=== PATIENT | female | born 1955 | race Caucasian/White ===

== ENCOUNTER 2019-12-17 08:15 | Emergency (ER) | payer MEDICAID, SELFPAY ==
--- NOTE | 2019-12-17 | XR_ITS ---
EXAMINATION: XR SHOULDER, BILATERAL. XR HUMERUS, RIGHT. CLINICAL INFORMATION: Fall COMPARISON: 02/22/2019 chest radiograph TECHNIQUE: 2 views of each shoulder. AP and lateral views of the right humerus. FINDINGS: Right shoulder and humerus. Normal glenohumeral alignment. Moderate hypertrophic acromioclavicular osteoarthritis. Mild glenohumeral osteoarthritis with small osteophyte at the inferior glenoid. Subacromial spur. There is no acute fracture of the right shoulder or humerus. Left shoulder: No acute fracture or dislocation. Moderate hypertrophic acromioclavicular osteoarthritis and mild glenohumeral osteoarthritis. IMPRESSION: No acute fracture or dislocation of either shoulder or right humerus. Acromioclavicular and glenohumeral osteoarthritis as described.
--- NOTE | 2019-12-17 | CT_ITS ---
EXAMINATION: CT HEAD WITHOUT CONTRAST CLINICAL INFORMATION: Fall, trauma, pain COMPARISON: None TECHNIQUE: Contiguous axial imaging was performed from the skull base to vertex without intravenous administration of contrast. This CT examination was performed using dose optimization techniques as appropriate, variously including the following: *Automated exposure control *Adjustment of mA and/or kV according to patient size (this includes techniques or standardized protocols for targeted exams where dose is matched to indication/reason for exam; i.e. extremities or head) *Use of iterative reconstruction technique DLP: 559 mGy-cm FINDINGS: There is no intracranial hemorrhage, hematoma, or extra-axial fluid collection. The ventricles are normal in size. There is no hydrocephalus, edema, or mass effect. The [place]-white matter differentiation appears symmetric. There is no visible acute territorial infarct or mass lesion. The calvarium appears intact. There is no pneumocephalus or orbital emphysema. The visualized sinuses and middle ears and mastoid air cells show no significant mucosal thickening. There are no air-fluid levels. IMPRESSION: No acute intracranial abnormality.
[2019-12-17 08:28] VITALS: BP 148/93; PULSE 90; RESP 16; TEMP 36.5; O2SAT 99; BMI 28.9
--- NOTE | 2019-12-17 08:55 | ED.EXTPRO ---
HPI - Extremity Problem General Chief complaint: Extremity Injury, Upper Stated complaint: fall, shoulder pain Time Seen by Provider: 12/17/19 08:41 Source: patient Mode of arrival: ambulatory History of Present Illness HPI Narrative: 64-year-old female with a past medical history of anxiety, arthritis, depression, fibromyalgia complaining of bilateral shoulder pain greater on the right s/p mechanical fall yesterday. Patient reports was standing on a chair when lost balance and fell backwards + Head trauma, denies LOC. Reports assoc tingling down RUE and mild residual headache. Denies taking anticoagulation. Reports decreased range of motion to both arms. Denies neck/ back pain, visual changes, numbness MD Complaint: extremity pain Onset (ago): day(s) Pain Consistency: constant Location: left, right and upper extremity Quality: aching Relieving factors: nothing Exacerbating factors: range of motion Related Data Previous Rx's Medication Instructions Recorded cyclobenzaprine 5 mg PO Q8H PRN 5 Days #14 tab 12/17/19 lidocaine [Lidoderm] 1 patch TOPICAL DAILY PRN #30 ea 12/17/19 MDD remove after 12 hours naproxen 500 mg PO BID PRN 10 Days #20 tab 12/17/19 Allergies Allergy/AdvReac Type Severity Reaction Status Date / Time barium sulfate Allergy Intermediate HIVES Verified 12/17/19 08:18 [CONTRAST,ORAL] Iodinated Contrast Media Allergy Intermediate HIVES Verified 12/17/19 08:18 [IV CONTRAST] Contrast Allergy PreMed Pack Allergy Unknown Hives Uncoded 12/17/19 08:18 Contrast Dye Allergy Unknown Hives Uncoded 12/17/19 08:18 woke up from GET with Allergy Unknown Vomiting Uncoded 12/17/19 08:18 vomiting Review of Systems Review of Systems: Yes all other systems are reviewed and are negative Constitutional: Constitutional: Reports as per HPI, Reports no additional constitutional complaints, Denies chills, Denies fever(s) and Reports headache(s) Eyes: Eyes: Reports as per HPI, Reports no additional eye complaints and Denies change in vision ENT: Reports system reviewed and no additional complaints, except as documented, Reports as per HPI, Reports headache(s) and Denies neck pain Cardiovascular: Cardiovascular: Reports as per HPI, Reports no additional cardiovascular complaints and Denies chest pain Respiratory: Respiratory: Reports as per HPI and Reports no additional respiratory complaints Gastrointestinal: Gastrointestinal: Reports as per HPI, Denies nausea and Denies vomiting Musculoskeletal: Musculoskeletal: Reports as per HPI, Denies abnormal gait, Denies back pain, Reports arthralgias, Reports joint swelling, Reports limited range of motion, Denies neck pain, Denies numbness, Reports stiffness and Reports tingling Integumentary/Breasts: Skin/Breast: Denies rash Neurologic: Denies abnormal gait, Reports headache(s), Denies numbness, Denies Sensory deficit (Neuro) and Reports tingling Psychiatric: Psychiatric: Reports no additional psychiatric complaints [facility] Past Medical History Attestation statement: The following information was validated with the patient. Medical History Anxiety Arthritis Depression Fibromyalgia Surgical History History of carpal tunnel surgery History of carpal tunnel surgery of left wrist Previous section Social History Social History Alcohol intake: never Smoking Status: Never smoker Use of substances other than those prescribed or required for medical reasons: No Advance Directives: No (ISOLATION) Advance Directives Information Provided: No (ISOLATION) Physical Exam Vital Signs and I&O and Narrative: Vital Signs and I&O: Vital Signs Temp 97.7 F 12/17/19 08:28 Pulse 90 12/17/19 08:28 Resp 16 12/17/19 08:28 BP 148/93 H 12/17/19 08:28 Pulse Ox 99 12/17/19 08:28 Intake & Output 12/16/19 12/17/19 12/17/19 18:59 06:59 18:59 Weight 67.132 kg Body Mass Index 28.9 Const: General: cooperative and healthy appearing Orientation/consciousness: patient oriented x3 Limitations: no limitations HENMT: Head: Yes normal to inspection, Yes No palpable skull fracture present, Yes normocephalic and Yes atraumatic Ears: hearing grossly normal bilaterally General nose exam: Normal external nose present Face and sinus: Yes normal facial exam Mouth: Normal oral and palatal mucosa present Throat: Yes uvula midline Eyes: General: appearance normal, both eyes and all related structures Pupils: Equal, round and reactive pupils present EOM: EOMs intact bilaterally Direct Ophthalmoscopy: normal light reflex and no photophobia Neck: Other: no midline spinous tenderness Neck: Yes normal visual inspection, Yes full ROM, Yes no lymphadenopathy, Yes no meningeal signs and Yes trachea midline Resp: Effort & Inspection: normal respiratory effort and no stridor Cardio: Rate: regular rate Peripheral pulses: Peripheral pulses 2+ throughout GI: Inspection: Yes normal to inspection Back/Spine/Pelvis: Other: no midline spinous thoracic/lumbar tenderness Thoracic/Lumbar Spine: thoracic and lumbar spine normal to inspection Skin: Wounds: no wounds Neuro: General: patient oriented x3 and no meningeal signs Cranial nerves: Yes Equal, round and reactive pupils present Gait exam (Neuro): Normal gait present Sensory Exam: No Sensory deficit (Neuro) Extrem: Right upper extremity: shoulder/upper arm Details: tenderness, swelling and abnormal ROM; no crepitus Left upper extremity: shoulder/upper arm Details: inspection abnormal, tenderness and abnormal ROM; no swelling, no crepitus and no deformity Course Course Course Narrative: head CT unremarkable No acute fracture or dislocation of either shoulder or right humerus. Osteoarthritis noted imaging results discussed with patient including physical therapy and PCP follow-up MDM - Extremity (Nontraumatic) MDM Narrative Medical decision making narrative: 64-year-old female with a past medical history of anxiety, arthritis, depression, fibromyalgia complaining of bilateral shoulder pain greater on the right s/p mechanical fall yesterday. On exam VSS, NAD is well appearing. No midline spinous tenderness. Bilateral shoulders with tenderness and decreased range of motion greater on the right. Concern for MSK pain vs fracture vs ? dislocation. Rule out ICH. Low concern for skull fracture/ICH plan: Head CT, x-rays Discharge Plan Discharge Clinical Impression: Osteoarthritis, Arthralgia Patient Disposition: Home, Self-Care Instructions: Osteoarthritis (ED) Additional Instructions: your x-ray showed osteoarthritis Naproxen as an anti-inflammatory pain medication, take with food Flexeril as a muscle relaxer, take at night as it makes you drowsy, do not drive, drink alcohol, or operate machinery while taking In addition take Tylenol at home. Lidoderm patches or numbing patches Follow up with her doctor You likely need physical therapy Prescriptions: New naproxen 500 mg tablet 500 mg PO BID PRN (Reason: pain) 10 Days Qty: 20 RF: 0 lidocaine [Lidoderm] 5 % adhesive patch,medicated 1 patch topical DAILY MDD remove after 12 hours PRN (Reason: pain) Qty: 30 RF: 0 cyclobenzaprine 5 mg tablet 5 mg PO Q8H PRN (Reason: pain (scale score 7-10)) 5 Days Qty: 14 RF: 0 Referrals: Lynn Hsu MD [Primary Care Provider] - 2 days Print Language: Upper Sorbian
--- NOTE | 2019-12-17 09:12 | PC.NURSE ---
returned from radiology, ambulatory with steady gait, cold pack to rt shoulder, rue resting on pillow for comfort
== END 2019-12-17 10:00 | disposition home or self-care (01) ==
PROVIDERS: Emergency Provider Emergency Medicine; PCP Internal Medicine
DX: M19.011 Primary osteoarthritis, right shoulder (principal); M19.012 Primary osteoarthritis, left shoulder; M25.512 Pain in left shoulder; M25.511 Pain in right shoulder
CPT/HCPCS: 70450; 73030; 73060; 99284

== ENCOUNTER 2020-01-02 11:59 | Outpatient (REF) | payer MEDICAID, SELFPAY ==
[2020-01-02 14:03] LABS: C Reactive Protein 0.28 mg/dL (< or = 0.50); Cholesterol 251 mg/dL
[2020-01-02 14:25] LABS: Vitamin D 25-OH Total 22.7 ng/mL (>30)
[2020-01-02 14:33] LABS: Erythrocyte Sedimentation Rate 7 MM/HR (0-20)
== END 2020-01-02 12:00 | disposition home or self-care (01) ==
LOC: HO.10HDL 11:59
PROVIDERS: Visit Provider Internal Medicine
DX: M19.019 Primary osteoarthritis, unspecified shoulder (principal); K21.9 Gastro-esophageal reflux disease without esophagitis; E78.00 Pure hypercholesterolemia, unspecified
CPT/HCPCS: 36415; 82306; 82465; 85652; 86140

== ENCOUNTER → 2020-01-09 09:29 | Outpatient (BNVA) | payer MEDICAID, SELFPAY | PROVIDERS: PCP Internal Medicine; Referring Provider Internal Medicine; Visit Provider Orthopaedic Surgery | DX: M75.41 Impingement syndrome of right shoulder (principal) | CPT/HCPCS: 20610; 99202; J1040 ==

== ENCOUNTER 2020-06-21 14:00 | Outpatient (RCR) | payer MEDICAID, SELFPAY | END 2020-08-12 12:51 | disposition other institution (70) | LOC: HO.PT 14:00 | PROVIDERS: PCP Internal Medicine; Visit Provider Physician Assistant | DX: M75.101 Unspecified rotator cuff tear or rupture of right shoulder, not specified as traumatic (principal) | CPT/HCPCS: 97110; 97140; 97161 ==

== ENCOUNTER 2020-07-08 10:18 | Outpatient (REF) | payer MEDICAID, SELFPAY ==
--- NOTE | ~2020-07-08 | XR_ITS ---
EXAMINATION: XR SHOULDER, LEFT CLINICAL INFORMATION: Left shoulder pain. COMPARISON: None TECHNIQUE: Five views of the left shoulder. FINDINGS: Mild acromioclavicular arthritis. Small spurring in the inferior glenohumeral joint. No acute fracture or dislocation. No abnormal soft tissue calcification. Visualized left lung is clear. XR/XR shoulder LT min 2V IMPRESSION: Mild acromioclavicular arthritis. Mild glenohumeral joint spurring. No acute findings.
[2020-07-08 13:00] LABS: Alanine Aminotransferase 25 U/L (0-31); Albumin Level 4.2 g/dL (3.5-5.0); Alkaline Phosphatase 99 U/L (39-117); Anion Gap 14 (12-20); Aspartate Amino Transferase 19 U/L (5-31); Bilirubin Total 0.8 mg/dL (0.0-1.0); Blood Urea Nitrogen 14 mg/dL (9-16); Calcium 9.1 mg/dL (8.4-10.2); Carbon Dioxide 25 mmol/L (22-29); Chloride 104 mmol/L (96-108); Cholesterol 241 mg/dL; Estimated Glomerular Filt Rate > 60; Glucose Fasting 145 mg/dL (60-99); HDL Cholesterol 47 mg/dL; LDL Cholesterol Calculated 156 mg/dl; Potassium 4.3 mmol/L (3.3-5.1); Sodium 139 mmol/L (135-145); Total Protein 6.9 g/dL (6.5-8.0); Triglycerides 190 mg/dL
== END 2020-07-08 10:19 | disposition home or self-care (01) ==
LOC: HO.10HDL 10:18
PROVIDERS: PCP Internal Medicine; Visit Provider Internal Medicine
DX: M25.512 Pain in left shoulder (principal); E78.00 Pure hypercholesterolemia, unspecified
CPT/HCPCS: 36415; 73030; 80053; 80061

== ENCOUNTER 2020-09-08 09:38 | Outpatient (REF) | payer OTHER, SELFPAY ==
[2020-09-08 11:04] LABS: Alanine Aminotransferase 20 U/L (0-31); Albumin Level 4.1 g/dL (3.5-5.0); Alkaline Phosphatase 82 U/L (39-117); Anion Gap 12 (12-20); Aspartate Amino Transferase 15 U/L (5-31); Bilirubin Total 0.6 mg/dL (0.0-1.0); Blood Urea Nitrogen 21 mg/dL (9-16); Calcium 9.3 mg/dL (8.4-10.2); Carbon Dioxide 24 mmol/L (22-29); Chloride 107 mmol/L (96-108); Cholesterol 240 mg/dL; Estimated Glomerular Filt Rate > 60; Glucose Fasting 114 mg/dL (60-99); HDL Cholesterol 72 mg/dL; LDL Cholesterol Calculated 147 mg/dl; Potassium 4.6 mmol/L (3.3-5.1); Sodium 138 mmol/L (135-145); Total Protein 6.8 g/dL (6.5-8.0); Triglycerides 108 mg/dL
== END 2020-09-08 09:39 | disposition home or self-care (01) ==
LOC: HO.LAB 09:38
PROVIDERS: PCP Internal Medicine; Visit Provider Internal Medicine
DX: E78.5 Hyperlipidemia, unspecified (principal); R73.02 Impaired glucose tolerance (oral)
CPT/HCPCS: 36415; 80053; 80061

== ENCOUNTER 2020-10-24 19:16 | Emergency (ER) | payer OTHER, SELFPAY ==
--- NOTE | ~2020-10-24 | CT_ITS ---
EXAMINATION: CT ABDOMEN AND PELVIS WITHOUT CONTRAST CLINICAL INFORMATION: Umbilical pain. Vomiting. COMPARISON: 04/03/2019 TECHNIQUE: Multidetector volumetric imaging was performed from the superior aspect of the liver through the pubic symphysis. Sagittal and coronal reformatted images were obtained on the technologist's workstation. This CT examination was performed using dose optimization techniques as appropriate, variously including the following: *Automated exposure control *Adjustment of mA and/or kV according to patient size (this includes techniques or standardized protocols for targeted exams where dose is matched to indication/reason for exam; i.e. extremities or head) *Use of iterative reconstruction technique DLP: 646 mGy-cm FINDINGS: LUNG BASES: Patchy groundglass opacities are seen at both lung bases. Visualized cardiac structures are unremarkable. LIVER, GALLBLADDER, AND BILIARY TREE: The liver is normal in size, shape, and attenuation. No focal hepatic lesion or biliary ductal dilatation is present. The gallbladder is unremarkable with no evidence of radiopaque gallstones, gallbladder wall thickening, or obvious pericholecystic inflammatory changes. PANCREAS: Unremarkable. SPLEEN: Unremarkable. ADRENAL GLANDS: The left adrenal gland is unremarkable. Right adrenal adenoma noted. KIDNEYS AND URETERS: The kidneys are normal in size, shape, and attenuation. No hydronephrosis, hydroureter, or calculi seen. No perinephric stranding. BLADDER: Unremarkable. GASTROINTESTINAL TRACT: The stomach is unremarkable. Normal caliber small bowel. There is no obstruction. There is a linear radiopaque foreign body in the central abdomen which is seen in the region of the lesser curvature of the stomach near the antrum. This is unchanged from prior. Normal appendix. No colonic wall thickening or inflammatory change. No free air. Small amount of free fluid in the pelvis. ABDOMINAL WALL: No significant hernia is appreciated. LYMPH NODES: Normal. VASCULAR: Normal caliber aorta with mild atherosclerotic calcification. PELVIC VISCERA: The uterus and adnexa are unremarkable. OSSEOUS STRUCTURES: No acute or suspicious osseous abnormality. Mild degenerative change at L5-S1 with vacuum disc phenomenon and disc space narrowing noted. CT/CT abdomen pelvis wo con IMPRESSION: No acute findings in the abdomen or pelvis. No inflammatory changes. Normal appendix. Nonspecific small amount of pelvic free fluid. Linear radiopaque foreign body in the central abdomen is unchanged from prior.
[2020-10-24 19:42] VITALS: BP 116/72; PULSE 97; RESP 18; TEMP 37.4; O2SAT 96; BMI 23.4
--- NOTE | 2020-10-24 21:11 | ECG_ITS ---
Test Reason : ABDOMINAL PAIN Blood Pressure : / mmHG Vent. Rate : 091 BPM Atrial Rate : 091 BPM P-R Int : 142 ms QRS Dur : 078 ms QT Int : 346 ms P-R-T Axes : 058 -27 047 degrees QTc Int : 425 ms Normal sinus rhythm Moderate voltage criteria for LVH, may be normal variant Borderline ECG When compared with ECG of 02-APR-2019 11:35, No significant change was found Referred By: Brooke Adkins Electronically Signed By:ROBIN GERARDO
--- NOTE | 2020-10-24 21:11 | ED_ITS ---
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 Mode of arrival: ambulatory Limitations: no limitations History of Present Illness MD elicited complaint: abdominal pain Pertinent past history: none Onset (ago): day(s) (6) Pain Consistency: constant Location: epigastric Severity: moderate Quality: other Radiation: none Migration to: no migration Exacerbating factors: nothing Relieving factors: nothing Associated symptoms: nausea Related Data Home Medications Medication Instructions Recorded Confirmed citalopram 10 mg tablet 10 mg PO DAILY 01/09/20 10/04/20 lorazepam 0.5 mg tablet 1 mg PO BID PRN tab 01/09/20 10/04/20 albuterol sulfate 1.25 mg/3 mL mg PO QID 08/02/20 10/04/20 solution for nebulization cyclobenzaprine 5 mg tablet 10 mg PO Q8H PRN tab 08/02/20 10/04/20 cortisone 50 mg/mL intramuscular mg IM 10/04/20 10/04/20 suspension Previous Rx's Medication Instructions Recorded naproxen 500 mg tablet 500 mg PO BID PRN 10 Days #20 tab 12/17/19 albuterol sulfate 90 mcg/actuation 2 puff INHALATION Q4-6H PRN #8.5 g 10/04/20 aerosol inhaler nebulizers #1 ea 10/06/20 nystatin 100,000 unit/gram topical 1 appl TOPICAL BID 14 Days #60 g 10/06/20 powder ondansetron 4 mg disintegrating 4 mg PO Q8H PRN 7 Days #21 tab 10/21/20 tablet prednisone 10 mg tablet 10 mg PO BID 3 Days #6 tab 10/21/20 famotidine 20 mg tablet (Pepcid) 20 mg PO DAILY PRN #30 tab 10/25/20 ondansetron 4 mg disintegrating 4 mg PO Q8H PRN #20 tab 10/25/20 tablet Allergies Allergy/AdvReac Type Severity Reaction Status Date / Time barium sulfate Allergy Intermediate HIVES Verified 10/04/20 16:39 [CONTRAST,ORAL] Iodinated Contrast Media Allergy Intermediate HIVES Verified 10/04/20 16:39 [IV CONTRAST] ondansetron [From Zofran] Allergy Stomach Verified 10/24/20 21:36 Upset Contrast Allergy PreMed Pack Allergy Intermediate Hives Uncoded 10/04/20 16:39 Contrast Dye Allergy Intermediate Hives Uncoded 10/04/20 16:39 woke up from GET with Allergy Intermediate Vomiting Uncoded 10/04/20 16:39 vomiting Review of Systems Review of Systems Constitutional : No Weight loss, No Fever, No Chills ENT/Mouth : No sore throat, No Rhinorrhea Eyes: No Swelling, No Redness Cardiovascular : No Chest Pain, No SOB, NoEdema Respiratory : No Cough, No Sputum, No Wheezing Gastrointestinal : Positive Nausea, no Vomiting, no Diarrhea, positive abdominal Pain, No Hematochezia, No Melena Genitourinary : No Dysuria, No Urinary Frequency, No Hematuria, No Urgency Musculoskeletal : No joint pain, No Myalgias, No Joint Swelling Skin : No Skin Lesions, No rash Neuro : No Weakness, No Numbness, No Dizziness, No Headache Psych : No Anxiety/Panic, No Depression Heme/Lymph: No Bruising, No Lymphadenopathy Endocrine : No Polyuria, No Polydipsia All other systems reviewed and are negative. Physical Exam Vital Signs: Vital Signs: Last Vital Signs Temp 97.9 F 10/24/20 22:00 Pulse 96 10/24/20 23:40 Resp 20 10/24/20 23:40 BP 125/67 10/24/20 23:40 Pulse Ox 94 10/24/20 23:40 Body Mass Index 23.4 Appearance: Alert. Oriented X3. No acute distress. Eyes: Pupils equal, round and reactive to light. ENT: Pharynx normal. Neck: Normal inspection. Neck supple. CVS: Normal heart rate and rhythm. Pulses normal. Respiratory: No respiratory distress. Breath sounds normal. Abdomen: Soft and mild epigastric ttp no rebound or guarding, neg ritter's sign Skin: Skin warm and dry. Normal skin color. Normal skin turgor. Extremities: No lower extremity edema. No calf ttp Neuro: Oriented X 3. No motor deficit. No sensory deficit. Course Course Course Narrative: labs stable CT scan stable no acute findings, unchanged linear density, GGO both lungs has no respiratory complaints COVID swab ordered + COVID, no respiratory complaints, no hypoxia can be DC home at this time patient tells me that her orthopedic surgeon told her not to get the COVID shot until 2 months after her steroid injections were given - she is not vaccinated yet. MDM - Abdominal Pain MDM Narrative Medical decision making narrative: 65 yo female with hx of HLD, asthma, reports needle inside of her but then denies surgery and cannot elaborate why she would have a needle in her abdomen - at this time labs, IVF, zofran, EKG, CT scan for obstruction ordered, dispo per results and findings. Lab Data Result diagrams: 10/24/20 21:31 10/24/20 21:31 Labs: Lab Results 10/24/20 10/24/20 10/24/20 Range/Units 21:31 21:31 21:31 WBC 6.7 (4.8-10.8) X10*3/uL RBC 4.67 (4.20-5.50) X10*6/uL Hgb 14.3 (12.0-16.0) g/dl Hct 42.7 (37-47) % MCV 91.4 (80-98) fL MCH 30.6 (27.0-33.0) pg MCHC 33.5 (31.0-35.0) g/dl RDW 13.8 (11.0-16.0) % Plt Count 146 L (160-400) X10*3/uL MPV 11.0 (9.4-12.3) fL Immature Gran % (Auto) 0.9 H (0.0-0.4) % Neut % (Auto) 76.1 H (45-73) % Lymph % (Auto) 16.6 L (20-40) % [place] % (Auto) 6.3 (2-11) % Eos % (Auto) 0.0 (0-4) % Baso % (Auto) 0.1 (0-2) % Lymph # (Auto) 1.1 L (1.2-4.9) X10*3/uL [place] # (Auto) 0.4 (0.1-1.2) X10*3/uL Eos # (Auto) 0.0 (0.0-0.4) X10*3/uL Baso # (Auto) 0.0 (0.0-0.2) X10*3/uL Abs Immat Gran (auto) 0.06 H (0.00-0.03) X10*3/uL Absolute Neuts (auto) 5.1 (2.0-8.3) X10*3/uL Absolute Nucleated RBC 0.000 (0.0-0.012) X10*3/uL Nucleated RBC % (auto) 0.0 (0.0-0.2) /100WBC Sodium 139 (135-145) mmol/L Potassium 3.8 (3.3-5.1) mmol/L Chloride 102 (96-108) mmol/L Carbon Dioxide 25 (22-29) mmol/L Anion Gap 16 (12-20) BUN 14 (9-16) mg/dL Creatinine 0.77 (0.5-1.4) mg/dL Estim Creat Clear Calc 53.0 Estimated GFR > 60 Random Glucose 101 (60-115) mg/dL Calcium 8.9 (8.4-10.2) mg/dL Magnesium 2.2 (1.6-2.6) mg/dL Total Bilirubin 0.6 (0.0-1.0) mg/dL Direct Bilirubin 0.2 (0.0-0.5) mg/dL AST 36 H D (5-31) U/L ALT 31 (0-31) U/L Alkaline Phosphatase 53 D (39-117) U/L Troponin I High Sens (<3.5-17.0) ng/L Total Protein 6.8 (6.5-8.0) g/dL Albumin 4.1 (3.5-5.0) g/dL Lipase 14 (8-78) U/L Urine Color Urine Appearance Urine pH (5.0-8.0) Ur Specific [place] (1.005-1.025) Urine Protein (NEG-TRACE) MG/DL Urine Glucose (UA) (NEG) MG/DL Urine Ketones (NEG) MG/DL Urine Blood (NEG) Urine Nitrite (NEG) Ur Leukocyte Esterase (NEG) Urine RBC (0) /HPF Urine WBC (0-4) /HPF Ur Squamous Epith Cells /LPF Amorphous Sediment /LPF Urine Bacteria /LPF Urine Mucus /LPF COVID-19 (ANGELA) (Negative) COVID-19 Clin Com 10/24/20 10/24/20 10/24/20 Range/Units 21:31 21:31 23:57 WBC (4.8-10.8) X10*3/uL RBC (4.20-5.50) X10*6/uL Hgb (12.0-16.0) g/dl Hct (37-47) % MCV (80-98) fL MCH (27.0-33.0) pg MCHC (31.0-35.0) g/dl RDW (11.0-16.0) % Plt Count (160-400) X10*3/uL MPV (9.4-12.3) fL Immature Gran % (Auto) (0.0-0.4) % Neut % (Auto) (45-73) % Lymph % (Auto) (20-40) % [place] % (Auto) (2-11) % Eos % (Auto) (0-4) % Baso % (Auto) (0-2) % Lymph # (Auto) (1.2-4.9) X10*3/uL [place] # (Auto) (0.1-1.2) X10*3/uL Eos # (Auto) (0.0-0.4) X10*3/uL Baso # (Auto) (0.0-0.2) X10*3/uL Abs Immat Gran (auto) (0.00-0.03) X10*3/uL Absolute Neuts (auto) (2.0-8.3) X10*3/uL Absolute Nucleated RBC (0.0-0.012) X10*3/uL Nucleated RBC % (auto) (0.0-0.2) /100WBC Sodium (135-145) mmol/L Potassium (3.3-5.1) mmol/L Chloride (96-108) mmol/L Carbon Dioxide (22-29) mmol/L Anion Gap (12-20) BUN (9-16) mg/dL Creatinine (0.5-1.4) mg/dL Estim Creat Clear Calc Estimated GFR Random Glucose (60-115) mg/dL Calcium (8.4-10.2) mg/dL Magnesium (1.6-2.6) mg/dL Total Bilirubin (0.0-1.0) mg/dL Direct Bilirubin (0.0-0.5) mg/dL AST (5-31) U/L ALT (0-31) U/L Alkaline Phosphatase (39-117) U/L Troponin I High Sens 11.9 (<3.5-17.0) ng/L Total Protein (6.5-8.0) g/dL Albumin (3.5-5.0) g/dL Lipase (8-78) U/L Urine Color YELLOW Urine Appearance HAZY Urine pH 5.5 (5.0-8.0) Ur Specific [place] >= 1.030 H (1.005-1.025) Urine Protein 2+ H (NEG-TRACE) MG/DL Urine Glucose (UA) NEG (NEG) MG/DL Urine Ketones 15 (NEG) MG/DL Urine Blood NEG (NEG) Urine Nitrite NEG (NEG) Ur Leukocyte Esterase NEG (NEG) Urine RBC 0 (0) /HPF Urine WBC 0 (0-4) /HPF Ur Squamous Epith Cells 3+ /LPF Amorphous Sediment 1+ /LPF Urine Bacteria TRACE /LPF Urine Mucus 2+ /LPF COVID-19 (ANGELA) Positive A (Negative) COVID-19 Clin Com See Note ECG Data Attestation: I personally reviewed and interpreted this ECG as follows: ECG interpretation date: 10/24/20 ECG interpretation time: 21:21 Interpretation: Rate: 91 Rhythm: NSR [place]: left, LVH Normal P waves. Normal TOMMY. Normal QRS complex. ST T wave : normal no RIA qTC: normal prior studies: no acute ischemia The study has been interpreted contemporaneously by me. . Discharge Plan Discharge Clinical Impression: COVID-19 Abdominal pain Qualifiers: Abdominal location: epigastric Qualified Code(s): R10.13 - Epigastric pain Patient Disposition: Home, Self-Care Instructions: Abdominal Pain (ED), COVID-19 (Coronavirus Disease 2019) (ED) Additional Instructions: return to ED for any worsening symptoms or concerns if you are so short of breath you cannot walk to your bathroom please return. wear a mask and quarantine yourself. Si tiene tanta dificultad para respirar que no puede caminar hasta el ba?o, regrese. Chrissy soledad m?scara y chrissy en cuarentena. Prescriptions: New famotidine [Pepcid] 20 mg tablet 20 mg PO DAILY PRN (Reason: abdominal discomfort) Qty: 30 RF: 0 ondansetron 4 mg tablet,disintegrating 4 mg PO Q8H PRN (Reason: nausea and vomiting) Qty: 20 RF: 0 No Action nystatin 100,000 unit/gram powder 1 appl topical BID 14 Days Qty: 60 RF: 0 (DME) nebulizers Misc See Rx Instructions .Route Qty: 1 RF: 0 ondansetron 4 mg tablet,disintegrating 4 mg PO Q8H PRN (Reason: nausea and vomiting) 7 Days Qty: 21 RF: 0 prednisone 10 mg tablet 10 mg PO BID 3 Days Qty: 6 RF: 0 naproxen 500 mg tablet 500 mg PO BID PRN (Reason: pain) 10 Days Qty: 20 RF: 0 cortisone 50 mg/mL suspension IM RF: 0 albuterol sulfate 90 mcg/actuation HFA aerosol inhaler 2 puff inhalation Q4-6H PRN (Reason: shortness of breath or wheezing) Qty: 8. 5 RF: 0 albuterol sulfate 1.25 mg/3 mL solution for nebulization PO QID RF: 0 cyclobenzaprine 5 mg tablet 10 mg PO Q8H PRN (Reason: pain (scale score 7-10)) RF: 0 lorazepam 0.5 mg tablet 1 mg PO BID PRNRF: 0 citalopram 10 mg tablet 10 mg PO DAILY RF: 0 Interventions: ED Discharge Assessment Last Done: 10/25/20 00:58 Print Language: French [facility] Past Medical History Attestation statement: The following information was validated with the patient. Medical History Anxiety Arthritis Depression Dyslipidemia Fibromyalgia History of asthma Impaired glucose tolerance Rash Surgical History History of carpal tunnel surgery History of carpal tunnel surgery of left wrist Previous section Family History Family History Mother Colon cancer Hypertension Glaucoma Arthritis Father Bone cancer Social History Social History Housing: Apartment Alcohol intake: never Patient Tobacco Use Status: Never used Tobacco Use of substances other than those prescribed or required for medical reasons: No Advance Directives: No Advance Directives Information Provided: No Current occupational status: disabled Current occupation: Right Handed
--- NOTE | 2020-10-24 21:25 | PC.NURSE ---
at bedside for primary eval.
[2020-10-24] MEDS: 0.9 % Sodium Chloride 1,000 ML 999 ML IVCONT (21:36)
[2020-10-24 21:41] LABS: MANUAL DIFF FLAG NO
[2020-10-24 21:48] LABS: Basophils Percent Auto 0.1 % (0-2); Hematocrit 42.7 % (37-47); Hemoglobin 14.3 g/dl (12.0-16.0); Imm Gran Abs Auto 0.06 X10*3/uL (0.00-0.03); Imm Gran Pct Auto 0.9 % (0.0-0.4); Lymphocytes Absolute Auto 1.1 X10*3/uL (1.2-4.9); Lymphocytes Percent Auto 16.6 % (20-40); Mean Corpuscular HGB Conc 33.5 g/dl (31.0-35.0); Mean Corpuscular Hemoglobin 30.6 pg (27.0-33.0); Mean Corpuscular Volume 91.4 fL (80-98); Monocytes Absolute Auto 0.4 X10*3/uL (0.1-1.2); Monocytes Percent Auto 6.3 % (2-11); Neutrophils Absolute Auto 5.1 X10*3/uL (2.0-8.3); Neutrophils Percent Auto 76.1 % (45-73); Platelet Count 146 X10*3/uL (160-400); Red Blood Count 4.67 X10*6/uL (4.20-5.50); Red Cell Distribution Width 13.8 % (11.0-16.0); White Blood Count 6.7 X10*3/uL (4.8-10.8)
--- NOTE | 2020-10-24 21:48 | PC.NURSE ---
Addendum entered by Manuela Tracey 10/24/20 21:50: Pt refused Zofran at this time, states she is allergic, reports an upset stomach after taking PO. Pt denies nausea at this time. Original Note: IV established, labs and UA obtained. Unable to obtain urine culture as pt had recently voided. Pt aware of plan for CT.
[2020-10-24 21:49] LABS: Glucose Urine UA NEG (NEG); Leukocyte Esterase Urine NEG (NEG); Nitrite Urine NEG (NEG); PH 5.5 (5.0-8.0); Specific Gravity - Urine >= 1.030 (1.005-1.025); UACC Culture Trigger NO; Urine Blood NEG (NEG); Urine Ketones 15 MG/DL (NEG); Urine Protein 2+ MG/DL (NEG-TRACE)
[2020-10-24 21:51] LABS: Appearance Urine HAZY; Color Urine YELLOW
[2020-10-24 21:56] LABS: Amorphous Sediment Urine 1+ /LPF; Bacteria Urine TRACE /LPF; Mucus Urine 2+ /LPF; RBC Urine 0 /HPF (0); Squamous Epithelial Cell Urine 3+ /LPF; WBC Urine 0 /HPF (0-4)
[2020-10-24 22:00] VITALS: BP 125/68; PULSE 97; RESP 18; TEMP 36.6; O2SAT 98
[2020-10-24 22:02] LABS: Anion Gap 16 (12-20); Blood Urea Nitrogen 14 mg/dL (9-16); Calcium 8.9 mg/dL (8.4-10.2); Carbon Dioxide 25 mmol/L (22-29); Chloride 102 mmol/L (96-108); Estimated Glomerular Filt Rate > 60; Glucose Random 101 mg/dL (60-115); Potassium 3.8 mmol/L (3.3-5.1); Sodium 139 mmol/L (135-145)
[2020-10-24 22:04] LABS: Alanine Aminotransferase 31 U/L (0-31); Albumin Level 4.1 g/dL (3.5-5.0); Alkaline Phosphatase 53 U/L (39-117); Aspartate Amino Transferase 36 U/L (5-31); Bilirubin Direct 0.2 mg/dL (0.0-0.5); Bilirubin Total 0.6 mg/dL (0.0-1.0); Lipase 14 U/L (8-78); Magnesium 2.2 mg/dL (1.6-2.6); Total Protein 6.8 g/dL (6.5-8.0)
[2020-10-24 22:09] LABS: Troponin-I High Sensitivity 11.9 ng/L (<3.5-17.0)
--- NOTE | 2020-10-24 23:16 | PC.NURSE ---
Pt returns from CT, awaiting results.
[2020-10-24] MEDS: Magnesium Hydrox/Alum Hydrox 30 ML ORAL.SUSP PO (23:39)
[2020-10-24] MEDS: Lidocaine HCl Viscous 2 % 15 ML SOLUTION MUCOUS MEM (23:39)
[2020-10-24 23:40] VITALS: BP 125/67; PULSE 96; RESP 20; O2SAT 94
--- NOTE | 2020-10-24 23:44 | PC.NURSE ---
Pt medicated per MAR. Awaiting discharge.
--- NOTE | 2020-10-25 00:02 | PC.NURSE ---
Covid swab obtained and sent. Pt unable to tolerate GI cocktail.
[2020-10-25 00:43] LABS: IDNOW Serial# 9DD0AD1C
[2020-10-25 00:45] LABS: COVID-19 Test Positive (Negative)
--- NOTE | 2020-10-25 00:46 | PC.NURSE ---
Pt requesting to leave, ringing her call macdonald multiple times. aware.
--- NOTE | 2020-10-25 00:58 | PC.NURSE ---
MD at bedside discussing Covid results and plan for discharge.
== END 2020-10-25 01:25 | disposition home or self-care (01) ==
PROVIDERS: Emergency Provider Emergency Medicine; PCP Internal Medicine
DX: U07.1 COVID-19 (principal); R10.13 Epigastric pain; Z79.899 Other long term (current) drug therapy
CPT/HCPCS: 36415; 74176; 80048; 80076; 81001; 83690; 83735; 84484; 85025; 87635; 93005; 96361; 96374; 99284

== ENCOUNTER 2020-10-29 13:03 | Emergency (ER) | payer OTHER, SELFPAY ==
--- NOTE | ~2020-10-29 | XR_ITS ---
EXAMINATION: XR CHEST CLINICAL INFORMATION: Upper respiratory infection COMPARISON: None TECHNIQUE: Frontal view of the chest was obtained. FINDINGS: Patchy rounded peripheral infiltration is noted bilaterally. Heart and mediastinal normal. No pleural disease. Osseous structures appear intact. XR/XR chest 1V IMPRESSION: Radiographic pattern suggests atypical infection.
[2020-10-29 14:14] VITALS: BP 116/75; PULSE 91; RESP 18; TEMP 36.3; O2SAT 96; BMI 25.0
[2020-10-29 14:58] LABS: Basophils Percent Auto 0.1 % (0-2); Eosinophils Percent Auto 0.3 % (0-4); Hemoglobin 13.8 g/dl (12.0-16.0); Imm Gran Abs Auto 0.12 X10*3/uL (0.00-0.03); Imm Gran Pct Auto 1.7 % (0.0-0.4); Lymphocytes Absolute Auto 1.3 X10*3/uL (1.2-4.9); Lymphocytes Percent Auto 18.2 % (20-40); MANUAL DIFF FLAG SCAN; Mean Corpuscular HGB Conc 33.7 g/dl (31.0-35.0); Mean Corpuscular Hemoglobin 30.7 pg (27.0-33.0); Mean Corpuscular Volume 91.1 fL (80-98); Monocytes Absolute Auto 0.7 X10*3/uL (0.1-1.2); Monocytes Percent Auto 9.1 % (2-11); Neutrophils Absolute Auto 5.1 X10*3/uL (2.0-8.3); Neutrophils Percent Auto 70.6 % (45-73); Platelet Count 294 X10*3/uL (160-400); Red Cell Distribution Width 13.8 % (11.0-16.0); SCAN SMEAR FLAG 1; White Blood Count 7.3 X10*3/uL (4.8-10.8)
[2020-10-29 15:06] LABS: COVID-19 Test Positive (Negative); IDNOW Serial# 9DD0AD1C
[2020-10-29 15:18] LABS: SLIDE REVIEW VERIFIED
[2020-10-29 15:24] LABS: Anion Gap 17 (12-20); Blood Urea Nitrogen 13 mg/dL (9-16); Calcium 9.1 mg/dL (8.4-10.2); Carbon Dioxide 25 mmol/L (22-29); Chloride 102 mmol/L (96-108); Creatinine Clr Calc Pharmacy 75.5; Estimated Glomerular Filt Rate > 60; Glucose Random 87 mg/dL (60-115); Sodium 140 mmol/L (135-145)
--- NOTE | 2020-10-29 16:04 | ED_ITS ---
HPI - URI/Sore Throat General Chief Complaint: Upper Respiratory Symptoms Stated Complaint: covid symptoms Time Seen by Provider: 10/29/20 15:36 Source: patient Mode of arrival: ambulatory Limitations: no limitations History of Present Illness HPI Narrative: Patient presents to ED for body aches, coughing, and subjective fevers. Patient is not vaccinated against COVID-19. Patient denies any chest pain or shortness of breath. MD elicited complaint: cough Related Data Home Medications Medication Instructions Recorded Confirmed citalopram 10 mg tablet 10 mg PO DAILY 01/09/20 10/04/20 lorazepam 0.5 mg tablet 1 mg PO BID PRN tab 01/09/20 10/04/20 albuterol sulfate 1.25 mg/3 mL mg PO QID 08/02/20 10/04/20 solution for nebulization cyclobenzaprine 5 mg tablet 10 mg PO Q8H PRN tab 08/02/20 10/04/20 cortisone 50 mg/mL intramuscular mg IM 10/04/20 10/04/20 suspension Previous Rx's Medication Instructions Recorded naproxen 500 mg tablet 500 mg PO BID PRN 10 Days #20 tab 12/17/19 albuterol sulfate 90 mcg/actuation 2 puff INHALATION Q4-6H PRN #8.5 g 10/04/20 aerosol inhaler nebulizers #1 ea 10/06/20 nystatin 100,000 unit/gram topical 1 appl TOPICAL BID 14 Days #60 g 10/06/20 powder ondansetron 4 mg disintegrating 4 mg PO Q8H PRN 7 Days #21 tab 10/21/20 tablet prednisone 10 mg tablet 10 mg PO BID 3 Days #6 tab 10/21/20 famotidine 20 mg tablet (Pepcid) 20 mg PO DAILY PRN #30 tab 10/25/20 ondansetron 4 mg disintegrating 4 mg PO Q8H PRN #20 tab 10/25/20 tablet amoxicillin 875 mg-potassium 1 tab PO Q12H 5 Days #10 tab 10/29/20 clavulanate 125 mg tablet (Augmentin) dexamethasone 6 mg tablet 6 mg PO DAILY #10 tab 10/29/20 (Decadron) doxycycline hyclate 100 mg tablet 100 mg PO BID 7 Days #14 tab 10/29/20 Allergies Allergy/AdvReac Type Severity Reaction Status Date / Time barium sulfate Allergy Intermediate HIVES Verified 10/04/20 16:39 [CONTRAST,ORAL] Iodinated Contrast Media Allergy Intermediate HIVES Verified 10/04/20 16:39 [IV CONTRAST] ondansetron [From Zofran] Allergy Stomach Verified 10/24/20 21:36 Upset Contrast Allergy PreMed Pack Allergy Intermediate Hives Uncoded 10/04/20 16:39 Contrast Dye Allergy Intermediate Hives Uncoded 10/04/20 16:39 woke up from GET with Allergy Intermediate Vomiting Uncoded 10/04/20 16:39 vomiting Review of Systems Review of Systems: Yes all other systems are reviewed and are negative Constitutional: Constitutional: Reports as per HPI, Reports no additional constitutional complaints, Reports body ache(s) and Reports fever(s) Eyes: Eyes: Reports as per HPI and Reports no additional eye complaints ENT: Reports system reviewed and no additional complaints, except as documented and Reports as per HPI Cardiovascular: Cardiovascular: Reports as per HPI, Reports no additional cardiovascular complaints, Denies chest pain and Denies dyspnea Respiratory: Respiratory: Reports as per HPI, Reports no additional respiratory complaints, Reports cough, Denies pain with cough and Denies dyspnea Gastrointestinal: Gastrointestinal: Reports as per HPI and Reports no additional gastrointestinal complaints Musculoskeletal: Musculoskeletal: Reports no additional musculoskeletal comp laints and Reports as per HPI Neurologic: Reports system reviewed and no additional complaints, except as documented and Reports as per HPI Psychiatric: Psychiatric: Reports no additional psychiatric complaints and R eports as per HPI [facility] Past Medical History Medical History Anxiety Arthritis Depression Dyslipidemia Fibromyalgia History of asthma Impaired glucose tolerance Rash Surgical History History of carpal tunnel surgery History of carpal tunnel surgery of left wrist Previous section Family History Family History Mother Colon cancer Hypertension Glaucoma Arthritis Father Bone cancer Social History Social History Housing: Apartment Alcohol intake: never Patient Tobacco Use Status: Never used Tobacco Advance Directives: No Advance Directives Information Provided: No Patient : No Current occupational status: disabled Current occupation: Right Handed Physical Exam Vital Signs: Vital Signs: Last Vital Signs Temp 97.4 F 10/29/20 14:14 Pulse 91 10/29/20 14:14 Resp 18 10/29/20 14:14 BP 116/75 10/29/20 14:14 Pulse Ox 96 10/29/20 14:14 Body Mass Index 25.0 Const: General: cooperative, healthy appearing, comfortable, no acute distress, well developed, alert, awake and Physically active Orientation/consciousness: patient oriented x3 HENMT: Head: Yes normal to inspection, Yes No palpable skull fracture present, Yes normocephalic and Yes atraumatic Ears: hearing grossly normal bilaterally and external ears normal Eyes: General: appearance normal, both eyes and all related structures Neck: Neck: Yes normal visual inspection, Yes full ROM, Yes no lymp hadenopathy, Yes no meningeal signs, Yes trachea midline, Yes supple and No tender Chest: Chest palpation & inspection: normal inspection of the chest and normal palpation of entire chest wall Resp: Effort & Inspection: normal respiratory effort and able to speak in complete sentences Cardio: Jugular venous distension: no JVD Heart sounds: S1 normal heart sound present and S2 normal heart sound present GI: Inspection: Yes normal to inspection and No abdominal wall ecchymosis Palpation (GI): Soft to palpation, not firm, nontender, no guarding and not rigid : General: No CVA tenderness and Yes no CVA tenderness Back/Spine/Pelvis: Back: no CVA tenderness, No CVA tenderness and No back tenderness Skin: General skin exam: no rashes or lesions noted and elasticity normal Neuro: General: patient oriented x3, gait normal, no meningeal signs and CN's II-XI intact bilaterally Cranial nerves: Yes CN's II-XII intact bilaterally Extrem: General: Yes normal to inspection and Yes full ROM Psych: Appearance: grossly normal, well kempt and not disheveled Course Course Course Narrative: Patient had a rapid medical screening Reevaluation(s) Reevaluation #1: Patient's COVID swab positive. Patient labs are normal. Chest x-ray shows bilateral pneumonia. Patient is not hypoxic. Patient is not febrile or tachycardic. Patient given oral Reglan and oral fluids. Patient will be discharged with antibiotics and Decadron. Patient educated on signs of respiratory distress/failure and told to come to the ED if she has them. Patient also informed to buy pulse ox [id number] at pharmacy to evaluate O2 saturation. Time: 16:08 Reevaluation #2: Patient passed p.o. trial and drank 2 jugs of water. Patient will be given antibiotics and Decadron. Time: 16:46 MDM - URI/Sore Throat MDM Narrative Medical decision making narrative: COVID Lab Data Result diagrams: 10/29/20 14:51 10/29/20 14:51 Labs: Lab Results 10/29/20 10/29/20 10/29/20 Range/Units 14:51 14:51 14:51 WBC 7.3 (4.8-10.8) X10*3/uL RBC 4.50 (4.20-5.50) X10*6/uL Hgb 13.8 (12.0-16.0) g/dl Hct 41.0 (37-47) % MCV 91.1 (80-98) fL MCH 30.7 (27.0-33.0) pg MCHC 33.7 (31.0-35.0) g/dl RDW 13.8 (11.0-16.0) % Plt Count 294 D (160-400) X10*3/uL MPV 10.0 (9.4-12.3) fL Immature Gran % (Auto) 1.7 H (0.0-0.4) % Neut % (Auto) 70.6 (45-73) % Lymph % (Auto) 18.2 L (20-40) % [place] % (Auto) 9.1 (2-11) % Eos % (Auto) 0.3 (0-4) % Baso % (Auto) 0.1 (0-2) % Lymph # (Auto) 1.3 (1.2-4.9) X10*3/uL [place] # (Auto) 0.7 (0.1-1.2) X10*3/uL Eos # (Auto) 0.0 (0.0-0.4) X10*3/uL Baso # (Auto) 0.0 (0.0-0.2) X10*3/uL Abs Immat Gran (auto) 0.12 H (0.00-0.03) X10*3/uL Absolute Neuts (auto) 5.1 (2.0-8.3) X10*3/uL Absolute Nucleated RBC 0.000 (0.0-0.012) X10*3/uL Nucleated RBC % (auto) 0.0 (0.0-0.2) /100WBC Smear Tech's Comments VERIFIED Sodium 140 (135-145) mmol/L Potassium 4.0 (3.3-5.1) mmol/L Chloride 102 (96-108) mmol/L Carbon Dioxide 25 (22-29) mmol/L Anion Gap 17 (12-20) BUN 13 (9-16) mg/dL Creatinine 0.60 (0.5-1.4) mg/dL Estim Creat Clear Calc 75.5 Estimated GFR > 60 Random Glucose 87 (60-115) mg/dL Calcium 9.1 (8.4-10.2) mg/dL COVID-19 (ANGELA) Positive A (Negative) COVID-19 Clin Com See Note Discharge Plan Discharge Clinical Impression: COVID-19 Patient Disposition: Home, Self-Care Instructions: COVID-19 (Coronavirus Disease 2019) (ED) Additional Instructions: Vasquez prueba de COVID pallavi positivo y los rachel X dieron positivo para neumon?a por COVID 19. Tu nivel de ox?azucena es normal. Ser? dado de anurag con antibi?ticos y es teroides. Regrese al servicio de urgencias de inmediato si tiene dolor en el pecho, dificultad para respirar, debilidad, mareos, tos con bronson, dolor en la pantorrilla o cualquier otro s?ntoma preocupante. Le recomiendo que compre un oxigeno de venta tejas para controlar vasquez nivel de ox?azucena. Si el nivel de ox?azucena est? por debajo del 94%, regrese al servicio de urgencias de inmediato. Recomendar 14 d?as de autoaislamiento Prescriptions: New amoxicillin-pot clavulanate [Augmentin] 875-125 mg tablet 1 tab PO Q12H 5 Days Qty: 10 RF: 0 doxycycline hyclate 100 mg tablet 100 mg PO BID 7 Days Qty: 14 RF: 0 dexamethasone [Decadron] 6 mg tablet 6 mg PO DAILY Qty: 10 RF: 0 No Action nystatin 100,000 unit/gram powder 1 appl topical BID 14 Days Qty: 60 RF: 0 (DME) nebulizers Misc See Rx Instructions .Route Qty: 1 RF: 0 ondansetron 4 mg tablet,disintegrating 4 mg PO Q8H PRN (Reason: nausea and vomiting) 7 Days Qty: 21 RF: 0 prednisone 10 mg tablet 10 mg PO BID 3 Days Qty: 6 RF: 0 naproxen 500 mg tablet 500 mg PO BID PRN (Reason: pain) 10 Days Qty: 20 RF: 0 famotidine [Pepcid] 20 mg tablet 20 mg PO DAILY PRN (Reason: abdominal discomfort) Qty: 30 RF: 0 ondansetron 4 mg tablet,disintegrating 4 mg PO Q8H PRN (Reason: nausea and vomiting) Qty: 20 RF: 0 cortisone 50 mg/mL suspension IM RF: 0 albuterol sulfate 90 mcg/actuation HFA aerosol inhaler 2 puff inhalation Q4-6H PRN (Reason: shortness of breath or wheezing) Qty: 8.5 RF: 0 albuterol sulfate 1.25 mg/3 mL solution for nebulization PO QID RF: 0 cyclobenzaprine 5 mg tablet 10 mg PO Q8H PRN (Reason: pain (scale score 7-10)) RF: 0 lorazepam 0.5 mg tablet 1 mg PO BID PRNRF: 0 citalopram 10 mg tablet 10 mg PO DAILY RF: 0 Referrals: Homa Montez MD [Primary Care Provider] - 2 days (Covid positive.) Interventions: ED Discharge Assessment Last Done: 10/29/20 17:16 Discharge Date/Time: 10/29/20 17:17 Print Language: Cuban
[2020-10-29] MEDS: diphenhydrAMINE HCL 25 MG TABLET 50 MG PO (16:15)
[2020-10-29] MEDS: Metoclopramide HCl 10 MG TABLET PO (16:15)
--- NOTE | 2020-10-29 17:15 | PC.NURSE ---
late entry: 1640: pt passed po challenge and was able to ambulate in waiting area searching for RN. Pt d/c outside to await ride. lang interpreter used. No questions regarding d/c teaching or management of outpatient care.
== END 2020-10-29 17:17 | disposition home or self-care (01) ==
PROVIDERS: Emergency Provider Internal Medicine; PCP Internal Medicine
DX: U07.1 COVID-19 (principal)
CPT/HCPCS: 36415; 71045; 80048; 85025; 87635; 99283; Q0163

== ENCOUNTER 2020-11-07 10:17 | Emergency (ER) | payer OTHER, SELFPAY ==
--- NOTE | ~2020-11-07 | CT_ITS ---
EXAMINATION: CT ABDOMEN AND PELVIS WITHOUT CONTRAST CLINICAL INFORMATION: Occult stool positive. Fall/trauma COMPARISON: October 24, 2020 TECHNIQUE: Multidetector volumetric imaging was performed from the superior aspect of the liver through the pubic symphysis. Sagittal and coronal reformatted images were obtained on the technologist's workstation. This CT examination was performed using dose optimization techniques as appropriate, variously including the following: *Automated exposure control *Adjustment of mA and/or kV according to patient size (this includes techniques or standardized protocols for targeted exams where dose is matched to indication/reason for exam; i.e. extremities or head) *Use of iterative reconstruction technique DLP: 429 mGy-cm FINDINGS: LUNG BASES: Bibasilar disease likely related to dependent atelectasis is again noted. No pericardial or pleural effusion. Coronary artery calcification is seen. LIVER, GALLBLADDER, AND BILIARY TREE: The liver is normal in size, shape, and attenuation. No focal solid hepatic lesion or biliary ductal dilatation is present. Within segment 4B there is a 1.1 cm cyst. The gallbladder is unremarkable with no evidence of radiopaque gallstones, gallbladder wall thickening, or obvious pericholecystic inflammatory changes. PANCREAS: Unremarkable. SPLEEN: Unremarkable. ADRENAL GLANDS: There is a 10 x 5 mm lipid rich right adrenal gland adenoma noted. The left adrenal gland appears unremarkable. KIDNEYS AND URETERS: The kidneys are normal in size, shape, and attenuation. No hydronephrosis, hydroureter, or calculi seen. No perinephric stranding. BLADDER: Unremarkable. GASTROINTESTINAL TRACT: No free air identified. There is trace pelvic fluid seen. No dilated loops of large or small bowel. There is again noted to be a linear metallic foreign body about the mesentery. There appears be some wall thickening involving the rectosigmoid region with small amount of streaking within adjacent fat which may be indicative of colitis in this region. There is mild diverticular disease of the sigmoid colon. The appendix is visualized and appears unremarkable. ABDOMINAL WALL: No significant hernia is appreciated. LYMPH NODES: No lymphadenopathy appreciated. VASCULAR: Unremarkable. PELVIC VISCERA: No suspicious pelvic mass. OSSEOUS STRUCTURES: No suspicious destructive bony lesion identified. There is degenerative disc disease seen at the L5-S1 level. CT/CT abdomen pelvis wo con IMPRESSION: Some mucosal thickening seen within the rectosigmoid region without definite abscess appreciated. This could be related to a focal region of colitis. Remainder of the bowel appears unremarkable. Bibasilar lung disease right greater than left which may related to dependent atelectasis. Repeat foreign body within the mesentery without change.
[2020-11-07 10:26] VITALS: BP 146/93; PULSE 130; RESP 18; TEMP 36.6; O2SAT 97; BMI 25.0
--- NOTE | 2020-11-07 12:02 | ED_ITS ---
HPI - General Adult General Chief complaint: General Medical Stated complaint: rectal bleeding, back pain Time Seen by Provider: 11/07/20 11:10 Source: patient Mode of arrival: ambulatory History of Present Illness HPI narrative: 65-year-old female with a PMHx of anxiety, arthritis, depression, HLD, fibromyalgia, rash, presenting to the ED complaining of rectal bleeding x9 days s/p falling out of wheelchair onto buttock during ED visit on 10/29. States since incident has had coccygeal pain with intermittent radiation down RLE and bright red stool from rectum. Patient also requesting repeat CXR are as during visit was diagnosed with COVID pneumonia. Denies fever, chills, cough, CP/SOB, urinary incontinence/retention, nausea/vomiting, abdominal pain, lightheadedness/dizziness Related Data Home Medications Medication Instructions Recorded Confirmed citalopram 10 mg tablet 10 mg PO DAILY 01/09/20 10/04/20 lorazepam 0.5 mg tablet 1 mg PO BID PRN tab 01/09/20 10/04/20 albuterol sulfate 1.25 mg/3 mL mg PO QID 08/02/20 10/04/20 solution for nebulization cyclobenzaprine 5 mg tablet 10 mg PO Q8H PRN tab 08/02/20 10/04/20 cortisone 50 mg/mL intramuscular mg IM 10/04/20 10/04/20 suspension Previous Rx's Medication Instructions Recorded naproxen 500 mg tablet 500 mg PO BID PRN 10 Days #20 tab 12/17/19 albuterol sulfate 90 mcg/actuation 2 puff INHALATION Q4-6H PRN #8.5 g 10/04/20 aerosol inhaler nebulizers #1 ea 10/06/20 nystatin 100,000 unit/gram topical 1 appl TOPICAL BID 14 Days #60 g 10/06/20 powder ondansetron 4 mg disintegrating 4 mg PO Q8H PRN 7 Days #21 tab 10/21/20 tablet prednisone 10 mg tablet 10 mg PO BID 3 Days #6 tab 10/21/20 famotidine 20 mg tablet (Pepcid) 20 mg PO DAILY PRN #30 tab 10/25/20 ondansetron 4 mg disintegrating 4 mg PO Q8H PRN #20 tab 10/25/20 tablet amoxicillin 875 mg-potassium 1 tab PO Q12H 5 Days #10 tab 10/29/20 clavulanate 125 mg tablet (Augmentin) dexamethasone 6 mg tablet 6 mg PO DAILY #10 tab 10/29/20 (Decadron) doxycycline hyclate 100 mg tablet 100 mg PO BID 7 Days #14 tab 10/29/20 ciprofloxacin HCl 500 mg tablet 500 mg PO Q12H 7 Days #14 tab 11/07/20 metronidazole 500 mg tablet 500 mg PO Q12H 7 Days #14 tab 11/07/20 (Flagyl) omeprazole 20 mg capsule,delayed 20 mg PO DAILY 14 Days #14 cap 11/07/20 release Allergies Allergy/AdvReac Type Severity Reaction Status Date / Time barium sulfate Allergy Intermediate HIVES Verified 10/04/20 16:39 [CONTRAST,ORAL] Iodinated Contrast Media Allergy Intermediate HIVES Verified 10/04/20 16:39 [IV CONTRAST] ondansetron [From Zofran] Allergy Stomach Verified 10/24/20 21:36 Upset Contrast Allergy PreMed Pack Allergy Intermediate Hives Uncoded 10/04/20 16:39 Contrast Dye Allergy Intermediate Hives Uncoded 10/04/20 16:39 woke up from GET with Allergy Intermediate Vomiting Uncoded 10/04/20 16:39 vomiting PMFSH Past Medical History Medical History Anxiety Arthritis Depression Dyslipidemia Fibromyalgia History of asthma Impaired glucose tolerance Rash Surgical History History of carpal tunnel surgery History of carpal tunnel surgery of left wrist Previous section Family History Family History Mother Colon cancer Hypertension Glaucoma Arthritis Father Bone cancer Social History Social History Housing: Apartment Alcohol intake: never Patient Tobacco Use Status: Never used Tobacco Use of substances other than those prescribed or required for medical reasons: No Advance Directives: No Advance Directives Information Provided: No Current occupational status: disabled Current occupation: Right Handed Physical Exam Vital Signs: Vital Signs: Last Vital Signs Temp 98.0 F 11/07/20 14:26 Pulse 98 11/07/20 17:14 Resp 18 11/07/20 17:14 BP 138/88 11/07/20 17:14 Pulse Ox 95 11/07/20 17:14 Body Mass Index 25.0 Course Course Course Narrative: -1228--occult stool positive >> will obtain CT with IV contrast to rule out potential bleeding source due to ? trauma from fall, mild leukocytosis of 11.0 >>patient gets hives to IV dye will pre-medicate with Solu- Medrol and Benadryl -H&H is stable but with 2 point drop from 10/24/20 > will obtain 3 hour repeat and consult GI after CT -1332--patient refusing pre-medication and IV contrast will obtain dry CT -spoke to GI Dr. Osorio, plan is for Admission/observation with likely scope tomorrow or Sunday w/recommended PPI and clears if patient is agreeable -1628--CT abdomen pelvis wo con IMPRESSION: Some mucosal thickening seen within the rectosigmoid region without definite abscess appreciated. This could be related to a focal region of colitis. Remainder of the bowel appears unremarkable. ? Bibasilar lung disease right greater than left which may related to dependent atelectasis. ? Repeat foreign body within the mesentery without change.? >> patient requesting to be discharge, discussed recommended admission, she is refusing, A&O x3/competent to make her own decisions, will sign out AMA Will DC with antibiotics and strict return precautions. Is welcome to return to the ED. Dr. Osorio aware, GI office will call for endoscopy/colonoscopy scheduling Medical Decision Making MDM Narrative Medical decision making narrative: 65-year-old female with a PMHx of anxiety, arthritis, depression, HLD, fibromyalgia, rash, presenting to the ED complaining of rectal bleeding x9 days s/p falling out of wheelchair onto buttock during ED visit on 10/29. States since incident has had coccygeal pain with intermittent radiation down RLE and bright red stool from rectum. On exam initially tachycardic/anxious, NAD, nontoxic appearing, lungs CTA, no midline spinous tenderness throughout, strength intact throughout. Rule out GI bleed/occult bleed vs anemia vs metabolic abnormalities. Low concern for infectious etiology as patient's abdomen is soft and nontender. Low concern for PE ACS/worsening pneumonia or COVID pneumonia without symptoms and patient is nontoxic, tachycardia likely from anxiety for the concern for cauda equina/cord compression CT from 10/24/2020 without acute findings Plan: Occult stool, labs, UA Lab Data Result diagrams: 11/07/20 12:04 11/07/20 12:04 Labs: Lab Results 11/07/20 11/07/20 11/07/20 Range/Units 12:04 12:04 12:04 WBC 11.0 H (4.8-10.8) X10*3/uL RBC 4.07 L (4.20-5.50) X10*6/uL Hgb 12.4 (12.0-16.0) g/dl Hct 37.3 (37-47) % MCV 91.6 (80-98) fL MCH 30.5 (27.0-33.0) pg MCHC 33.2 (31.0-35.0) g/dl RDW 13.7 (11.0-16.0) % Plt Count 292 (160-400) X10*3/uL MPV 11.0 (9.4-12.3) fL Immature Gran % (Auto) 1.4 H (0.0-0.4) % Neut % (Auto) 64.3 (45-73) % Lymph % (Auto) 21.6 (20-40) % [place] % (Auto) 12.2 H (2-11) % Eos % (Auto) 0.3 (0-4) % Baso % (Auto) 0.2 (0-2) % Lymph # (Auto) 2.4 (1.2-4.9) X10*3/uL [place] # (Auto) 1.3 H (0.1-1.2) X10*3/uL Eos # (Auto) 0.0 (0.0-0.4) X10*3/uL Baso # (Auto) 0.0 (0.0-0.2) X10*3/uL Abs Immat Gran (auto) 0.15 H (0.00-0.03) X10*3/uL Absolute Neuts (auto) 7.1 (2.0-8.3) X10*3/uL Absolute Nucleated RBC 0.000 (0.0-0.012) X10*3/uL Nucleated RBC % (auto) 0.0 (0.0-0.2) /100WBC PT (9.9-13.0) SEC INR (0.9-1.1) APTT (24.1-38.0) SEC Sodium 141 (135-145) mmol/L Potassium 3.7 (3.3-5.1) mmol/L Chloride 105 (96-108) mmol/L Carbon Dioxide 28 (22-29) mmol/L Anion Gap 12 (12-20) BUN 9 (9-16) mg/dL Creatinine 0.56 (0.5-1.4) mg/dL Estim Creat Clear Calc 80.9 Estimated GFR > 60 Random Glucose 126 H D (60-115) mg/dL Calcium 9.0 (8.4-10.2) mg/dL Magnesium 1.8 (1.6-2.6) mg/dL Total Bilirubin 0.5 (0.0-1.0) mg/dL Direct Bilirubin 0.2 (0.0-0.5) mg/dL AST 15 D (5-31) U/L ALT 36 H (0-31) U/L Alkaline Phosphatase 61 (39-117) U/L Total Protein 5.8 L (6.5-8.0) g/dL Albumin 3.5 (3.5-5.0) g/dL Lipase 35 (8-78) U/L Stool Occult Blood (NEGATIVE) 11/07/20 11/07/20 Range/Units 12:04 14:42 WBC (4.8-10.8) X10*3/uL RBC (4.20-5.50) X10*6/uL Hgb (12.0-16.0) g/dl Hct (37-47) % MCV (80-98) fL MCH (27.0-33.0) pg MCHC (31.0-35.0) g/dl RDW (11.0-16.0) % Plt Count (160-400) X10*3/uL MPV (9.4-12.3) fL Immature Gran % (Auto) (0.0-0.4) % Neut % (Auto) (45-73) % Lymph % (Auto) (20-40) % [place] % (Auto) (2-11) % Eos % (Auto) (0-4) % Baso % (Auto) (0-2) % Lymph # (Auto) (1.2-4.9) X10*3/uL [place] # (Auto) (0.1-1.2) X10*3/uL Eos # (Auto) (0.0-0.4) X10*3/uL Baso # (Auto) (0.0-0.2) X10*3/uL Abs Immat Gran (auto) (0.00-0.03) X10*3/uL Absolute Neuts (auto) (2.0-8.3) X10*3/uL Absolute Nucleated RBC (0.0-0.012) X10*3/uL Nucleated RBC % (auto) (0.0-0.2) /100WBC PT 10.7 (9.9-13.0) SEC INR 0.9 (0.9-1.1) APTT 29.2 (24.1-38.0) SEC Sodium (135-145) mmol/L Potassium (3.3-5.1) mmol/L Chloride (96-108) mmol/L Carbon Dioxide (22-29) mmol/L Anion Gap (12-20) BUN (9-16) mg/dL Creatinine (0.5-1.4) mg/dL Estim Creat Clear Calc Estimated GFR Random Glucose (60-115) mg/dL Calcium (8.4-10.2) mg/dL Magnesium (1.6-2.6) mg/dL Total Bilirubin (0.0-1.0) mg/dL Direct Bilirubin (0.0-0.5) mg/dL AST (5-31) U/L ALT (0-31) U/L Alkaline Phosphatase (39-117) U/L Total Protein (6.5-8.0) g/dL Albumin (3.5-5.0) g/dL Lipase (8-78) U/L Stool Occult Blood POSITIVE (NEGATIVE) Discharge Plan Discharge Clinical Impression: Acute GI bleeding, Colitis Patient Disposition: Left Against Medical Advice Instructions: Rectal Bleeding (ED), Colitis (ED) Additional Instructions: You have a gastrointestinal bleed, it is recommended diet you be admitted however your refusing, your signing out against medical advice, your taking a risk upon herself of permanent disability and/or upon leaving this emergency department Your CT scan showed colitis, this is inflammation of her colon, Cipro and Flagyl arm antibiotics, please take as prescribed The GI doctor's office will be contacting you to schedule an endoscopy/colonoscopy this week If your symptoms persist or worsen you have lightheadedness/dizziness, abdominal pain or fever please return to the ED immediately Tiene soledad hemorragia gastrointestinal, se recomienda soledad dieta que sea admitido sin embargo, se niega, se da de baja en contra del consejo m?dico, se arriesga a sufrir soledad discapacidad permanente y / o la muerte al salir de dheeraj servicio de urgencias. Vasquez tomograf?a computarizada mostr? colitis, esto es inflamaci?n de vasquez colon, antibi?ticos de brazo de Cipro y Flagyl, por favor t?melos seg?n lo prescrito El consultorio del m?dico gastrointestinal se comunicar? con usted para programar soledad endoscopia / colonoscopia esta semana. Si breann s?ntomas persisten o empeoran, tiene aturdimiento / mareos, dolor abdominal o fiebre, regrese al servicio de urgencias de inmediato. Prescriptions: New ciprofloxacin HCl 500 mg tablet 500 mg PO Q12H 7 Days Qty: 14 RF: 0 metronidazole [Flagyl] 500 mg tablet 500 mg PO Q12H 7 Days Qty: 14 RF: 0 omeprazole 20 mg capsule,delayed release(DR/EC) 20 mg PO DAILY 14 Days Qty: 14 RF: 0 No Action nystatin 100,000 unit/gram powder 1 appl topical BID 14 Days Qty: 60 RF: 0 (DME) nebulizers Misc See Rx Instructions .Route Qty: 1 RF: 0 ondansetron 4 mg tablet,disintegrating 4 mg PO Q8H PRN (Reason: nausea and vomiting) 7 Days Qty: 21 RF: 0 prednisone 10 mg tablet 10 mg PO BID 3 Days Qty: 6 RF: 0 naproxen 500 mg tablet 500 mg PO BID PRN (Reason: pain) 10 Days Qty: 20 RF: 0 famotidine [Pepcid] 20 mg tablet 20 mg PO DAILY PRN (Reason: abdominal discomfort) Qty: 30 RF: 0 ondansetron 4 mg tablet,disintegrating 4 mg PO Q8H PRN (Reason: nausea and vomiting) Qty: 20 RF: 0 amoxicillin-pot clavulanate [Augmentin] 875-125 mg tablet 1 tab PO Q12H 5 Days Qty: 10 RF: 0 doxycycline hyclate 100 mg tablet 100 mg PO BID 7 Days Qty: 14 RF: 0 dexamethasone [Decadron] 6 mg tablet 6 mg PO DAILY Qty: 10 RF: 0 cortisone 50 mg/mL suspension IM RF: 0 albuterol sulfate 90 mcg/actuation HFA aerosol inhaler 2 puff inhalation Q4-6H PRN (Reason: shortness of breath or wheezing) Qty: 8.5 RF: 0 albuterol sulfate 1.25 mg/3 mL solution for nebulization PO QID RF: 0 cyclobenzaprine 5 mg tablet 10 mg PO Q8H PRN (Reason: pain (scale score 7-10)) RF: 0 lorazepam 0.5 mg tablet 1 mg PO BID PRNRF: 0 citalopram 10 mg tablet 10 mg PO DAILY RF: 0 Referrals: Sandy Osorio MD [Physician] - 3 days Print Language: Bahamian
[2020-11-07 12:12] LABS: MANUAL DIFF FLAG NO
[2020-11-07 12:13] LABS: OBS Int Ctl Valid YES; OBS1 POSITIVE (NEGATIVE)
[2020-11-07 12:15] LABS: Basophils Percent Auto 0.2 % (0-2); Eosinophils Percent Auto 0.3 % (0-4); Hematocrit 37.3 % (37-47); Hemoglobin 12.4 g/dl (12.0-16.0); Imm Gran Abs Auto 0.15 X10*3/uL (0.00-0.03); Imm Gran Pct Auto 1.4 % (0.0-0.4); Lymphocytes Absolute Auto 2.4 X10*3/uL (1.2-4.9); Lymphocytes Percent Auto 21.6 % (20-40); Mean Corpuscular HGB Conc 33.2 g/dl (31.0-35.0); Mean Corpuscular Hemoglobin 30.5 pg (27.0-33.0); Mean Corpuscular Volume 91.6 fL (80-98); Monocytes Absolute Auto 1.3 X10*3/uL (0.1-1.2); Monocytes Percent Auto 12.2 % (2-11); Neutrophils Absolute Auto 7.1 X10*3/uL (2.0-8.3); Neutrophils Percent Auto 64.3 % (45-73); Platelet Count 292 X10*3/uL (160-400); Red Blood Count 4.07 X10*6/uL (4.20-5.50); Red Cell Distribution Width 13.7 % (11.0-16.0)
[2020-11-07 12:48] LABS: Alanine Aminotransferase 36 U/L (0-31); Albumin Level 3.5 g/dL (3.5-5.0); Alkaline Phosphatase 61 U/L (39-117); Anion Gap 12 (12-20); Aspartate Amino Transferase 15 U/L (5-31); Bilirubin Direct 0.2 mg/dL (0.0-0.5); Bilirubin Total 0.5 mg/dL (0.0-1.0); Blood Urea Nitrogen 9 mg/dL (9-16); Carbon Dioxide 28 mmol/L (22-29); Chloride 105 mmol/L (96-108); Creatinine Clr Calc Pharmacy 80.9; Estimated Glomerular Filt Rate > 60; Glucose Random 126 mg/dL (60-115); Lipase 35 U/L (8-78); Magnesium 1.8 mg/dL (1.6-2.6); Potassium 3.7 mmol/L (3.3-5.1); Sodium 141 mmol/L (135-145); Total Protein 5.8 g/dL (6.5-8.0)
--- NOTE | 2020-11-07 13:31 | PC.NURSE ---
PT REFUSING ALL PROPHYLACTIC MEDICATION FOR ALLERGY TO CONTRAST DYE. PA IN ROOM, DISCUSSED WITH PT THE IMPORTANCE OF ACQUIRING CT WITH CONTRAST, EXPLAINED RISK OF POSSIBLE BLEEDING AND TRAUMA. PT CONTINUES TO REFUSE. PT ALSO REFUSING IVF AT THIS TIME.
[2020-11-07 14:26] VITALS: BP 154/92; PULSE 96; RESP 16; TEMP 36.7; O2SAT 95
[2020-11-07] MEDS: Pantoprazole Sodium 40 MG/10 ML VIAL IVPUSH (14:38)
[2020-11-07 14:57] LABS: INTERNATIONAL NORM RATIO 0.9 (0.9-1.1); Prothrombin Time 10.7 SEC (9.9-13.0)
[2020-11-07 15:00] LABS: Partial Thromboplastin Time 29.2 SEC (24.1-38.0)
[2020-11-07 17:14] VITALS: BP 138/88; PULSE 98; RESP 18; O2SAT 95
== END 2020-11-07 18:00 | disposition left against medical advice (07) ==
PROVIDERS: Physician Assistant; Emergency Provider Internal Medicine; PCP Internal Medicine
DX: K92.2 Gastrointestinal hemorrhage, unspecified (principal); K52.9 Noninfective gastroenteritis and colitis, unspecified; M79.7 Fibromyalgia; Z79.899 Other long term (current) drug therapy
CPT/HCPCS: 36415; 74176; 80048; 80076; 82272; 83690; 83735; 85025; 85610; 85730; 96365; 96375; 99284

== ENCOUNTER 2020-12-06 09:35 | Outpatient (REF) | payer OTHER, SELFPAY ==
--- NOTE | ~2020-12-06 | XR_ITS ---
EXAMINATION: XR SACROILIAC JOINTS CLINICAL INFORMATION: Hemorrhage of the anus and rectum COMPARISON: None TECHNIQUE: 3 views of the sacroiliac joints FINDINGS: Bone alignment is normal. No fracture or dislocation is seen. The sacroiliac joints are normal-appearing. There are degenerative changes of the visualized lower lumbar spine. Soft tissues are unremarkable. XR/XR sacroiliac joint min 3V IMPRESSION: Normal-appearing sacroiliac joints. Degenerative changes of the visualized lower lumbar spine.
--- NOTE | ~2020-12-06 | XR_ITS ---
EXAMINATION: XR CHEST CLINICAL INFORMATION: Personal history of other diseases of respiratory system COMPARISON: Previous chest x-ray October 2020 TECHNIQUE: 2 views of the chest were obtained. FINDINGS: The cardiac and mediastinal contours are normal. The lungs are clear. The previously identified bilateral infiltrates on October 2020 exam have resolved. There is no pleural effusion or pneumothorax. There are degenerative changes of the spine and shoulders. XR/XR chest 2V IMPRESSION: Resolved infiltrates from October 2020 exam.
[2020-12-06 13:42] LABS: MANUAL DIFF FLAG NO
[2020-12-06 14:01] LABS: Basophils Percent Auto 0.4 % (0-2); Eosinophils Absolute Auto 0.1 X10*3/uL (0.0-0.4); Eosinophils Percent Auto 1.4 % (0-4); Hematocrit 39.6 % (37-47); Hemoglobin 12.9 g/dl (12.0-16.0); Imm Gran Abs Auto 0.03 X10*3/uL (0.00-0.03); Imm Gran Pct Auto 0.4 % (0.0-0.4); Lymphocytes Absolute Auto 2.1 X10*3/uL (1.2-4.9); Lymphocytes Percent Auto 28.4 % (20-40); Mean Corpuscular HGB Conc 32.6 g/dl (31.0-35.0); Mean Corpuscular Volume 95.2 fL (80-98); Mean Platelet Volume 11.1 fL (9.4-12.3); Monocytes Absolute Auto 0.6 X10*3/uL (0.1-1.2); Monocytes Percent Auto 8.3 % (2-11); Neutrophils Absolute Auto 4.5 X10*3/uL (2.0-8.3); Neutrophils Percent Auto 61.1 % (45-73); Platelet Count 268 X10*3/uL (160-400); Red Blood Count 4.16 X10*6/uL (4.20-5.50); Red Cell Distribution Width 14.9 % (11.0-16.0); White Blood Count 7.4 X10*3/uL (4.8-10.8)
== END 2020-12-06 09:36 | disposition home or self-care (01) ==
LOC: HO.XRAY 09:35
PROVIDERS: PCP Internal Medicine; Visit Provider Internal Medicine
DX: K62.5 Hemorrhage of anus and rectum (principal); D64.9 Anemia, unspecified; Z87.09 Personal history of other diseases of the respiratory system
CPT/HCPCS: 36415; 71046; 72202; 85025

== ENCOUNTER → 2021-02-21 11:25 | Outpatient (BNVA) | payer MEDICARE, MEDICAID, SELFPAY | PROVIDERS: PCP Internal Medicine; Referring Provider Internal Medicine; Visit Provider Nurse Practitioner | DX: Z12.11 Encounter for screening for malignant neoplasm of colon (principal); K59.00 Constipation, unspecified; K62.5 Hemorrhage of anus and rectum; R11.2 Nausea with vomiting, unspecified | CPT/HCPCS: 99202 ==

== ENCOUNTER → 2021-03-17 10:48 | Outpatient (BNVA) | payer MEDICARE, MEDICAID, SELFPAY | PROVIDERS: PCP Internal Medicine; Referring Provider Internal Medicine; Visit Provider Surgery | DX: Z18.9 Retained foreign body fragments, unspecified material (principal) | CPT/HCPCS: 99212 ==

== ENCOUNTER → 2021-04-29 12:43 | Outpatient (BNVA) | payer MEDICARE, MEDICAID, SELFPAY | PROVIDERS: PCP Internal Medicine; Visit Provider Physician Assistant | DX: Z13.89 Encounter for screening for other disorder (principal) ==

== ENCOUNTER 2021-05-09 14:37 | Outpatient (REF) | payer MEDICARE, MEDICAID, SELFPAY ==
--- NOTE | ~2021-05-09 | CT_ITS ---
EXAMINATION: CT ABDOMEN AND PELVIS WITHOUT CONTRAST CLINICAL INFORMATION: Retained foreign body fragments, unspecified material COMPARISON: Previous CT of the abdomen and pelvis October 2020 TECHNIQUE: Multidetector volumetric imaging was performed from the superior aspect of the liver through the pubic symphysis. Sagittal and coronal reformatted images were obtained on the technologist's workstation. This CT examination was performed using dose optimization techniques as appropriate, variously including the following: *Automated exposure control *Adjustment of mA and/or kV according to patient size (this includes techniques or standardized protocols for targeted exams where dose is matched to indication/reason for exam; i.e. extremities or head) *Use of iterative reconstruction technique DLP: 1453 mGy-cm FINDINGS: There is a linear 3 cm in length radiopaque soft tissue foreign body in the retroperitoneum the left upper abdomen inferior to the pancreas, abutting the posterior wall of the stomach and anterior distal duodenum axial image 34 series 3. This appears unchanged from previous CT October 2020. There may be some stranding of the adjacent small bowel mesentery. No free air or surrounding fluid collection is seen. LUNG BASES: The visualized lung bases are unremarkable. LIVER, GALLBLADDER, AND BILIARY TREE: The liver is normal in size, shape, and attenuation. There is a 1 cm low-attenuation liver lesion in the lateral segment of the left lobe axial image 30 series 3 probably representing a cyst. The gallbladder is unremarkable with no evidence of radiopaque gallstones, gallbladder wall thickening, or obvious pericholecystic inflammatory changes. PANCREAS: Unremarkable. SPLEEN: Unremarkable. ADRENAL GLANDS: Stable 1 x 1.5 cm low-attenuation right adrenal lesion. This is negative Hounsfield units measuring -4 probably represents a benign lipid rich adenoma. The left adrenal gland is unremarkable. KIDNEYS AND URETERS: The kidneys are normal in size, shape, and attenuation. No hydronephrosis, hydroureter, or calculi seen. No perinephric stranding. BLADDER: Not optimally distended GASTROINTESTINAL TRACT: There is mild diverticulosis of the colon. . The appendix is unremarkable. ABDOMINAL WALL: Small umbilical hernia containing fat. LYMPH NODES: Normal. VASCULAR: Unremarkable. PELVIC VISCERA: Unremarkable. OSSEOUS STRUCTURES: There are mild degenerative changes of the spine. CT/CT abdomen pelvis wo con IMPRESSION: Stable appearance to the foreign body inferior to the pancreas and abutting the posterior wall of the stomach and anterior distal duodenum. No evidence of free air or surrounding fluid collection. Other stable findings of mild diverticulosis, probable liver cyst and right adrenal adenoma. Fleischner guidelines were followed.
== END 2021-05-09 14:38 | disposition home or self-care (01) ==
LOC: HO.CT 14:37
PROVIDERS: PCP Internal Medicine; Visit Provider Surgery
DX: Z18.9 Retained foreign body fragments, unspecified material (principal)
CPT/HCPCS: 74176

== ENCOUNTER → 2021-05-17 10:49 | Outpatient (BNVA) | payer MEDICARE, MEDICAID, SELFPAY | PROVIDERS: PCP Internal Medicine; Referring Provider Internal Medicine; Visit Provider Surgery | DX: Z18.9 Retained foreign body fragments, unspecified material (principal) | CPT/HCPCS: 99212 ==

== ENCOUNTER 2021-06-08 14:38 | Inpatient (IN) | payer MEDICARE, MEDICAID, SELFPAY ==
[2021-06-02 15:27] VITALS: BMI 27.9
--- NOTE | 2021-06-07 08:43 | P.CONAN_ITS ---
Documented by User: Ashley Negrete NP 06/07/21 08:47 HPI - Anesthesia Eval Consult details Narrative: 66yo F for Laparoscopy Exploratory poss open removal a intra-abdominal metallic foreign body with c-arm, PMFSH Active Problems Active Problems: All Active Problems (Updated 06/02/21 @ 15:29 by Leticia Salazar RN) Rotator cuff impingement syndrome of right shoulder (Acute) COVID-19 (Acute) COVID-19 (Acute) Anxiety and depression (Acute) Encounter for pre-operative examination (Acute) Colon cancer screening (Acute) Constipation (Acute) Nausea and vomiting (Acute) Rectal bleeding (Acute) Retained foreign body (Acute) Candidal intertrigo (Acute) Sinusitis (Acute) Shoulder pain (Acute) Anxiety (Acute) GERD (gastroesophageal reflux disease) (Acute) Coccyalgia (Acute) Mild recurrent major depression (Acute) Rectal bleeding (Acute) History of asthma (Acute) Rash (Acute) Dyslipidemia (Acute) Impaired glucose tolerance (Acute) Past Medical History Medical History Anxiety Arthritis Candidal intertrigo Coccyalgia Dyslipidemia Fibromyalgia GERD (gastroesophageal reflux disease) History of asthma History of COVID-19 Impaired glucose tolerance Mild recurrent major depression PONV (postoperative nausea and vomiting) Rash Rectal bleeding Shoulder pain Sinusitis Family History Family History Mother Colon cancer Hypertension Glaucoma Arthritis Father Bone cancer Surgical History Surgical History History of carpal tunnel surgery History of carpal tunnel surgery of left wrist Previous section Social History Social History Housing: Apartment Alcohol intake: never Patient Tobacco Use Status: Never used Tobacco e-Cigarette/Vaping Use: Never Used Second Hand Smoke Exposure: No Advance Directives: No Advance Directives Information Provided: Yes Advance Directives on File: No service: No Current occupational status: disabled Current occupation: Right Handed Meds Allergies Allergy/AdvReac Type Severity Reaction Status Date / Time barium sulfate Allergy Intermediate HIVES Verified 06/08/21 06:40 [CONTRAST,ORAL] Iodinated Contrast Media Allergy Intermediate HIVES Verified 06/08/21 06:40 [IV CONTRAST] ondansetron [From Zofran] Allergy Intermediate Stomach Verified 06/08/21 06:40 Upset Home Medications Medication Instructions Recorded Confirmed Last Taken Type albuterol sulfate 1.25 mg/3 mL 1.25 mg PO QID PRN 08/02/20 06/02/21 Unknown History solution for nebulization buspirone 5 mg tablet 5 mg PO BID 03/17/21 06/02/21 Unknown History escitalopram oxalate 20 mg tablet 20 mg PO DAILY 03/17/21 06/02/21 Unknown History ketorolac 0.5 % eye drops 0 drp OPHTHALMIC (EYE) 03/17/21 04/13/21 Unknown History lorazepam 1 mg tablet 1 mg PO BID 03/17/21 06/08/21 06/08/21 History Exam Exam Date and Time: June 07, 2021 0843 Height,Weight and Vital Signs: Height 5 ft Weight 64.864 kg Pertinent Lab Results Pertinent Lab Results: Laboratory Tests 11/07/20 12/06/20 12:04 13:10 WBC 7.4 Hgb 12.9 Hct 39.6 Plt Count 268 Sodium 141 Potassium 3.7 Chloride 105 Carbon Dioxide 28 BUN 9 Creatinine 0.56 Narrative Narrative: EKG 10/2020 Vent. Rate : 091 BPM ? ? Atrial Rate : 091 BPM ?? P-R Int : 142 ms? QRS Dur : 078 ms ? ? QT Int : 346 ms ? ? ? P-R-T Axes : 058 -27 047 degrees ?? QTc Int : 425 ms ? Normal sinus rhythm Moderate voltage criteria for LVH, may be normal variant Borderline ECG When compared with ECG of 02-APR-2019 11:35, No significant change was found Assessment and Plan Assessment Anesthesia Assessment: Chart Reviewed Documented by User: Lisa Jiménez MD 06/08/21 07:17 [facility] Past Medical History Medical History Anxiety Arthritis Candidal intertrigo Coccyalgia Dyslipidemia Fibromyalgia GERD (gastroesophageal reflux disease) History of asthma History of COVID-19 Impaired glucose tolerance Mild recurrent major depression PONV (postoperative nausea and vomiting) Rash Rectal bleeding Shoulder pain Sinusitis Functional capacity: independent ambulation Patient : No Family History Family History Mother Colon cancer Hypertension Glaucoma Arthritis Father Bone cancer Family history of problems with anesthesia: No Surgical History Surgical History History of carpal tunnel surgery History of carpal tunnel surgery of left wrist Previous section History of Problems with Anesthesia: No Social History Social History Housing: Apartment Alcohol intake: never Patient Tobacco Use Status: Never used Tobacco e-Cigarette/Vaping Use: Never Used Second Hand Smoke Exposure: No Advance Directives: No Advance Directives Information Provided: Yes Advance Directives on File: No service: No Current occupational status: disabled Current occupation: Right Handed Meds Allergies Allergy/AdvReac Type Severity Reaction Status Date / Time barium sulfate Allergy Intermediate HIVES Verified 06/08/21 06:40 [CONTRAST,ORAL] Iodinated Contrast Media Allergy Intermediate HIVES Verified 06/08/21 06:40 [IV CONTRAST] ondansetron [From Zofran] Allergy Intermediate Stomach Verified 06/08/21 06:40 Upset Home Medications Medication Instructions Recorded Confirmed Last Taken Type albuterol sulfate 1.25 mg/3 mL 1.25 mg PO QID PRN 08/02/20 06/02/21 Unknown His tory solution for nebulization buspirone 5 mg tablet 5 mg PO BID 03/17/21 06/02/21 Unknown History escitalopram oxalate 20 mg tablet 20 mg PO DAILY 03/17/21 06/02/21 Unknown History ketorolac 0.5 % eye drops 0 drp OPHTHALMIC (EYE) 03/17/21 04/13/21 Unknown History lorazepam 1 mg tablet 1 mg PO BID 03/17/21 06/08/21 06/08/21 History Exam Airway Mallampati Class: III TM Dist: >3cm Neck ROM: Full Loose/Missing/Broken Teeth: No Heart: RRR Lungs: CTA Assessment and Plan Final Anesthetic Review Family History of Problems with Anesthesia: No History of Problems with Anesthesia: No ASA Class: III Final Preanesthetic Review: No Changes in Pt Med Stat, Meds/Allgs Chart Reviewed, Consent Obtained/Reviewed and Anes Risks/Benef Reviewed Patient Risk: Intermediate Procedure Risk: Intermediate Anesthetic Plan Anesthetic Plan: GA Disposition: Standard PACU
[2021-06-08] VITALS (22 sets, daily range): BP systolic 138–166; BP diastolic 76–104; PULSE 97–112; RESP 11–18; TEMP 36.2–37.3; O2SAT 96–100
--- NOTE | ~2021-06-08 | FL_ITS ---
EXAMINATION: XR FLUOROSCOPY WITH IMAGES CLINICAL INFORMATION: Retained foreign body COMPARISON: CT study of May 09, 2021 TECHNIQUE: Fluoroscopy performed by Dr. Connor. Fluoroscopy time: 4.7 minutes DAP: 0.875 Gycm2 Images: 3 FINDINGS: 3 images demonstrate a segmentation for removal of linear radiopaque foreign body FL/FL guidance in OR IMPRESSION: Intraoperative fluoroscopy provided for removal of radiopaque foreign body.
[2021-06-08] MEDS: Lactated Ringers 1,000 ML 100 ML IVCONT (07:14)
[2021-06-08] MEDS: Scopolamine 1.5 MG PATCH.TD.3 TRANSDERMA (07:15)
--- NOTE | 2021-06-08 07:16 | MHC.SHP ---
Pre-Procedural Eval Section A Date of Service: 06/08/21 The patient is an INPATIENT: No Changes since office visit: Yes Patient answered all questions; No Cold of Flu in the past 2 weeks, No New Medical Problems and No Changes in Medication The History & Physical has been completed within 30 days and I have reviewed it.: Yes Section B Chief Complaint: Retained foreign body fragments Allergies: Allergies Allergy/AdvReac Type Severity Reaction Status Date / Time barium sulfate Allergy Intermediate HIVES Verified 06/08/21 06:40 [CONTRAST,ORAL] Iodinated Contrast Media Allergy Intermediate HIVES Verified 06/08/21 06:40 [IV CONTRAST] ondansetron [From Zofran] Allergy Intermediate Stomach Verified 06/08/21 06:40 Upset Plan Diagnosis/Plan: Unchanged I have reviewed the history and physical and performed a pertinent physical examination on my patient. No changes have occurred unless specified.
--- NOTE | 2021-06-08 11:17 | W.PM.OPN ---
Operative Note Operative Note Date of Service: 06/08/21 Narrative: Preoperative diagnosis:Metalic foreign body lesser sac Postoperative diagnosis:same Procedure:Exploratory laparoscopic converted to open laparotomy, removal of lesser sac foreign body Surgeon: Roney Connor MD [employer] Carrier: Liya Barajas PA-C Anesthesia:general ET Indications for procedure:66 year old female patient presenting with back pain found on workup to have a metalic foreign body, possibly a needle adjacent to the stomach and 4th portion of the duodenum. Operative findings:Thin metalic needle like structure densely adherent to the mesentary of the duodenum and lesser sac of the stomach. Specimen:foreign body abdominal cavity, lesser sac Estimated blood loss:10 mls Complications:none Procedure details: The patient was brought to the OR and placed in a supine position. After administering general anesthesia the patient's abdomen was prepped with ChloraPrep and draped in a sterile fashion. A surgical time-out was called and the consent confirmed. Patient received preoperative antibiotics and Venodyne boots were in place. Local anesthesia consisting of 1% lidocaine was infiltrated over the umbilicus and a 5 mm incision made in a transverse fashion. A Veress needle was then inserted while elevating the abdominal cavity with towel clips. After a positive drop test, the abdomen was insufflated to a pressure of 15 mmHg. Veress needle was removed and a 5 mm trocar inserted under direct vision. The camera was then inserted in the abdomen explored. Two additional 5 mm trocars were placed to the left and right of the umbilicus. The camera was placed in the left lateral incision trocar and controlled by the speech therapy assistant. A LigaSure and grasper was then used to dissect below the greater curvature of the stomach to enter the lesser sac. The mesentery of the duodenum and colon were identified in the abdomen explored for for the previously identified metallic foreign body. Dissection revealed no definite foreign body to visual X inspection. After completely dissecting the posterior wall of the stomach and not identifying the foreign body the decision was made to use fluoroscopy to identify the site of foreign material. The patient needed to be shifted onto a a fluoroscopic bed. When this was completed fluoroscopy was easily able to identify the pelvic foreign body which indeed was in this lesser sac. The object was able to be grasped and dissected however it was found to be a very fine metallic material which easily broke when grasped. After several attempts at removing this object, the decision was made to proceed to an open laparotomy. An upper midline incision was then created with a scalpel carried out through subcutaneous tissue and through the linea alba. The abdominal cavity was then entered. Once again the fluoroscopy was used to localize the metallic object. This was then grasped with as a hemostat clamp and gently dissected free from the surrounding densely adherent mesenteric tissue. The foreign body was found to be very close to the mesenteric vessels and care was taken to assure no injury to these vessels. The foreign body was able to be completely removed and sent to pathology for further examination. Fluoroscopy was once again used to assure complete removal of this foreign body. Wounds were then irrigated with saline solution suctioned dry. No bleeding or bowel injury was identified. Fascia was then closed using a running looped PDS suture. Subcutaneous tissue was reapproximated using interrupted 3-0 Polysorb sutures. Skin was closed in all incisions using cory. Sterile dressings were then applied including 2 x 2 gauze and Tegaderm. The patient tolerated the procedure well was transferred to PACU in stable condition.
[2021-06-08] MEDS: fentaNYL citrate/PF 100 MCG/2 ML VIAL 25 MCG IVPUSH ×4 (11:47→13:28)
[2021-06-08] MEDS: oxyCODONE HCl Immed Release 5 MG TABLET PO ×2 (12:27→20:57)
[2021-06-08 15:35] LABS: COVID-19 Test Negative (Negative)
--- NOTE | 2021-06-08 16:19 | PC.NURSE ---
Per report form EUGENE Ellington on arrival to PACu, patient known history of right shoulder pain, extremely positional and had arm tucked for comfort for majority of procedure. Right arm slightly red/purple discoloration. No warmth, no swelling, no pain. Localized to right arm.
[2021-06-08] MEDS: Morphine Sulfate 2 MG/ML CARTRIDGE 3 MG IVPUSH (20:30)
[2021-06-08] MEDS: LORazepam 1 MG TABLET PO (20:31)
[2021-06-08] MEDS: Famotidine 20 MG TABLET PO (21:00)
[2021-06-09] VITALS: BP 134/76; PULSE 115; RESP 18; TEMP 36.5; O2SAT 96
[2021-06-09] MEDS: ondansetron HCL 4 MG/2 ML VIAL IVPUSH ×2 (00:11→09:36)
[2021-06-09] MEDS: HYDROmorphone HCl 0.5 MG/0.5 ML SYRINGE 0.25 MG IVPUSH (00:20)
[2021-06-09] MEDS: Dextrose 5 % and Lactated Ring 1,000 ML 125 ML IVCONT ×2 (01:49→09:41)
[2021-06-09 04:00] VITALS: BP 131/69; PULSE 98; RESP 18; TEMP 36.5; O2SAT 96
[2021-06-09] MEDS: oxyCODONE HCl Immed Release 5 MG TABLET PO (06:08)
[2021-06-09 07:22] VITALS: O2SAT 98
[2021-06-09 08:00] VITALS: BP 143/76; PULSE 74; RESP 17; TEMP 36.3; O2SAT 96
--- NOTE | 2021-06-09 09:01 | MHC.CM.PN ---
CM met with Patient and her Son at bedside and addressed IMM with her, providing her with the original and placing a copy on the chart. Patient lives in an apartment with her son and she receives 22 hours/week of [employer] services. Home/resume said services is the goal and CM has initiated dc . Patient has been medically cleared for dc to home today, self care.Patient received Pfizer vax X2 and PCP is Dr. Homa Blackmon.
[2021-06-09] MEDS: Morphine Sulfate 2 MG/ML CARTRIDGE 3 MG IVPUSH (09:32)
[2021-06-09] MEDS: LORazepam 1 MG TABLET PO (09:32)
[2021-06-09] MEDS: 0.9 % Sodium Chloride Flush 3 ML SYRINGE IVFLUSH (09:33)
--- NOTE | 2021-06-09 11:22 | P.PNGS_ITS ---
Subjective Subjective Date of Service: 06/09/21 <Liya Barajas PA-C - Last Filed: 06/09/21 11:27> 06/09/21 <Dick Aguayo MD - Last Filed: 06/09/21 11:49> Interval history: Comfortable this morning. Oxycodone controlling pain. Has not eaten yet. OOB and ambulating in room without difficulty. Son at bedside. <Liya Barajas PA-C - Last Filed: 06/09/21 11:27> Physical Exam Vital Signs: Vital Signs: Last Vital Signs Temp 97.4 F 06/09/21 08:00 Pulse 74 06/09/21 08:00 Resp 17 06/09/21 08:00 BP 143/76 H 06/09/21 08:00 Pulse Ox 96 06/09/21 08:00 BMI result Body Mass Index 27.9 <Liya Barajas PA-C - Last Filed: 06/09/21 11:27> Const: General: comfortable, no acute distress and alert <Liya Barajas PA-C - Last Filed: 06/09/21 11:27> Orientation/consciousness: patient oriented x3 <Liya Barajas PA-C - Last Filed: 06/09/21 11:27> Resp: Effort & Inspection: normal respiratory effort <Liya Barajas PA-C - Last Filed: 06/09/21 11:27> GI: Inspection: No distended and Yes incision (dressing c/d/i) <Liya Barajas PA-C - Last Filed: 06/09/21 11:27> Palpation (GI): Soft to palpation, Tenderness to palpation present (GI) (mild, incisional), no guarding and not rigid <Liya Barajas PA-C - Last Filed: 06/09/21 11:27> Percussion: Yes normal to percussion <COREY Ngo Last Filed: 06/09/21 11:27> Skin: General skin exam: no rashes or lesions noted <COREY Ngo Last Filed: 06/09/21 11:27> Neuro: General: patient oriented x3 <Liya Barajas PA-C - Last Filed: 06/09/21 11:27> Extrem: General: Yes no clubbing, cyanosis or edema <Liya Barajas PA-C - Last Filed: 06/09/21 11:27> Objective Data Active Medications Acetaminophen (Acetaminophen 325 Mg Tablet) 650 mg PO Q6H PRN PRN Reason: Pain, Mild (Pain Scale 1-3) Albuterol Sulfate (Albuterol Sulfate (0.042%) 1.25 Mg/3 Ml Vial.Neb) 1.25 mg INHALE QID PRN PRN Reason: Shortness Of Breath Or Wheezing Albuterol Sulfate (Albuterol Sulfate 90 Mcg 8 Gm Inhaler) 2 puff INHALE Q4H PRN PRN Reason: shortness of breath or wheezing Buspirone HCl (Buspirone Hcl 5 Mg Tablet) 5 mg PO BID [facility] Last Admin: 06/09/21 09:31 Dose: Not Given Documented by: SURENDRA Non-Admin Reason: Patient Refused Docusate Sodium (Docusate Sodium 100 Mg Capsule) 100 mg PO DAILY PRN PRN Reason: Constipation Escitalopram Oxalate (Escitalopram Oxalate 20 Mg Tablet) 20 mg PO DAILY [facility] Last Admin: 06/09/21 09:31 Dose: Not Given Documented by: SURENDRA Non-Admin Reason: Patient Refused Famotidine (Famotidine 20 Mg Tablet) 20 mg PO DAILY PRN PRN Reason: abdominal discomfort Last Admin: 06/08/21 21:00 Dose: 20 mg Documented by: GIA Hydromorphone HCl (Hydromorphone Hcl 0.5 Mg/0.5 Ml Syringe) 0.25 mg IVPUSH Q5M PRN; Protocol PRN Reason: Pain, Severe (Pain Scale 7-10) Last Admin: 06/09/21 00:20 Dose: 0.25 mg Documented by: GIA Dextrose/Lactated Ringer's (D5lr) 1,000 mls @ 125 mls/hr IVCONT .Q8H [facility] Last Admin: 06/09/21 09:41 Dose: 125 mls/hr Documented by: SURENDRA Lorazepam (Lorazepam 1 Mg Tablet) 1 mg PO BID [facility] Last Admin: 06/09/21 09:32 Dose: 1 mg Documented by: SURENDRA Morphine Sulfate (Morphine Sulfate 2 Mg/Ml Cartridge) 3 mg IVPUSH Q2H PRN; Protocol PRN Reason: Pain, Severe (Pain Scale 7-10) Last Admin: 06/09/21 09:32 Dose: 3 mg Documented by: SURENDRA Non-Formulary Medication (Linaclotide [Linzess]) 145 mcg PO DAILY [facility] Ondansetron HCl (Ondansetron Hcl 4 Mg/2 Ml Vial) 4 mg IVPUSH Q6H PRN PRN Reason: Nausea Last Admin: 06/09/21 09:36 Dose: 4 mg Documented by: SURENDRA Oxycodone HCl (Oxycodone Hcl Immed Release 5 Mg Tablet) 5 mg PO Q4H PRN PRN Reason: Pain, Moderate (Pain Scale 4-6 Last Admin: 06/09/21 06:08 Dose: 5 mg Documented by: GIA Sodium Chloride (0.9 % Sodium Chloride Flush 3 Ml Syringe) 3 ml IVFLUSH QSHIFT DARLEEN Last Admin: 06/09/21 09:33 Dose: 3 ml Documented by: SURENDRA Zolpidem Tartrate (Zolpidem Tartrate 5 Mg Tablet) 5 mg PO BEDTIME PRN PRN Reason: Insomnia <Liya Barajas PA-C - Last Filed: 06/09/21 11:27> Labs Labs: Laboratory Results - last 24 hr 06/08/21 15:10 COVID-19 (ANGELA) Negative COVID-19 Clin Com See Note <Liya Barajas PA-C - Last Filed: 06/09/21 11:27> Procedures Date of Service Date of Service: 06/09/21 <Liya Barajas PA-C - Last Filed: 06/09/21 11:27> Progress Note: A&P Assessment and plan (1) Retained foreign body: Status: Acute <Liya Barajas PA-C - Last Filed: 06/09/21 11:27> Assessment and Plan: Looks well Seems to be tolerating diet now I reviewed with her and her son the procedure done yesterday Had a long discussion with him about discharge instructions She says she seems ready to go home today He is to follow-up with Dr. Connor Seen and examined independently - agree with ISA Barajas <Dick Aguayo MD - Last Filed: 06/09/21 11:49> Plan 66 year old female admitted s/p exploratory laparoscopy, converted to open, foreign body removal, POD #1. She is comfortable from a pain standpoint. Had some nausea this morning but resolved. VSS. Abd exam benign with appropriate post op tenderness, dressings c/d/i. Will reassess later this afternoon- if tolerating a solid diet, stable for d/c to home today. Patient and son comfortable with plan. F/u in office with Dr. Aguayo. <Liya Barajas PA-C - Last Filed: 06/09/21 11:27> Fall Risk Details Current Medications: Current Medications Acetaminophen (Acetaminophen 325 Mg Tablet) 650 mg PO Q6H PRN PRN Reason: Pain, Mild (Pain Scale 1-3) Albuterol Sulfate (Albuterol Sulfate (0.042%) 1.25 Mg/3 Ml Vial.Neb) 1.25 mg INHALE QID PRN PRN Reason: Shortness Of Breath Or Wheezing Albuterol Sulfate (Albuterol Sulfate 90 Mcg 8 Gm Inhaler) 2 puff INHALE Q4H PRN PRN Reason: shortness of breath or wheezing Buspirone HCl (Buspirone Hcl 5 Mg Tablet) 5 mg PO BID [facility] Last Admin: 06/09/21 09:31 Dose: Not Given Documented by: Docusate Sodium (Docusate Sodium 100 Mg Capsule) 100 mg PO DAILY PRN PRN Reason: Constipation Escitalopram Oxalate (Escitalopram Oxalate 20 Mg Tablet) 20 mg PO DAILY [facility] Last Admin: 06/09/21 09:31 Dose: Not Given Documented by: Famotidine (Famotidine 20 Mg Tablet) 20 mg PO DAILY PRN PRN Reason: abdominal discomfort Last Admin: 06/08/21 21:00 Dose: 20 mg Documented by: Hydromorphone HCl (Hydromorphone Hcl 0.5 Mg/0.5 Ml Syringe) 0.25 mg IVPUSH Q5M PRN; Protocol PRN Reason: Pain, Severe (Pain Scale 7-10) Last Admin: 06/09/21 00:20 Dose: 0.25 mg Documented by: Dextrose/Lactated Ringer's (D5lr) 1,000 mls @ 125 mls/hr IVCONT .Q8H [facility] Last Admin: 06/09/21 09:41 Dose: 125 mls/hr Documented by: Lorazepam (Lorazepam 1 Mg Tablet) 1 mg PO BID [facility] Last Admin: 06/09/21 09:32 Dose: 1 mg Documented by: Morphine Sulfate (Morphine Sulfate 2 Mg/Ml Cartridge) 3 mg IVPUSH Q2H PRN; Protocol PRN Reason: Pain, Severe (Pain Scale 7-10) Last Admin: 06/09/21 09:32 Dose: 3 mg Documented by: Non-Formulary Medication (Linaclotide [Linzess]) 145 mcg PO DAILY [facility] Ondansetron HCl (Ondansetron Hcl 4 Mg/2 Ml Vial) 4 mg IVPUSH Q6H PRN PRN Reason: Nausea Last Admin: 06/09/21 09:36 Dose: 4 mg Documented by: Oxycodone HCl (Oxycodone Hcl Immed Release 5 Mg Tablet) 5 mg PO Q4H PRN PRN Reason: Pain, Moderate (Pain Scale 4-6 Last Admin: 06/09/21 06:08 Dose: 5 mg Documented by: Sodium Chloride (0.9 % Sodium Chloride Flush 3 Ml Syringe) 3 ml IVFLUSH QSHIFT [facility] Last Admin: 06/09/21 09:33 Dose: 3 ml Documented by: Zolpidem Tartrate (Zolpidem Tartrate 5 Mg Tablet) 5 mg PO BEDTIME PRN PRN Reason: Insomnia <Liya Barajas PA-C - Last Filed: 06/09/21 11:27> Time Spent With Patient Time: Total time spent is greater than 50% in coordination of care (as documented) at patient's floor/unit and/or counseling patient: <Liya Barajas PA-C - Last Filed: 06/09/21 11:27> Quality Stroke Does the patient have a stroke diagnosis?: No <Liya Barajas PA-C - Last Filed: 06/09/21 11:27> VTE Prior VTE?: No <Liya Barajas PA-C - Last Filed: 06/09/21 11:27> VTE Risk Level:: Surgical - moderate <Liya Barajas PA-C - Last Filed: 06/09/21 11:27 > VTE Device Contraindication: N/A - Device Ordered <Liya Barajas PA-C - Last Filed: 06/09/21 11:27> VTE Drug Contraindication: Treatment Not Indicated <Liya Barajas PA-C - Last Filed: 06/09/21 11:27>
[2021-06-09 11:47] VITALS: BP 164/90; PULSE 89; RESP 20; TEMP 36.4; O2SAT 97
--- NOTE | 2021-06-13 10:09 | PM.DS ---
DS: Providers Provider Date of Service: 06/09/21 Date of admission: 06/08/21 14:38 Primary care physician: Homa Cronin MD Attending physician on admission: Roney Connor Attending physician on discharge: Dick Aguayo DS: Diagnosis Discharge Diagnosis (1) Retained foreign body: Status: Acute DS: Summary Hospital Course Hospital Course: BRIEF HPI: 66 year old female patient presenting with back pain found on workup to have a metallic foreign body, possibly a needle adjacent to the stomach and 4th portion of the duodenum. She now presents for removal. HOSPITAL COURSE: On 06/08/21, an exploratory laparoscopy converted to open laparotomy, removal of lesser sac foreign body was performed by Dr. Connor without complication. A thin metalic needle like structure densely adherent to the mesentary of the duodenum and lesser sac of the stomach. The patient tolerated the procedure well however required admission for pain control post operatively. The patient had an uncomplicated recovery course. On POD #1, she was clinically appearing well. She did have some nausea overnight but it resolved. She was having incisional pain but was comfortable with analgesics. She had not eaten anything. Her abdomen was benign with appropriate post op tenderness and clean dressings. She was reassessed later that morning and was comfortable on just PO analgesics and was tolerating solid food without N/V. She wanted to go home. Her son was present. She was discharged to home on 06/09/21 in stable condition. She is to follow up with Dr. Connor in office in 2 weeks. Educated no heavy lifting, strenuous activity. Status at Discharge Functional status at discharge: independent ambulation Overall status at discharge: patient is progressing back to baseline Time Spent with Patient Time attestation: Total time spent providing and/or coordinating discharge services: Discharge coordination time: Greater than 30 minutes Quality: Safe Use of Opioids Does Pt have an Active Cancer Diagnosis on the Problem List?: No Quality: Stroke Does the patient have a stroke diagnosis?: No Physical Exam Vital Signs: Vital Signs: Last Vital Signs Temp 97.5 F 06/09/21 11:47 Pulse 89 06/09/21 11:47 Resp 20 06/09/21 11:47 BP 164/90 H 06/09/21 11:47 Pulse Ox 97 06/09/21 11:47 BMI result Body Mass Index 27.9 Const: General: comfortable, no acute distress and alert Orientation/consciousness: patient oriented x3 Resp: Effort & Inspection: normal respiratory effort GI: Inspection: No distended and Yes incision (dressings c/d/i) Palpation (GI): Soft to palpation, Tenderness to palpation present (GI) (mild), no guarding and not rigid Skin: General skin exam: no rashes or lesions noted Neuro: General: patient oriented x3 DS: Data Data Completed and Pending Completed studies during hospitalization [Text1]: 06/08/21 10:38 Surgical [PTH] Routine Abdominal foreign body: Three fragments of metal. Gross examination only. See description. Procedures Extirpation of Matter from Abdomen Subcutaneous Tissue and Fascia, Open Approach (06/08/21) Inspection of Mesentery, Percutaneous Endoscopic Approach (06/08/21) Discharge Plan Discharge Patient Disposition: Home, Self-Care Discharge Diagnosis: s/p exploratory laparoscopy, converted to open, foreign body removal Referrals: Roney Connor MD [Physician] - 06/21/21 Homa Montez MD [Primary Care Provider] - 1 Week Discharge Medications: New oxycodone-acetaminophen [Endocet] 5-325 mg tablet 1 tab PO Q6H PRN (Reason: pain (scale score 7-10)) Qty: 20 0RF Continued (DME) nebulizers Misc See Rx Instructions .Route Qty: 1 0RF Rx Instructions: Nebulizer with tubing and accessories Linzess 145 mcg capsule 145 mcg PO QAM 30 Days Qty: 30 1RF naproxen 500 mg tablet 500 mg PO BID PRN (Reason: pain) 10 Days Qty: 20 0RF famotidine [Pepcid] 20 mg tablet 20 mg PO DAILY PRN (Reason: abdominal discomfort) Qty: 30 0RF omeprazole 20 mg capsule,delayed release(DR/EC) 20 mg PO DAILY 14 Days Qty: 14 0RF albuterol sulfate 90 mcg/actuation HFA aerosol inhaler 2 puff inhalation Q4-6H PRN (Reason: shortness of breath or wheezing) Qty: 8.5 0RF acetaminophen 650 mg tablet extended release 650 mg PO Q8H PRN (Reason: pain) 30 Days Qty: 90 0RF albuterol sulfate 1.25 mg/3 mL solution for nebulization 1.25 mg PO QID PRN (Reason: Shortness Of Breath Or Wheezing) 0RF nystatin 100,000 unit/gram powder 1 appl topical BID 30 Days Qty: 15 1RF (DME) Shower Chair Misc See Rx Instructions .Route Qty: 1 0RF Rx Instructions: As directed (DME) raised toilet seat See Rx Instructions .Route .MEDSUPPLY Qty: 1 0RF Rx Instructions: As directed escitalopram oxalate 20 mg tablet 20 mg PO DAILY 0RF lorazepam 1 mg tablet 1 mg PO BID 0RF buspirone 5 mg tablet 5 mg PO BID 0RF No Action ondansetron HCl 4 mg tablet 4 mg PO BID-TID PRN (Reason: nausea and vomiting) 1 Days Qty: 7 0RF Discharge Orders: Discharge Order (Routine); Ordered 06/08/21 Ordered By: Roney Connor Diet: advance to usual diet Activity on Discharge: No heavy lifting Activity Restrictions/Additional Instructions: No lifting > 10 pounds for 4 weeks No driving for one week Ice to the incision x 24 hours Remove dressing in 3 days Follow up in office with Dr. Connor in 2 weeks. ([phone]) Care Plan Goals: Return to baseline health and gradual return to activity following recovery period. Health Concerns: Retained foreign body Plan of Treatment: S/p exploratory laparoscopy, converted to open, removal of foreign body Assessment: Doing well postop. Discharge Date/Time: 06/09/21 12:26
== END 2021-06-09 12:26 | disposition home or self-care (01) | DRG 989 ==
LOC: HO.S3 06-09 09:23
PROVIDERS: Admitting Provider Surgery; PCP Internal Medicine; Visit Provider Surgery
PROC: 0JC80ZZ Extirpation of Matter from Abdomen Subcutaneous Tissue and Fascia, Open Approach (ICD-10-PCS; CPT 49320; principal; 2021-06-08 07:30)
DX: M79.5 Residual foreign body in soft tissue (principal); K21.9 Gastro-esophageal reflux disease without esophagitis; Z20.822 Contact with and (suspected) exposure to COVID-19; Z91.041 Radiographic dye allergy status; Z79.899 Other long term (current) drug therapy
CPT/HCPCS: 87635; 88300; J0131; J0690; J1100; J1170; J1790; J2250; J2270; J2405; J2550; J3010

== ENCOUNTER → 2021-06-21 09:50 | Outpatient (BNVA) | payer MEDICARE, MEDICAID, SELFPAY | PROVIDERS: PCP Internal Medicine; Referring Provider Internal Medicine; Visit Provider Surgery | DX: Z87.821 Personal history of retained foreign body fully removed (principal); Z98.890 Other specified postprocedural states | CPT/HCPCS: 99212 ==

== ENCOUNTER → 2021-07-21 13:37 | Outpatient (BNVA) | payer MEDICARE, MEDICAID, SELFPAY | PROVIDERS: PCP Internal Medicine; Visit Provider Surgery | DX: R30.0 Dysuria (principal) | CPT/HCPCS: 99212 ==

== ENCOUNTER 2021-07-25 13:05 | Outpatient (REF) | payer MEDICARE, SELFPAY ==
[2021-07-25 13:47] LABS: Appearance Urine HAZY; Color Urine YELLOW; Glucose Urine UA NEG (NEG); Leukocyte Esterase Urine NEG (NEG); Nitrite Urine NEG (NEG); PH 5.5 (5.0-8.0); Specific Gravity - Urine >= 1.030 (1.005-1.025); Urine Blood NEG (NEG); Urine Ketones NEG (NEG); Urine Protein NEG (NEG-TRACE)
[2021-07-25 14:13] LABS: Bacteria Urine 1+ /LPF; RBC Urine 0 /HPF (0); Squamous Epithelial Cell Urine 4+ /LPF
== END 2021-07-25 13:06 | disposition home or self-care (01) ==
LOC: HO.LAB 13:05
PROVIDERS: PCP Internal Medicine; Visit Provider Surgery
DX: R30.0 Dysuria (principal)
CPT/HCPCS: 81001

== ENCOUNTER 2021-08-18 13:21 | Outpatient (REF) | payer MEDICARE, SELFPAY ==
--- NOTE | ~2021-08-18 | XR_ITS ---
EXAMINATION: XR SHOULDER, RIGHT CLINICAL INFORMATION: Impingement syndrome of the right shoulder COMPARISON: 12/17/2019 TECHNIQUE: AP external rotation, Grashey, scapular Y, and axillary views of the right shoulder. FINDINGS: No acute fracture or dislocation. The glenohumeral joint is aligned with significant narrowing of the joint space. Prominent osteophytes are present. There is narrowing of the subacromial space with near [id number] appearance. There is moderate hypertrophic spurring of the acromioclavicular joint. The visualized lung is clear. The visualized ribs are intact. XR/XR shoulder RT min 2V IMPRESSION: Advanced degenerative changes of the right shoulder. Evidence of chronic rotator cuff disease.
--- NOTE | ~2021-08-18 | XR_ITS ---
EXAMINATION: XR LUMBOSACRAL SPINE CLINICAL INFORMATION: Lower back pain COMPARISON: 11/01/2018 TECHNIQUE: Three views of the lumbosacral spine. FINDINGS: No fracture or subluxation. Vertebral body height and alignment maintained. Spaces are maintained with small multilevel endplate osteophytes. Mild facet arthropathy. The sacroiliac joints are symmetric. The sacrum appears intact. Normal bowel gas pattern. XR/XR lumbar spine 2-3V IMPRESSION: Mild degenerative changes of the lumbar spine.
== END 2021-08-18 13:22 | disposition home or self-care (01) ==
LOC: HO.XRAY 13:21
PROVIDERS: PCP Internal Medicine; Visit Provider Internal Medicine
DX: M54.50 Low back pain, unspecified (principal); M75.41 Impingement syndrome of right shoulder
CPT/HCPCS: 72100; 73030

== ENCOUNTER 2021-08-30 07:19 | Outpatient (REF) | payer OTHER, SELFPAY ==
--- NOTE | ~2021-08-30 | CT_ITS ---
EXAMINATION: CT ABDOMEN AND PELVIS WITHOUT CONTRAST CLINICAL INFORMATION: Abdominal pain. COMPARISON: CT abdomen pelvis 05/09/2021 TECHNIQUE: Multidetector volumetric imaging was performed from the superior aspect of the liver through the pubic symphysis. Sagittal and coronal reformatted images were obtained on the technologist's workstation. This CT examination was performed using dose optimization techniques as appropriate, variously including the following: *Automated exposure control *Adjustment of mA and/or kV according to patient size (this includes techniques or standardized protocols for targeted exams where dose is matched to indication/reason for exam; i.e. extremities or head) *Use of iterative reconstruction technique DLP: 610 mGy-cm FINDINGS: LUNG BASES: The visualized lung bases are unremarkable. LIVER, GALLBLADDER, AND BILIARY TREE: The liver is normal in size, shape, and attenuation. There is a 9 mm hypodensity left hepatic likely segment 4B small cyst. No additional lesions seen. There is no intrahepatic biliary ductal dilatation. The gallbladder is unremarkable with no evidence of radiopaque gallstones, gallbladder wall thickening, or obvious pericholecystic inflammatory changes. PANCREAS: Unremarkable. SPLEEN: Unremarkable. ADRENAL GLANDS: Unremarkable. KIDNEYS AND URETERS: The kidneys are normal in size, shape, and attenuation. No hydronephrosis, hydroureter, or calculi seen. No perinephric stranding. BLADDER: Unremarkable. GASTROINTESTINAL TRACT: There is scattered stool and gas seen throughout the colon most prominent in the ascending and transverse colon. There are a few scattered diverticula as well without mural thickening or pericolic fat stranding. ABDOMINAL WALL: Remote postsurgical changes in the anterior abdominal wall epigastric region. No evidence of hernia. LYMPH NODES: Normal. VASCULAR: Unremarkable. PELVIC VISCERA: There are bilateral Essure devices performed for tubal sterilization. There is no free fluid. The uterus is anteverted and appears unremarkable. OSSEOUS STRUCTURES: There are degenerative disc changes with vacuum disc phenomena and spondylosis L5-S1 and L2-L3 disc level. No aggressive lytic or sclerotic process seen. CT/CT abdomen pelvis wo con IMPRESSION: No acute intra-abdominal process seen. Likely small left hepatic lobe 9 mm cyst, stable compared to 11/07/2020 Fleischner guidelines were followed.
[2021-08-30 08:02] LABS: MANUAL DIFF FLAG NO
[2021-08-30 08:42] LABS: Basophils Percent Auto 0.1 % (0-2); Eosinophils Absolute Auto 0.2 X10*3/uL (0.0-0.4); Eosinophils Percent Auto 2.3 % (0-4); Hematocrit 39.5 % (37.0-47.0); Imm Gran Abs Auto 0.03 X10*3/uL (0.00-0.03); Imm Gran Pct Auto 0.4 % (0.0-0.4); Lymphocytes Absolute Auto 2.9 X10*3/uL (1.2-4.9); Lymphocytes Percent Auto 40.7 % (20-40); Mean Corpuscular HGB Conc 32.9 g/dl (31.0-35.0); Mean Corpuscular Hemoglobin 30.3 pg (27.0-33.0); Mean Corpuscular Volume 92.1 fL (80.0-98.0); Mean Platelet Volume 11.1 fL (9.4-12.3); Monocytes Absolute Auto 0.7 X10*3/uL (0.1-1.2); Monocytes Percent Auto 9.5 % (2-11); Neutrophils Absolute Auto 3.3 x10*3/uL (2.0-8.3); Platelet Count 250 X10*3/uL (160-400); Red Blood Count 4.29 X10*6/uL (4.20-5.50); Red Cell Distribution Width 13.6 % (11.0-16.0); White Blood Count 7.1 X10*3/uL (4.8-10.8)
[2021-08-30 09:01] LABS: Alanine Aminotransferase 24 U/L (0-31); Albumin Level 4.1 g/dL (3.5-5.0); Alkaline Phosphatase 95 U/L (39-117); Anion Gap 12 (12-20); Aspartate Amino Transferase 19 U/L (5-31); Bilirubin Total 0.4 mg/dL (0.0-1.0); Blood Urea Nitrogen 15 mg/dL (9-16); Calcium 9.2 mg/dL (8.4-10.2); Carbon Dioxide 25 mmol/L (22-29); Chloride 108 mmol/L (96-108); Cholesterol 240 mg/dL; Estimated Glomerular Filt Rate > 60; Glucose Fasting 116 mg/dL (60-99); HDL Cholesterol 49 mg/dL; LDL Cholesterol Calculated 160 mg/dl; Potassium 4.1 mmol/L (3.3-5.1); Sodium 141 mmol/L (135-145); Total Protein 6.7 g/dL (6.5-8.0); Triglycerides 156 mg/dL
[2021-09-04 18:45] LABS: Vitamin D 25-OH, D2 <4 ng/mL; Vitamin D 25-OH, D3 28 ng/mL; Vitamin D 25-OH, Total 28 ng/mL (30-100)
== END 2021-08-30 07:20 | disposition home or self-care (01) ==
LOC: HO.CT 07:19
PROVIDERS: Absent Provider Internal Medicine; PCP Internal Medicine; Visit Provider Surgery
DX: R10.9 Unspecified abdominal pain (principal); R73.02 Impaired glucose tolerance (oral); E78.5 Hyperlipidemia, unspecified; K59.00 Constipation, unspecified; E55.9 Vitamin D deficiency, unspecified
CPT/HCPCS: 36415; 74176; 80053; 80061; 82306; 85025

== ENCOUNTER 2022-01-03 09:44 | Outpatient (REF) | payer OTHER, SELFPAY ==
[2022-01-03 10:46] LABS: Hematocrit 43.6 % (37.0-47.0); Hemoglobin 14.4 g/dl (12.0-16.0); Mean Corpuscular Hemoglobin 30.1 pg (27.0-33.0); Mean Corpuscular Volume 91.2 fL (80.0-98.0); Mean Platelet Volume 10.9 fL (9.4-12.3); Platelet Count 268 X10*3/uL (160-400); Red Blood Count 4.78 X10*6/uL (4.20-5.50); Red Cell Distribution Width 13.2 % (11.0-16.0); White Blood Count 7.5 X10*3/uL (4.8-10.8)
[2022-01-03 10:56] LABS: INTERNATIONAL NORM RATIO 0.9 (0.9-1.1)
[2022-01-03 11:31] LABS: Alanine Aminotransferase 19 U/L (0-31); Albumin Level 4.5 g/dL (3.5-5.0); Alkaline Phosphatase 111 U/L (39-117); Anion Gap 16 (12-20); Aspartate Amino Transferase 20 U/L (5-31); Bilirubin Direct 0.2 mg/dL (0.0-0.5); Bilirubin Total 0.5 mg/dL (0.0-1.0); Blood Urea Nitrogen 21 mg/dL (9-16); Calcium 9.6 mg/dL (8.4-10.2); Carbon Dioxide 25 mmol/L (22-29); Chloride 103 mmol/L (96-108); Estimated Glomerular Filt Rate > 60; Glucose Random 121 mg/dL (60-115); Potassium 4.3 mmol/L (3.3-5.1); Sodium 140 mmol/L (135-145); Total Protein 7.6 g/dL (6.5-8.0)
[2022-01-03 11:42] LABS: Appearance Urine Cloudy; Color Urine Yellow; Glucose Urine UA Negative (Negative); Leukocyte Esterase Urine Large (3+) (Negative); Nitrite Urine Negative (Negative); UMIC TRIGGER UACC YES; Urine Blood Small (1+) (Negative); Urine Ketones Negative (Negative); Urine Protein Negative (Neg-Trace)
[2022-01-03 11:57] LABS: Bacteria Urine None Seen (None Seen); Hyaline Casts Urine 0-2 /LPF (0-2); RBC Urine 0-2 /HPF (0-2); Squamous Epithelial Cell Urine 0-2 /HPF (0-2); UACC Culture Trigger YES; WBC Clumps Urine Present; WBC Urine >50 /HPF (0-5)
== END 2022-01-03 09:45 | disposition home or self-care (01) ==
LOC: HO.LAB 09:44
PROVIDERS: Internal Medicine; Nurse Practitioner Family; PCP Internal Medicine; Visit Provider Internal Medicine
DX: Z01.818 Encounter for other preprocedural examination (principal); H02.409 Unspecified ptosis of unspecified eyelid
CPT/HCPCS: 36415; 80048; 80076; 81001; 84443; 85027; 85610; 87086; 87088; 87186

== ENCOUNTER 2022-01-30 09:51 | Outpatient (REF) | payer OTHER, SELFPAY ==
[2022-01-30 11:42] LABS: Blood Urea Nitrogen 16 mg/dL (9-16); Cholesterol 235 mg/dL; Estimated Glomerular Filt Rate > 60; HDL Cholesterol 47 mg/dL; LDL Cholesterol Calculated 147 mg/dl; Triglycerides 209 mg/dL
[2022-01-30 12:00] LABS: Vitamin D 25-OH Total 19.3 ng/mL (>30)
[2022-01-30 12:19] LABS: Appearance Urine Clear; Color Urine Yellow; Glucose Urine UA Negative (Negative); Leukocyte Esterase Urine Negative (Negative); Nitrite Urine Negative (Negative); PH 5.5 (5.0-9.0); Urine Blood Negative (Negative); Urine Ketones Negative (Negative); Urine Protein Negative (Neg-Trace)
== END 2022-01-30 09:52 | disposition home or self-care (01) ==
LOC: HO.LAB 09:51
PROVIDERS: Surgery; PCP Internal Medicine; Visit Provider Internal Medicine
DX: E55.9 Vitamin D deficiency, unspecified (principal); E78.5 Hyperlipidemia, unspecified; R30.0 Dysuria; Z18.9 Retained foreign body fragments, unspecified material
CPT/HCPCS: 36415; 80061; 81003; 82306; 82565; 84520

== ENCOUNTER 2022-02-01 13:19 | Outpatient (REF) | payer OTHER, SELFPAY ==
--- NOTE | ~2022-02-01 | MM_ITS ---
EXAMINATION: BONE DENSITOMETRY CLINICAL INDICATION: Menopause. COMPARISON: Baseline BD dated 12/04/2018. TECHNIQUE: Using a [employer] DXA System (software version: 13.1) manufactured by [employer], dual-energy x-ray absorptiometry was performed of the lumbar spine and left hip. The images are of good technical quality. Summary results are attached. FINDINGS: AP SPINE L1-L4: Current: BMD 0.990 g/cm2, Z-score 0.1, T-score -1.6, osteopenia, 5.6% decrease from baseline (<5% change is not significant). Baseline: BMD 1.049 g/cm2. LEFT FEMUR, NECK: Current: BMD 0.819 g/cm2, Z-score 0.0, T-score -1.6, osteopenia. Baseline: BMD 0.852 g/cm2. LEFT FEMUR, TOTAL: Current: BMD 0.931 g/cm2, Z-score 0.7, T-score -0.6, normal, 3.7% decrease from baseline (<5% change is not significant). Baseline: BMD 0.967 g/cm2. IDENTIFIED RISK FACTORS: Early menopause, height loss, history of fracture (adult), low calcium intake, osteoporosis, secondary osteoporosis. HISTORY OF FRACTURE: Shoulder. MEDICATIONS: None listed. MM/XR DEXA axial skeleton IMPRESSION: 1. DIAGNOSIS: Osteopenia based on the lowest T-score value of -1.6 in the lumbar spine and femur neck applying World Health Organization criteria. 2. 10-YEAR FRACTURE RISK PREDICTION, FRAX: Major osteoporotic fracture (clinical spine, forearm, hip or shoulder) 8.6%. Hip fracture 1.0%. 3. Treatment Recommendations: NOF guidelines recommend consideration for treatment in postmenopausal women and men age 50 and older presenting with the following: -A hip or vertebral (clinical or morphometric) fracture. -T-score less than or equal to -2.5 at the femoral neck or spine after appropriate evaluation to exclude secondary causes. -Low bone mass at the hip or spine and a 10-year fracture probability by FRAX of greater than or equal to 3% for hip fracture or greater than or equal to 20% for major osteoporotic fracture based on the [place] adapted WHO algorithm. 4. Other Recommendations: All treatment decisions require clinical judgment and consideration of individual patient factors, including patient preferences, comorbidities, previous drug use, risk factors not captured in the FRAX model (e.g. frailty, falls, vitamin D deficiency, increased bone turnover, interval significant decline in bone density) and possible under or overestimation of fracture risk by FRAX. Additional medical evaluation for secondary cause of low bone mineral density may be appropriate. FUTURE SCAN RECOMMENDATION: People with diagnosed cases of osteoporosis or at high risk for fracture should have regular bone mineral density tests. For patients eligible for Medicare, routine testing is allowed once every 2 years. The testing frequency can be increased to one year for patients who have rapidly progressing disease, those who are receiving or discontinuing medical therapy to restore bone mass, or have additional risk factors.
== END 2022-02-01 13:20 | disposition home or self-care (01) ==
LOC: HO.MAMMO 13:19
PROVIDERS: PCP Internal Medicine; Visit Provider Internal Medicine
DX: Z13.820 Encounter for screening for osteoporosis (principal); Z78.0 Asymptomatic menopausal state
CPT/HCPCS: 77080

== ENCOUNTER 2022-02-15 09:49 | Outpatient (REF) | payer OTHER, MEDICAID, SELFPAY | END 2022-02-15 09:50 | disposition home or self-care (01) | LOC: HO.XRAY 09:49 | PROVIDERS: Absent Provider Internal Medicine; PCP Internal Medicine; Visit Provider Physician Assistant | DX: Z13.89 Encounter for screening for other disorder (principal) ==

== ENCOUNTER → 2022-02-28 13:03 | Outpatient (BNVA) | payer OTHER, MEDICAID, SELFPAY | PROVIDERS: PCP Internal Medicine; Visit Provider Nurse Practitioner Family | DX: M75.41 Impingement syndrome of right shoulder (principal); M25.511 Pain in right shoulder; M51.36 Other intervertebral disc degeneration, lumbar region; M47.816 Spondylosis without myelopathy or radiculopathy, lumbar region; M54.16 Radiculopathy, lumbar region | CPT/HCPCS: 99202 ==

== ENCOUNTER 2022-03-20 19:52 | Emergency (ER) | payer OTHER, MEDICAID, SELFPAY ==
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
--- NOTE | ~2022-03-20 | XR_ITS ---
EXAMINATION: XR SHOULDER, LEFT CLINICAL INFORMATION: Pain. COMPARISON: None TECHNIQUE: AP external rotation, Grashey, scapular Y, and axillary views of the left shoulder. FINDINGS: There is mild reduction in the left AC joint space with periarticular spurring. The glenohumeral joint space is maintained normal with minimal inferior. Close spurring. No acute fracture, dislocation or subluxation seen. The soft tissues are normal. XR/XR shoulder LT min 2V IMPRESSION: Mild degenerative changes left A.C. joint and glenohumeral joint. No visible acute fracture or dislocation seen.
[2022-03-20 20:01] VITALS: BP 150/90; PULSE 115; RESP 18; TEMP 36.6; O2SAT 97; BMI 25.3
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
[2022-03-20] MEDS: Acetaminophen 325 MG TABLET 650 MG PO (20:44)
[2022-03-20] MEDS: Cyclobenzaprine HCl 5 MG TABLET PO (20:44)
== END 2022-03-20 22:44 | disposition home or self-care (01) ==
PROVIDERS: Emergency Provider Internal Medicine; PCP Internal Medicine
DX: S13.4XXA Sprain of ligaments of cervical spine, initial encounter (principal); V43.52XA Car driver injured in collision with other type car in traffic accident, initial encounter; M19.112 Post-traumatic osteoarthritis, left shoulder; Y93.89 Activity, other specified; Y92.414 Local residential or business street as the place of occurrence of the external cause; Y99.9 Unspecified external cause status
CPT/HCPCS: 70450; 72125; 73030; 99283; 99284

== ENCOUNTER 2022-03-27 15:27 | Outpatient (REF) | payer OTHER, MEDICAID, SELFPAY | END 2022-03-27 15:28 | disposition home or self-care (01) | LOC: HO.HOSX 15:27 | PROVIDERS: Visit Provider Physician Assistant | DX: Z13.89 Encounter for screening for other disorder (principal) ==

== ENCOUNTER 2022-05-19 14:07 | Outpatient (REF) | payer OTHER, MEDICAID, SELFPAY ==
--- NOTE | ~2022-05-19 | XR_ITS ---
EXAMINATION: XR SHOULDER, RIGHT CLINICAL INFORMATION: 67-year-old female patient with shoulder pain. COMPARISON: X-rays of the left shoulder on 03/20/2022. (Osteoarthritis). TECHNIQUE: AP external rotation, Grashey, scapular Y, and axillary views of the right shoulder. FINDINGS: There is evidence of joint space narrowing and juxta-articular osteosclerosis involving the acromioclavicular joint and the glenohumeral joint. In addition, there is significant impingement of the humeral head on the acromion process indicative of rotator cuff degeneration. Ossification is present in the coracoclavicular ligament. 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 Rotator cuff degeneration.
[2022-05-19 15:35] LABS: Estimated Average Glucose 126 mg/dL
[2022-05-19 16:35] LABS: Thyroid Stimulating Hormone 2.72 uIU/mL (0.32-4.0)
== END 2022-05-19 14:08 | disposition home or self-care (01) ==
LOC: HO.XRAY 14:07
PROVIDERS: Absent Provider Nurse Practitioner Family; PCP Internal Medicine; Referring Provider Internal Medicine; Visit Provider Physician Assistant
DX: Z01.818 Encounter for other preprocedural examination (principal); E03.9 Hypothyroidism, unspecified; M25.511 Pain in right shoulder
CPT/HCPCS: 36415; 73030; 83036; 84443

== ENCOUNTER 2022-07-31 10:35 | Outpatient (REF) | payer OTHER, MEDICAID, SELFPAY ==
--- NOTE | ~2022-07-31 | XR_ITS ---
EXAMINATION: XR THORACIC SPINE CLINICAL INFORMATION: Back pain. COMPARISON: None available. TECHNIQUE: 3 views of the thoracic spine were obtained. FINDINGS: No fractures identified. No lytic or sclerotic bony lesion is identified. Thoracic vertebral alignment is within normal limits. Mild multilevel disc space narrowing. No abnormality of the paraspinal soft tissues is seen. XR/XR thoracic spine 3V IMPRESSION: Mild degenerative changes.
--- NOTE | ~2022-07-31 | XR_ITS ---
EXAMINATION: XR LUMBOSACRAL SPINE WITH OBLIQUES CLINICAL INFORMATION: Back pain. COMPARISON: None available. TECHNIQUE: AP, both oblique, and lateral views of the lumbar spine. Lateral view of the lumbosacral junction. FINDINGS: There is no acute radiographic finding. Moderate to severe disc degenerative changes seen at L5-S1. Mild to moderate facet degenerative changes may be present at L4-S1. Mild lumbar dextrocurvature. Vertebral body heights appear maintained. No spondylolysis or spondylolisthesis is seen. The paraspinal soft tissues appear unremarkable. XR/XR lumbar spine 4V min IMPRESSION: Degenerative changes.
--- NOTE | ~2022-07-31 | XR_ITS ---
EXAMINATION: XR KNEE, LEFT CLINICAL INFORMATION: Left knee pain. COMPARISON: None available. TECHNIQUE: Three views of the left knee. FINDINGS: Bones and soft tissues appear unremarkable. No fracture or joint effusion identified. Alignment is anatomic. Joint spaces appear well maintained. No abnormal soft tissue calcification appreciated. XR/XR knee LT 3V IMPRESSION: Unremarkable plain film examination of the left knee.
--- NOTE | ~2022-07-31 | XR_ITS ---
EXAMINATION: XR KNEE, RIGHT CLINICAL INFORMATION: Right knee pain. COMPARISON: None available. TECHNIQUE: Three views of the right knee. FINDINGS: No fracture or joint effusion identified. Alignment is anatomic. Mild joint space narrowing predominantly involving the medial and patellofemoral compartments. The soft tissues appear unremarkable. XR/XR knee RT 3V IMPRESSION: Mild degenerative change.
== END 2022-07-31 10:36 | disposition home or self-care (01) ==
LOC: HO.XRAY 10:35
PROVIDERS: PCP Internal Medicine; Visit Provider Nurse Practitioner Family
DX: M25.561 Pain in right knee (principal); M25.562 Pain in left knee; M54.9 Dorsalgia, unspecified
CPT/HCPCS: 72072; 72110; 73562

== ENCOUNTER 2022-11-09 16:45 | Outpatient (AMB) | payer OTHER, SELFPAY ==
--- NOTE | 2022-11-09 16:50 | MHC.PC.OV ---
Vital Signs 11/09/22 16:52 Height 5 ft Weight 134 lb BMI 26.2 BP 124/80 Blood Pressure Location Lt brachial Position Sitting Intake Visit Reasons: asthma Intake Note: Patient here for a follow up asthma Mice Raiser Required: No Accompanied by: Self / Same As Patient Allergies barium sulfate [CONTRAST,ORAL] Allergy (Intermediate, Verified 11/09/22 17:17) HIVES Iodinated Contrast Media [IV CONTRAST] Allergy (Intermediate, Verified 11/09/22 17:17) HIVES ondansetron [From Zofran] Allergy (Intermediate, Verified 11/09/22 17:17) Stomach Upset celecoxib Adverse Reaction (Mild, Verified 11/09/22 17:17) chills cyclobenzaprine Adverse Reaction (Mild, Verified 11/09/22 17:17) anxiety nabumetone Adverse Reaction (Mild, Verified 11/09/22 17:17) dry mouth, upset stomach Medication List - Last Reconciled 11/09/22 by Homa Cronin MD acetaminophen ER (Pain Relief (acetaminophen)) 1,300 mg (2 x 650 mg) PO Q12H PRN 30 days [adult diapers disposable briefs As directed] albuterol sulfate 1.25 mg (3 mL) PO QID PRN albuterol sulfate 90 mcg/actuation 2 puffs inhalation Q4-6H PRN atorvastatin 10 mg PO BEDTIME 90 days benzonatate 100 mg PO BID PRN 5 days betamethasone dipropionate 0.05% 1 appl topical BID 15 days cholecalciferol (vitamin D3) 25 mcg PO DAILY 90 days escitalopram oxalate 20 mg PO DAILY famotidine (Pepcid) 20 mg PO DAILY PRN fluticasone propionate 110 mcg/actuation (Flovent HFA) 1 puff inhalation BID gabapentin 300 mg PO BID 30 days [gloves powder free synthetic As directed] Grab bar As directed levothyroxine 50 mcg PO DAILY 90 days lidocaine 5% 1 patch topical DAILY PRN 30 days linaclotide (Linzess) 145 mcg PO QAM 30 days lorazepam 1 mg PO BID nebulizers Nebulizer with tubing and accessories nystatin 1 appl topical BID 30 days omeprazole 20 mg PO DAILY 14 days ondansetron HCl 4 mg PO Q8H 7 days [personal cleansing wipes As directed] [raised toilet seat As directed] [recliner As directed] [reclining chair As directed] sennosides (Senokot) 8.6 mg PO DAILY PRN Shower Chair As directed Tobacco use date assessed: 08/31/22 Fall risk assessment: 1 Fall in past year Last assessed Fall Risk: 11/09/22 Dental Screening Dental Screen Date: 11/09/22 Did you have a dental visit in the last 12 months?: No Did you have a dental problem in the last 6 months where you did not have access to dental care?: No Was dental information given to patient?: Patient has dentist HPI HPI Comments History of Present Illness Details This is a 67-year-old female with moderate persistent asthma, hypothyroidism, GERD, constipation, mild recurrent major depression and dyslipidemia that comes today for follow-up on her conditions. She has a more adequate response with nebulizer solution that with inhaler due to not causing tachycardia. Last TSH was normal. GERD stable with famotidine. Constipation well controlled with medications. Depression stable with escitalopram. On statins for her dyslipidemia. She is compliant with medications. Complains of low back pain due to lumbar radiculopathy and will benefit from a recliner. [facility] Medical History Anxiety Arthritis Candidal intertrigo Coccyalgia Dyslipidemia Fibromyalgia GERD (gastroesophageal reflux disease) History of asthma History of COVID-19 Impaired glucose tolerance Lumbar pain Mild recurrent major depression PONV (postoperative nausea and vomiting) Rash Rectal bleeding Shoulder pain Sinusitis Urinary incontinence Surgical History History of abdominal surgery History of carpal tunnel surgery History of carpal tunnel surgery of left wrist History of eye surgery Previous section Family History Mother Colon cancer Hypertension Glaucoma Arthritis Father Bone cancer Social History Household Members: Children Housing: Apartment Do you presently have visiting nurse or other home services: Yes Unable to assess alcohol history related to: Unknown Alcohol intake: never Patient Tobacco Use Status: Never used Tobacco e-Cigarette/Vaping Use: Never Used Second Hand Smoke Exposure: No service: No Current occupational status: disabled Current occupation: Right Handed Cognitive needs: No Hearing needs: No Vision needs: Yes (glasses) Questionnaire Thrive Questionnaire Date Thrive assessed: 05/25/22 YENNIFER-7 AMB Questionnaire YENNIFER-7 Date YENNIFER - 7 assessed: 05/25/22 Source: Developed by Drs. Damián Mcgrath, Cee Butler, Wing Mattson and colleagues, with an educational vanessa from [employer]. Review of Systems Const All systems reviewed & are unremarkable except as noted in HPI and below Eyes Reports no additional complaints, Denies change in vision and Denies other visual disturbances Card Denies chest pain at rest, Denies chest pain with activity, Denies edema, Denies irregular heart rhythm, Denies claudication, Denies dyspnea, Denies dyspnea on exertion, Denies orthopnea, Denies paroxysmal nocturnal dyspnea and Denies slow heart rate Resp Denies cough, Denies dyspnea and Denies dyspnea on exertion GI Denies abdominal pain, Denies change in bowel habits, Denies excessive flatus, Denies nausea and Denies vomiting Denies urinary incontinence, Denies urinary hesitancy and Denies urinary urgency Musc Denies abnormal gait, Denies atrophy, Denies deformity and Denies limited range of motion Skin/Breast Denies bleeding lesions, Denies changing lesions and Denies rash Neuro Denies abnormal gait and Denies lack of coordination Physical exam (Primary Care) Vital Signs: Last Vital Signs BP 124/80 11/09/22 16:52 BMI result Body Mass Index 26.2 Tobacco/Smoking Status: Tobacco use Status Tobacco use date assessed 08/31/22 11/09/22 16:51 Patient Tobacco Use Status Never used Tobacco 11/09/22 16:51 e-Cigarette/Vaping Use Never Used 11/09/22 16:51 Thrive Assessment: Date of Thrive Assessment Date Thrive assessed 05/25/22 11/09/22 16:51 Eyes General: appearance normal, both eyes and all related structures Eyelids: Yes eyelids normal Conjunctivae: conjunctivae normal Neck Neck: Yes normal visual inspection and Yes supple Resp Effort & Inspection: normal respiratory effort Auscultation: clear to auscultation bilaterally Cardio Jugular venous distension: no JVD Rate: regular rate Rhythm: regular rhythm Heart sounds: S1 normal heart sound present and S2 normal heart sound present Extrem General: Yes full ROM Assessment and Plan Assessment & Plan (1) Moderate persistent asthma: Code(s): J45.40 - Moderate persistent asthma, uncomplicated Plan: Use albuterol nebulizer solution as needed. (2) Hypothyroidism: Code(s): E03.9 - Hypothyroidism, unspecified Plan: Continue levothyroxine. (3) Constipation: Code(s): K59.00 - Constipation, unspecified Plan: Continue Linzess. (4) GERD (gastroesophageal reflux disease): Code(s): K21.9 - Gastro-esophageal reflux disease without esophagitis Qualifiers: Esophagitis presence: without esophagitis Qualified Code(s): K21.9 - Gastro-esophageal reflux disease without esophagitis Plan: Continue famotidine and omeprazole as needed. (5) Mild recurrent major depression: Code(s): F33.0 - Major depressive disorder, recurrent, mild Plan: Continue escitalopram. (6) Dyslipidemia: Code(s): E78.5 - Hyperlipidemia, unspecified Plan: Continue statins. Medications: New hydrocodone-homatropine 5-1.5 mg/5 mL (5 mL) (Hycodan) Partial Fill upon patient request. 5 mL PO Q4-6H 3 days PRN 200 mL 0RF cough Refilled ondansetron HCl 4 mg PO Q8H 7 days 21 tabs 0RF R20.2 - Paresthesia of skin Coding Level of Care Code Est Pt Level 4 (76189) Diagnoses Moderate persistent asthma J45.40 Hypothyroidism E03.9 Constipation K59.00 GERD (gastroesophageal reflux disease) K21.9 Esophagitis presence: without esophagitis Mild recurrent major depression F33.0 Dyslipidemia E78.5 Time Spent (min) 25
[2022-11-09 16:52] VITALS: BP 124/80; BMI 26.2
== END 2022-11-09 17:25 | disposition home or self-care (01) ==
PROVIDERS: PCP Internal Medicine; Visit Provider Internal Medicine
DX: J45.40 Moderate persistent asthma, uncomplicated (principal); E03.9 Hypothyroidism, unspecified; K21.9 Gastro-esophageal reflux disease without esophagitis; F33.0 Major depressive disorder, recurrent, mild; K59.00 Constipation, unspecified; E78.5 Hyperlipidemia, unspecified
CPT/HCPCS: 99214

== ENCOUNTER 2023-02-05 09:01 | Outpatient (AMB) | payer OTHER, MEDICAID, SELFPAY ==
--- NOTE | 2023-02-05 09:02 | A.OFFPC_ITS ---
Vital Signs 02/05/23 09:04 Height 5 ft Weight 138 lb BMI 26.9 BP 124/80 Blood Pressure Location Lt brachial Position Sitting Intake Visit Reasons: pe Intake Note: Patient here for a physical exam Designated Broker Required: No Accompanied by: Self / Same As Patient Allergies barium sulfate [CONTRAST,ORAL] Allergy (Intermediate, Verified 02/05/23 09:22) HIVES Iodinated Contrast Media [IV CONTRAST] Allergy (Intermediate, Verified 02/05/23 09:22) HIVES ondansetron [From Zofran] Allergy (Intermediate, Verified 02/05/23 09:22) Stomach Upset celecoxib Adverse Reaction (Mild, Verified 02/05/23 09:22) chills cyclobenzaprine Adverse Reaction (Mild, Verified 02/05/23 09:22) anxiety nabumetone Adverse Reaction (Mild, Verified 02/05/23 09:22) dry mouth, upset stomach Medication List - Last Reconciled 02/05/23 by Homa Cronin MD acetaminophen ER (Pain Relief (acetaminophen)) 1,300 mg (2 x 650 mg) PO Q12H PRN 30 days [adult diapers disposable briefs As directed] albuterol sulfate 90 mcg/actuation 2 puffs inhalation Q4-6H PRN albuterol sulfate 1.25 mg (3 mL) PO QID PRN atorvastatin 10 mg PO BEDTIME 90 days benzonatate 100 mg PO BID PRN 5 days betamethasone dipropionate 0.05% 1 appl topical BID 15 days cholecalciferol (vitamin D3) 25 mcg PO DAILY 90 days escitalopram oxalate 20 mg PO DAILY famotidine (Pepcid) 20 mg PO DAILY PRN fluticasone propionate 110 mcg/actuation (Flovent HFA) 1 puff inhalation BID gabapentin 300 mg PO BID 30 days [gloves powder free synthetic As directed] Grab bar As directed hydrocodone-homatropine 5-1.5 mg/5 mL (5 mL) (Hycodan) 5 mL PO Q4-6H PRN 3 days levothyroxine 50 mcg PO DAILY 90 days lidocaine 5% 1 patch topical DAILY PRN 30 days linaclotide (Linzess) 145 mcg PO QAM 30 days lorazepam 1 mg PO BID nebulizers Nebulizer with tubing and accessories nystatin 1 appl topical BID 30 days omeprazole 20 mg PO DAILY 14 days ondansetron HCl 4 mg PO Q8H 7 days [personal cleansing wipes As directed] [raised toilet seat As directed] [recliner As directed] [reclining chair As directed] sennosides (Senokot) 8.6 mg PO DAILY PRN Shower Chair As directed Tobacco use date assessed: 08/31/22 Fall risk assessment: No Falls in past year Last assessed Fall Risk: 02/05/23 Dental Screening Dental Screen Date: 02/05/23 Did you have a dental visit in the last 12 months?: No Did you have a dental problem in the last 6 months where you did not have access to dental care?: No Was dental information given to patient?: Yes HPI HPI Comments History of Present Illness Details This is a 68-year-old female with mild recurrent major depression that comes for her physical exam. Depression stable with medications. Has not had a mammogram in over a year. Had bone density 2021 showing osteopenia. Declines colonoscopy and said that has a fit test at home brought by insurance nurse and is pending to be done. No chest pain or shortness of breath. Complains of diffuse joint pain. [facility] Medical History (Updated 02/05/23 @ 09:36 by Homa Cronin MD) Lumbar pain Urinary incontinence History of COVID-19 Candidal intertrigo Sinusitis PONV (postoperative nausea and vomiting) Shoulder pain GERD (gastroesophageal reflux disease) Coccyalgia Mild recurrent major depression Rectal bleeding History of asthma Rash Dyslipidemia Impaired glucose tolerance Fibromyalgia Arthritis Anxiety Surgical History H/O exploratory laparotomy History of eye surgery History of abdominal surgery Previous section History of carpal tunnel surgery of left wrist History of carpal tunnel surgery Family History Mother Colon cancer Hypertension Glaucoma Arthritis Father Bone cancer Household Members: Children Housing: Apartment Do you presently have visiting nurse or other home services: Yes Unable to assess alcohol history related to: Unknown Alcohol intake: never Patient Tobacco Use Status: Never used Tobacco e-Cigarette/Vaping Use: Never Used Second Hand Smoke Exposure: No service: No Current occupational status: disabled Current occupation: Right Handed Cognitive needs: No Hearing needs: No Vision needs: Yes (glasses) Questionnaire Thrive Questionnaire Date Thrive assessed: 05/25/22 YENNIFER-7 AMB Questionnaire YENNIFER-7 Date YENNIFER - 7 assessed: 05/25/22 Source: Developed by Drs. Damián Mcgrath, Cee Butler, Wing Mattson and colleagues, with an educational vanessa from [employer]. Review of Systems Const All systems reviewed & are unremarkable except as noted in HPI and below Eyes Reports no additional complaints, Denies change in vision and Denies other visual disturbances Card Denies chest pain at rest, Denies chest pain with activity, Denies edema, Denies irregular heart rhythm, Denies claudication, Denies dyspnea, Denies dyspnea on exertion, Denies orthopnea, Denies paroxysmal nocturnal dyspnea and Denies slow heart rate Resp Denies cough, Denies dyspnea and Denies dyspnea on exertion GI Denies abdominal pain, Denies change in bowel habits, Denies excessive flatus, Denies nausea and Denies vomiting Denies urinary incontinence, Denies urinary hesitancy and Denies urinary urgency Musc Denies abnormal gait, Reports back pain, Reports myalgias, Denies atrophy, Denies deformity, Reports arthralgias and Denies limited range of motion Skin/Breast Denies bleeding lesions, Denies changing lesions and Denies rash Neuro Denies abnormal gait, Denies behavioral changes, Denies confusion and Denies lack of coordination Psych Denies behavioral changes and Denies confusion Physical exam (Primary Care) Vital Signs: Last Vital Signs BP 124/80 02/05/23 09:04 BMI result Body Mass Index 26.9 Tobacco/Smoking Status: Tobacco use Status Tobacco use date assessed 08/31/22 02/05/23 09:16 Patient Tobacco Use Status Never used Tobacco 02/05/23 09:16 e-Cigarette/Vaping Use Never Used 02/05/23 09:16 Thrive Assessment: Date of Thrive Assessment Date Thrive assessed 05/25/22 02/05/23 09:16 Const General: No confusion Orientation/consciousness: patient oriented x3 and No confusion HENMT Head: Yes normal to inspection, Yes normocephalic and Yes atraumatic Ears: external ears normal Eyes General: appearance normal, both eyes and all related structures Eyelids: Yes eyelids normal Conjunctivae: conjunctivae normal Neck Neck: Yes normal visual inspection and Yes supple Resp Effort & Inspection: normal respiratory effort Auscultation: clear to auscultation bilaterally Cardio Jugular venous distension: no JVD Rate: regular rate Rhythm: regular rhythm Heart sounds: S1 normal heart sound present and S2 normal heart sound present GI Inspection: Yes normal to inspection Palpation (GI): Soft to palpation and nontender Auscultation: normal bowel sounds Skin General skin exam: no rashes or lesions noted Neuro General: patient oriented x3, no focal motor deficits and No confusion Extrem General: Yes full ROM Psych Appearance: grossly normal Assessment and Plan Assessment & Plan (1) Physical exam: Code(s): Z00.00 - Encounter for general adult medical examination without abnormal findings Plan: Repeat in a year. (2) Mild recurrent major depression: Code(s): F33.0 - Major depressive disorder, recurrent, mild Plan: Continue escitalopram. Orders: Orders MM screening mammo BI Today Z12.31 - Encounter for screening mammogram for malignant neoplasm of breast Lipid Panel Today E78.5 - Hyperlipidemia, unspecified Thyroid Stimulating Hormone Today E03.9 - Hypothyroidism, unspecified Comprehensive Met. Panel Today M51.36 - Other intervertebral disc degeneration, lumbar region Referrals Rheumatology Referral M15.9 - Polyosteoarthritis, unspecified Medications: New amoxicillin 500 mg PO BID 14 tabs 0RF 7 days Refilled albuterol sulfate 1.25 mg (3 mL) PO QID PRN 75 mL 0RF Shortness Of Breath Or Wheezing acetaminophen ER (Pain Relief (acetaminophen)) 1,300 mg (2 x 650 mg) PO Q12H PRN 120 tabs 0RF pain 30 days gabapentin 300 mg PO BID 60 caps 3RF pain 30 days M25.511 - Pain in right shoulder, M47.816 - Spondylosis without myelopathy or radiculopathy, lumbar region, M54.16 - Radiculopathy, lumbar region ondansetron HCl 4 mg PO Q8H 21 tabs 0RF 7 days R20.2 - Paresthesia of skin Coding Level of Care Code Est Pt Prev Care >65y(29131) Diagnoses Physical exam Z00.00 Mild recurrent major depression F33.0 Time Spent (min) 35
[2023-02-05 09:04] VITALS: BP 124/80; BMI 26.9
== END 2023-02-05 09:35 | disposition home or self-care (01) ==
PROVIDERS: Visit Provider Internal Medicine
DX: Z00.00 Encounter for general adult medical examination without abnormal findings (principal); F33.0 Major depressive disorder, recurrent, mild
CPT/HCPCS: 99397

== ENCOUNTER → 2023-02-10 10:00 | Outpatient (BNV) | payer OTHER, SELFPAY | PROVIDERS: PCP Internal Medicine; Visit Provider Radiology Diagnostic Radiology | DX: Z12.31 Encounter for screening mammogram for malignant neoplasm of breast (principal) | CPT/HCPCS: 77063; 77067 ==

== ENCOUNTER 2023-02-10 10:17 | Outpatient (REF) | payer OTHER, SELFPAY ==
--- NOTE | ~2023-02-10 | MM_ITS ---
EXAMINATION: MM SCREENING DIGITAL BREAST TOMOSYNTHESIS, BILATERAL CLINICAL INFORMATION: Screening. Asymptomatic. COMPARISON: Mammography: 12/10/2019, 12/04/2018. TECHNIQUE: Digital breast tomosynthesis is performed in both the craniocaudal and mediolateral oblique views along with computer-aided detection (CAD). Synthesized 2D images are generated from the tomosynthesis. FINDINGS: There are scattered areas of fibroglandular density (ACR BI-RADS breast composition Category b). There are mild bilateral vascular calcifications, benign. There are a few punctate scattered parenchymal calcifications without grouping or aggressive change. There are no suspicious masses, suspicious grouped calcifications, or areas of architectural distortion in either breast. The parenchymal pattern is stable from prior exams. MM/MM tomosynthesis screening BI IMPRESSION: No mammographic evidence of malignancy. ASSESSMENT: BI-RADS BI-RADS 2 - Benign Findings RECOMMENDATION: Routine annual mammography screening. 1 year F/U This examination should not preclude the clinical evaluation of a suspicious palpable abnormality. This patient's information was entered into a reminder system with a target due date for their next mammogram.
== END 2023-02-10 10:18 | disposition home or self-care (01) ==
LOC: HO.MAMMO 10:17
PROVIDERS: PCP Internal Medicine; Visit Provider Internal Medicine
DX: Z12.31 Encounter for screening mammogram for malignant neoplasm of breast (principal)
CPT/HCPCS: 77063; 77067

== ENCOUNTER 2023-02-15 09:21 | Outpatient (AMB) | payer OTHER, SELFPAY ==
[2023-02-15 09:25] VITALS: BP 146/80; BMI 27.3
--- NOTE | 2023-02-15 09:25 | A.OFFPC_ITS ---
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 Accompanied by: Self / Same As Patient Allergies barium sulfate [CONTRAST,ORAL] Allergy (Intermediate, Verified 02/15/23 09:27) HIVES Iodinated Contrast Media [IV CONTRAST] Allergy (Intermediate, Verified 02/15/23 09:27) HIVES ondansetron [From Zofran] Allergy (Intermediate, Verified 02/15/23 09:27) Stomach Upset amoxicillin Adverse Reaction (Intermediate, Verified 02/15/23 09:30) Rash celecoxib Adverse Reaction (Mild, Verified 02/15/23 09:) chills cyclobenzaprine Adverse Reaction (Mild, Verified 02/15/23 09:27) anxiety nabumetone Adverse Reaction (Mild, Verified 02/15/23 09:27) dry mouth, upset stomach Medication List - Last Reconciled 02/15/23 by Homa Cronin MD acetaminophen ER (Pain Relief (acetaminophen)) 1,300 mg (2 x 650 mg) PO Q12H PRN 30 days [adult diapers disposable briefs As directed] albuterol sulfate 90 mcg/actuation 2 puffs inhalation Q4-6H PRN albuterol sulfate 1.25 mg (3 mL) PO QID PRN atorvastatin 10 mg PO BEDTIME 90 days benzonatate 100 mg PO BID PRN 5 days betamethasone dipropionate 0.05% 1 appl topical BID 15 days cholecalciferol (vitamin D3) 25 mcg PO DAILY 90 days escitalopram oxalate 20 mg PO DAILY fluticasone propionate 110 mcg/actuation (Flovent HFA) 1 puff inhalation BID [gloves powder free synthetic As directed] Grab bar As directed ipratropium-albuterol 0.5 mg-3 mg(2.5 mg base)/3 mL 3 mL inhalation Q6H PRN 90 days levothyroxine 50 mcg PO DAILY 90 days lidocaine 5% 1 patch topical DAILY PRN 30 days linaclotide (Linzess) 145 mcg PO QAM 30 days lorazepam 1 mg PO BID nebulizers Nebulizer with tubing and accessories nystatin 1 appl topical BID 30 days omeprazole 20 mg PO DAILY 14 days ondansetron HCl 4 mg PO Q8H 7 days [personal cleansing wipes As directed] pregabalin 50 mg PO BID 30 days [raised toilet seat As directed] [recliner As directed] [reclining chair As directed] sennosides (Senokot) 8.6 mg PO DAILY PRN Shower Chair As directed vaporizers As directed Tobacco use date assessed: 08/31/22 Fall risk assessment: No Falls in past year Last assessed Fall Risk: 02/15/23 HPI HPI Comments History of Present Illness Details This is a 68-year-old female with hypothyroidism, moderate asthma and osteoarthritis of multiple joints that complains of nasal congestion, sore throat and productive cough that started 2-3 days ago. She has sick contacts with RSV. Have some sinus tenderness but no fever. Will order COVID, flu and RSV test. TSH was order for her hypothyroidism. She is using rescue inhaler more often this past week. On Tylenol for osteoarthritis in which still has some pain. [facility] Medical History (Updated 02/15/23 @ 09:47 by Homa Cronin MD) Lumbar pain Urinary incontinence History of COVID-19 Candidal intertrigo Sinusitis PONV (postoperative nausea and vomiting) Shoulder pain GERD (gastroesophageal reflux disease) Coccyalgia Mild recurrent major depression Rectal bleeding History of asthma Rash Dyslipidemia Impaired glucose tolerance Fibromyalgia Arthritis Anxiety Surgical History H/O exploratory laparotomy History of eye surgery History of abdominal surgery Previous section History of carpal tunnel surgery of left wrist History of carpal tunnel surgery Family History Mother Colon cancer Hypertension Glaucoma Arthritis Father Bone cancer Social History Household Members: Children Housing: Apartment Do you presently have visiting nurse or other home services: Yes Unable to assess alcohol history related to: Unknown Alcohol intake: never Patient Tobacco Use Status: Never used Tobacco e-Cigarette/Vaping Use: Never Used Second Hand Smoke Exposure: No service: No Current occupational status: disabled Current occupation: Right Handed Cognitive needs: No Hearing needs: No Vision needs: Yes (glasses) Questionnaire Thrive Questionnaire Date Thrive assessed: 05/25/22 YENNIFER-7 AMB Questionnaire YENNIFER-7 Date YENNIFER - 7 assessed: 05/25/22 Source: Developed by Drs. Damián Mcgrath, Cee Butler, Wing Mattson and colleagues, with an educational vanessa from [employer]. Review of Systems Const All systems reviewed & are unremarkable except as noted in HPI and below Eyes Reports no additional complaints, Denies change in vision and Denies other visual disturbances Card Denies chest pain at rest, Denies chest pain with activity, Denies edema, Denies irregular heart rhythm, Denies claudication, Denies dyspnea, Denies dyspnea on exertion, Denies orthopnea, Denies paroxysmal nocturnal dyspnea and Denies slow heart rate Resp Denies cough, Denies dyspnea and Denies dyspnea on exertion GI Denies abdominal pain, Denies change in bowel habits, Denies excessive flatus, Denies nausea and Denies vomiting Denies urinary incontinence, Denies urinary hesitancy and Denies urinary urgency Musc Denies abnormal gait, Denies atrophy, Denies deformity and Denies limited range of motion Skin/Breast Denies bleeding lesions, Denies changing lesions and Denies rash Neuro Denies abnormal gait, Denies behavioral changes and Denies lack of coordination Psych Denies behavioral changes Physical exam (Primary Care) Vital Signs: Last Vital Signs BP 146/80 H 02/15/23 09:25 BMI result Body Mass Index 27.3 Tobacco/Smoking Status: Tobacco use Status Tobacco use date assessed 08/31/22 02/15/23 09:31 Patient Tobacco Use Status Never used Tobacco 02/15/23 09:31 e-Cigarette/Vaping Use Never Used 02/15/23 09:31 Thrive Assessment: Date of Thrive Assessment Date Thrive assessed 05/25/22 02/15/23 09:31 Eyes General: appearance normal, both eyes and all related structures Eyelids: Yes eyelids normal Conjunctivae: conjunctivae normal Neck Neck: Yes normal visual inspection and Yes supple Resp Effort & Inspection: normal respiratory effort Auscultation: clear to auscultation bilaterally Cardio Jugular venous distension: no JVD Rate: regular rate Rhythm: regular rhythm Heart sounds: S1 normal heart sound present and S2 normal heart sound present Extrem General: Yes full ROM Assessment and Plan Assessment & Plan (1) Moderate persistent asthma: Code(s): J45.40 - Moderate persistent asthma, uncomplicated Qualifiers: Asthma complication type: uncomplicated Qualified Code(s): J45.40 - Moderate persistent asthma, uncomplicated Plan: Continue Flovent. Use rescue inhaler as needed. (2) Osteoarthritis involving multiple joints on both sides of body: Code(s): M15.9 - Polyosteoarthritis, unspecified Plan: Continue Tylenol as needed. (3) URI (upper respiratory infection): Code(s): J06.9 - Acute upper respiratory infection, unspecified Qualifiers: URI type: unspecified URI Qualified Code(s): J06.9 - Acute upper respiratory infection, unspecified Plan: COVID, flu and RSV test ordered. (4) Hypothyroidism: Code(s): E03.9 - Hypothyroidism, unspecified Qualifiers: Hypothyroidism type: acquired Qualified Code(s): E03.9 - Hypothyroidism, unspecified Plan: Continue levothyroxine. Monitor TSH. Orders: Orders SARS-CoV2/FLU/RSV Today R09.89 - Other specified symptoms and signs involving the circulatory and respiratory systems Coding Level of Care Code Est Pt Level 4 (70796) Diagnoses Moderate persistent asthma without complication J45.40 Asthma complication type: uncomplicated Osteoarthritis involving multiple joints on both sides of body M15.9 Upper respiratory tract infection, unspecified type J06.9 URI type: unspecified URI Acquired hypothyroidism E03.9 Hypothyroidism type: acquired Time Spent (min) 22
== END 2023-02-15 09:40 | disposition home or self-care (01) ==
PROVIDERS: PCP Internal Medicine; Visit Provider Internal Medicine
DX: J45.40 Moderate persistent asthma, uncomplicated (principal); M15.9 Polyosteoarthritis, unspecified; J06.9 Acute upper respiratory infection, unspecified; E03.9 Hypothyroidism, unspecified
CPT/HCPCS: 99214

== ENCOUNTER 2023-02-15 09:48 | Outpatient (REF) | payer OTHER, SELFPAY ==
[2023-02-15 11:09] LABS: Alanine Aminotransferase 24 U/L (0-31); Albumin Level 4.5 g/dL (3.5-5.0); Alkaline Phosphatase 101 U/L (39-117); Anion Gap 13 (12-20); Aspartate Amino Transferase 26 U/L (5-31); Bilirubin Total 0.4 mg/dL (0.0-1.0); Blood Urea Nitrogen 18 mg/dL (9-16); Calcium 9.5 mg/dL (8.4-10.2); Carbon Dioxide 25 mmol/L (22-29); Chloride 106 mmol/L (96-108); Cholesterol 231 mg/dL (<200); Estimated Glomerular Filt Rate > 60; Glucose Random 128 mg/dL (60-115); HDL Cholesterol 51 mg/dL (>40); LDL Cholesterol Calculated 143 mg/dL (<100); Potassium 4.1 mmol/L (3.3-5.1); Sodium 140 mmol/L (135-145); Total Protein 7.8 g/dL (6.5-8.0); Triglycerides 187 mg/dL (<150)
[2023-02-15 11:21] LABS: Influenza A PCR NEGATIVE (Negative); Influenza B PCR NEGATIVE (Negative); Resp Syncy Virus RNA Qual PCR POSITIVE (Negative); SARS COV2 PCR INHOUSE NEGATIVE (Negative)
[2023-02-15 11:25] LABS: Thyroid Stimulating Hormone 2.78 uIU/mL (0.32-4.0)
== END 2023-02-15 09:49 | disposition home or self-care (01) ==
LOC: HO.LAB 09:48
PROVIDERS: PCP Internal Medicine; Visit Provider Internal Medicine
DX: R09.89 Other specified symptoms and signs involving the circulatory and respiratory systems (principal); E78.5 Hyperlipidemia, unspecified; E03.9 Hypothyroidism, unspecified; M51.36 Other intervertebral disc degeneration, lumbar region; Z20.822 Contact with and (suspected) exposure to COVID-19
CPT/HCPCS: 0241U; 80053; 80061; 84443

== ENCOUNTER 2023-03-08 09:29 | Emergency (ER) | payer OTHER, SELFPAY ==
--- NOTE | ~2023-03-08 | XR_ITS ---
EXAMINATION: XR RIBS, LEFT CLINICAL INFORMATION: Left-sided rib pain. COMPARISON: Chest radiograph from 12/06/2020. TECHNIQUE: 3 views of the left ribs were obtained (AP and oblique views of the lower ribs). PA chest radiograph. FINDINGS: The lungs are well expanded. No evidence of focal consolidation, pleural effusion, pulmonary edema, or pneumothorax. The cardiomediastinal silhouette is within normal limits. No acute osseous abnormalities. There is a metallic BB placed along the lateral aspects of the left 9th and 10th ribs. No demonstrated displaced left-sided rib fracture. Surgical clip overlies the left lower neck. XR/XR ribs LT min 3V w CXR1V IMPRESSION: 1. No demonstrated displaced left-sided rib fracture. 2. No acute pulmonary abnormalities.
[2023-03-08 09:36] VITALS: BP 156/102; PULSE 102; RESP 16; TEMP 36.6; O2SAT 97; BMI 26.2
--- NOTE | 2023-03-08 09:48 | PC.NURSE ---
urine obtained/sent to lab.
[2023-03-08 10:00] LABS: Appearance Urine Cloudy; Color Urine Yellow; Glucose Urine UA Negative (Negative); Leukocyte Esterase Urine Negative (Negative); Nitrite Urine Negative (Negative); PH 5.5 (5.0-9.0); Specific Gravity - Urine 1.025 (1.005-1.025); Urine Blood Negative (Negative); Urine Ketones 15 mg/dL (Negative); Urine Protein Negative (Neg-Trace)
--- NOTE | 2023-03-08 10:16 | PC.NURSE ---
pt to xray at this time.
--- NOTE | 2023-03-08 10:24 | ED_ITS ---
HPI - Back Pain/Injury General Chief Complaint: Back Pain/Injury Stated Complaint: Back pain Time Seen by Provider: 03/08/23 09:45 Source: patient, RN notes reviewed and old records reviewed Mode of arrival: ambulatory History of Present Illness HPI Narrative: 68-year-old [place]er-speaking female with a past medical history of GERD, HLD, arthritis, anxiety, fibromyalgia, presenting to the ED complaining of left-sided mid back pain radiating around to left side x waking yesterday. Denies known injury/trauma or fall. Pain described as stabbing. Denies fever/chills, nausea/vomiting, abdominal pain, CP/SOB, incontinence retention, dysuria/hematuria. Patient also concerned for shingles as states has been going around MD elicited complaint: back pain Related Data Home Medications Medication Instructions Recorded Confirmed escitalopram oxalate 20 mg tablet 20 mg PO DAILY 03/17/21 02/15/23 lorazepam 1 mg tablet 1 mg PO BID 03/17/21 02/15/23 Previous Rx's Medication Instructions Recorded omeprazole 20 mg capsule,delayed 20 mg PO DAILY 14 days #14 caps 11/07/20 release linaclotide 145 mcg capsule 145 mcg PO QAM 30 days #30 caps 03/18/21 (Linzess) sennosides 8.6 mg tablet (Senokot) 8.6 mg PO DAILY PRN constipation 06/13/21 #20 tabs Shower Chair #1 ea 08/31/21 personal cleansing wipes #120 ea 08/31/21 raised toilet seat #1 ea 08/31/21 Grab bar #1 ea 09/08/21 reclining chair #1 ea 01/31/22 betamethasone dipropionate 0.05 % 1 appl topical BID 15 days #45 04/05/22 topical cream grams nystatin 100,000 unit/gram topical 1 appl topical BID 30 days #15 05/25/22 powder grams lidocaine 5 % topical patch 1 patch topical DAILY PRN pain 30 08/31/22 days #30 ea fluticasone propionate 110 1 puff inhalation BID #12 grams 09/26/22 mcg/actuation HFA aerosol inhaler (Flovent HFA) albuterol sulfate 90 mcg/actuation 2 puff inhalation Q4-6H PRN for 10/26/22 aerosol inhaler wheezing #8.5 ea recliner #1 ea 10/27/22 benzonatate 100 mg capsule 100 mg PO BID PRN cough 5 days #10 10/29/22 caps levothyroxine 50 mcg tablet 50 mcg PO DAILY 90 days #90 tabs 12/21/22 atorvastatin 10 mg tablet 10 mg PO BEDTIME 90 days #90 tabs 01/20/23 adult diapers disposable briefs #120 ea 01/22/23 gloves powder free synthetic #120 ea 01/22/23 acetaminophen 650 mg 1,300 mg (2 x 650 mg) PO Q12H PRN 02/05/23 tablet,extended release (Pain pain 30 days #120 tabs Relief (acetaminophen)) albuterol sulfate 1.25 mg/3 mL 1.25 mg (3 mL) PO QID PRN 02/05/23 solution for nebulization Shortness Of Breath Or Wheezing #75 mL ondansetron HCl 4 mg tablet 4 mg PO Q8H 7 days #21 tabs 02/05/23 pregabalin 50 mg capsule 50 mg PO BID 30 days #60 caps 02/05/23 ipratropium 0.5 mg-albuterol 3 mg 3 ml inhalation Q6H PRN wheezing 02/12/23 (2.5 mg base)/3 mL nebulization 90 days #180 mL soln cholecalciferol (vitamin D3) 25 25 mcg PO DAILY 90 days #90 caps 02/15/23 mcg (1,000 unit) capsule lidocaine 5 % topical ointment 1 appl topical BEDTIME 30 days #30 02/17/23 grams nebulizers #1 ea 02/17/23 vaporizers #1 ea 02/17/23 acetaminophen 500 mg tablet 500 mg PO Q6H PRN fever or pain 03/08/23 (Tylenol Extra Strength) #14 tabs naproxen 500 mg tablet 500 mg PO BID PRN pain 10 days #20 03/08/23 tabs prednisone 20 mg tablet 40 mg (2 x 20 mg) PO DAILY 5 days 03/08/23 #10 tabs valacyclovir 1 gram tablet 1,000 mg PO TID 7 days #21 tabs 03/08/23 (Valtrex) Allergies Allergy/AdvReac Type Severity Reaction Status Date / Time barium sulfate Allergy Intermediate HIVES Verified 02/15/23 09:27 [CONTRAST,ORAL] Iodinated Contrast Media Allergy Intermediate HIVES Verified 02/15/23 09:27 [IV CONTRAST] ondansetron [From Zofran] Allergy Intermediate Stomach Verified 02/15/23 09:27 Upset doxycycline AdvReac Severe Vomiting Verified 02/20/23 09:23 amoxicillin AdvReac Intermediate Rash Verified 02/15/23 09:30 celecoxib AdvReac Mild chills Verified 02/15/23 09:27 cyclobenzaprine AdvReac Mild anxiety Verified 02/15/23 09:27 nabumetone AdvReac Mild dry mouth, Verified 02/15/23 09:27 upset stomach Review of Systems 2 Review of Systems: Constitutional: No Fever, No Chills ENT/Mouth: No Ear Pain, No Nasal Congestion, No Sinus Pain, No Hoarseness, No sore throat, No Rhinorrhea, No Swallowing Difficulty Cardiovascular: No Chest Pain, No SOB Respiratory: No Cough Gastrointestinal: No Nausea, No Vomiting, No Abdominal pain Genitourinary: No Dysuria, No Urinary Frequency, No Hematuria, No Urinary Incontinence/retention, No Flank Pain Musculoskeletal: +back pain, No Myalgias, No Joint Swelling Skin: No Skin Lesions, No rash Neuro: No Weakness, No Numbness, No Paresthesias Yes all other systems are reviewed and are negative Constitutional: Constitutional: Reports as per [facility] Past Medical History Attestation statement: The following information was validated with the patient. Source: old records reviewed Medical History Lumbar pain Urinary incontinence History of COVID-19 Candidal intertrigo Sinusitis PONV (postoperative nausea and vomiting) Shoulder pain GERD (gastroesophageal reflux disease) Coccyalgia Mild recurrent major depression Rectal bleeding History of asthma Rash Dyslipidemia Impaired glucose tolerance Fibromyalgia Arthritis Anxiety Surgical History H/O exploratory laparotomy History of eye surgery History of abdominal surgery Previous section History of carpal tunnel surgery of left wrist History of carpal tunnel surgery Family History Family History Mother Colon cancer Hypertension Glaucoma Arthritis Father Bone cancer Social History Social History Household Members: Children Housing: Apartment Do you presently have visiting nurse or other home services: Yes Unable to assess alcohol history related to: Unknown Alcohol intake: never Patient Tobacco Use Status: Never used Tobacco Smoked in Last 30 Days: No e-Cigarette/Vaping Use: Never Used Second Hand Smoke Exposure: No Use of substances other than those prescribed or required for medical reasons: No Advance Directives: No Advance Directives Information Provided: Yes service: No Current occupational status: disabled Current occupation: Right Handed Cognitive needs: No Hearing needs: No Vision needs: Yes (glasses) Physical Exam 2 Vital Signs: Vital Signs: Last Vital Signs Temp 97.9 F 03/08/23 09:36 Pulse 102 H 03/08/23 09:36 Resp 16 03/08/23 09:36 BP 156/102 H 03/08/23 09:36 Pulse Ox 97 03/08/23 09:36 O2 Del Method Room Air 03/08/23 09:36 BMI result Body Mass Index 26.2 Const: General: cooperative, healthy appearing and no acute distress O rientation/consciousness: patient oriented x3 Limitations: no limitations HEENT: Head: Yes normal to inspection and Yes atraumatic Ears: hearing grossly normal bilaterally General nose exam: Normal external nose present Face and sinus: Yes normal facial exam Eyes: General: appearance normal, both eyes and all related structures EOM: EOMs intact bilaterally Neck: Neck: Yes normal visual inspection and Yes no meningeal signs Chest: Other: Faint erythematous rash as depicted above in same distribution as patient's pain/reproducible tenderness. No vesicles or drainage. No flail chest. No ecchymosis. Resp: Effort & Inspection: normal respiratory effort and no respiratory distress Auscultation: clear to auscultation bilaterally Cardio: Rate: regular rate Heart sounds: S1 normal heart sound present and S2 normal heart sound present GI: Inspection: Yes normal to inspection Palpation (GI): Soft to palpation, nontender, no guarding and not rigid : General: Yes no CVA tenderness Back/Spine/Pelvis: Other: No midline cervical/thoracic/lumbar spinous tenderness/step-off or deformity Back: no CVA tenderness Skin: Wounds: no wounds Neuro: Other: Strength intact throughout. No saddle anesthesia. Sensation intact to light touch. Neurovascular intact distally General: patient oriented x3, gait normal, tone normal, moves all extremities, no meningeal signs and no focal motor deficits Cranial nerves: Y es CN's II-XII intact bilaterally Gait exam (Neuro): Normal gait present Extrem: General: Yes normal to inspection Course Course Course Narrative: -1030--UA negative 1147--XR ribs LT min 3V w CXR1V IMPRESSION: 1. No demonstrated displaced left-sided rib fracture. 2. No acute pulmonary abnormalities. Results discussed with patient including worrisome signs and symptoms and strict return precautions, and when to return to the emergency department. They verbalized understanding and feel safe for discharge at this time. Medical Decision Making Medical Decision Making [facility] Narrative: 68-year-old [place]er-speaking female with a past medical history of GERD, HLD, arthritis, anxiety, fibromyalgia, presenting to the ED complaining of left-sided mid back pain radiating around to left side x waking yesterday. On exam hypertensive, tachycardic likely from pain, physical exam as noted above. No midline spinous tenderness or red flag symptoms. Faint erythematous rash as depicted above, please refer to image. Concern for early zoster vs MSK pain/strain vs pneumonia or costochondritis. Renal stone/rishabh on differential however lower. Unlikely splenic injury or pancreatitis. Low suspicion for cauda equina/cord compression Plan: UA, x-ray, PCP follow-up. Patient agreeable to empiric treatment of zoster Please refer to course for remaining clinical decision making, interpretation of labs/imaging results, and discussions with consultants and/or family members. Differential Diagnosis Differential Diagnoses: The differential diagnosis associated with the presentation includes As above Lab Data [facility] Lab Attestation statement: I reviewed the patient's lab results. Labs: Lab Results 03/08/23 Range/Units 09:46 Urine Color Yellow Urine Appearance Cloudy Urine pH 5.5 (5.0-9.0) Ur Specific [place] 1.025 (1.005-1.025) Urine Protein Negative (Neg-Trace) mg/dL Urine Glucose (UA) Negative (Negative) mg/dL Urine Ketones 15 (Negative) mg/dL Urine Blood Negative (Negative) Urine Nitrite Negative (Negative) Ur Leukocyte Esterase Negative (Negative) Radiology Impression Discussion of test interpretation with radiology: I have reviewed the radiologist's reading. Independent Historian Clinical information obtained from an independent historian. History obtained from or confirmed by: Other (son) External Record Review External record reviewed: Inpatient record, Office record, Outpatient record, Prior outpatient labs, Prior outpatient radiology, Primary care record and Outside ED record Tests considered The following testing was considered but not selected: As above Prescription Management I considered prescription management with: Pain Medication and Antiviral Chronic Conditions Patient?s care impacted by: Other Discharge Plan Discharge Clinical Impression: Back pain, Shingles Patient Disposition: Home, Self-Care Instructions: Shingles (ED), Acute Low Back Pain (ED) Additional Instructions: You could have early shingles. Valtrex and prednisone will help treat this If this is shingles the rash will progress to vesicles and and crust over. You are contagious until rash cross over In addition naproxen as an anti-inflammatory/pain medicine take with food You may also take Tylenol If symptoms persist or worsen, pain becomes unbearable, you developed urinary retention or incontinence, or weakness return to the ED Podr?a tener culebrilla temprana. Valtrex y prednisona ayudar?n a tratar esto. Si se trata de culebrilla, la erupci?n progresar? hasta convertirse en ves?culas y costras. Eres contagioso hasta que la erupci?n se cruza Adem?s, el naproxeno omer medicamento antiinflamatorio/analg?sico se debe roosevelt con alimentos. Tambi?n puede roosevelt Tylenol Si los s?ntomas persisten o empeoran, el dolor se vuelve insoportable, usted desarrolla retenci?n urinaria o incontinencia, o debilidad, regrese al servicio de urgencias. Prescriptions: New valacyclovir [Valtrex] 1 gram tablet 1,000 mg PO TID 7 Days Qty: 21 0RF prednisone 20 mg tablet 40 mg PO DAILY 5 Days Qty: 10 0RF acetaminophen [Tylenol Extra Strength] 500 mg tablet 500 mg PO Q6H PRN (Reason: fever or pain) Qty: 14 0RF naproxen 500 mg tablet 500 mg PO BID PRN (Reason: pain) 10 Days Qty: 20 0RF No Action Linzess 145 mcg capsule 145 mcg PO QAM 30 Days Qty: 30 1RF (DME) Shower Chair Misc See Rx Instructions .Route Qty: 1 0RF Rx Instructions: As directed (DME) raised toilet seat See Rx Instructions .Route .MEDSUPPLY Qty: 1 0RF Rx Instructions: As directed (DME) personal cleansing wipes See Rx Instructions .Route .MEDSUPPLY Qty: 120 11RF Rx Instructions: As directed (DME) Grab bar Misc See Rx Instructions .Route Qty: 1 0RF Rx Instructions: As directed (DME) reclining chair See Rx Instructions .Route .MEDSUPPLY Qty: 1 0RF Rx Instructions: As directed betamethasone dipropionate 0.05 % cream 1 appl topical BID 15 Days Qty: 45 0RF fluticasone propionate [Flovent HFA] 110 mcg/actuation HFA aerosol inhaler 1 puff inhalation BID Qty: 12 1RF albuterol sulfate 90 mcg/actuation HFA aerosol inhaler 2 puff inhalation Q4-6H PRN (Reason: for wheezing) Qty: 8.5 3RF (DME) recliner See Rx Instructions .Route .MEDSUPPLY Qty: 1 0RF Rx Instructions: As directed benzonatate 100 mg capsule 100 mg PO BID PRN (Reason: cough) 5 Days Qty: 10 0RF levothyroxine 50 mcg tablet 50 mcg PO DAILY 90 Days Qty: 90 1RF atorvastatin 10 mg tablet 10 mg PO BEDTIME 90 Days Qty: 90 1RF (DME) gloves powder free synthetic See Rx Instructions .Route .MEDSUPPLY Qty: 120 11RF Rx Instructions: As directed (DME) adult diapers disposable briefs medium See Rx Instructions .Route .MEDSUPPLY Qty: 120 6RF Rx Instructions: As directed ipratropium-albuterol 0.5 mg-3 mg(2.5 mg base)/3 mL solution for nebulization 3 ml inhalation Q6H PRN (Reason: wheezing) 90 Days Qty: 180 1RF cholecalciferol (vitamin D3) 25 mcg (1,000 unit) capsule 25 mcg PO DAILY 90 Days Qty: 90 1RF (DME) nebulizers Misc See Rx Instructions .Route Qty: 1 0RF Rx Instructions: Nebulizer with tubing and accessories (DME) vaporizers Misc See Rx Instructions .Route Qty: 1 0RF Rx Instructions: As directed lidocaine 5 % ointment 1 appl topical BEDTIME 30 Days Qty: 30 0RF omeprazole 20 mg capsule,delayed release(DR/EC) 20 mg PO DAILY 14 Days Qty: 14 0RF nystatin 100,000 unit/gram powder 1 appl topical BID 30 Days Qty: 15 1RF lidocaine 5 % adhesive patch,medicated 1 patch topical DAILY PRN (Reason: pain) 30 Days Qty: 30 1RF Rx Instructions: leave on most painful area for up to 12 hrs sennosides [Senokot] 8.6 mg tablet 8.6 mg PO DAILY PRN (Reason: constipation) Qty: 20 0RF acetaminophen [Pain Relief (acetaminophen)] 650 mg tablet extended release 1,300 mg PO Q12H PRN (Reason: pain) 30 Days Qty: 120 0RF albuterol sulfate 1.25 mg/3 mL solution for nebulization 1.25 mg PO QID PRN (Reason: Shortness Of Breath Or Wheezing) Qty: 75 0RF ondansetron HCl 4 mg tablet 4 mg PO Q8H 7 Days Qty: 21 0RF pregabalin 50 mg capsule 50 mg PO BID 30 Days Qty: 60 0RF escitalopram oxalate 20 mg tablet 20 mg PO DAILY lorazepam 1 mg tablet 1 mg PO BID Referrals: Homa Montez MD [Primary Care Provider] - 5 days Print Language: [place]
[2023-03-08 11:50] VITALS: BP 163/94; PULSE 88; RESP 18; O2SAT 98
== END 2023-03-08 12:04 | disposition home or self-care (01) ==
PROVIDERS: Emergency Provider Emergency Medicine; PCP Internal Medicine
DX: M54.50 Low back pain, unspecified (principal); R07.81 Pleurodynia; B02.9 Zoster without complications
CPT/HCPCS: 71101; 81003; 99283; 99284

== ENCOUNTER 2023-03-13 07:59 | Outpatient (AMB) | payer OTHER, SELFPAY ==
[2023-03-13 08:04] VITALS: BP 148/82; PULSE 93; O2SAT 98; BMI 26.6
--- NOTE | 2023-03-13 08:04 | MHC.PC.OV ---
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 Accompanied by: Self / Same As Patient Allergies barium sulfate [CONTRAST,ORAL] Allergy (Intermediate, Verified 03/13/23 08:13) HIVES Iodinated Contrast Media [IV CONTRAST] Allergy (Intermediate, Verified 03/13/23 08:13) HIVES ondansetron [From Zofran] Allergy (Intermediate, Verified 03/13/23 08:13) Stomach Upset doxycycline Adverse Reaction (Severe, Verified 03/13/23 08:13) Vomiting amoxicillin Adverse Reaction (Intermediate, Verified 03/13/23 08:13) Rash celecoxib Adverse Reaction (Mild, Verified 03/13/23 08:13) chills cyclobenzaprine Adverse Reaction (Mild, Verified 03/13/23 08:13) anxiety nabumetone Adverse Reaction (Mild, Verified 03/13/23 08:13) dry mouth, upset stomach Medication List - Last Reconciled 03/13/23 by Homa Cronin MD acetaminophen (Tylenol Extra Strength) 500 mg PO Q6H PRN acetaminophen ER (Pain Relief (acetaminophen)) 1,300 mg (2 x 650 mg) PO Q12H PRN 30 days [adult diapers disposable briefs As directed] albuterol sulfate 90 mcg/actuation 2 puffs inhalation Q4-6H PRN albuterol sulfate 1.25 mg (3 mL) PO QID PRN atorvastatin 10 mg PO BEDTIME 90 days cholecalciferol (vitamin D3) 25 mcg PO DAILY 90 days escitalopram oxalate 20 mg PO DAILY fluticasone propionate 110 mcg/actuation (Flovent HFA) 1 puff inhalation BID [gloves powder free synthetic As directed] Grab bar As directed ipratropium-albuterol 0.5 mg-3 mg(2.5 mg base)/3 mL 3 mL inhalation Q6H PRN 90 days levothyroxine 50 mcg PO DAILY 90 days lidocaine 5% 1 patch topical DAILY PRN 30 days lidocaine 5% 1 appl topical BEDTIME 30 days linaclotide (Linzess) 145 mcg PO QAM 30 days lorazepam 1 mg PO BID naproxen 500 mg PO BID PRN 10 days nebulizers Nebulizer with tubing and accessories nystatin 1 appl topical BID 30 days omeprazole 20 mg PO DAILY 14 days [personal cleansing wipes As directed] prednisone 40 mg (2 x 20 mg) PO DAILY 5 days pregabalin 50 mg PO BID 30 days [raised toilet seat As directed] [recliner As directed] [reclining chair As directed] sennosides (Senokot) 8.6 mg PO DAILY PRN Shower Chair As directed valacyclovir (Valtrex) 1,000 mg PO TID 7 days vaporizers As directed Tobacco use date assessed: 08/31/22 Fall risk assessment: No Falls in past year Last assessed Fall Risk: 03/13/23 Dental Screening Dental Screen Date: 03/13/23 Did you have a dental visit in the last 12 months?: Yes Did you have a dental problem in the last 6 months where you did not have access to dental care?: No Was dental information given to patient?: Patient has dentist HPI HPI Comments History of Present Illness Details This is a 68-year-old female with hypertension, dyslipidemia and mild recurrent major depression that comes today accompanied by SENIOR TAX ANALYST as a hospital discharge follow-up due to having herpes zoster that started 5 days ago. She went to ER due to stabbing like pain in the left side of the back that started with a vesicular rash that now has radiated to the front. She was prescribed prednisone and valacyclovir. Still has pain and I will give her gabapentin for it. Discharge date was 03/08/2023. Also has been having elevated blood pressure and I will start her on losartan. Cholesterol elevated and I will increase atorvastatin. She wants follow acyclovir cream and I told her that this was not indicated. She understood. Depression stable with medications. [facility] Medical History (Updated 03/13/23 @ 08:24 by Homa Cronin MD) Lumbar pain Urinary incontinence History of COVID-19 Candidal intertrigo Sinusitis PONV (postoperative nausea and vomiting) Shoulder pain GERD (gastroesophageal reflux disease) Coccyalgia Mild recurrent major depression Rectal bleeding History of asthma Rash Dyslipidemia Impaired glucose tolerance Fibromyalgia Arthritis Anxiety Surgical History H/O exploratory laparotomy History of eye surgery History of abdominal surgery Previous section History of carpal tunnel surgery of left wrist History of carpal tunnel surgery Family History Mother Colon cancer Hypertension Glaucoma Arthritis Father Bone cancer Social History Household Members: Children Housing: Apartment Do you presently have visiting nurse or other home services: Yes Unable to assess alcohol history related to: Unknown Alcohol intake: never Patient Tobacco Use Status: Never used Tobacco e-Cigarette/Vaping Use: Never Used Second Hand Smoke Exposure: No service: No Current occupational status: disabled Current occupation: Right Handed Cognitive needs: No Hearing needs: No Vision needs: Yes (glasses) Questionnaire PHQ-9 Over the last 2 weeks, how often have you been bothered by any of the following problems? 1. Little interest or pleasure in doing things: not at all 2. Feeling down, depressed, or hopeless: not at all 3. Trouble falling or staying asleep, or sleeping too much: not at all 4. Feeling tired or having little energy: not at all 5. Poor appetite or overeating: not at all 6. Feeling bad about yourself - or that you are a failure or have let yourself or your family down: not at all 7. Trouble concentrating on things, such as reading the newspaper or watching television: not at all 8. Moving or speaking so slowly that other people could have noticed. Or the opposite - being so fidgety or restless that you have been moving around a lot more than usual: not at all 9. Thoughts that you would be better off or of hurting yourself in some way: not at all Total score: 0 Depression Screening Interpretation: Negative Depression Screening Done: Yes 77175 - PHQ-9 Billing: Yes Source: Developed by Drs. Damián Mcgrath, Cee Butler, Wing Mattson and colleagues, with an educational vanessa from [employer]. Thrive Questionnaire Date Thrive assessed: 05/25/22 AUDIT C Alcohol Use Questionnaire (AUDIT-C) 1. How often do you have a drink containing alcohol?: Never Total Score: 0 Score Reviewed/Action Taken: No YENNIFER-7 AMB Questionnaire YENNIFER-7 Date YENNIFER - 7 assessed: 05/25/22 Source: Developed by Drs. Damián Mcgrath, Cee Butler, Wing Mattson and colleagues, with an educational vanessa from [employer]. Review of Systems Const All systems reviewed & are unremarkable except as noted in HPI and below Eyes Reports no additional complaints, Denies change in vision and Denies other visual disturbances Card Denies chest pain at rest, Denies chest pain with activity, Denies edema, Denies irregular heart rhythm, Denies claudication, Denies dyspnea, Denies dyspnea on exertion, Denies orthopnea, Denies paroxysmal nocturnal dyspnea and Denies slow heart rate Resp Denies cough, Denies dyspnea and Denies dyspnea on exertion GI Denies abdominal pain, Denies change in bowel habits, Denies excessive flatus, Denies nausea and Denies vomiting Denies urinary incontinence, Denies urinary hesitancy and Denies urinary urgency Musc Denies atrophy, Denies deformity and Denies limited range of motion Skin/Breast Denies bleeding lesions, Denies changing lesions and Reports rash Physical exam (Primary Care) Vital Signs: Last Vital Signs Pulse 93 03/13/23 08:04 BP 148/82 H 03/13/23 08:04 Pulse Ox 98 03/13/23 08:04 Oxygen Delivery Method Room Air 03/13/23 08:04 BMI result Body Mass Index 26.6 Tobacco/Smoking Status: Tobacco use Status Tobacco use date assessed 08/31/22 03/13/23 08:07 Patient Tobacco Use Status Never used Tobacco 03/13/23 08:07 e-Cigarette/Vaping Use Never Used 03/13/23 08:07 PHQ-9: PHQ-9 Score PHQ-9: Total score 0 03/13/23 08:07 Depression Screening Interpretation: Negative Thrive Assessment: Date of Thrive Assessment Date Thrive assessed 05/25/22 03/13/23 08:07 Eyes General: appearance normal, both eyes and all related structures Eyelids: Yes eyelids normal Conjunctivae: conjunctivae normal Neck Neck: Yes normal visual inspection and Yes supple Resp Effort & Inspection: normal respiratory effort Auscultation: clear to auscultation bilaterally Cardio Jugular venous distension: no JVD Rate: regular rate Rhythm: regular rhythm Heart sounds: S1 normal heart sound present and S2 normal heart sound present Skin Other: vesicular rash in left side of the back radiating to the front Extrem General: Yes full ROM Assessment and Plan Assessment & Plan (1) Hospital discharge follow-up: Code(s): Z09 - Encounter for follow-up examination after completed treatment for conditions other than malignant neoplasm Plan: Discharge date 03/08/2023 due to herpes zoster in which prednisone and valacyclovir were prescribed. Still has the rash in the pain. X-ray was done with no fracture. (2) Postherpetic neuralgia: Code(s): B02.29 - Other postherpetic nervous system involvement Plan: Start gabapentin. (3) Essential hypertension: Code(s): I10 - Essential (primary) hypertension Plan: Start losartan. Blood pressure goal is equal or less than 130/80. (4) Dyslipidemia: Code(s): E78.5 - Hyperlipidemia, unspecified Plan: Increase atorvastatin from 10 mg to 20 mg. (5) Mild recurrent major depression: Code(s): F33.0 - Major depressive disorder, recurrent, mild Plan: Continue escitalopram. Medications: New gabapentin 100 mg PO TID 30 days 90 caps 0RF B02.29 - Other postherpetic nervous system involvement atorvastatin 20 mg PO BEDTIME 90 days 90 tabs 0RF losartan 25 mg PO DAILY 90 days 90 tabs 0RF I10 - Essential (primary) hypertension ondansetron 8 mg PO Q12H 5 days PRN 10 tabs 0RF nausea and vomiting Refilled nystatin 1 appl topical BID 30 days 15 grams 1RF B37.2 - Candidiasis of skin and nail Discontinued atorvastatin Discontinued Reason: Patient Completed Course 10 mg PO BEDTIME 90 days 90 tabs 1RF Coding Level of Care Code TCM Mod MDM <= 7 Days Diagnoses Hospital discharge follow-up Z09 Postherpetic neuralgia B02.29 Essential hypertension I10 Dyslipidemia E78.5 Mild recurrent major depression F33.0 Time Spent (min) 26
[2023-03-13 08:30] VITALS: BP 150/80
== END 2023-03-13 08:30 | disposition home or self-care (01) ==
PROVIDERS: PCP Internal Medicine; Visit Provider Internal Medicine
DX: I10 Essential (primary) hypertension (principal); F33.0 Major depressive disorder, recurrent, mild; Z09 Encounter for follow-up examination after completed treatment for conditions other than malignant neoplasm; B02.29 Other postherpetic nervous system involvement; E78.5 Hyperlipidemia, unspecified
CPT/HCPCS: 99495

== ENCOUNTER 2023-04-17 14:15 | Outpatient (REF) | payer OTHER, SELFPAY ==
--- NOTE | ~2023-04-17 | XR_ITS ---
EXAMINATION: XR CHEST 2 VIEWS CLINICAL INFORMATION: Chest pain. COMPARISON: Prior chest radiographs, most recently 03/08/2023. TECHNIQUE: Frontal and lateral views of the chest were obtained. FINDINGS: The heart, great vessels, pulmonary vasculature and mediastinum are normal. There is atherosclerotic calcification of the aortic knob. The lungs show no focal infiltrate, effusion or pneumothorax. There is no acute osseous abnormality. XR/XR chest 2V IMPRESSION: No active cardiopulmonary disease.
== END 2023-04-17 14:16 | disposition home or self-care (01) ==
LOC: HO.XRAY 14:15
PROVIDERS: PCP Internal Medicine; Visit Provider Internal Medicine
DX: R07.89 Other chest pain (principal)
CPT/HCPCS: 71046

== ENCOUNTER 2023-04-30 13:57 | Outpatient (AMB) | payer OTHER, SELFPAY ==
[2023-04-30 14:10] VITALS: BP 138/86; BMI 26.2
--- NOTE | 2023-04-30 14:10 | A.OFFPC_ITS ---
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: No Accompanied by: Self / Same As Patient Allergies barium sulfate [CONTRAST,ORAL] Allergy (Intermediate, Verified 04/30/23 14:33) HIVES Iodinated Contrast Media [IV CONTRAST] Allergy (Intermediate, Verified 04/30/23 14:33) HIVES ondansetron [From Zofran] Allergy (Intermediate, Verified 04/30/23 14:33) Stomach Upset doxycycline Adverse Reaction (Severe, Verified 04/30/23 14:33) Vomiting amoxicillin Adverse Reaction (Intermediate, Verified 04/30/23 14:33) Rash celecoxib Adverse Reaction (Mild, Verified 04/30/23 14:33) chills cyclobenzaprine Adverse Reaction (Mild, Verified 04/30/23 14:33) anxiety nabumetone Adverse Reaction (Mild, Verified 04/30/23 14:33) dry mouth, upset stomach Medication List - Last Reconciled 04/30/23 by Homa Cronin MD acetaminophen ER (Pain Relief (acetaminophen)) 1,300 mg (2 x 650 mg) PO Q12H PRN 30 days [adult diapers disposable briefs As directed] albuterol sulfate 90 mcg/actuation 2 puffs inhalation Q4-6H PRN albuterol sulfate 1.25 mg (3 mL) PO QID PRN atorvastatin 20 mg PO BEDTIME 90 days cholecalciferol (vitamin D3) 25 mcg PO DAILY 90 days escitalopram oxalate 20 mg PO DAILY fluticasone propionate 110 mcg/actuation (Flovent HFA) 1 puff inhalation BID gabapentin 300 mg PO TID 30 days [gloves powder free synthetic As directed] Grab bar As directed ipratropium-albuterol 0.5 mg-3 mg(2.5 mg base)/3 mL 3 mL inhalation Q6H PRN 90 days levothyroxine 50 mcg PO DAILY 90 days lidocaine 5% 1 patch topical DAILY PRN 30 days lidocaine 5% 1 appl topical BEDTIME 30 days linaclotide (Linzess) 145 mcg PO QAM 30 days lorazepam 1 mg PO BID losartan 25 mg PO DAILY 90 days mupirocin 2% 1 appl topical BID 2 weeks naproxen 500 mg PO BID PRN 10 days nebulizers Nebulizer with tubing and accessories nystatin 1 appl topical BID 30 days omeprazole 20 mg PO DAILY 14 days ondansetron 8 mg PO Q12H PRN 5 days ondansetron 4 mg PO Q8H PRN 5 days [personal cleansing wipes As directed] prednisone 40 mg (2 x 20 mg) PO DAILY 5 days pregabalin 50 mg PO BID 30 days [raised toilet seat As directed] [recliner As directed] [reclining chair As directed] sennosides (Senokot) 8.6 mg PO DAILY PRN Shower Chair As directed silver sulfadiazine 1% (Silvadene) 1 appl topical DAILY 7 days valacyclovir (Valtrex) 1,000 mg PO TID 7 days vaporizers As directed Tobacco use date assessed: 04/30/23 Fall risk assessment: 1 Fall in past year Last assessed Fall Risk: 04/30/23 Dental Screening Dental Screen Date: 04/30/23 Did you have a dental visit in the last 12 months?: No Did you have a dental problem in the last 6 months where you did not have access to dental care?: No Was dental information given to patient?: Patient has dentist HPI HPI Comments History of Present Illness Details This is a 68-year-old female with hypertension, dyslipidemia, mild recurrent major depression and post herpetic neuralgia that comes today complaining of left shoulder pain, left elbow pain and left rib pain that started 5 days ago after she fell and hit those pars. No deformity. Has limited left shoulder elevation. Blood pressure stable. On statins for elevated cholesterol. Depression well controlled with escitalopram. Still has neuralgia with gabapentin. [facility] Medical History (Updated 04/30/23 @ 14:40 by Homa Cronin MD) Lumbar pain Urinary incontinence History of COVID-19 Candidal intertrigo Sinusitis PONV (postoperative nausea and vomiting) Shoulder pain GERD (gastroesophageal reflux disease) Coccyalgia Mild recurrent major depression Rectal bleeding History of asthma Rash Dyslipidemia Impaired glucose tolerance Fibromyalgia Arthritis Anxiety Surgical History H/O exploratory laparotomy History of eye surgery History of abdominal surgery Previous section History of carpal tunnel surgery of left wrist History of carpal tunnel surgery Family History Mother Colon cancer Hypertension Glaucoma Arthritis Father Bone cancer Social History Household Members: Children Housing: Apartment Do you presently have visiting nurse or other home services: Yes Unable to assess alcohol history related to: Unknown Alcohol intake: never Patient Tobacco Use Status: Never used Tobacco e-Cigarette/Vaping Use: Never Used Second Hand Smoke Exposure: No service: No Current occupational status: disabled Current occupation: Right Handed Cognitive needs: No Hearing needs: No Vision needs: Yes (glasses) Questionnaire Thrive Questionnaire Date Thrive assessed: 05/25/22 YENNIFER-7 AMB Questionnaire YENNIFER-7 Date YENNIFER - 7 assessed: 05/25/22 Source: Developed by Drs. Damián Mcgrath, Cee Butler, Wing Mattson and colleagues, with an educational vanessa from [employer]. Review of Systems Const All systems reviewed & are unremarkable except as noted in HPI and below Eyes Reports no additional complaints, Denies change in vision and Denies other visual disturbances Card Denies chest pain at rest, Denies chest pain with activity, Denies edema, Denies irregular heart rhythm, Denies claudication, Denies dyspnea, Denies dyspnea on exertion, Denies orthopnea, Denies paroxysmal nocturnal dyspnea and Denies slow heart rate Resp Denies cough, Denies dyspnea and Denies dyspnea on exertion GI Denies abdominal pain, Denies change in bowel habits, Denies excessive flatus, Denies nausea and Denies vomiting Denies urinary incontinence, Denies urinary hesitancy and Denies urinary urgency Musc Denies abnormal gait, Denies atrophy, Denies deformity, Reports arthralgias and Reports limited range of motion Skin/Breast Denies bleeding lesions, Denies changing lesions and Denies rash Neuro Denies abnormal gait, Denies behavioral changes and Denies lack of coordination Psych Denies behavioral changes Physical exam (Primary Care) Vital Signs: Last Vital Signs BP 138/86 04/30/23 14:10 BMI result Body Mass Index 26.2 Tobacco/Smoking Status: Tobacco use Status Tobacco use date assessed 04/30/23 04/30/23 14:17 Patient Tobacco Use Status Never used Tobacco 04/30/23 14:17 e-Cigarette/Vaping Use Never Used 04/30/23 14:17 Thrive Assessment: Date of Thrive Assessment Date Thrive assessed 05/25/22 04/30/23 14:17 Eyes General: appearance normal, both eyes and all related structures Eyelids: Yes eyelids normal Conjunctivae: conjunctivae normal Neck Neck: Yes normal visual inspection and Yes supple Resp Effort & Inspection: normal respiratory effort Auscultation: clear to auscultation bilaterally Cardio Jugular venous distension: no JVD Rate: regular rate Rhythm: regular rhythm Heart sounds: S1 normal heart sound present and S2 normal heart sound present Extrem Left upper extremity: shoulder/upper arm Details: tenderness and abnormal ROM Details: pain with active ROM Details: in ABduction and in extension Assessment and Plan Assessment & Plan (1) Essential hypertension: Code(s): I10 - Essential (primary) hypertension Plan: Continue losartan. Blood pressure goal is equal or less than 130/80. (2) Postherpetic neuralgia: Code(s): B02.29 - Other postherpetic nervous system involvement Plan: Continue gabapentin and Lyrica. (3) Left elbow pain: Code(s): M25.522 - Pain in left elbow Plan: X-ray ordered. (4) Rib pain on left side: Code(s): R07.81 - Pleurodynia Plan: X-ray ordered. (5) Mild recurrent major depression: Code(s): F33.0 - Major depressive disorder, recurrent, mild Plan: Continue escitalopram. Orders: Orders XR shoulder LT min 2V Today M25.512 - Pain in left shoulder XR elbow LT 2V Today M25.522 - Pain in left elbow XR ribs LT 2V Today R07.81 - Pleurodynia Coding Level of Care Code Est Pt Level 4 (61022) Diagnoses Essential hypertension I10 Postherpetic neuralgia B02.29 Left elbow pain M25.522 Rib pain on left side R07.81 Mild recurrent major depression F33.0 Time Spent (min) 23
== END 2023-04-30 14:38 | disposition home or self-care (01) ==
PROVIDERS: PCP Internal Medicine; Visit Provider Internal Medicine
DX: I10 Essential (primary) hypertension (principal); B02.29 Other postherpetic nervous system involvement; F33.0 Major depressive disorder, recurrent, mild; M25.522 Pain in left elbow; R07.81 Pleurodynia
CPT/HCPCS: 99214

== ENCOUNTER 2023-05-07 09:24 | Outpatient (REF) | payer OTHER, SELFPAY ==
--- NOTE | ~2023-05-07 | XR_ITS ---
EXAMINATION: XR ELBOW, LEFT CLINICAL INFORMATION: Pain. COMPARISON: None available. TECHNIQUE: AP, lateral, and oblique views of the left elbow. FINDINGS: The bones and soft tissues are normal. No fracture or joint effusion. Alignment is anatomic. Joint spaces are maintained. XR/XR elbow LT 2V IMPRESSION: Normal left elbow.
--- NOTE | ~2023-05-07 | XR_ITS ---
EXAMINATION: XR RIBS, LEFT, WITH PA CHEST CLINICAL INFORMATION: Pleurodynia. COMPARISON: Chest radiograph dated 04/17/2023; left rib and chest radiographs dated 03/08/2023. TECHNIQUE: 3 views of the left ribs were obtained, together with a frontal view of the chest. FINDINGS: Lungs are clear. No consolidation, pneumothorax, or pleural effusion. The cardiomediastinal silhouette and pulmonary vasculature are normal. Osseous structures are unremarkable. Ribs are intact. No fractures are identified. There are degenerative changes of the left shoulder. XR/XR ribs LT min 3V w CXR1V IMPRESSION: Unremarkable examination.
--- NOTE | ~2023-05-07 | XR_ITS ---
EXAMINATION: XR SHOULDER, LEFT CLINICAL INFORMATION: Pain. COMPARISON: Radiograph dated 03/20/2022. TECHNIQUE: AP external rotation, Grashey, scapular Y, and axillary views of the left shoulder. FINDINGS: There is bony demineralization. The glenohumeral joint is intact. The acromioclavicular and coracoclavicular intervals are normal. There is mild osteoarthritic change of the glenohumeral and acromioclavicular joints. No fracture or dislocation is seen. There is narrowing of the rotator cuff interval. A distal acromial undersurface osteophyte is seen, and there is cortical irregularity of the greater tuberosity of the proximal left humerus. No soft tissue calcification or foreign body is seen. There is no left pneumothorax. XR/XR shoulder LT min 2V IMPRESSION: 1. There is mild osteoarthritic change of the left glenohumeral and acromioclavicular joints. 2. Findings suggest left rotator cuff impingement, without claudia calcific tendinitis noted.
== END 2023-05-07 09:25 | disposition home or self-care (01) ==
LOC: HO.XRAY 09:24
PROVIDERS: PCP Internal Medicine; Visit Provider Internal Medicine
DX: M25.512 Pain in left shoulder (principal); M25.522 Pain in left elbow; R07.81 Pleurodynia
CPT/HCPCS: 71101; 73030; 73070

== ENCOUNTER 2023-07-12 13:28 | Outpatient (AMB) | payer OTHER, SELFPAY ==
[2023-07-12 13:35] VITALS: BP 136/82; BMI 25.6
--- NOTE | 2023-07-12 13:35 | A.OFFPC_ITS ---
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 Required: No Accompanied by: Self / Same As Patient Allergies barium sulfate [CONTRAST,ORAL] Allergy (Intermediate, Verified 07/12/23 13:44) HIVES Iodinated Contrast Media [IV CONTRAST] Allergy (Intermediate, Verified 07/12/23 13:44) HIVES ondansetron [From Zofran] Allergy (Intermediate, Verified 07/12/23 13:44) Stomach Upset doxycycline Adverse Reaction (Severe, Verified 07/12/23 13:44) Vomiting amoxicillin Adverse Reaction (Intermediate, Verified 07/12/23 13:44) Rash celecoxib Adverse Reaction (Mild, Verified 07/12/23 13:44) chills cyclobenzaprine Adverse Reaction (Mild, Verified 07/12/23 13:44) anxiety nabumetone Adverse Reaction (Mild, Verified 07/12/23 13:44) dry mouth, upset stomach Medication List - Last Reconciled 07/12/23 by Homa Cronin MD acetaminophen ER (Pain Relief (acetaminophen)) 1,300 mg (2 x 650 mg) PO Q12H PRN 30 days [adult diapers disposable briefs As directed] albuterol sulfate 90 mcg/actuation 2 puffs inhalation Q4-6H PRN albuterol sulfate 1.25 mg (3 mL) PO QID PRN atorvastatin 20 mg PO BEDTIME 90 days cholecalciferol (vitamin D3) 25 mcg PO DAILY 90 days escitalopram oxalate 20 mg PO DAILY fluticasone propionate 110 mcg/actuation (Flovent HFA) 1 puff inhalation BID gabapentin 300 mg PO TID 30 days [gloves powder free synthetic As directed] Grab bar As directed ipratropium-albuterol 0.5 mg-3 mg(2.5 mg base)/3 mL 3 mL inhalation Q6H PRN 90 days levothyroxine 50 mcg PO DAILY 90 days lidocaine 5% 1 patch topical DAILY PRN 30 days lidocaine 5% 1 appl topical BEDTIME 30 days linaclotide (Linzess) 145 mcg PO QAM 30 days lorazepam 1 mg PO BID losartan 25 mg PO DAILY 90 days mupirocin 2% 1 appl topical BID 2 weeks naproxen 500 mg PO BID PRN 10 days nebulizers Nebulizer with tubing and accessories nystatin 1 appl topical BID 30 days omeprazole 20 mg PO DAILY 14 days ondansetron 4 mg PO Q8H PRN 5 days [personal cleansing wipes As directed] pregabalin 50 mg PO BID 30 days [raised toilet seat As directed] [recliner As directed] [reclining chair As directed] sennosides (Senokot) 8.6 mg PO DAILY PRN Shower Chair As directed silver sulfadiazine 1% (Silvadene) 1 appl topical DAILY 7 days valacyclovir (Valtrex) 1,000 mg PO TID 7 days vaporizers As directed Tobacco use date assessed: 04/30/23 Dental Screening Dental Screen Date: 04/30/23 HPI HPI Comments History of Present Illness Details This is a 68-year-old female with hypertension, hypothyroidism, constipation and post herpetic neuralgia that comes today complaining of pain in the area where she had the zoster that is constant and is asking for oxycodone. Before this she had shoulder pain and has been asking for oxycodone for the past 3 years. She always have a new pain and insist that oxycodone will work. I advised her that oxycodone it is only temporary and that I do not feel comfortable giving it to her. She said she will have to look for another doctor because I have never give her oxycodone. Has tried Tylenol and NSAIDs with no significant relief. On gabapentin for her neuralgia which says it does not touch the pain and I will increase the dose today. She is aware that gabapentin can also cause addiction and sedation. Blood pressure has been stable. Last TSH was normal. Constipation well control with Linzess. [facility] Medical History (Updated 07/14/23 @ 09:44 by Homa Cronin MD) Lumbar pain Urinary incontinence History of COVID-19 Candidal intertrigo Sinusitis PONV (postoperative nausea and vomiting) Shoulder pain GERD (gastroesophageal reflux disease) Coccyalgia Mild recurrent major depression Rectal bleeding History of asthma Rash Dyslipidemia Impaired glucose tolerance Fibromyalgia Arthritis Anxiety Surgical History H/O exploratory laparotomy History of eye surgery History of abdominal surgery Previous section History of carpal tunnel surgery of left wrist History of carpal tunnel surgery Family History Mother Colon cancer Hypertension Glaucoma Arthritis Father Bone cancer Social History Household Members: Children Housing: Apartment Do you presently have visiting nurse or other home services: Yes Unable to assess alcohol history related to: Unknown Alcohol intake: never Patient Tobacco Use Status: Never used Tobacco e-Cigarette/Vaping Use: Never Used Second Hand Smoke Exposure: No service: No Current occupational status: disabled Current occupation: Right Handed Cognitive needs: No Hearing needs: No Vision needs: Yes (glasses) Questionnaire Thrive Questionnaire Date Thrive assessed: 05/25/22 YENNIFER-7 AMB Questionnaire YENNIFER-7 Date YENNIFER - 7 assessed: 05/25/22 Source: Developed by Drs. Damián Mcgrath, Cee Butler, Wing Mattson and colleagues, with an educational vanessa from [employer]. Review of Systems Const All systems reviewed & are unremarkable except as noted in HPI and below Eyes Reports no additional complaints, Denies change in vision and Denies other visual disturbances Card Denies chest pain at rest, Denies chest pain with activity, Denies edema, Denies irregular heart rhythm, Denies claudication, Denies dyspnea, Denies dyspnea on exertion, Denies orthopnea, Denies paroxysmal nocturnal dyspnea and Denies slow heart rate Resp Denies cough, Denies dyspnea and Denies dyspnea on exertion Musc Reports back pain and Reports arthralgias Physical exam (Primary Care) Vital Signs: Last Vital Signs BP 136/82 07/12/23 13:35 BMI result Body Mass Index 25.6 Tobacco/Smoking Status: Tobacco use Status Tobacco use date assessed 04/30/23 07/12/23 13:38 Patient Tobacco Use Status Never used Tobacco 07/12/23 13:38 e-Cigarette/Vaping Use Never Used 07/12/23 13:38 Thrive Assessment: Date of Thrive Assessment Date Thrive assessed 05/25/22 07/12/23 13:38 Resp Effort & Inspection: normal respiratory effort Auscultation: clear to auscultation bilaterally Cardio Jugular venous distension: no JVD Rate: regular rate Rhythm: regular rhythm Heart sounds: S1 normal heart sound present and S2 normal heart sound present Assessment and Plan Assessment & Plan (1) Post herpetic neuralgia: Code(s): B02.29 - Other postherpetic nervous system involvement Plan: Increase gabapentin. (2) Essential hypertension: Code(s): I10 - Essential (primary) hypertension Plan: Continue losartan. Blood pressure goal is equal or less than 130/80. (3) Hypothyroidism: Code(s): E03.9 - Hypothyroidism, unspecified Qualifiers: Hypothyroidism type: acquired Qualified Code(s): E03.9 - Hypothyroidism, unspecified Plan: Continue levothyroxine. Monitor TSH (4) Constipation: Code(s): K59.00 - Constipation, unspecified Qualifiers: Constipation type: chronic idiopathic constipation Qualified Code(s): K59.04 - Chronic idiopathic constipation Plan: Continue Linzess. Orders: Orders US abdomen complete 07/12/23 R10.12 - Left upper quadrant pain, R10.33 - Periumbilical pain Medications: New gabapentin 800 mg PO TID 30 days 90 tabs 0RF Refilled sennosides (Senokot) 8.6 mg PO DAILY PRN 20 tabs 0RF constipation K59.00 - Constipation, unspecified ondansetron 4 mg PO Q8H 5 days PRN 10 tabs 0RF nausea and vomiting Discontinued gabapentin Discontinued Reason: Patient Completed Course 300 mg PO TID 30 days 90 caps 0RF pregabalin Discontinued Reason: Patient Completed Course 50 mg PO BID 30 days 60 caps 0RF Coding Level of Care Code Est Pt Level 4 (98207) Diagnoses Post herpetic neuralgia B02.29 Essential hypertension I10 Acquired hypothyroidism E03.9 Hypothyroidism type: acquired Chronic idiopathic constipation K59.04 Constipation type: chronic idiopathic constipation Time Spent (min) 23
== END 2023-07-12 13:59 | disposition home or self-care (01) ==
PROVIDERS: PCP Internal Medicine; Visit Provider Internal Medicine
DX: B02.29 Other postherpetic nervous system involvement (principal); I10 Essential (primary) hypertension; E03.9 Hypothyroidism, unspecified; K59.04 Chronic idiopathic constipation
CPT/HCPCS: 99214

== ENCOUNTER 2023-08-10 10:09 | Outpatient (REF) | payer OTHER, SELFPAY ==
--- NOTE | ~2023-08-10 | XR_ITS ---
EXAMINATION: XR SHOULDER, LEFT CLINICAL INFORMATION: Pain in left shoulder. COMPARISON: 05/07/2023. TECHNIQUE: Three views of the left shoulder. FINDINGS: The bones are diffusely demineralized. Advanced degenerative changes with joint space narrowing and hypertrophic change in the acromioclavicular joint. Glenohumeral alignment maintained. Mild osteoarthritic changes in the glenohumeral joint. Narrowing of the subacromial space suggestive of rotator cuff pathology. Subacromial hypertrophic change and sclerosis. XR/XR shoulder LT min 2V IMPRESSION: 1. Advanced degenerative changes in the acromioclavicular joint. 2. Mild osteoarthritic changes in the glenohumeral joint. 3. Narrowing of the subacromial space suggestive of rotator cuff pathology.
--- NOTE | ~2023-08-10 | US_ITS ---
EXAMINATION: US ABDOMEN COMPLETE CLINICAL INFORMATION: Periumbilical pain. COMPARISON: CT abdomen and pelvis 08/30/2021. TECHNIQUE: Real-time imaging of the abdominal viscera. FINDINGS: PANCREAS: Normal head and body, the tail is obscured by bowel gas. ABDOMINAL AORTA: The proximal, mid, and distal segments are normal in caliber. Mild atherosclerotic plaque is seen within the abdominal aorta. INFERIOR VENA CAVA: Visualized portions are normal. LIVER: The liver is normal in size. The liver contour is normal. There is diffuse increased liver parenchymal echogenicity, consistent with hepatic steatosis. 1.8 x 0.8 x 1.3 cm cyst is seen in the left lower lobe. Focal fatty sparing is seen adjacent to the gallbladder in the right lobe There is no intrahepatic biliary duct dilatation seen. GALLBLADDER: Normal. The gallbladder is physiologically distended without evidence of stones, sludge, polyps, wall thickening or pericholecystic fluid. No sonographic Pressley's sign. COMMON BILE DUCT: Normal in caliber measuring 0.2 cm in diameter. RIGHT KIDNEY: Normal. No hydronephrosis. No renal calculi or focal parenchymal lesions. The kidney measures 10.5 cm in maximum dimension. LEFT KIDNEY: Normal. No hydronephrosis. No renal calculi or focal parenchymal lesions. The kidney measures 10.4 cm in maximum dimension. SPLEEN: Normal. The spleen measures 6.5 cm in maximum dimension. FREE FLUID: None. US/US abdomen complete IMPRESSION: 1. Hepatic steatosis. 2. 1.8 cm cyst in the left lobe of the liver. 3. Mild atherosclerotic plaque is seen within the abdominal aorta.
[2023-08-10 12:41] LABS: Cholesterol 220 mg/dL (<200); HDL Cholesterol 45 mg/dL (>40); LDL Cholesterol Calculated 144 mg/dL (<100); Triglycerides 159 mg/dL (<150)
== END 2023-08-10 10:10 | disposition home or self-care (01) ==
LOC: HO.US 10:09
PROVIDERS: Absent Provider Internal Medicine; PCP Internal Medicine; Visit Provider Internal Medicine
DX: R10.33 Periumbilical pain (principal); R10.12 Left upper quadrant pain; M25.512 Pain in left shoulder; E78.5 Hyperlipidemia, unspecified; E03.9 Hypothyroidism, unspecified
CPT/HCPCS: 36415; 73030; 76700; 80061; 84443

== ENCOUNTER 2023-09-27 11:12 | Outpatient (AMB) | payer OTHER, SELFPAY ==
--- OUTSIDE RECORDS SUMMARY | 2023-09-27 11:14 | XMS_ITS | Continuity of Care Document ---
Author Organization [facility] ter Address [address] [place] [id number]- Care Team Providers Care Mainframe Systems Engineer Name Role Phone Dru Solomon Bem, MD Primary Care Physician Unavailable [place] [facility] [place]23 [facility] [address] [place] [id number]- Attending Physician: Dru Cabrera MD Admitting Physician: Dru Cabrera MD Allergies, Adverse Reactions, Alerts Substance Reaction Severity Status morphine Active penicillins Active Contrast Dye 1 Active Percocet 5/325 nausea/vomiting Active 1IV Contrast Medications citalopram 20 mg oral tablet 1 tablet, By Mouth, Daily, # 30 tablet, 0 Refills, Maintenance, Tablet Start Date: 11/25/10 Status: Ordered lorazepam 1 mg oral tablet 1 tablet, By Mouth, 3 times a day, PRN for anxiety, 0 Refills, Maintenance, Tablet Start Date: 11/25/10 Status: Ordered trazodone 100 mg oral tablet 1 tablet to 2 tablets, By Mouth, Daily at bedtime, 0 Refills, Maintenance Start Date: 11/25/10 Status: Ordered Zofran ODT 4 mg oral tablet, disintegrating 1 tablet = 4 mg, By Mouth, Every 6 hours, may substitute with nondissolvable oral form, if ODT not covered by insurance, # 10 tablet, 0 Refills, Maintenance, DIS Tablet Start Date: 04/18/11 Status: Ordered Social History Social History Type Response Sex Female Patient Care team information Care Team Personnel Name: Dru Solomon Bem, MD Position: Reference Physician Member Role: PCP Address: Address: [facility] [address] [address]- Care Team Related Persons Name: RAMEZ NUNEZ Address: home [address] [place] [address] Name: ELI COOPER
--- OUTSIDE RECORDS SUMMARY | 2023-09-27 11:14 | XMS_ITS | Continuity of Care Document ---
Author Organization [facility] ter Address [address] [place] [id number]- Care Team Providers Care Skilled Nursing Case Manager Name Role Phone Dru Solomon Bem, MD Primary Care Physician Unavailable Encounter [facility] [place] Date(s): 12/14/22 - 02/21/23 [facility] [address] [place] [id number]- Attending Physician: Dru Cabrera MD Admitting Physician: [...] Reference Physician Member Role: PCP Address: Address: [facility] [address] [address]- Care Team Related Persons Name: RAMEZ NUNEZ Address: home [address] [place] [address] Name: ELI COOPER
--- NOTE | 2023-09-27 11:23 | MHC.OFFVIS ---
Intake Visit Reasons: OV-Pain in the right shoulder Intake Note: Xiomara romanian speaking presents today for her right shoulder pain. Allergies barium sulfate [CONTRAST,ORAL] Allergy (Intermediate, Verified 07/12/23 13:44) HIVES Iodinated Contrast Media [IV CONTRAST] Allergy (Intermediate, Verified 07/12/23 13:44) HIVES ondansetron [From Zofran] Allergy (Intermediate, Verified 07/12/23 13:44) Stomach Upset doxycycline Adverse Reaction (Severe, Verified 07/12/23 13:44) Vomiting amoxicillin Adverse Reaction (Intermediate, Verified 07/12/23 13:44) Rash celecoxib Adverse Reaction (Mild, Verified 07/12/23 13:44) chills cyclobenzaprine Adverse Reaction (Mild, Verified 07/12/23 13:44) anxiety nabumetone Adverse Reaction (Mild, Verified 07/12/23 13:44) dry mouth, upset stomach PFSH Medical History Lumbar pain Urinary incontinence History of COVID-19 Candidal intertrigo Sinusitis PONV (postoperative nausea and vomiting) Shoulder pain GERD (gastroesophageal reflux disease) Coccyalgia Mild recurrent major depression Rectal bleeding History of asthma Rash Dyslipidemia Impaired glucose tolerance Fibromyalgia Arthritis Anxiety Surgical History H/O exploratory laparotomy History of eye surgery History of abdominal surgery Previous section History of carpal tunnel surgery of left wrist History of carpal tunnel surgery Family History Mother Colon cancer Hypertension Glaucoma Arthritis Father Bone cancer Social History Household Members: Children Housing: Apartment Do you presently have visiting nurse or other home services: Yes Unable to assess alcohol history related to: Unknown Alcohol intake: never Patient Tobacco Use Status: Never used Tobacco e-Cigarette/Vaping Use: Never Used Second Hand Smoke Exposure: No service: No Current occupational status: disabled Current occupation: Right Handed Cognitive needs: No Hearing needs: No 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
--- NOTE | 2023-09-27 11:26 | A.OFFVIS_ITS ---
Vital Signs 09/27/23 11:35 Height 5 ft Weight 131 lb BMI 25.6 Intake Visit Reasons: OV-Pain in the right shoulder Intake Note: Xiomara a 68 year old right hand dominant female who presents today for a follow up of right shoulder pain. Patient reports bilateral shoulder pain with her left shoulder being the worse. Limited ROM. She is requesting cortisone injections. She mentions being diagnosed with shingles and back pain. Siderographer Name: Jesse ID#[id number] Allergies barium sulfate [CONTRAST,ORAL] Allergy (Intermediate, Verified 09/27/23 11:34) HIVES Iodinated Contrast Media [IV CONTRAST] Allergy (Intermediate, Verified 09/27/23 11:34) HIVES ondansetron [From Zofran] Allergy (Intermediate, Verified 09/27/23 11:34) Stomach Upset doxycycline Adverse Reaction (Severe, Verified 09/27/23 11:34) Vomiting amoxicillin Adverse Reaction (Intermediate, Verified 09/27/23 11:34) Rash celecoxib Adverse Reaction (Mild, Verified 09/27/23 11:34) chills cyclobenzaprine Adverse Reaction (Mild, Verified 09/27/23 11:34) anxiety nabumetone Adverse Reaction (Mild, Verified 09/27/23 11:34) dry mouth, upset stomach Medication List - Last Reconciled 10/01/23 by Aly Deluna PA-C acetaminophen ER (Pain Relief (acetaminophen)) 1,300 mg (2 x 650 mg) PO Q12H PRN 30 days [adult diapers disposable briefs As directed] albuterol sulfate 90 mcg/actuation 2 puffs inhalation Q4-6H PRN albuterol sulfate 1.25 mg (3 mL) PO QID PRN atorvastatin 20 mg PO BEDTIME 90 days cholecalciferol (vitamin D3) 25 mcg PO DAILY 90 days escitalopram oxalate 20 mg PO DAILY fluticasone propionate 110 mcg/actuation (Flovent HFA) 1 puff inhalation BID gabapentin 800 mg PO TID 30 days [gloves powder free synthetic As directed] Grab bar As directed ipratropium-albuterol 0.5 mg-3 mg(2.5 mg base)/3 mL 3 mL inhalation Q6H PRN 90 days levothyroxine 50 mcg PO DAILY 90 days lidocaine 5% 1 patch topical DAILY PRN 30 days lidocaine 5% 1 appl topical BEDTIME 30 days linaclotide (Linzess) 145 mcg PO QAM 30 days lorazepam 1 mg PO BID losartan 25 mg PO DAILY 90 days mupirocin 2% 1 appl topical BID 2 weeks naproxen 500 mg PO BID PRN 10 days nebulizers Nebulizer with tubing and accessories nystatin 1 appl topical BID 30 days omeprazole 20 mg PO DAILY 14 days ondansetron 4 mg PO Q8H PRN 5 days ondansetron HCl 4 mg PO Q8H PRN 30 days [personal cleansing wipes As directed] [raised toilet seat As directed] [recliner As directed] [reclining chair As directed] sennosides (Senokot) 8.6 mg PO DAILY PRN Shower Chair As directed silver sulfadiazine 1% (Silvadene) 1 appl topical DAILY 7 days valacyclovir (Valtrex) 1,000 mg PO TID 7 days vaporizers As directed HPI HPI OV-Pain in the right shoulder: Details: 68-year-old right hand dominant female who returns to the office today for a follow-up of right shoulder pain. She states she has pain and limited ROM in her bilateral shoulder that is worse on her right side. Her pain is aggravated with activities. She is interested in having a cortisone injection. She does not have a history of diabetes. COUNT INCLUDES THE [facility] Medical History Lumbar pain Urinary incontinence History of COVID-19 Candidal intertrigo Sinusitis PONV (postoperative nausea and vomiting) Shoulder pain GERD (gastroesophageal reflux disease) Coccyalgia Mild recurrent major depression Rectal bleeding History of asthma Rash Dyslipidemia Impaired glucose tolerance Fibromyalgia Arthritis Anxiety Surgical History H/O exploratory laparotomy History of eye surgery History of abdominal surgery Previous section History of carpal tunnel surgery of left wrist History of carpal tunnel surgery Family History Mother Colon cancer Hypertension Glaucoma Arthritis Father Bone cancer Social History Household Members: Children Housing: Apartment Do you presently have visiting nurse or other home services: Yes Unable to assess alcohol history related to: Unknown Alcohol intake: never Patient Tobacco Use Status: Never used Tobacco e-Cigarette/Vaping Use: Never Used Second Hand Smoke Exposure: No service: No Current occupational status: disabled Current occupation: Right Handed Cognitive needs: No Hearing needs: No Vision needs: Yes (glasses) Review of Systems Const All systems reviewed & are unremarkable except as noted in HPI and below Physical Exam Vital Signs: BMI result Body Mass Index 25.6 Extrem Other: Bilateral shoulder: Normal to inspection. Tenderness over the bicipital groove and along the deltoid region of the shoulder. Forward flexion to 175, external rotation to 90, internal rotation to S1. 5/5 RTC strength. Negative De La Rosa and cross body abduction. NVI. Office Procedures Joint Injection/Drain Joint Injection/Drain Primary Site: right shoulder Secondary Site: left shoulder Prep: site was prepped using aseptic technique, ethochloride spray was applied and injection warnings given Injected: 80 mg of, DepoMedrol, with 8 mL of, 1% plain lidocaine and in the subcromial space Approach Used: posterolateral Procedure: The patient tolerated the procedure well and there was some relief with the local anesthesia Coding 41800 - Glenohumeral/Tronchanteric Bursa/Intraarticular Procedure code (CPT) selection complete Assessment & Plan Assessment & Plan (1) Tendonitis of both shoulders: Code(s): M77.8 - Other enthesopathies, not elsewhere classified Category: Medical Plan We discussed options today, which include steroid injection. The patient did consent to move forward with the bilateral shoulder injection, which was tolerated well. I recommended rest, ice, and elevation and OTC anti-inflammatories as needed for discomfort. If symptoms persist or worsen over the next 6-8 weeks, patient will contact the office, otherwise follow-up as needed. Patient Instructions: Scribed for Aly Deluna PA-C, by Cesar Wolff paramedical aide, on 09/27/2023 at 11:15 AM EST.? I, Aly Deluna PA-C, have personally reviewed and agree with the information entered by the scribe. Coding Level of Care Code Est Pt Level 3 (90279) Diagnoses Tendonitis of both shoulders M77.8 CPT Codes Coding - Joint 7: 47031 - Glenohumeral/Tronchanteric Bursa/Intraarticular ([id number])
[2023-09-27 11:35] VITALS: BMI 25.6
== END 2023-09-27 12:40 | disposition home or self-care (01) ==
LOC: HO.HOS 11:12
PROVIDERS: PCP Internal Medicine; Visit Provider Physician Assistant
DX: M77.8 Other enthesopathies, not elsewhere classified (principal)
CPT/HCPCS: 20610; 99213

== ENCOUNTER → 2023-09-27 11:12 | Outpatient (BNVA) | payer OTHER, SELFPAY | PROVIDERS: PCP Internal Medicine; Visit Provider Physician Assistant | DX: M77.8 Other enthesopathies, not elsewhere classified (principal); M25.512 Pain in left shoulder; M25.511 Pain in right shoulder | CPT/HCPCS: 20610; 99212; J1010 ==

== ENCOUNTER 2023-12-27 12:07 | Outpatient (REF) | payer OTHER, SELFPAY | END 2023-12-27 12:08 | disposition home or self-care (01) | LOC: HO.XRAY 12:07 | PROVIDERS: PCP Internal Medicine; Visit Provider Internal Medicine | DX: M54.50 Low back pain, unspecified (principal) | CPT/HCPCS: 72100 ==

== ENCOUNTER → 2024-04-09 12:23 | Outpatient (BNVA) | payer OTHER, SELFPAY | PROVIDERS: PCP Internal Medicine; Visit Provider Internal Medicine | DX: Z00.00 Encounter for general adult medical examination without abnormal findings (principal); Z23 Encounter for immunization; F33.0 Major depressive disorder, recurrent, mild; M25.511 Pain in right shoulder; M54.2 Cervicalgia; M54.50 Low back pain, unspecified | CPT/HCPCS: 90471; 90715; 96127; 99212; 99397 ==

== ENCOUNTER 2024-04-18 08:43 | Outpatient (REF) | payer OTHER, SELFPAY ==
--- NOTE | ~2024-04-18 | XR_ITS ---
EXAMINATION: XR SHOULDER, RIGHT CLINICAL INFORMATION: M25.511 - Pain in right shoulder COMPARISON: May 19, 2022 TECHNIQUE: AP external rotation, Grashey, scapular Y, and axillary views of the right shoulder. FINDINGS: There is joint space narrowing involving the acromioclavicular humeral joint and the glenohumeral joint. Subchondral cyst formation in the articular surface of the acromion and in the humeral head as well as the inferior aspect of the glenoid. No acute cortical disruption or malalignment. No lytic or blastic lesions. XR/XR shoulder RT min 2V IMPRESSION: Moderate to severe osteoarthrosis without acute fracture or dislocation, right shoulder. Electronically signed by: Javier White MD 04/18/2024 01:06 PM LEANN WATKINS
--- OUTSIDE RECORDS SUMMARY | 2024-04-21 09:05 | XMS_ITS | Data Portability ---
Author Organization [employer] In in - [employer] Address [address] [place] [address] Care Team Providers Care Home Economics Expert Name Role Phone [facility] Referring Provider [phone] Assessment Encounter Date Assessment Date Assessment LastModified by Organization Details LastModified Time 03/23/2023 03/23/2023 I provided real -time medical direction via phone for this encounter, and was available for additional phone based assistance as needed. I have reviewed and agree with the Assessment and Plan as documented by the Hunting Sales Associate. We discussed the diagnostic uncertainty of home visits and the risk associated with this. In this case the patient and I felt this to be an acceptable and reasonable amount of risk given the benefit of avoiding an ED visit. The patient given the opportunity to ask questions. Advised if develops CP/severe SOB/turning blue/intolerable flank pain/uncontrolle d n/v/d or black/bloody emesis or stool/ AMS/ syncope/ hi fever to call 911- verbalized understanding of instructions [email or web address] Not available 03/24/2023 17:39:31 Plan of Treatment Reminders Order Date Submit Date Provider Last Modified By Organization Details Last Modified Time Details Appointments None recorded. Lab None recorded. Referral None recorded. Procedures None recorded. Surgeries None recorded. Imaging None recorded. Medication Orders mupirocin 2 % topical ointment 2022 023 [facility]/Pharmacy #[id number], [address] [place], [address], 3 12:06:17 valacyclovi r 1 gram tablet 2023 024 [facility]/Pharmacy #[id number], [address] [place], [address], 4 11:17:51 Zovirax 5 % topical cream 2023 024 [facility]/Pharmacy #[id number], [address] [place], [address], 4 11:17:52 naproxen 500 mg tablet 2023 024 [facility]/Pharmacy #[id number], [address] [place], [address], 4 11:17:51 ketorolac 30 mg/mL injection solution 2023 024 [email or web address] [facility]/Pharmacy #[id number], [address] [place], [address], 4 11:17:42 Patient TargetsNo targets recorded. Patient InstructionsNo instructions recorded. Reason for Referral None Reported. Medical Equipment None Reported. Allergies Allergen ID Allergen Name Allergen Category Reaction Reaction Severity Criticality Documentation Date Start Date Code Code System Note Provider Name and Address Organization Details Recorded Time 4348 Iodinated contrast media (substanc e) medicatio n Not available Not available Not available 03/23/2023 55409 2003 SNOMED Selina Danielle MD [address] [facility],[address], [place], [address], [employer], [employer] 4 11:08:47 Medications Name Sig Start Date Stop Date Status Note LastModified by Organization Details LastModified Time celecoxib 200 mg capsule TAKE 1 CAPSULE BY MOUTH TWICE A DAY NEEDED FOR PAIN active Not Available Not Available No t Available silver sulfadiazine 1 % topical cream active Not Available Not Available Not Available atorvastatin 20 mg tablet TAKE 1 TABLET BY MOUTH AT BEDTIME FOR 90 DAYS active Not Available Not Available No t Available ipratropium 0.5 mg-albuterol 3 mg (2.5 mg base)/3 mL nebulization soln INHALE 3 ML INHALED EVERY 6 HOURS NEEDED FOR WHEEZING FOR 90 DAYS active Not Available Not Available No t Available atorvastatin 10 mg tablet TAKE 1 TABLET BY MOUTH EVERYDAY AT BEDTIME active Not Available Not Available N ot Available valacyclovir 1 gram tablet TAKE 1 TABLET BY MOUTH THREE TIMES A DAY FOR 7 DAYS active Not Available Not Available No t Available albuterol sulfate 1.25 mg/3 mL solution for nebulization INHALE 1.25 MG (3 ML) ORALLY 4 TIMES A DAY NEEDED FOR SHORTNESS OF BREATH OR WHEEZING active Not Available Not Available No t Available ondansetron HCl 4 mg tablet TAKE 1 TABLET BY MOUTH EVERY 8 HOURS FOR 7 DAYS active Not Available Not Available No t Available prednisone 20 mg tablet TAKE 2 TABLETS BY MOUTH EVERY DAY FOR 5 DAYS active Not Available Not Available N ot Available acetaminophen 500 mg tablet TAKE 1 TABLET BY MOUTH EVERY 6 HOURS NEEDED FOR FEVER OR PAIN active Not Available Not Available No t Available amoxicillin 500 mg tablet TAKE 1 TABLET BY MOUTH TWICE A DAY FOR 7 DAYS active Not Available Not Available No t Available ondansetron 8 mg disintegratin g tablet TAKE ONE TABLET BY MOUTH EVERY 12 HOURS NEEDED FOR NAUSEA AND VOMITING FOR 5 DAYS active Not Available Not Available N ot Available acetaminophen ER 650 mg tablet,extend ed release TAKE 2 TABLETS BY MOUTH EVERY 12 HOURS NEEDED FOR PAIN X30 DAYS active Not Available Not Available No t Available benzonatate 100 mg capsule TAKE 1 CAPSULE BY MOUTH TWICE A DAY NEEDED FOR COUGH FOR 5 DAYS active Not Available Not Available No t Available levothyroxine 50 mcg tablet TAKE 1 TABLET BY MOUTH EVERY DAY active Not Available Not Available No t Available lidocaine 5 % topical patch 1 PATCH TOPICALLY DAILY NEEDED FOR PAIN FOR 30 DAYS LEAVE ON MOST PAINFUL AREA FOR UP TO 12 HRS active Not Available Not Available No t Available losartan 25 mg tablet TAKE 1 TABLET DAILY FOR 90 DAYS active Not Available Not Available No t Available hydrocodone-h omatropine 5 mg-1.5 mg/5 mL oral syrup TAKE 5 ML BY MOUTH EVERY 4 TO 6 HOURS NEEDED FOR COUGH FOR 3 DAYS active Not Available Not Available No t Available betamethasone dipropionate 0.05 % topical cream APPLY TOPICALLY 2 TIMES A DAY FOR 15 DAYS active Not Available Not Available No t Available gabapentin 300 mg capsule TAKE 1 CAPSULE BY MOUTH TWICE A DAY NEEDED FOR PAIN active Not Available Not Available No t Available omeprazole 20 mg capsule,delay ed release active Not Available Not Available N ot Available mupirocin 2 % topical ointment APPLY TOPICALLY 2 TIMES A DAY FOR 2 WEEKS active Not Available Not Available No t Available gabapentin 100 mg capsule TAKE ONE CAPSULE BY MOUTH 3 TIMES A DAY FOR 30 DAYS active Not Available Not Available No t Available nystatin 100,000 unit/gram topical powder APPLY TOPICALLY 2 TIMES A DAY FOR 30 DAYS active Not Available Not Available No t Available lorazepam 1 mg tablet active Not Available Not Available No t Available albuterol sulfate HFA 90 mcg/actuation aerosol inhaler 2 PUFF INHALED EVERY 4 TO 6 HOURS NEEDED FOR FOR WHEEZING active Not Available Not Available No t Available ondansetron 4 mg disintegratin g tablet TAKE 1 TABLET ORALLY EVERY 8 HOURS NEEDED FOR NAUSEA AND VOMITING FOR 5 DAYS active Not Available Not Available N ot Available doxycycline hyclate 100 mg tablet TAKE 1 TABLET BY MOUTH TWICE A DAY FOR 5 DAYS active Not Available Not Available No t Available fluticasone propionate 110 mcg/actuation HFA aerosol inhaler TAKE 1 PUFF BY MOUTH TWICE A DAY active Not Available Not Available No t Available naproxen 500 mg tablet TAKE 1 TABLET TWICE A DAY BY ORAL ROUTE NEEDED, TAKE WITH FOOD active Not Available Not Available No t Available oxycodone 5 mg tablet TAKE 1 OR 2 TABLETS BY MOUTH EVERY 4 HOURS NEEDED FOR PAIN DIRECTED *DO NOT DRIVE WHILE TAKING active Not Available Not Available No t Available escitalopram 20 mg tablet active Not Available Not Available Not Available Vitamin D3 25 mcg (1,000 unit) capsule TAKE 1 CAPSULE BY MOUTH EVERY DAY active Not Available Not Available No t Available cyclobenzapri ne 5 mg tablet TAKE 1 TABLET BY MOUTH EVERY DAY AT BEDTIME NEEDED FOR MUSCLE SPASM active Not Available Not Available No t Available Zovirax 5 % topical cream APPLY sparingly TO THE AFFECTED AREA(S) BY TOPICAL ROUTE 5 TIMES PER DAY x 7 days 2023 active Not Available Not Available Not Avai lable pregabalin 50 mg capsule TAKE 1 CAPSULE BY MOUTH TWICE A DAY X30 DAYS active Not Available Not Available No t Available diclofenac 1 % topical gel PLACE 2 G TOPICALLY 4 TIMES A DAY NEEDED FOR PAIN active Not Available Not Available No t Available ketorolac 30 mg/mL injection solution 30 mg IM x1 2023 active Not Available Not Available Not Avai lable EC-Naproxen 500 mg tablet,delaye d release TAKE 1 TABLET BY MOUTH TWICE A DAY NEEDED FOR PAIN active Not Available Not Available No t Available Vitals Date Recorded Heart rate Body height Oxygen saturation Oxygen saturation in Arterial blood by Pulse oximetry Body weight Respiratory rate Systolic blood pressure Diastolic blood pressure Provider Name and Address Organization Details Last Updated DateTime 3 90 /min 152.4 cm 96 % 96 % 17163.1 44 g 16 /min 167 mm[Hg] 95 mm[Hg] Not Available [employer] 3 11:30:48 Date Recorded Oxygen saturation Oxygen saturation in Arterial blood by Pulse oximetry Body temperature Respiratory rate Heart rate Systolic blood pressure Diastolic blood pressure Provider Name and Address Organization Details Last Updated DateTime 4 99 % 99 % 98.4 [degF] 18 /min 94 /min 165 mm[Hg] 88 mm[Hg] Not Available [employer] 4 11:07:52 Date Recorded Body weight Provider Name an d Address Organization Details Last Updated DateTime 03/23/2023 18783.56 g Ganesh Patel [address] [place] [address],[address] [place], [address] 03/24/2023 17:38:34 Date Recorded Body mass index (BMI) Body height Provider Name and Address Organization Details Last Updated DateTime 03/24/2023 26.6 kg/m2 152.4 cm Selina Danielle MD [address] [place] [address],[address] [facility], [place], [address], [employer] 03/24/2023 17:38:26 Social History None recorded. Functional Status None recorded. Mental Status None recorded. Family History Nothing Reported. Medical History No medical history recorded. Gynecological HistoryNo gynecological history recorded. Obstetrics History GPAL:G 0 P 0 0 0 0 Past Encounters Encounter ID Performer Location Encounter Start Date Encounter Closed Date Diagnosis/Indication Diagnosis SNOMED-CT Code Diagnosis ICD10 Code Diagnosis Note [id number] Rudy Washington MD [address] [address] 03/11/2023 11:30:42 03/13/2023 12:40:38 Herpes zoster 4345247 B02.9 Shingles; currently on antiviral treatment as well as Prednisone burst. For itching, advised to take OTC Calamine lotion and if continues to worsen, to apply Mupirocin ointment TID PRN to prevent bacterial superinfec tion. Discussed red flag signs for which to seek higher level of care. [id number] Selina Danielle MD [address] [address] 03/23/2023 11:07:44 03/26/2023 17:27:24 Herpes zoster 7969893 B02.9 Need to follow-up with her PCP as soon as possible. It appears as if she has an early recurrent zoster rash. 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 I will refill her naproxen to take with food but advised not to take any NSAIDs OTC along that and not to take anything for 8 hours after the ketorolac for pain.Also advised no topical hydrocorti sone as that could cause increased spreading of the herpetic/s hingles rash. Patient was requesting some Zovirax cream as a family member had used it and it had helped. Advised we will restart the Valtrex but to use the Zovirax sparingly. I also advised given her weight not to exceed 2.5 g of Tylenol per 24 hours, so she may take 2 doses of 1 g with one 500 mg tablet in between-sh e verbalized understand ing. Red flags reviewed. Health Concerns Section Related Observation LastModified by Organization Detai ls LastModified Time None Recorded Concern Status LastModified by Organization Details LastModified Time None Recorded Advance Directives Directive None Recorded Payers Encounter Date Sequence Insurance Name Policy Number Policy Shea Covered Member ID Shea Member ID Guarantor Name 03/11/2023 1 [facility] [facility] - DOS ON OR AFTER 2022 - DUAL ELIGIBLE - GROUP HOME OPTIONS AND ONE CARE (MEDICARE REPLACEMENT/ADV ANTAGE - HMO) [employer] [id number] [employer] 03/23/2023 1 [employer] [facility] - DOS ON OR AFTER 2022 - DUAL ELIGIBLE - GROUP HOME OPTIONS AND ONE CARE (MEDICARE REPLACEMENT/ADV ANTAGE - HMO) [facility] [id number] [employer] Notes Date Note Type Note Provider Name and Address Organization Details Recorded Time 03/11/2023 text/html [facility] Nurse Triage Notes (Sarah Terry): Reason For Request: Possible Shingles Chief Complaints: Wound Care PMH: COPD/Asthma, Other Allergies: Unknown Comments: Member went to the ER on Sunday for a RASH , started to mid back spreading to side. IN the ER , they felt it might be shingles and was given medications and instructions . Member was given naproxen for the pain . Member was looking for cream PMH Arthritis / anxiety, back pain .................... .................... .................... .................... .................... .................... .................... . Hunting Sales Associate Note From Drake Dickinson: Pt reports shingles dx in the ED 4 days ago. Pt sent home with valtrex, prednisone and naproxen. Pt feels that the rash is worsening and is requesting something topical. Pt is alert, NAD. VSS. Afebrile. Non focal neuro exam. Classic shingles rash on left side of mid back around the left side. No open blisters. [facility] contacted and will send rx for bactroban bid. Pt also advised to use calamine lotion in between the bactroban. Pt instructed to seek emergent medical care for new or worsening sx, which are reviewed with her. .................... .................... .................... .................... .................... .................... .................... . Disposition: Fulfilled Rudy Washington MD [address] [facility],[address], [place], [address], [employer] 03/11/2023 13:22:18 03/23/2023 text/html [facility] Nurse Triage Notes (Yale Hurt): Reason For Request: PT's son reporting diagnosis of shingles>pain in her back left side>states shingles has been spreading>has followed up with PCP, was gabapentin for the pain in which the son says it has not been working at all for her. Chief Complaints: Pain PMH: COPD/Asthma Comments: Diagnosed with shingles 2.5 weeks in ED at [facility]. Finished course of medication prescribed. Shingles to left side of back. Exacerbation of pain and drainage to areas. .................... .................... .................... .................... .................... .................... .................... . Hunting Sales Associate Note From Bennie Regalado: Or diagnosed with shingles. RX valtrex for 7 days finished one week ago. 4 days ago symptoms returned. Painful rash on left ribs. Using bacitracin. Also taking gabapetin for pain with no relief. Baseline vitals assessed. C contacted and RX for valtrex ,naproxen called. 30mg toradol given IM. Pt advised to follow up with pcp. Pt education on signs indicating the ER. .................... .................... .................... .................... .................... .................... .................... . Disposition: Fulfilled SEGMD: Was prescribed Valtrex 1 g 3 times a day. Pain persisted and then rash reappeared-approxima tely 4 days ago. Patient has been putting hydrocortisone cream on the rash. She had Tylenol 1 g today. She is on gabapentin twice a day, and was on naproxen 500 mg., But ran out. She does denies any history of CKD, peptic ulcer disease or GI bleeding. She denies fevers, chills, shortness of breath, nausea vomiting diarrhea. Selina Danielle MD [address] [facility],[address], [place], [address], [employer] 03/24/2023 17:41:57 OBGyn Episode No OBEpisode recorded.
--- OUTSIDE RECORDS SUMMARY | 2024-04-21 09:05 | XMS_ITS | Data Portability ---
Author Organization [employer] [address] Address [address] [place] [address] Assessment No assessment recorded. Plan of Treatment Reminders Order Date Submit Date Provider Last Modified By Organization Details Last Modified Time Details Appointments None recorded. Lab rapid flu (A+B) 2021 [place] [id number], [address] [place] [address], [phone], 16:36:07 rapid strep group A, throat 2021 [place] [id number], [address] [place] [address], [phone], 16:36:07 Referral None recorded. Procedures None recorded. Surgeries None recorded. Imaging None recorded. Medication Orders triamcinolo ne acetonide 0.1 % topical cream 2021 [facility]/Pharmacy #[id number], [address] [place], [address], 16:36:57 Tamiflu 75 mg capsule 2021 [facility]/Pharmacy #[id number], [address] [place], [address], 16:36:09 Patient TargetsNo targets recorded. Patient Instructions Encounter Date Encounter Id Patient Instructions Last Modified By Organization Details Last Modified Time 02/10/2022 [id number] Eczema: Care Instructions [email or web address] Not available 02/10/2022 16:36:54 cough: care instructions [email or web address] Not available 02/10/2022 16:36:07 Reason for Referral None Reported. Results Created Date Observation Date Name Description Value Unit Range Abnormal Flag Note LastModifiedBy Organization Detail LastModifiedTime 02/11/20 22 02/10/2022 rapid strep group A, throa t Unknown Analyte Normal = Negati ve Not Available [facility] [address], [address], 02/10/2022 16:07:28 02/11/20 22 02/10/2022 rapid strep group A, throa t Unknown Analyte negati ve Not Available [address] [place] [address], [phone], 02/10/2022 16:07:28 02/11/20 22 02/10/2022 rapid flu (A+B) Unknown Analyte negati ve Not Available [address] [place] [address], [phone], 02/10/2022 16:00:55 02/11/20 22 02/10/2022 rapid flu (A+B) Unknown Analyte negati ve Not Available [address] [place] [address], [phone], 02/10/2022 16:00:55 Result Notes None recorded. Problems Name Problem SNOMED Code Status Onset Date Resolution Date Notes Provider Name and Address Organization Details Recorded Time Asthma 139804523 Active 2021 JEWEL jones, [place] - [facility] 2 15:57:11 Disorder of thyroid gland 88587384 Active 2021 JEWEL jones, [place] - [facility] 2 15:57:23 Hyperlipidemia 14055390 Active 2021 JEWEL jones, [place] - [facility] 2 15:57:33 Problem Notes None recorded. Procedures Surgical History Date Name Laterality Status Provider Name and Address Organization Details Recorded Time 2 cataract surgery completed JEWEL MOSS - [facility] 02/10/2022 15:58:34 2 procedure on abdomen completed JEWEL MOSS - [facility] 02/10/2022 15:59:03 section completed JEWEL MOSS - [facility] 02/10/2022 15:58:46 Imaging Results None recorded. Procedure Notes None recorded. Medical Equipment None Reported. Allergies Allergen ID Allergen Name Allergen Category Reaction Reaction Severity Criticality Documentation Date Start Date Code Code System Note Provider Name and Address Organization Details Recorded Time 3804 Iodinated contrast media (substanc e) medicatio n swelling Not available Not available 02/10/2022 36091 2003 SNOMED JEWEL jones ISA - [facility] 15:53:21 Medications Name Sig Start Date Stop Date Status Note LastModified by Organization Details LastModified Time Tamiflu 75 mg capsule Take 1 capsule twice a day by oral route for 5 days. 2021 active Not Available Not Available Not Avai lable triamcinolon e acetonide 0.1 % topical cream APPLY A THIN LAYER TO THE AFFECTED AREA(S) BY TOPICAL ROUTE 2 TIMES PER DAY 2021 active Not Available Not Available Not Avai lable levothyroxin e active Not Available Not Available Not Available lorazepam active Not Available Not Darling ilable Not Available albuterol sulfate active Not Available Not Available Not Available simvastatin active Not Available Not A vailable Not Available albuterol sulf 90 mcg/actuatio n breath activated powder inhaler,sens or Inhale 2 puffs every 4 hours by inhalation route. active Not Available Not Available No t Available Vitals Date Recorded Body weight Body mass index (BMI) Body height Provider Name and Address Organization Details Last Updated DateTime 02/10/2022 24044.52 g 27.5 kg/m2 152.4 cm JEWEL MOSS - [facility] 02/10/2022 15:52:25 Social History Question Answer Notes LastModified by Organizat ion Details LastModified Time Tobacco Smoking Status Never Smoker JEWEL jones ISA - [facility] 02/10/2022 15:58:13 What Is Your Level Of Alcohol Consumption? None [email or web address] Information not available 02/10/2022 Do You Use Any Illicit Or Recreational Drugs? No [email or web address] Information not available 02/10/2022 Have You Recently Traveled Abroad? No [email or web address] Information not available 02/10/2022 Do You Or Have You Ever Used Any Other Forms Of Tobacco Or Nicotine? No [email or web address] Information not available 02/10/2022 Sex: Unknown Functional Status None recorded. Mental Status None recorded. Family History Relationship Description Onset Age of this Age Resolved Age Notes LastModified by Organization Details LastModified Time Mother Malignant tumor of colon [email or web address] Not available 2021 15:57:44 Father Malignant neoplasm of bone Not available 2021 15:57:52 Medical History No medical history recorded. Gynecological HistoryNo gynecological history recorded. Obstetrics History GPAL:G 0 P 0 0 0 0 Past Encounters Encounter ID Performer Location Encounter Start Date Encounter Closed Date Diagnosis/Indication Diagnosis SNOMED-CT Code Diagnosis ICD10 Code Diagnosis Note [id number] [address] [place] [address] 09/30/2019 12:38:19 09/30/2019 13:04:46 [id number] [address] [place] [address] 11/11/2020 09:43:54 11/11/2020 13:00:01 [id number] [address] [place] [address] 10/17/2020 11:14:29 10/17/2020 14:22:27 [id number] ISA MURO [address] [place] [address] 02/10/2022 14:03:45 02/11/2022 13:47:21 [id number] ISA MURO [address] [place] [address] 02/10/2022 14:45:54 02/10/2022 16:38:39 Acute upper respiratory infection 16126654 J06.9 Eczema 34212261 L30.9 Health Concerns Section Related Observation LastModified by Organization Detai ls LastModified Time None Recorded Concern Status LastModified by Organization Details LastModified Time None Recorded Advance Directives Directive None Recorded Payers Encounter Date Sequence Insurance Name Policy Number Policy Shea Covered Member ID Shea Member ID Guarantor Name 11/11/2020 1 [facility] [id number] [facility] 02/10/2022 1 [facility] Xiomara Colónto [id number] Xiomara Gaffney 02/10/2022 1 [facility] (MEDICAID HMO) [facility] Xiomara Gaffney [id number] Esmond [employer] Notes Date Note Type Note Provider Name and Address Organization Details Recorded Time 02/10/2022 text/html CoughReported bypatient.Notes:Xiomara is a 67 yo F with PMH asthma and HLD started with cough, congestion, sore throat and ARREGUIN x 3 days. Has known exposure to grand daughter who tested positive for flu. Would like to test for flu and strep and start treatment. Denies SOB, wheezing, CP, dizziness, fever, chills, sweats. Of note, she would also like to be evaluated for eczema rash on her neck. Has occasional eczema flare in the winter and ran out of steroid cream. Tried OTC hydrocortisone cream which helped the itching but rash is still there. ISA MELÉNDEZ [address] [place], [address], [place] - [facility] 02/10/2022 16:38:06 OBGyn Episode No OBEpisode recorded.
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
== END 2024-04-18 08:44 | disposition home or self-care (01) ==
LOC: HO.HOSX 08:43
PROVIDERS: Visit Provider Physician Assistant
DX: M19.011 Primary osteoarthritis, right shoulder (principal)
CPT/HCPCS: 20610; 73030; 99212; J1010; J2003

== ENCOUNTER → 2024-04-18 12:07 | Outpatient (AMB) | END | disposition home or self-care (01) | CPT/HCPCS: 20610; 99213 ==

== ENCOUNTER → 2024-04-18 12:46 | Outpatient (BNV) | payer OTHER, SELFPAY | PROVIDERS: Visit Provider Radiology Diagnostic Radiology | DX: M25.511 Pain in right shoulder (principal) | CPT/HCPCS: 73030 ==

== ENCOUNTER 2024-05-21 13:20 | Outpatient (REF) | payer OTHER, SELFPAY ==
--- NOTE | ~2024-05-21 | MM_ITS ---
EXAMINATION: DXA BONE DENSITY AXIAL HISTORY: Estrogen deficiency TECHNIQUE: [employer] Dual energy absorptiometry (DEXA) of the lumbar spine, total left hip, and femoral neck was performed. COMPARISON: Comparison is made with the prior examination dated 02/01/2022. FINDINGS: The bone mineral density of the lumbar spine is 0.979 with a T-score of -1.7, and a Z-score of 0.3. This represents a BMD change of -1.1% compared to the prior exam. This is not statistically significant. The bone mineral density of the left total hip is 0.925 with a T-score of -0.7, and a Z-score of 0.9. This represents a BMD change of -0.6% compared to the prior exam. This is not statistically significant. The bone mineral density of the left femoral neck is 0.818 with a T-score of -1.6, and a Z-score of 0.2. This represents a BMD change of -0.1% compared to the prior exam. FRACTURE RISK: The FRAX index suggests a ten year probability of major osteoporotic fracture of 9.2%, and of hip fracture 1.2%. MM/XR DEXA axial skeleton IMPRESSION: Based on bone mineral density, and according to World Health Organization (WHO) criteria, the diagnosis is consistent with osteopenia. All bone density values are in grams per centimeter squared (g/cm2). Statistically, 68% of repeat scans fall within 1 SD (+/- 0.010 g/cm2 for AP spine L1-L4) and 1 SD (+/- 0.012 g/cm2 for femur total) FRAX is a trademark of the [employer] [place] [facility] Metabolic Bone Disease, a World Health Organization (WHO) Collaborating Center. Electronically signed by: Damián Medellin MD 05/21/2024 02:21 PM EDT
--- OUTSIDE RECORDS SUMMARY | 2024-05-21 15:39 | XMS_ITS | Data Portability ---
Author Organization [employer] Address [address] [place] [address] Care Team Providers Care Photo Producer Name Role Phone [facility] Referring Provider [phone] Assessment Encounter Date Assessment Date Assessment LastModified by Organization Details LastModified Time 03/23/2023 03/23/2023 I provided real -time medical direction via phone for this encounter, and was available for additional phone based assistance as needed. I have reviewed and agree with the Assessment and Plan as documented by the Television Producer. We discussed the diagnostic uncertainty of home [...] to call 911- verbalized understanding of instructions Not available 03/24/2023 17:39:31 Plan of Treatment Reminders Order Date Submit Date Provider Last Modified By Organization Details Last Modified Time Details Appointments None recorded. Lab None recorded. Referral None recorded. Procedures None recorded. Surgeries None recorded. Imaging None recorded. Medication Orders valacyclovi r 1 gram tablet 2023 024 [id number], [address] [place], [address], 4 11:17:51 Zovirax 5 % topical cream 2023 024 [id number], [address] [place], [address], 4 11:17:52 naproxen 500 mg tablet 2023 024 [id number], [address] [place], [address], 4 11:17:51 ketorolac 30 mg/mL injection solution 2023 024 [email or web address] 0 [id number] [address] [place], [address], 4 11:17:42 mupirocin 2 % topical ointment 2022 023 [id number], [address] [place], [address], 3 12:06:17 Patient TargetsNo targets recorded. Patient InstructionsNo instructions recorded. Reason for Referral None Reported. Medical Equipment None Reported. Allergies Allergen ID Allergen Name Allergen Category Reaction Reaction Severity Criticality Documentation Date Start Date Code Code System Note Provider Name and Address Organization Details Recorded Time 4348 Iodinated contrast media (substanc e) medicatio n Not available Not available Not available 03/23/2023 36619 2003 SNOMED Selina Danielle MD [address] [facility],[address], [place], [address], [employer], [employer] 4 11:08:47 Medications Name Sig Start Date [...] /min 152.4 cm 96 % 96 % 42495.1 44 g 16 /min 167 mm[Hg] 95 [...] /min 165 mm[Hg] 88 mm[Hg] Not Available [employer] 4 11:07:52 Date Recorded Body weight Body mass index (BMI) Body height Provider Name and Address Organization Details Last Updated DateTime 03/23/2023 72314.56 g 26.6 kg/m2 152.4 cm Selina Danielle MD [address] [place] [address],[address], [place], [address], [facility] [employer] 03/24/2023 17:38:26 Social History None recorded. Functional Status None recorded. Mental Status None recorded. Family History Nothing Reported. Medical History No medical history recorded. Gynecological HistoryNo gynecological history recorded. Obstetrics History GPAL:G 0 P 0 0 0 0 Past Encounters Encounter ID Performer Location Encounter Start Date Encounter Closed Date Diagnosis/Indication Diagnosis SNOMED-CT Code Diagnosis ICD10 Code Diagnosis Note [id number] Rudy Washington MD [employer] [address] [place] [phone] 03/11/2023 11:30:42 03/13/2023 12:40:38 Herpes zoster 3189085 B02.9 Shingles; currently on antiviral treatment as well as Prednisone burst. For itching, advised to take OTC Calamine lotion and if continues to worsen, to apply Mupirocin ointment TID PRN to prevent bacterial superinfec tion. Discussed red flag signs for which to seek higher level of care. [id number] Selina Danielle MD [employer] [address] [place] [phone] 03/23/2023 11:07:44 03/26/2023 17:27:24 Herpes zoster [id number] B02.9 Need to follow-up with her PCP [...] Shea Member ID Guarantor Name 03/11/2023 1 [facility] - DOS ON OR AFTER 2022 - DUAL ELIGIBLE - CUSTODIAL OPTIONS AND ONE CARE (MEDICARE REPLACEMENT/ADV ANTAGE - HMO) [place] [facility] [id number] Xiom[facility]ney 03/23/2023 1 [facility] - DOS ON OR AFTER 2022 - DUAL ELIGIBLE - CUSTODIAL OPTIONS AND ONE CARE (MEDICARE REPLACEMENT/ADV ANTAGE - HMO) [place] [facility] [id number] [place] [facility] Notes Date Note Type Note Provider [...] .................... .................... .................... .................... .................... .................... . Television Producer Note From Drake Dickinson: Pt reports shingles dx in the ED 4 days ago. Pt sent home with valtrex, prednisone and naproxen. Pt feels that the rash is worsening and is requesting something topical. Pt is alert, NAD. VSS. Afebrile. Non focal neuro exam. Classic shingles rash on left side of mid back around the left side. No open blisters. [facility] [place] will [place] rx for bactroban bid. Pt also advised to use calamine lotion in between the bactroban. Pt instructed to seek emergent medical care for new or worsening sx, which are reviewed with her. .................... .................... .................... .................... .................... .................... .................... . Disposition: Fulfilled Rudy Washington MD [address] [place] [address],[address], [place], [phone], [employer] 03/11/2023 13:22:18 03/23/2023 text/html CRC Nurse Triage Notes (Licha Yael): Reason For Request: PT's son reporting diagnosis of shingles>pain in her back left side>states shingles has been spreading>has followed up with PCP, was gabapentin for the pain in which the son says it has not been working at all for her. Chief Complaints: Pain PMH: COPD/Asthma Comments: Diagnosed with shingles 2.5 weeks in ED at [facility]. Finished course of medication prescribed. Shingles to left side of back. Exacerbation of pain and drainage to areas. .................... .................... .................... .................... .................... .................... .................... . Television Producer Note From Bennie Regalado: Or diagnosed with shingles. RX valtrex for 7 days finished one week ago. 4 days ago symptoms returned. Painful rash on left ribs. Using bacitracin. Also taking gabapetin for pain with no relief. Baseline vitals assessed. [facility] contacted and RX for valtrex ,naproxen called. [...] nausea vomiting diarrhea. Selina Danielle MD [address] [facility],[address], [place], [address], [employer] [facility] [employer], TAJ 03/24/2023 17:41:57 OBGyn Episode No OBEpisode recorded.
--- OUTSIDE RECORDS SUMMARY | 2024-05-21 15:39 | XMS_ITS | Data Portability ---
Author Organization [facility] [address] Address [address] [place] [address] Assessment No assessment recorded. Plan of Treatment Reminders Order Date Submit Date Provider Last Modified By Organization Details Last Modified Time Details Appointments None recorded. Lab rapid flu (A+B) 2021 [place] [address], [address] [place] [address], [phone], 16:36:07 rapid strep group A, throat 2021 [place] [address], [address] [place] [address], [phone], 16:36:07 Referral None recorded. Procedures None recorded. Surgeries None recorded. Imaging None recorded. Medication Orders triamcinolo ne acetonide 0.1 % topical cream 2021 [facility]/Pharmacy #[id number], [address] [place], [address], 16:36:57 Tamiflu 75 mg capsule 2021 [facility]/Pharmacy #[id number], [address] [place], [address], 16:36:09 Patient TargetsNo targets recorded. Patient Instructions Encounter Date Encounter Id Patient Instructions Last Modified By Organization Details Last Modified Time 02/10/2022 [id number] Eczema: [facility] Not available 02/10/2022 16:36:54 cough: care instructions dianao Not available 02/10/2022 16:36:07 Reason for Referral None Reported. Results Created Date Observation Date Name Description Value Unit Range Abnormal Flag Note LastModifiedBy Organization Detail LastModifiedTime 02/11/20 22 02/10/2022 rapid strep group A, throa t Unknown Analyte Normal = Negati ve Not Available [facility] [address], [address], 02/10/2022 16:07:28 02/11/20 22 02/10/2022 rapid strep group A, throa t Unknown Analyte negati ve Not Available [address] [place] [address], [phone], 02/10/2022 16:07:28 02/11/20 22 02/10/2022 rapid flu (A+B) Unknown Analyte negati ve Not Available [address] [place] [address], [phone], 02/10/2022 16:00:55 02/11/20 22 02/10/2022 rapid flu (A+B) Unknown Analyte negati ve Not Available [address] [place] [address], [phone], 02/10/2022 16:00:55 Result Notes None recorded. Problems Name Problem SNOMED Code Status Onset Date Resolution Date Notes Provider Name and Address Organization Details Recorded Time Asthma 183841170 Active 2021 JEWEL jones, [place] - [facility] 2 15:57:11 Disorder of thyroid gland 63063582 Active 2021 JEWEL jones, [place] - [facility] 2 15:57:23 Hyperlipidemia 25255754 Active 2021 [facility] [...] n swelling Not available Not available 02/10/2022 62593 2003 SNOMED [facility]ones [facility] [...] Address Organization Details Last Updated DateTime 02/10/2022 54381.52 g 27.5 kg/m2 152.4 cm JEWEL MOSS - [facility] 02/10/2022 15:52:25 Social History Question Answer Notes LastModified by Organizat ion Details LastModified Time Tobacco Smoking Status Never Smoker JEWEL jones ISA - [facility] 02/10/2022 15:58:13 What Is Your Level Of Alcohol Consumption? None [email or web address] Information not available 02/10/2022 Do You Use Any Illicit Or Recreational Drugs? No [email or web address] Information not available 02/10/2022 Have You Recently Traveled Abroad? No [email or web address] Information not available 02/10/2022 Do You Or Have You Ever Used Any Other Forms Of Tobacco Or Nicotine? No Information not available 02/10/2022 Sex: Unknown Functional Status None recorded. Mental Status None recorded. Family History Relationship Description Onset Age of this Age Resolved Age Notes LastModified by Organization Details LastModified Time Mother Malignant tumor of colon [email or web address] Not available 2021 15:57:44 Father Malignant neoplasm of bone [email or web address] Not available 2021 15:57:52 Medical History No medical history recorded. Gynecological HistoryNo gynecological history recorded. Obstetrics History GPAL:G 0 P 0 0 0 0 Past Encounters Encounter ID Performer Location Encounter Start Date Encounter Closed Date Diagnosis/Indication Diagnosis SNOMED-CT Code Diagnosis ICD10 Code Diagnosis Note [id number] [address] [place] [address] 09/30/2019 12:38:19 09/30/2019 13:04:46 [id number] [address] [place] [address] 11/11/2020 09:43:54 11/11/2020 13:00:01 [id number] [address] [place] [address] 10/17/2020 11:14:29 10/17/2020 14:22:27 [id number] ISA MURO [address] [place] [address] 02/10/2022 14:03:45 02/11/2022 13:47:21 [id number] ISA MURO [address] [place] [address] 02/10/2022 14:45:54 02/10/2022 16:38:39 Acute upper respiratory infection 25873148 J06.9 Eczema 77763381 L30.9 Health Concerns Section Related Observation LastModified by Organization Detai ls LastModified Time None Recorded Concern Status LastModified by Organization Details LastModified Time None Recorded Advance Directives Directive None Recorded Payers Encounter Date Sequence Insurance Name Policy Number Policy Shea Covered Member ID Shea Member ID Guarantor Name 11/11/2020 1 [facility] (MEDICAID HMO) [facility] [id number] [facility] 02/10/2022 1 [facility] Xiomara Colónto [id number] [facility] 02/10/2022 1 [facility] (MEDICAID HMO) [facility] [id number] [facility] Notes Date Note Type Note Provider Name [...] the itching but rash is still there. JOSE D Brown, ISA [address] [place], [place] [address], [address], [place] - [facility] 02/10/2022 16:38:06 OBGyn Episode No OBEpisode recorded.
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
== END 2024-05-21 13:21 | disposition home or self-care (01) ==
LOC: HO.MAMMO 13:20
PROVIDERS: PCP Internal Medicine; Visit Provider Internal Medicine
DX: Z12.31 Encounter for screening mammogram for malignant neoplasm of breast (principal); Z13.820 Encounter for screening for osteoporosis; Z78.0 Asymptomatic menopausal state
CPT/HCPCS: 77063; 77067; 77080

== ENCOUNTER → 2024-05-21 14:00 | Outpatient (BNV) | payer OTHER, SELFPAY | PROVIDERS: PCP Internal Medicine; Visit Provider Radiology Diagnostic Radiology | DX: E28.39 Other primary ovarian failure (principal) | CPT/HCPCS: 77080 ==

== ENCOUNTER 2024-05-26 13:48 | Outpatient (AMB) | payer OTHER, SELFPAY ==
[2024-05-26 14:01] VITALS: BP 118/84; PULSE 82; O2SAT 96; BMI 25.3
--- NOTE | 2024-05-26 14:01 | A.OFFPC_ITS ---
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 Purchasing And Fiscal Clerk Name: [email or web address] [id number] Accompanied by: Self / Same As Patient Allergies barium sulfate [CONTRAST,ORAL] Allergy (Intermediate, Verified 05/26/24 14:38) HIVES Iodinated Contrast Media [IV CONTRAST] Allergy (Intermediate, Verified 05/26/24 14:38) HIVES ondansetron [From Zofran] Allergy (Intermediate, Verified 05/26/24 14:38) Stomach Upset doxycycline Adverse Reaction (Severe, Verified 05/26/24 14:38) Vomiting amoxicillin Adverse Reaction (Intermediate, Verified 05/26/24 14:38) Rash celecoxib Adverse Reaction (Mild, Verified 05/26/24 14:38) chills cyclobenzaprine Adverse Reaction (Mild, Verified 05/26/24 14:38) anxiety nabumetone Adverse Reaction (Mild, Verified 05/26/24 14:38) dry mouth, upset stomach Medication List - Last Reconciled 05/26/24 by KRISTY Jarrell acetaminophen ER (Pain Relief (acetaminophen)) 1,300 mg (2 x 650 mg) PO Q12H PRN 30 days [adult diapers disposable briefs As directed] albuterol sulfate 1.25 mg (3 mL) PO QID PRN albuterol sulfate 90 mcg/actuation 2 puffs inhalation Q4-6H PRN atorvastatin 20 mg PO BEDTIME 90 days [body contour pillow As directed] calcium carbonate-vitamin D3 500 mg-10 mcg (400 unit) (Oyster Shell Calcium- Vitamin D3) 2 tabs PO DAILY 90 days cholecalciferol (vitamin D3) 25 mcg PO DAILY 90 days escitalopram oxalate 20 mg PO DAILY [flip pillow As directed] fluticasone propionate 110 mcg/actuation 1 puff inhalation BID gabapentin 800 mg PO TID 30 days [gloves powder free synthetic As directed] Grab bar As directed guaifenesin ER 600 mg PO Q12H PRN ipratropium-albuterol 0.5 mg-3 mg(2.5 mg base)/3 mL 3 mL inhalation Q6H PRN 90 days [leg pillow As directed] levothyroxine 50 mcg PO DAILY 90 days lidocaine 5% 1 patch topical DAILY PRN 30 days lidocaine 5% 1 appl topical BEDTIME 30 days linaclotide (Linzess) 145 mcg PO QAM 30 days lorazepam 1 mg PO BID losartan 25 mg PO DAILY 90 days mupirocin 2% 1 appl topical BID 2 weeks naproxen 500 mg PO BID PRN 10 days nebulizers Nebulizer with tubing and accessories nystatin 1 appl topical BID 30 days omeprazole 20 mg PO DAILY 14 days ondansetron 4 mg PO Q8H PRN 5 days ondansetron HCl 4 mg PO Q8H PRN 30 days [personal cleansing wipes As directed] [raised toilet seat As directed] [recliner As directed] [reclining chair As directed] sennosides (Senokot) 8.6 mg PO DAILY PRN Shower Chair As directed [shower head As directed] silver sulfadiazine 1% (Silvadene) 1 appl topical DAILY 7 days valacyclovir (Valtrex) 1,000 mg PO TID 7 days vaporizers As directed Tobacco use date assessed: 05/26/24 Fall risk assessment: 1 Fall in past year Last assessed Fall Risk: 05/26/24 Dental Screening Dental Screen Date: 05/26/24 Did you have a dental visit in the last 12 months?: No Did you have a dental problem in the last 6 months where you did not have access to dental care?: No Was dental information given to patient?: No HPI restless leg/back pain HPI Details The patient is a 69 year old croatian-speaking female presenting with ongoing back for the last 4 weeks, more on the left side. 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 Reports that the pain is in he upper and lower back pain. characterized the pain a throbbing pain Severity: 8/10, reports that the pain goes down to her feet and sometimes feels like a tingling sensation The patient is on Gabapentin 800mg TID, Tylenol prn and naproxen 500 mg BID PRN- reports theses are not helping Naproxen was discontinued and the Meloxicam 15 mg daily was ordered The patient has an upcoming appt with ortho for her left shoulder and rheumatology for polyosteoarthritis The patient would also like to be evaluated by pain management again-she saw them in 2021 left mid back tenderness and lower mid back tenderness Will put in referral for pain management [facility] Medical History Lumbar pain Urinary incontinence History of COVID-19 Candidal intertrigo Sinusitis PONV (postoperative nausea and vomiting) Shoulder pain GERD (gastroesophageal reflux disease) Coccyalgia Mild recurrent major depression Rectal bleeding History of asthma Rash Dyslipidemia Impaired glucose tolerance Fibromyalgia Arthritis Anxiety Surgical History H/O exploratory laparotomy History of eye surgery History of abdominal surgery Previous section History of carpal tunnel surgery of left wrist History of carpal tunnel surgery Family History Mother Colon cancer Hypertension Glaucoma Arthritis Father Bone cancer Social History Household Members: Children Housing: Apartment Do you presently have visiting nurse or other home services: Yes Unable to assess alcohol history related to: Unknown Alcohol intake: never Patient Tobacco Use Status: Never used Tobacco e-Cigarette/Vaping Use: Never Used Second Hand Smoke Exposure: No service: No Current occupational status: disabled Current occupation: Right Handed Cognitive needs: No Hearing needs: No Vision needs: Yes (glasses) Questionnaire PHQ-9 Over the last 2 weeks, how often have you been bothered by any of the following problems? 1. Little interest or pleasure in doing things: not at all 2. Feeling down, depressed, or hopeless: not at all 3. Trouble falling or staying asleep, or sleeping too much: not at all 4. Feeling tired or having little energy: not at all 5. Poor appetite or overeating: not at all 6. Feeling bad about yourself - or that you are a failure or have let yourself or your family down: not at all 7. Trouble concentrating on things, such as reading the newspaper or watching television: not at all 8. Moving or speaking so slowly that other people could have noticed. Or the opposite - being so fidgety or restless that you have been moving around a lot more than usual: not at all 9. Thoughts that you would be better off or of hurting yourself in some way: not at all Total score: 0 Depression Screening Interpretation: Negative Depression Screening Done: Yes Source: Developed by Drs. Damián Mcgrath, Cee Butler, Wing Mattson and colleagues, with an educational vanessa from [employer]. Thrive Questionnaire Date Thrive assessed: 05/26/24 I am a: Patient What is your living situation today?: I choose not to answer this question Within the past 12 months, did the food you bought not last and you didn't have the money to get more?: I choose not to answer this question Within the past 12 months, did you worry whether your food would run out before you got money to buy more?: I choose not to answer this question Do you have trouble paying for medicines?: I choose not to answer this question Do you have trouble getting transportation to medical appointments?: I choose not to answer this question Do you have trouble paying your heating and electricity bill?: I choose not to answer this question Do you have trouble taking care of your child, family member or friend?: I choose not to answer this question Do you have trouble with day-to-day activities such as bathing, preparing meals, shopping, managing finances, etc.?: I choose not to answer this question Are you currently unemployed and looking for a job?: I choose not to answer this question Are you interested in more education?: I choose not to answer this question Please select the resources that you would like help with: None Currently or been in a relationship where the following occur: I choose not to answer THRIVE Score: 0 AUDIT C Alcohol Use Questionnaire (AUDIT-C) 1. How often do you have a drink containing alcohol?: Never 3. How often do you have six or more drinks on one occasion?: Never Total Score: 0 Score Reviewed/Action Taken: No YENNIFER-7 AMB Questionnaire YENNIFER-7 Date YENNIFER - 7 assessed: 05/26/24 Feeling nervous, anxious, or on edge: 1 = Several days Not being able to stop or control worryin = Not at all Worrying too much about different things: 0 = Not at all Trouble relaxin = Not at all Being so restless that it is hard to sit still: 0 = Not at all Becoming easily annoyed or irritable: 0 = Not at all Feeling afraid as if something awful might happen: 0 = Not at all Total YENNIFER-7 score (0-4 normal; 5-9 mild; 10-14 moderate; 15-21 severe): 1 Source: Developed by Drs. Damián Mcgrath, Cee Butler, Wing Mattosn and colleagues, with an educational vanessa from [employer]. Review of Systems Const Denies headache(s) Eyes Denies loss of vision ENT Denies vertigo, Denies dizziness, Denies headache(s), Reports neck pain and Denies sore throat Card Denies chest pain, Denies leg edema and Denies lightheadedness Resp Denies cough, Denies hemoptysis and Denies wheezing GI Denies abdominal pain, Denies melena, Denies constipation, Denies diarrhea and Denies vomiting Denies urinary frequency, Denies dysuria and Denies urinary urgency Musc Reports back pain (mid and lower back), Reports myalgias, Reports arthralgias, Denies joint swelling, Reports neck pain, Denies numbness, Reports radiating pain into limb and Reports tingling (bilateral feet) Neuro Denies Abnormal speech present, Denies behavioral changes, Denies vertigo, Denies dizziness, Denies headache(s), Denies loss of vision, Denies memory loss, Denies numbness and Reports tingling (bilateral feet) Psych Denies anxiety, Denies behavioral changes, Denies depression, Denies memory loss and Denies panic attacks Yandel/Lymph Denies easy bleeding and Denies easy bruising Aller/Immun Denies wheezing Physical exam (Primary Care) Vital Signs: Last Vital Signs Pulse 82 05/26/24 14:01 BP 118/84 05/26/24 14:01 Pulse Ox 96 05/26/24 14:01 Oxygen Delivery Method Room Air 05/26/24 14:01 BMI result Body Mass Index 25.3 Tobacco/Smoking Status: Tobacco use Status Tobacco use date assessed 05/26/24 05/26/24 14:10 Patient Tobacco Use Status Never used Tobacco 05/26/24 14:10 e-Cigarette/Vaping Use Never Used 05/26/24 14:10 PHQ-9: PHQ-9 Score PHQ-9: Total score 0 05/26/24 14:46 Depression Screening Interpretation: Negative Thrive Assessment: Date of Thrive Assessment Date Thrive assessed 05/26/24 05/26/24 14:10 Currently or been in a relationship where the following occur: I choose not to answer Const General: healthy appearing, no acute distress, alert and awake Nutritional Appearance: well nourished Orientation/consciousness: oriented to person, oriented to place and oriented to time HENMT Ears: TM's normal bilaterally General nose exam: Normal nasal mucous membranes and turbinates present Eyes Conjunctivae: conjunctivae normal Sclerae: sclerae normal Pupils: Equal, round and reactive pupils present Neck Neck: Yes no lymphadenopathy and Yes no JVD Thyroid: Thyroid normal Carotids: no bruits Resp Effort & Inspection: normal respiratory effort and not tachypneic Auscultation: no crackles, no rales, no rhonchi and no wheezes Cardio Rate: regular rate Rhythm: regular rhythm Heart sounds: no murmurs and normal S1 and S2 GI Palpation (GI): Soft to palpation, nontender, no hepatomegaly and no splenomegaly Auscultation: normal bowel sounds General: Yes no CVA tenderness Back/Spine/Pelvis Back: no CVA tenderness Thoracic/Lumbar Spine: thoracic spinal tenderness and lumbar spinal tenderness Skin General skin exam: no rashes or lesions noted and dry skin Neuro General: oriented to person, oriented to place and oriented to time Cranial nerves: Yes Equal, round and reactive pupils present Speech: No Abnormal speech present Gait exam (Neuro): Normal gait present Motor exam (neuro): no tremor noted Extrem General: Yes full ROM, Yes capillary refill normal, Yes no pedal edema and Yes no calf tenderness Right upper extremity: full ROM Left upper extremity: full ROM and shoulder/upper arm Details: tenderness Right lower extremity: full ROM and lower leg Details: tenderness; no edema Left lower extremity: full ROM and lower leg Details: tenderness; no edema Psych Mental Status: mental status grossly normal Speech and movement: Normal speech and movement present Affect: normal affect Attitude: cooperative Thought process: Normal thought process present Coding Level of Care Code Est Pt Level 3 (51154) Diagnoses Osteoarthritis involving multiple joints on both sides of body M15.9 Lumbar radiculopathy M54.16 Time Spent (min) 33 Assessment & Plan Assessment & Plan (1) Osteoarthritis involving multiple joints on both sides of body: Code(s): M15.9 - Polyosteoarthritis, unspecified Category: Medical Plan: The patient c/o widespread chronic pain-reports that this has worsened 4 weeks ago. She continues to struggle with poor patient relief and stated that her pain is 8/10-throbbing in nature. She is currently on Gabapentin 800mg TID and reports that this sometimes make he slightly sleepy after taking it. An increased in this medication is not safe for the patient-she has osteopenia- falling could be dangerous for the her. Tylenol and Naproxen PRN without much relief. Will stop Naproxen and start meloxicam 15 mg daily. The patient is also requesting to be seen by pain management. Referral was placed (2) Lumbar radiculopathy: Code(s): M54.16 - Radiculopathy, lumbar region Category: Medical Plan: Same as above Orders: Referrals Pain Management Referral M15.9 - Polyosteoarthritis, unspecified, M47.816 - Spondylosis without myelopathy or radiculopathy, lumbar region, M50.30 - Other cervical disc degeneration, unspecified cervical region, M54.16 - Radiculopathy, lumbar region Medications: New meloxicam 15 mg PO DAILY 60 tabs 2RF M47.816 - Spondylosis without myelopathy or radiculopathy, lumbar region Discontinued naproxen Discontinued Reason: Doctor's Order 500 mg PO BID 10 days PRN 20 tabs 0RF pain
--- OUTSIDE RECORDS SUMMARY | 2024-05-26 16:07 | XMS_ITS | Data Portability ---
Author Organization [facility] [address] Address [address] [place] [address] Assessment No assessment recorded. Plan of Treatment Reminders Order Date Submit Date Provider Last Modified By Organization Details Last Modified Time Details Appointments None recorded. Lab rapid flu (A+B) 2021 [place] [address] [facility], [address] [place] [address], [phone], 16:36:07 rapid strep group A, throat 2021 [place] [address] [facility], [address] [place] [address], [phone], 16:36:07 Referral None recorded. Procedures None recorded. Surgeries None recorded. Imaging None recorded. Medication Orders triamcinolo ne acetonide 0.1 % topical cream 2021 [id number], [address] [place], [address], 16:36:57 Tamiflu 75 mg capsule 2021 [facility][id number], [address] [place], [address], 16:36:09 Patient TargetsNo targets recorded. Patient Instructions Encounter Date Encounter Id Patient Instructions Last Modified By Organization Details Last Modified Time 02/10/2022 [id number] Eczema: Care Instructions [email or web address] Not available 02/10/2022 16:36:54 cough: care instructions dianao Not available 02/10/2022 16:36:07 Reason for Referral None Reported. Results Created Date Observation Date Name Description Value Unit Range Abnormal Flag Note LastModifiedBy Organization Detail LastModifiedTime 02/11/20 22 02/10/2022 rapid strep group A, throa t Unknown Analyte Normal = Negati ve Not Available [facility] [address], [address], 02/10/2022 16:07:28 02/11/20 22 02/10/2022 rapid strep group A, throa t Unknown Analyte negati ve Not Available [address] [place] [address], [phone], 02/10/2022 16:07:28 02/11/20 22 02/10/2022 rapid flu (A+B) Unknown Analyte negati ve Not Available [address] [place] [address], [phone], 02/10/2022 16:00:55 02/11/20 22 02/10/2022 rapid flu (A+B) Unknown Analyte negati ve Not Available [address] [place] [address], [phone], 02/10/2022 16:00:55 Result Notes None recorded. Problems Name Problem SNOMED Code Status Onset Date Resolution Date Notes Provider Name and Address Organization Details Recorded Time Asthma 235175872 Active 2021 JEWEL jones, [place] - [facility] 2 15:57:11 Disorder of thyroid gland 12271556 Active 2021 JEWEL jones, [place] - [facility] 2 15:57:23 Hyperlipidemia 31716526 Active 2021 [facility] [...] n swelling Not available Not available 02/10/2022 [id number] SNOMED [facility]ones [facility] [...] Address Organization Details Last Updated DateTime 02/10/2022 27651.52 g 27.5 kg/m2 152.4 cm JEWEL MOSS - [facility] 02/10/2022 15:52:25 Social History Question Answer Notes LastModified by Organizat ion Details LastModified Time Tobacco Smoking Status Never Smoker JEWEL jones ISA - [facility] 02/10/2022 15:58:13 What Is Your Level Of Alcohol Consumption? None [email or web address] Information not available 02/10/2022 Do You Use Any Illicit Or Recreational Drugs? No [email or web address] Information not available 02/10/2022 Have You Recently Traveled Abroad? No [email or web address] Information not available 02/10/2022 Do You Or Have You Ever Used Any Other Forms Of Tobacco Or Nicotine? No [email or web address] Information not available 02/10/2022 Sex: Unknown Functional Status None recorded. Mental Status None recorded. Family History Relationship Description Onset Age of this Age Resolved Age Notes LastModified by Organization Details LastModified Time Mother Malignant tumor of colon [email or web address] Not available 2021 15:57:44 Father Malignant neoplasm of bone [email or web address] Not available 2021 15:57:52 Medical History No medical history recorded. Gynecological HistoryNo gynecological history recorded. Obstetrics History GPAL:G 0 P 0 0 0 0 Past Encounters Encounter ID Performer Location Encounter Start Date Encounter Closed Date Diagnosis/Indication Diagnosis SNOMED-CT Code Diagnosis ICD10 Code Diagnosis Note [id number] [address] [address] [place] [address] 09/30/2019 12:38:19 09/30/2019 13:04:46 [id number] [address] [place] [address] 11/11/2020 09:43:54 11/11/2020 13:00:01 [id number] [address] [place] [address] 10/17/2020 11:14:29 10/17/2020 14:22:27 [id number] ISA MURO [address] [place] [address] 02/10/2022 14:03:45 02/11/2022 13:47:21 [id number] ISA MURO [address] [place] [address] 02/10/2022 14:45:54 02/10/2022 16:38:39 Acute upper respiratory infection 57408260 J06.9 Eczema 02052841 L30.9 Health Concerns Section Related Observation LastModified by Organization Detai ls LastModified Time None Recorded Concern Status LastModified by Organization Details LastModified Time None Recorded Advance Directives Directive None Recorded Payers Encounter Date Sequence Insurance Name Policy Number Policy Shea Covered Member ID Shea Member ID Guarantor Name 11/11/2020 1 [facility] (MEDICAID HMO) [facility] [id number] [facility] 02/10/2022 1 [facility] [place] [id number] [facility] 02/10/2022 1 [facility] PLAN (MEDICAID HMO) [facility] [id number] [facility] Notes Date Note Type Note Provider Name [...] is still there. JOSE D Brown, ISA [address] [place], [place] [address], [address], [place] - [facility] 02/10/2022 16:38:06 OBGyn Episode No OBEpisode recorded.
--- OUTSIDE RECORDS SUMMARY | 2024-05-26 16:07 | XMS_ITS ---
Author Name MS. Jason Renner APRN Address [address] [place] [address] Phone [phone] [facility] Care Team Providers Care Didactic Program In Dietetics Director Name Role Phone Keyla Renner Unavailable [phone] Unavailable Unavailable [phone] Reason for Referral Not Available Allergies, adverse [...] TWICE A DAY 2021-08-31 No Data Available Tmjqdvyt-Lfugnkkho-Dzvnbpey 3.5-24971-1.1 Oint APPLY 1/4 INCH ON EYELID 3 TIMES A DAY 2021-10-05 No Data Available traMADol 50 mg Tab TAKE 1 TABLET BY HONEY TH TWICE A DAY NEEDED FOR PAIN 2021-10-19 No Data Available Nystatin 595260 UNIT/GM Powder USE 1 NICOLE LICATION TOPICALLY [...] (do not use for phone, instead use 74968-40) [facility] Depression, unspecifiedHyperlipidemia, unspecifiedUnspecified asthma, uncomplicatedGastro-esophageal reflux disease without esophagitisNausea with vomiting, unspecifiedVitamin D deficiency, unspecifiedUnspecified osteoarthritis, unspecified site New patient,40-59min; chronic exacerbation, 2 stable chronic or 1 acute illness add add modifier 95 for video (do not use for phone, instead use 95028-95) [facility] New patient,40-59min; chronic exacerbation, 2 stable chronic or 1 acute illness add add modifier 95 for video (do not use for phone, instead use 83943-07) [facility] New patient,40-59min; chronic exacerbation, 2 stable chronic or 1 acute illness add add modifier 95 for video (do not use for phone, instead use 45174-62) [facility] New patient,40-59min; chronic exacerbation, 2 stable chronic or 1 acute illness add add modifier 95 for video (do not use for phone, instead use 76442-16) [facility] New patient,40-59min; chronic exacerbation, 2 stable chronic or 1 acute illness add add modifier 95 for video (do not use for phone, instead use 28995-84) [facility] New patient,40-59min; chronic exacerbation, 2 stable chronic or 1 acute illness add add modifier 95 for video (do not use for phone, instead use 52392-12) [facility] New patient,40-59min; chronic exacerbation, 2 stable chronic or 1 acute illness add add modifier 95 for video (do not use for phone, instead use 52423-01) [facility] New patient,40-59min; chronic exacerbation, 2 stable chronic or 1 acute illness add add modifier 95 for video (do not use for phone, instead use 37161-32) [facility] Estab. patient 30-39min; chronic exacerbation, 2 stable chronic or 1 acute illness add add modifier 95 for video, (do not use for phone, instead use 07937-58) [facility] 03[place]21/2022 Major depressive disorder, single episode, in [...] (do not use for phone, instead use 56531-89) [facility] Estab. patient 30-39min; chronic exacerbation, 2 stable chronic or 1 acute illness add add modifier 95 for video, (do not use for phone, instead use 78656-53) [facility] 03[place] Estab. patient 30-39min; chronic exacerbation, 2 stable chronic or 1 acute illness add add modifier 95 for video, (do not use for phone, instead use 62950-40) [facility] Estab. patient 30-39min; chronic exacerbation, 2 stable chronic or 1 acute illness add add modifier 95 for video, (do not use for phone, instead use 53933-45) [facility] Estab. patient 30-39min; chronic exacerbation, 2 stable chronic or 1 acute illness add add modifier 95 for video, (do not use for phone, instead use 01969-36) [facility], ([place]) 03/21/20[place] Estab. patient 30-39min; chronic exacerbation, 2 stable chronic or 1 acute illness add add modifier 95 for video, (do not use for phone, instead use 34441-80) [facility] ([place] 03/21/20[place] Estab. patient 30-39min; chronic exacerbation, 2 stable chronic or 1 acute illness add add modifier 95 for video, (do not use for phone, instead use 96547-56) [facility] ([place] 03/21/2022 Vital Signs Date of Collection [...] Time Current Smoking Status Never smoker 2024-05-10 7 Sex Female History of Procedures Procedures Service Procedure code Service date Servicing provider Phone# New patient,40-59min; chronic exacerbation, 2 stable chronic or 1 acute illness add add modifier 95 for video (do not use for phone, instead use 82317-47) 05489 2022-02-24 No Data Available No Data Availa [...] (do not use for phone, instead use 87029-72) 21773 2022-03-21 No Data Available No Data Availa [...] withdrawal anxiety stable on medications and with muslim beliefs and churchBMI 24.51exercise as toleratedat times [...] YesDo you have a Durable Power of Air Bag Buffer for Healthcare, or Healthcare Proxy? YesIf so, [...]
--- OUTSIDE RECORDS SUMMARY | 2024-05-26 16:07 | XMS_ITS | Data Portability ---
Author Organization [employer] Address [address] [place] [address] Care Team Providers Care Night Cleaner Name Role Phone [facility] Referring Provider Assessment Encounter Date Assessment Date Assessment LastModified by Organization Details LastModified Time 03/23/2023 03/23/2023 I provided real -time medical direction via phone for this encounter, and was available for additional phone based assistance as needed. I have reviewed and agree with the Assessment and Plan as documented by the Real Estate Site Analyst. We discussed the diagnostic uncertainty of home [...] to call 911- verbalized understanding of instructions [email or web address] Not available 03/24/2023 17:39:31 Plan of Treatment Reminders Order Date Submit Date Provider Last Modified By Organization Details Last Modified Time Details Appointments None recorded. Lab None recorded. Referral None recorded. Procedures None recorded. Surgeries None recorded. Imaging None recorded. Medication Orders valacyclovi r 1 gram tablet [address] [facility]armacy #[id number], [address] [place], [address], 4 11:17:51 Zovirax 5 % topical cream [address] [facility]armacy #[id number], [address] [place], [address], 4 11:17:52 naproxen 500 mg tablet 2023 024 [facility]/Pharmacy #[id number], [address] [place], [address], 4 11:17:51 ketorolac 30 mg/mL injection solution 2023 024 [email or web address] 0 [id number] [address] [place], [address], 4 11:17:42 mupirocin 2 % topical ointment 2022 023 [facility]/Pharmacy #[id number], [address] [place], [address], 3 12:06:17 Patient TargetsNo targets recorded. Patient InstructionsNo instructions recorded. Reason for Referral None Reported. Medical Equipment None Reported. Allergies Allergen ID Allergen Name Allergen Category Reaction Reaction Severity Criticality Documentation Date Start Date Code Code System Note Provider Name and Address Organization Details Recorded Time 4348 Iodinated contrast media (substanc e) medicatio n Not available Not available Not available 03/23/2023 53621 2003 SNOMED Selian Danielle MD [address] [facility],[address], [place], [address], [employer], [employer] 4 11:08:47 Medications Name Sig Start Date [...] /min 152.4 cm 96 % 96 % 03067.1 44 g 16 /min 167 mm[Hg] 95 [...] /min 165 mm[Hg] 88 mm[Hg] Not Available [place]. [employer] - production 4 11:07:52 Date Recorded Body weight Body mass index (BMI) Body height Provider Name and Address Organization Details Last Updated DateTime 03/23/2023 17594.56 g 26.6 kg/m2 152.4 cm Selina Danielle MD [address] [place] [address],[address], [place], [address], [facility] [employer] 03/24/2023 17:38:26 Social History None recorded. Functional Status None recorded. Mental Status None recorded. Family History Nothing Reported. Medical History No medical history recorded. Gynecological HistoryNo gynecological history recorded. Obstetrics History GPAL:G 0 P 0 0 0 0 Past Encounters Encounter ID Performer Location Encounter Start Date Encounter Closed Date Diagnosis/Indication Diagnosis SNOMED-CT Code Diagnosis ICD10 Code Diagnosis Note [id number] Rudy Washington MD [facility] [address] [place] [phone] 03/11/2023 11:30:42 03/13/2023 12:40:38 Herpes zoster [id number] B02.9 Shingles; currently on antiviral treatment as well as Prednisone burst. For itching, advised to take OTC Calamine lotion and if continues to worsen, to apply Mupirocin ointment TID PRN to prevent bacterial superinfec tion. Discussed red flag signs for which to seek higher level of care. [id number] Selina Danielle MD [facility] [address] [place] [phone] 03/23/2023 11:07:44 03/26/2023 17:27:24 Herpes zoster [id number] B02.9 Need to follow-up with her PCP [...] Shea Member ID Guarantor Name 03/11/2023 1 [facility] - DOS ON OR AFTER 2022 - DUAL ELIGIBLE - SHELTER OPTIONS AND ONE CARE (MEDICARE REPLACEMENT/ADV ANTAGE - HMO) [place] [id number] Xiomara [facility]affney 03/23/2023 1 [facility] - DOS ON OR AFTER 2022 - DUAL ELIGIBLE - SHELTER OPTIONS AND ONE CARE (MEDICARE REPLACEMENT/ADV ANTAGE - HMO) [place] [id number] [place] [facility] Notes Date Note Type Note Provider [...] .................... .................... .................... .................... .................... .................... . Real Estate Site Analyst Note From Drake Dickinson: Pt reports shingles dx in the ED 4 days ago. Pt sent home with valtrex, prednisone and naproxen. Pt feels that the rash is worsening and is requesting something topical. Pt is alert, NAD. VSS. Afebrile. Non focal neuro exam. Classic shingles rash on left side of mid back around the left side. No open blisters. [facility] contacted and will send rx for bactroban bid. Pt also advised to use calamine lotion in between the bactroban. Pt instructed to seek emergent medical care for new or worsening sx, which are reviewed with her. .................... .................... .................... .................... .................... .................... .................... . Disposition: Fulfilled Rudy Washington MD [address] [place] [address],[address], [place], [address], [employer] 03/11/2023 13:22:18 03/23/2023 text/html CRC Nurse Triage [...] with shingles 2.5 weeks in ED at [facility]. Finished course of medication prescribed. Shingles to left side of back. Exacerbation of pain and drainage to areas. .................... .................... .................... .................... .................... .................... .................... . Real Estate Site Analyst Note From Bennie Regalado: Or diagnosed with [...] nausea vomiting diarrhea. Selina Danielle MD [address] [facility],[address], [place], [address], [employer], TAJ 03/24/2023 17:41:57 OBGyn Episode No OBEpisode recorded.
== END 2024-05-26 15:12 | disposition home or self-care (01) ==
LOC: HO.HMCH 13:48
PROVIDERS: PCP Internal Medicine
DX: M15.9 Polyosteoarthritis, unspecified (principal); M54.16 Radiculopathy, lumbar region

== ENCOUNTER → 2024-05-26 13:48 | Outpatient (BNVA) | payer OTHER, SELFPAY | PROVIDERS: PCP Internal Medicine | DX: M15.9 Polyosteoarthritis, unspecified (principal); M54.16 Radiculopathy, lumbar region | CPT/HCPCS: 99212 ==

== ENCOUNTER 2024-07-04 14:26 | Outpatient (AMB) | payer OTHER, SELFPAY ==
--- NOTE | 2024-07-04 14:29 | MHC.OFFVIS ---
Vital Signs 07/04/24 14:34 Height 5 ft Weight 128 lb 2 oz BMI 25.0 BP 125/85 Blood Pressure Location Lt brachial Position Sitting Pulse 94 Pulse Source Pulse Oximeter Pulse Oximetry (%) 99 Oxygen Delivery Method Room Air Intake Visit Reasons: Polyosteoarthritis, unspecified last seen 2021 Intake Note: Pain today 10 Chiropractor Assistant Required: Yes Chiropractor Assistant Language: Physician Credentialing Specialist Name: Michael- Son Accompanied by: Son Allergies barium sulfate [CONTRAST,ORAL] Allergy (Intermediate, Verified 05/26/24 14:38) HIVES Iodinated Contrast Media [IV CONTRAST] Allergy (Intermediate, Verified 05/26/24 14:38) HIVES ondansetron [From Zofran] Allergy (Intermediate, Verified 05/26/24 14:38) Stomach Upset doxycycline Adverse Reaction (Severe, Verified 05/26/24 14:38) Vomiting amoxicillin Adverse Reaction (Intermediate, Verified 05/26/24 14:38) Rash celecoxib Adverse Reaction (Mild, Verified 05/26/24 14:38) chills cyclobenzaprine Adverse Reaction (Mild, Verified 05/26/24 14:38) anxiety nabumetone Adverse Reaction (Mild, Verified 05/26/24 14:38) dry mouth, upset stomach HPI HPI Polyosteoarthritis, unspecified last seen 2021: Location: [place] shoulders, neck and mid back Duration: years Characteristics of symptom or complaint: stabbing, throbbing, Aggravating or associated factors: movement, pressure, Treatment: gabapentin, naproxen, TENS unit HPI Comments Details: The patient is a 69-year-old female presenting with chronic lower back pain primarily attributed to multilevel lumbar spinal arthritis and degenerative disc disease. Her back pain began approximately 6 years ago, with escalating severity, described as stabbing and radiating down the lower extremities. Physical therapy attempts exacerbated her symptoms, and her condition worsened with certain activities, particularly bending forward. Interruption in care occurred due to a COVID-19 infection and changes in insurance, delaying follow-up appointments. Despite these disruptions, her back pain persists, severely impacting her movement and daily function. The previous radiological assessments confirmed the extent of her spinal condition. Problematically, the patient also reports right shoulder pain, under Orthopedic management for severe arthritis. She received cortisone injection in April with minimal relief. Patient also reports widespread body and joint pain which she attributes to arthritis and fibromyalgia. - Onset: Approximately 6 years ago - Quality: Stabbing, aching, throbbing, sharp, aching, sore, and heavy pain - Location: Predominantly lower back, radiates to lower extremities. Right shoulder and neck pain. - Exacerbating factors: Bending forward, standing, walking - Relieving factors: Gabapentin, Tylenol Arthritis, TENS unit - Interferes with: Bending, standing, overall mobility - Affect: Pain significantly restricts mobility and impacts daily life. - Analgesia: Currently takes Tylenol Arthritis, gabapentin; pain level today at 8/10. - Adverse Effects: None of her medications mentioned as causing side effects. - Activities of Daily Living: Severe limitation in movements like bending and standing; difficulty with daily activities. - Aberrant Drug Related Behaviors: None reported or observed. PRIOR 02/28/22: Patient is a pleasant 67 years old Mongolian speaking female with a history of worsening arthritis and fibromyalgia presents today with chronic bilateral shoulder pain and lower back pain. She is accompanied by her son who assists in translation per patient?s request. Patient reports she was scheduled for rotator cuff repair surgery earlier this year but this was canceled due to insurance changes. She has not followed up with [facility] or our orthopedic team since then and requests orthopedic referral today. Patient had multiple shoulder cortisone injections in the past. Patient cannot elevate her right arm. Left shoulder ROM preserved but limited due to pain as well. Recent imaging showed advanced degenerative changes of the right shoulder with evidence of chronic rotator cuff disease. She is right-hand dominant. Patient reports numbness and tingling in her hands and has a history of carpal tunnel syndrome. Denies any recent trauma, injury or falls. However, she does have a history of a slip and fall accident where she landed on her back and struck her head as well as the posterior right side of her neck and shoulder on 12/17/2019. Her lower back pain is axial that spreads into her bilateral lower back and upper buttocks and into lateral hips and also radiates to her left anterior thigh with tingling. She has significant tenderness in the projection of bilateral sacroiliac joints, worse on the right side. Denies previous back surgery or injections. Pain increases with walking and standing as well as any movement and weather changes. Patient rates her pain as 9/10 average intensity and describes it as constant pulsing, throbbing, pounding, jumping, flashing, shooting, sharp, tingling, punishing, spreading, radiating, and tiring. She has completed physical therapy in the past with worsening of her symptoms. Tylenol has been ineffective. Patient has tried over the counter NSAIDs with minimal relief in pain levels. Lumbar spine xray on 08/18/21 was consistent with mild degenerative changes of the lumbar spine. Pain affects her daily activities, functioning, sleep, mood, social interactions and quality of life. Patient denies any fever, weight loss, abdominal or groin pain, bowel or bladder incontinence or saddle anesthesia. [facility], [facility] Medical History Lumbar pain Urinary incontinence History of COVID-19 Candidal intertrigo Sinusitis PONV (postoperative nausea and vomiting) Shoulder pain GERD (gastroesophageal reflux disease) Coccyalgia Mild recurrent major depression Rectal bleeding History of asthma Rash Dyslipidemia Impaired glucose tolerance Fibromyalgia Arthritis Anxiety Surgical History H/O exploratory laparotomy History of eye surgery History of abdominal surgery Previous section History of carpal tunnel surgery of left wrist History of carpal tunnel surgery Family History Mother Colon cancer Hypertension Glaucoma Arthritis Father Bone cancer Social History Household Members: Children Housing: Apartment Do you presently have visiting nurse or other home services: Yes Unable to assess alcohol history related to: Unknown Alcohol intake: never Patient Tobacco Use Status: Never used Tobacco e-Cigarette/Vaping Use: Never Used Second Hand Smoke Exposure: No service: No Current occupational status: disabled Current occupation: Right Handed Cognitive needs: No Hearing needs: No Vision needs: Yes (glasses) Review of Systems Const Details: - Musculoskeletal: Reports chronic back and right shoulder pain. - Neurological: Denies numbness or tingling, bladder or bowel dysfunction or saddle anesthesia. All systems reviewed & are unremarkable except as noted in HPI and below Physical Exam Vital Signs: Last Vital Signs Pulse 94 07/04/24 14:34 BP 125/85 07/04/24 14:34 Pulse Ox 99 07/04/24 14:34 Oxygen Delivery Method Room Air 07/04/24 14:34 BMI result Body Mass Index 25.0 General: Appears afebrile. Alert and oriented. Mood and affect appropriate. Follows and participates in conversation appropriately. Respiratory effort is unlabored. No cough. Able to transition from sit to stand unassisted. Ambulates with bilaterally normal heel strike and toe off. General: Yes no CVA tenderness Back/Spine/Pelvis Other: Limited lumbar ROM due to pain. Mildly antalgic gait. No limping. Lumbar extension and axial rotations reproduces moderate to severe pain, flexion and bending forward is limited and reproduces moderate pain. Demonstrates 5/5 right strength of quadriceps bilaterally as well as flexion/dorsiflexion of bilateral feet against resistance. 2+ pedal pulses bilaterally. Straight leg rise with dorsiflexion negative bilaterally. +1 patellar and achilles reflexes bilaterally. Facet loading test positive bilaterally. Jona signs, Raphael?s, Pelvic compression, Gaenslen?s and Stinchfield tests are positive bilaterally, R>L. No groin pain with I/E hip rotations. Multiple 16/16 TTP points upper and lower extremities and torso. Back: no CVA tenderness Cervical Spine: normal cervical lordosis, cervical muscular tenderness, pain with cervical ROM and No Cervical spine tenderness Thoracic/Lumbar Spine: thoracic and lumbar spine normal to inspection, No Thoracic/lumbar spine scar(s), Lasegue's sign positive bilateral and diffuse, pain with thoraco-lumbar ROM, paraspinal muscle tenderness, thoraco-lumbar ROM limited, No thoracic spinal tenderness and lumbar spinal tenderness Pelvis: no buttock tenderness Sacroiliac joints: bilaterally tender to palpation Extrem General: Yes capillary refill normal, Yes no clubbing, cyanosis or edema and Yes no calf tenderness Right upper extremity: shoulder/upper arm (limited ROM due to pain ) Details: normal to inspection, tenderness Location: of the A-C joint and over the subacromial bursa and crepitus; no swelling Results Reviewed Results Reviewed: XR LUMBOSACRAL SPINE 3 VIEWS 12/27/23 CLINICAL INFORMATION: Low back pain, unspecified M54.50. COMPARISON: X-ray lumbar spine 07/31/2022. TECHNIQUE: Three views of the lumbosacral spine. FINDINGS: Normal vertebral body alignment. The lumbar lordosis is maintained. No acute fracture or subluxation. No loss of vertebral body height. Multilevel loss of intervertebral disc height with endplate osteophytes, most prominent at L5-S1. Multilevel bilateral facet arthropathy. Findings are slightly progressed when compared to the prior radiographs. No concerning lytic or blastic osseous lesion. No abnormal soft tissue calcification. IMPRESSION: Multilevel degenerative disc disease and bilateral facet arthropathy, most prominent at L5-S1. Findings are slightly progressed when compared to the prior radiograph. XR SHOULDER, RIGHT 04/18/24 CLINICAL INFORMATION: M25.511 - Pain in right shoulder COMPARISON: May 19, 2022 TECHNIQUE: AP external rotation, Grashey, scapular Y, and axillary views of the right shoulder. FINDINGS: There is joint space narrowing involving the acromioclavicular humeral joint and the glenohumeral joint. Subchondral cyst formation in the articular surface of the acromion and in the humeral head as well as the inferior aspect of the glenoid. No acute cortical disruption or malalignment. No lytic or blastic lesions. IMPRESSION: Moderate to severe osteoarthrosis without acute fracture or dislocation, right shoulder. Assessment & Plan Assessment & Plan (1) Lumbar degenerative disc disease: Code(s): M51.36 - Other intervertebral disc degeneration, lumbar region Category: Medical (2) Right shoulder pain: Code(s): M25.511 - Pain in right shoulder Category: Medical (3) Lumbar spondylosis: Code(s): M47.816 - Spondylosis without myelopathy or radiculopathy, lumbar region Category: Medical (4) Arthritis of right glenohumeral joint: Code(s): M19.011 - Primary osteoarthritis, right shoulder Category: Medical (5) Fibromyalgia: Code(s): M79.7 - Fibromyalgia Category: Medical Plan For the patient's chronic lower back pain due to degenerative disc disease and multilevel facet arthritis, I will proceed with diagnostic injections to verify the pain source. If injections provide satisfactory relief, we will consider a radiofrequency ablation procedure. Other prospective treatments include peripheral nerve stimulation. Information pamphlets were provided to patient and family today. Schedule Bilateral Diagnostic L3-L4 DR L5 MBB with local and fluoroscopy. Expectations, risks and benefits were reviewed. Patient is aware she will be contacted to schedule this procedure. Meanwhile, the shoulder arthritis continues under Orthopedic review. Reports minimal pain relief with recent cortisone injection in April. All questions and concerns have been answered and patient agreed with the plan. Follow up after injections and sooner as needed. Patient was informed and verbally consented to the use of an ambient scribe for clinic note documentation during this visit. Medications: Refilled lidocaine 5% leave on most painful area for up to 12 hrs 1 patch topical DAILY 30 days PRN 30 ea 1RF pain M54.2 - Cervicalgia Coding Level of Care Code New Pt Level 4 (18777) Complex EM visit Add On G2211 Diagnoses Lumbar degenerative disc disease M51.36 Right shoulder pain M25.511 Lumbar spondylosis M47.816 Arthritis of right glenohumeral joint M19.011 Fibromyalgia M79.7
[2024-07-04 14:34] VITALS: BP 125/85; PULSE 94; O2SAT 99; BMI 25.0
--- OUTSIDE RECORDS SUMMARY | 2024-07-04 15:07 | XMS_ITS | Data Portability ---
Author Organization [facility] [address] Address [address] [place] [address] Assessment No assessment recorded. Plan of Treatment Reminders Order Date Submit Date Provider Last Modified By Organization Details Last Modified Time Details Appointments None recorded. Lab rapid flu (A+B) 2021 [place] [address], [address] [place] [address], [address], 16:36:07 rapid strep group A, throat 2021 [place] [address], [address] [place] [address], [address], 16:36:07 Referral None recorded. Procedures None recorded. Surgeries None recorded. Imaging None recorded. Medication Orders triamcinolo ne acetonide 0.1 % topical cream [address] [facility]/Pharmacy #[id number], [address] [place], [address], 16:36:57 Tamiflu 75 mg capsule 2021 [facility]/Pharmacy #[id number], [address] [place], [address], 16:36:09 Patient TargetsNo targets recorded. Patient Instructions Encounter Date Encounter Id Patient Instructions Last Modified By Organization Details Last Modified Time 02/10/2022 [id number] Eczema: Care Instructions [email or web address] Not available 02/10/2022 16:36:54 cough: care instructions [email or web address] Not available 02/10/2022 16:36:07 Reason for Referral None Reported. Results Created Date Observation Date Name Description Value Unit Range Abnormal Flag Note LastModifiedBy Organization Detail LastModifiedTime 02/11/20 22 02/10/2022 rapid strep group A, throa t Unknown Analyte Normal = Negati ve Not Available [facility] [address], [address], 02/10/2022 16:07:28 02/11/20 22 02/10/2022 rapid strep group A, throa t Unknown Analyte negati ve Not Available [address] [place] [address], [address], 02/10/2022 16:07:28 02/11/20 22 02/10/2022 rapid flu (A+B) Unknown Analyte negati ve Not Available [address] [place] [address], [address], 02/10/2022 16:00:55 02/11/20 22 02/10/2022 rapid flu (A+B) Unknown Analyte negati ve Not Available [address] [place] [address], [address], 02/10/2022 16:00:55 Result Notes None recorded. Problems Name Problem SNOMED Code Status Onset Date Resolution Date Notes Provider Name and Address Organization Details Recorded Time Asthma 264185355 Active 2021 JEWEL jones, [place] - [facility] 2 15:57:11 Disorder of thyroid gland 79648514 Active 2021 JEWEL jones, [place] - [facility] 2 15:57:23 Hyperlipidemia 07195309 Active 2021 [facility] [...] n swelling Not available Not available 02/10/2022 01518 2003 SNOMED [facility]EL [facility]ones [facility] [...] Address Organization Details Last Updated DateTime 02/10/2022 57487.52 g 27.5 kg/m2 152.4 cm JEWEL MOSS - [facility] 02/10/2022 15:52:25 Social History Question Answer Notes LastModified by Organizat ion Details LastModified Time Tobacco Smoking Status Never Smoker JEWEL jones ISA - [facility] 02/10/2022 15:58:13 What Is Your Level Of Alcohol Consumption? None [email or web address] Information not available 02/10/2022 Do You Use Any Illicit Or Recreational Drugs? No [email or web address] Information not available 02/10/2022 Have You Recently Traveled Abroad? No [email or web address] Information not available 02/10/2022 Do You Or Have You Ever Used Any Other Forms Of Tobacco Or Nicotine? No [email or web address] Information not available 02/10/2022 Sex: Unknown Functional Status None recorded. Mental Status None recorded. Family History Relationship Description Onset Age of this Age Resolved Age Notes LastModified by Organization Details LastModified Time Mother Malignant tumor of colon [email or web address] Not available 2021 15:57:44 Father Malignant neoplasm of bone [email or web address] Not available 2021 15:57:52 Medical History No medical history recorded. Gynecological HistoryNo gynecological history recorded. Obstetrics History GPAL:G 0 P 0 0 0 0 Past Encounters Encounter ID Performer Location Encounter Start Date Encounter Closed Date Diagnosis/Indication Diagnosis SNOMED-CT Code Diagnosis ICD10 Code Diagnosis Note [id number] [address] [place] [address] 09/30/2019 12:38:19 09/30/2019 13:04:46 [id number] [address] [place] [address] 11/11/2020 09:43:54 11/11/2020 13:00:01 [id number] [address] [place] [address] 10/17/2020 11:14:29 10/17/2020 14:22:27 [id number] ISA MURO [address] [place] [address] 02/10/2022 14:03:45 02/11/2022 13:47:21 [id number] ISA MURO [address] [place] [address] 02/10/2022 14:45:54 02/10/2022 16:38:39 Acute upper respiratory infection 01267948 J06.9 Eczema 33652106 L30.9 Health Concerns Section Related Observation LastModified by Organization Detai ls LastModified Time None Recorded Concern Status LastModified by Organization Details LastModified Time None Recorded Advance Directives Directive None Recorded Payers Encounter Date Sequence Insurance Name Policy Number Policy Shea Covered Member ID Shea Member ID Guarantor Name 11/11/2020 1 [facility] (MEDICAID HMO) [facility] [id number] [facility] 02/10/2022 1 [facility] Xiomara Colónto [id number] [facility] 02/10/2022 1 [facility] PLAN (MEDICAID HMO) [facility] [id number] [facility] Notes Date Note Type Note Provider Name [...] is still there. JOSE D Brown, ISA [address] [place], [place] [address], [address], [place] - [facility] 02/10/2022 16:38:06 OBGyn Episode No OBEpisode recorded.
--- OUTSIDE RECORDS SUMMARY | 2024-07-04 15:07 | XMS_ITS ---
Author Name MS. Jason Renner APRN Address [address] [place] [address] Phone [phone] [facility] Care Team Providers Care Board Catcher Name Role Phone Keyla Renner Unavailable [phone] Unavailable Unavailable [phone] Reason for Referral Not Available Allergies, adverse [...] TWICE A DAY 2021-08-31 No Data Available Aengluwc-Vwrxrgcaa-Zvwfaxsa 3.5-10433-7.1 Oint APPLY 1/4 INCH ON EYELID 3 TIMES A DAY 2021-10-05 No Data Available traMADol 50 mg Tab TAKE 1 TABLET BY HONEY TH TWICE A DAY NEEDED FOR PAIN 2021-10-19 No Data Available Nystatin 608324 UNIT/GM Powder USE 1 NICOLE LICATION TOPICALLY [...] (do not use for phone, instead use 70094-95) [facility] 02/24/2022 Depression, unspecifiedHyperlipidemia, unspecifiedUnspecified asthma, uncomplicatedGastro-esophageal reflux disease without esophagitisNausea with vomiting, unspecifiedVitamin D deficiency, unspecifiedUnspecified osteoarthritis, unspecified site New patient,40-59min; chronic exacerbation, 2 stable chronic or 1 acute illness add add modifier 95 for video (do not use for phone, instead use 08391-52) [facility] 02/24/2022 New patient,40-59min; chronic exacerbation, 2 stable chronic or 1 acute illness add add modifier 95 for video (do not use for phone, instead use 99488-68) [facility] 02/24/2022 New patient,40-59min; chronic exacerbation, 2 stable chronic or 1 acute illness add add modifier 95 for video (do not use for phone, instead use 98837-97) [facility] 02/24/2022 New patient,40-59min; chronic exacerbation, 2 stable chronic or 1 acute illness add add modifier 95 for video (do not use for phone, instead use 25144-96) [facility] 02/24/2022 New patient,40-59min; chronic exacerbation, 2 stable chronic or 1 acute illness add add modifier 95 for video (do not use for phone, instead use 56842-54) [facility] 02/24/2022 New patient,40-59min; chronic exacerbation, 2 stable chronic or 1 acute illness add add modifier 95 for video (do not use for phone, instead use 33130-85) [facility] 02/24/2022 New patient,40-59min; chronic exacerbation, 2 stable chronic or 1 acute illness add add modifier 95 for video (do not use for phone, instead use 17292-21) [facility] 02/24/2022 New patient,40-59min; chronic exacerbation, 2 stable chronic or 1 acute illness add add modifier 95 for video (do not use for phone, instead use 43764-92) [facility] 02/24/2022 Estab. patient 30-39min; chronic exacerbation, 2 stable chronic or 1 acute illness add add modifier 95 for video, (do not use for phone, instead use 02324-73) [facility] 03/21/2022 Major depressive disorder, single episode, in [...] (do not use for phone, instead use 30596-52) [facility] 03/21/2022 Estab. patient 30-39min; chronic exacerbation, 2 stable chronic or 1 acute illness add add modifier 95 for video, (do not use for phone, instead use 61710-72) [facility] 03/21/2022 Estab. patient 30-39min; chronic exacerbation, 2 stable chronic or 1 acute illness add add modifier 95 for video, (do not use for phone, instead use 18044-22) [facility], [place] 03/21/2022 Estab. patient 30-39min; chronic exacerbation, 2 stable chronic or 1 acute illness add add modifier 95 for video, (do not use for phone, instead use 66221-19) [facility], [place] 03/21/2022 Estab. patient 30-39min; chronic exacerbation, 2 stable chronic or 1 acute illness add add modifier 95 for video, (do not use for phone, instead use 61211-87) [facility] 03/21/2022 Estab. patient 30-39min; chronic exacerbation, 2 stable chronic or 1 acute illness add add modifier 95 for video, (do not use for phone, instead use 70571-37) [facility] 03/21/2022 Estab. patient 30-39min; chronic exacerbation, 2 stable chronic or 1 acute illness add add modifier 95 for video, (do not use for phone, instead use 95871-30) [facility] 03/21/2022 Vital Signs Date of Collection [...] tive Time Current Smoking Status Never smoker 2024-06-11 5 Sex Female History of Procedures Procedures Service Procedure code Service date Servicing provider Phone# New patient,40-59min; chronic exacerbation, 2 stable chronic or 1 acute illness add add modifier 95 for video (do not use for phone, instead use 73654-07) 18025 2022-02-24 No Data Available No Data Availa [...] (do not use for phone, instead use 69933-61) 60401 2022-03-21 No Data Available No Data Availa [...] withdrawal anxiety stable on medications and with restorationism beliefs and churchBMI 24.51exercise as toleratedat times [...] YesDo you have a Durable Power of Fleet Sales Manager for Healthcare, or Healthcare Proxy? YesIf so, [...]
--- OUTSIDE RECORDS SUMMARY | 2024-07-04 15:07 | XMS_ITS | Data Portability ---
Author Organization [facility] [place] [facility] Address [address] [place] [address] Care Team Providers Care Telephonic Nurse Name Role Phone [facility] Referring Provider Assessment Encounter Date Assessment Date Assessment LastModified by Organization Details LastModified Time 03/23/2023 03/23/2023 I provided real -time medical direction via phone for this encounter, and was available for additional phone based assistance as needed. I have reviewed and agree with the Assessment and Plan as documented by the Canal Structure Operator. We discussed the diagnostic uncertainty of home [...] to call 911- verbalized understanding of instructions [email or web address] Not available 03/24/2023 17:39:31 Plan of Treatment Reminders Order Date Submit Date Provider Last Modified By Organization Details Last Modified Time Details Appointments None recorded. Lab None recorded. Referral None recorded. Procedures None recorded. Surgeries None recorded. Imaging None recorded. Medication Orders valacyclovi r 1 gram tablet 2023 024 [facility]/Pharmacy #[id number], [address] [place], [address], 4 11:17:51 Zovirax 5 % topical cream 2023 024 [facility]/Pharmacy #6806, [address] [place], [address], 4 11:17:52 naproxen 500 mg tablet 2023 024 [facility]/Pharmacy #2071, [address] [place], [address], 4 11:17:51 ketorolac 30 mg/mL injection solution 2023 024 [email or web address] 0 [id number] [address] [place], [address], 4 11:17:42 mupirocin 2 % topical ointment 2022 023 [facility]/Pharmacy #2071, [address] [place], [address], 3 12:06:17 Patient TargetsNo targets recorded. Patient InstructionsNo instructions recorded. Reason for Referral None Reported. Medical Equipment None Reported. Allergies Allergen ID Allergen Name Allergen Category Reaction Reaction Severity Criticality Documentation Date Start Date Code Code System Note Provider Name and Address Organization Details Recorded Time 4348 Iodinated contrast media (substanc e) medicatio n Not available Not available Not available 03/23/2023 30887 2003 SNOMED Selina Danielle MD [address] [facility],[address], [place], [address], [employer], [employer] 4 11:08:47 Medications Name Sig Start Date [...] hydrocodone-h omatropine 5 mg-1.5 mg/5 mL oral solution TAKE 5 ML BY MOUTH EVERY 4 [...] /min 152.4 cm 96 % 96 % 47192.1 44 g 16 /min 167 mm[Hg] 95 [...] /min 165 mm[Hg] 88 mm[Hg] Not Available [employer] production 4 11:07:52 Date Recorded Body weight Body mass index (BMI) Body height Provider Name and Address Organization Details Last Updated DateTime 03/23/2023 03193.56 g 26.6 kg/m2 152.4 cm Selina Danielle MD [address] [place] [address],[address], [place], [address], [facility] [employer] 03/24/2023 17:38:26 Social History None recorded. Functional Status None recorded. Mental Status None recorded. Family History Nothing Reported. Medical History No medical history recorded. Gynecological HistoryNo gynecological history recorded. Obstetrics History GPAL:G 0 P 0 0 0 0 Past Encounters Encounter ID Performer Location Encounter Start Date Encounter Closed Date Diagnosis/Indication Diagnosis SNOMED-CT Code Diagnosis ICD10 Code Diagnosis Note [id number] Rudy Washington MD [facility] [address] [place] [address] 03/11/2023 11:30:42 03/13/2023 12:40:38 Herpes zoster 0878570 B02.9 Shingles; currently on antiviral treatment as well as Prednisone burst. For itching, advised to take OTC Calamine lotion and if continues to worsen, to apply Mupirocin ointment TID PRN to prevent bacterial superinfec tion. Discussed red flag signs for which to seek higher level of care. [id number] Selina Danielle MD [facility] [address] [place] [address] 03/23/2023 11:07:44 03/26/2023 17:27:24 Herpes zoster 7120216 B02.9 Need to follow-up with her PCP [...] Shea Member ID Guarantor Name 03/11/[address] [facility] [place] [place] - DOS ON OR AFTER 2022 - DUAL ELIGIBLE - PRISON OPTIONS AND ONE CARE (MEDICARE REPLACEMENT/ADV ANTAGE - HMO) [facility] [id number] Xiomara Ganesh Gaffney 03/23/[address] [facility] [place] [place] - DOS ON OR AFTER 2022 - DUAL ELIGIBLE - PRISON OPTIONS AND ONE CARE (MEDICARE REPLACEMENT/ADV ANTAGE - HMO) [facility] [id number] Xiomara Ganesh Gaffney Notes Date Note Type Note Provider [...] .................... .................... .................... .................... .................... .................... . Canal Structure Operator Note From Drake Dickinson: Pt reports shingles dx in the ED 4 days ago. Pt sent home with valtrex, prednisone and naproxen. Pt feels that the rash is worsening and is requesting something topical. Pt is alert, NAD. VSS. Afebrile. Non focal neuro exam. Classic shingles rash on left side of mid back around the left side. No open blisters. [facility] contacted and will send rx for bactroban bid. Pt also advised to use calamine lotion in between the bactroban. Pt instructed to seek emergent medical care for new or worsening sx, which are reviewed with her. .................... .................... .................... .................... .................... .................... .................... . Disposition: Fulfilled Rudy Washington MD [address] [place] [address],[address], [place], [address], [facility] 03/11/2023 13:22:18 03/23/2023 text/html CRC Nurse Triage Notes (Yael Hurt): Reason For Request: PT's son reporting diagnosis of shingles>pain in her back left side>states shingles has been spreading>has followed up with PCP, was gabapentin for the pain in which the son says it has not been working at all for her. Chief Complaints: Pain PMH: COPD/Asthma Comments: Diagnosed with shingles 2.5 weeks in ED at [facility]. Finished course of medication prescribed. Shingles to left side of back. Exacerbation of pain and drainage to areas. .................... .................... .................... .................... .................... .................... .................... . Canal Structure Operator Note From Bennie Regalado: Or diagnosed with [...] nausea vomiting diarrhea. Selina Danielle MD [address] [facility],[address], [place], [address], [employer], TAJ 03/24/2023 17:41:57 OBGyn Episode No OBEpisode recorded.
== END 2024-07-04 15:04 | disposition home or self-care (01) ==
LOC: HO.PMC 14:27
PROVIDERS: PCP Internal Medicine; Visit Provider Nurse Practitioner Family
DX: M51.369 Other intervertebral disc degeneration, lumbar region without mention of lumbar back pain or lower extremity pain (principal); M25.511 Pain in right shoulder; M47.816 Spondylosis without myelopathy or radiculopathy, lumbar region; M19.011 Primary osteoarthritis, right shoulder; M79.7 Fibromyalgia
CPT/HCPCS: 99214; G2211

== ENCOUNTER → 2024-07-04 14:26 | Outpatient (BNVA) | payer OTHER, SELFPAY | PROVIDERS: PCP Internal Medicine; Visit Provider Nurse Practitioner Family | DX: M51.360 Other intervertebral disc degeneration, lumbar region with discogenic back pain only (principal); M25.511 Pain in right shoulder; M47.816 Spondylosis without myelopathy or radiculopathy, lumbar region; M19.011 Primary osteoarthritis, right shoulder; M79.7 Fibromyalgia | CPT/HCPCS: 99212 ==

== ENCOUNTER 2024-08-14 06:07 | Outpatient (REF) | payer OTHER, SELFPAY ==
--- OUTSIDE RECORDS SUMMARY | 2024-08-14 06:09 | XMS_ITS | Data Portability ---
Author Organization [employer] [place] [employer] Address [address] [place] [address] Care Team Providers Care Drafter Geological Name Role Phone [facility] Referring Provider [phone] Assessment Encounter Date Assessment Date Assessment LastModified by Organization Details LastModified Time 03/23/2023 03/23/2023 I provided real -time medical direction via phone for this encounter, and was available for additional phone based assistance as needed. I have reviewed and agree with the Assessment and Plan as documented by the Electric Arc Furnace Operator. We discussed the diagnostic uncertainty of [...] to call 911- verbalized understanding of instructions [email or web address] Not available 03/24/2023 17:39:31 Plan of Treatment Reminders Order Date Submit Date Provider Last Modified By Organization Details Last Modified Time Details Appointments None recorded. Lab None recorded. Referral None recorded. Procedures None recorded. Surgeries None recorded. Imaging None recorded. Medication Orders valacyclovi r 1 gram tablet 2023 024 [employer] [facility]/Pharmacy #[id number], [address] [place], [address], 4 11:17:51 Zovirax 5 % topical cream 2023 024 [facility]/Pharmacy #6538, [address] [place], [address], 4 11:17:52 naproxen 500 mg tablet 2023 024 [facility]/Pharmacy #2071, [address] [place], [address], 4 11:17:51 ketorolac 30 mg/mL injection solution 2023 024 [email or web address] 0 [id number] [address] [place], [address], 4 11:17:42 mupirocin 2 % topical ointment 2022 023 [facility]/Pharmacy #2071, [address] [place], [address], 3 12:06:17 Patient TargetsNo targets recorded. Patient InstructionsNo instructions recorded. Reason for Referral None Reported. Medical Equipment None Reported. Allergies Allergen ID Allergen Name Allergen Category Reaction Reaction Severity Criticality Documentation Date Start Date Code Code System Note Provider Name and Address Organization Details Recorded Time 4348 Iodinated contrast media (substanc e) medicatio n Not available Not available Not available 03/23/2023 88706 2003 SNOMED Selina Danielle MD [address] [facility],[address], [place], [address], [employer] 4 11:08:47 Medications Name Sig Start Date [...] Address Organization Details Last Updated DateTime 03/23/2023 33776.56 g 26.6 kg/m2 152.4 cm Selina Danielle MD [address] [facility],[address], [place], [address], [employer] [facility] 03/24/2023 17:38:26 Date Recorded Oxygen saturation Oxygen saturation in Arterial blood by Pulse oximetry Body temperature Respiratory rate Heart rate Systolic blood pressure Diastolic blood pressure Provider Name and Address Organization Details Last Updated DateTime 4 99 % 99 % 98.4 [degF] 18 /min 94 /min 165 mm[Hg] 88 mm[Hg] Not Available [employer] 4 11:07:52 Date Recorded Heart rate Body height Oxygen saturation Oxygen saturation in Arterial blood by Pulse oximetry Body weight Respiratory rate Systolic blood pressure Diastolic blood pressure Provider Name and Address Organization Details Last Updated DateTime 3 90 /min 152.4 cm 96 % 96 % 76002.1 44 g 16 /min 167 mm[Hg] 95 mm[Hg] Not Available [employer] 3 11:30:48 Social History None recorded. Functional Status None recorded. Mental Status None recorded. Family History Nothing Reported. Medical History No medical history recorded. Gynecological HistoryNo gynecological history recorded. Obstetrics History GPAL:G 0 P 0 0 0 0 Past Encounters Encounter ID Performer Location Encounter Start Date Encounter Closed Date Diagnosis/Indication Diagnosis SNOMED-CT Code Diagnosis ICD10 Code Diagnosis Note [id number] Rudy Washington MD [address] [address] 03/11/2023 11:30:42 03/13/2023 12:40:38 Herpes zoster 5147961 B02.9 Shingles; currently on antiviral treatment as well as Prednisone burst. For itching, advised to take OTC Calamine lotion and if continues to worsen, to apply Mupirocin ointment TID PRN to prevent bacterial superinfec tion. Discussed red flag signs for which to seek higher level of care. [id number] Selina Danielle MD [address] [address] 03/23/2023 11:07:44 03/26/2023 17:27:24 Herpes zoster [id number] B02.9 Need to follow-up with her PCP [...] g with one 500 mg tablet in between- e verbalized understand ing. Red flags reviewed. Health Concerns Section Related Observation LastModified by Organization Detai ls LastModified Time None Recorded Concern Status LastModified by Organization Details LastModified Time None Recorded Advance Directives Directive None Recorded Payers Insurance Date Sequence Insurance Name Policy Number Policy Shea Covered Member ID Shea Member ID Guarantor Name 06/28/2024 1 [facility] - DOS ON OR AFTER 2022 - DUAL ELIGIBLE - [employer] AND ONE CARE (MEDICARE REPLACEMENT/ADV ANTAGE - HMO) Xiomara Gaffney [id number] Xiomara Gaffney Notes Date Note Type Note Provider [...] .................... .................... .................... .................... .................... .................... . Electric Arc Furnace Operator Note From Drake Dickinson: Pt reports shingles dx in the ED 4 days ago. Pt sent home with valtrex, prednisone and naproxen. Pt feels that the rash is worsening and is requesting something topical. Pt is alert, NAD. VSS. Afebrile. Non focal neuro exam. Classic shingles rash on left side of mid back around the left side. No open blisters. [facility] contacted and will send rx for bactroban bid. Pt also advised to use calamine lotion in between the bactroban. Pt instructed to seek emergent medical care for new or worsening sx, which are reviewed with her. .................... .................... .................... .................... .................... .................... .................... . Disposition: Fulfilled Rudy Washington MD [address] [place] [address],[address], [place], [address], [employer] 03/11/2023 13:22:18 03/23/2023 text/html CRC Nurse Triage [...] with shingles 2.5 weeks in ED at [facility]. Finished course of medication prescribed. Shingles to left side of back. Exacerbation of pain and drainage to areas. .................... .................... .................... .................... .................... .................... .................... . Electric Arc Furnace Operator Note From Bennie Regalado: Or diagnosed [...] nausea vomiting diarrhea. Selina Danielle MD [address] [facility],[address], [place], [address], [employer] 03/24/2023 17:41:57 OBGyn Episode No OBEpisode recorded.
== END 2024-08-14 06:08 | disposition home or self-care (01) ==
LOC: CF 06:07
PROVIDERS: Visit Provider Internal Medicine
DX: Z13.89 Encounter for screening for other disorder (principal)

== ENCOUNTER 2024-08-18 14:23 | Outpatient (AMB) | payer OTHER, SELFPAY ==
--- NOTE | 2024-08-18 14:27 | A.OFFVIS_ITS ---
Vital Signs 08/18/24 14:29 Height 5 ft Weight 128 lb BMI 25.0 Intake Visit Reasons: Inj-Right shoulder injection-last 04/18/24 Intake Note: Xiomara is a 69 year old female who presents today with her son for right shoulder injection. At her last visit on 04/18/24 an injection was given. Patient reports injection provided her with a little relief. Today she complains of pain and limited ROM in her right shoulder. She also complains of strong pain in her left shoulder that radiates towards her neck. She would like to discuss cortisone injections. Change Management Coordinator Required: Yes Change Management Coordinator Services: Change Management Coordinator Offered & Declined Accompanied by: Son Allergies barium sulfate [CONTRAST,ORAL] Allergy (Intermediate, Verified 08/18/24 14:31) HIVES Iodinated Contrast Media [IV CONTRAST] Allergy (Intermediate, Verified 08/18/24 14:31) HIVES ondansetron [From Zofran] Allergy (Intermediate, Verified 08/18/24 14:31) Stomach Upset doxycycline Adverse Reaction (Severe, Verified 08/18/24 14:31) Vomiting amoxicillin Adverse Reaction (Intermediate, Verified 08/18/24 14:31) Rash celecoxib Adverse Reaction (Mild, Verified 08/18/24 14:31) chills cyclobenzaprine Adverse Reaction (Mild, Verified 08/18/24 14:31) anxiety nabumetone Adverse Reaction (Mild, Verified 08/18/24 14:31) dry mouth, upset stomach HPI HPI Inj-Right shoulder injection-last 04/18/24: Details: 69-year-old female returns to the office today for a follow-up of her right shoulder status post injection on 04/18/2024. She states the injection was quite helpful and she was able to participate in most activities without discomfort. Currently she is having increased discomfort with forward flexion and attempting to lift objects. [facility] Medical History Lumbar pain Urinary incontinence History of COVID-19 Candidal intertrigo Sinusitis PONV (postoperative nausea and vomiting) Shoulder pain GERD (gastroesophageal reflux disease) Coccyalgia Mild recurrent major depression Rectal bleeding History of asthma Rash Dyslipidemia Impaired glucose tolerance Fibromyalgia Arthritis Anxiety Surgical History H/O exploratory laparotomy History of eye surgery History of abdominal surgery Previous section History of carpal tunnel surgery of left wrist History of carpal tunnel surgery Family History Mother Colon cancer Hypertension Glaucoma Arthritis Father Bone cancer Social History Household Members: Children Housing: Apartment Do you presently have visiting nurse or other home services: Yes Unable to assess alcohol history related to: Unknown Alcohol intake: never Patient Tobacco Use Status: Never used Tobacco e-Cigarette/Vaping Use: Never Used Second Hand Smoke Exposure: No service: No Current occupational status: disabled Current occupation: Right Handed Cognitive needs: No Hearing needs: No Vision needs: Yes (glasses) Review of Systems Const All systems reviewed & are unremarkable except as noted in HPI and below Physical Exam Vital Signs: BMI result Body Mass Index 25.0 Extrem Other: Right shoulder normal to inspection. Tenderness over the bicipital groove and a long deltoid region of the shoulder. FF to 80, ER to 45, IR to back pocket. Significant weakness with rotator cuff strengthening. Neurovascularly intact. Office Procedures AMB Joint Injection/Aspiration Joint Injection/Aspiration Primary Site: right shoulder Prep: site was prepped using aseptic technique, ethochloride spray was applied and injection warnings given Injected: 80 mg of, DepoMedrol, with 8 mL of, 1% plain lidocaine and in the subcromial space Approach Used: posterolateral Procedure: The patient tolerated the procedure well and there was some relief with the local anesthesia Coding 29150 - Glenohumeral/Tronchanteric Bursa/Intraarticular Procedure code (CPT) selection complete Assessment & Plan Assessment & Plan (1) Arthritis of right glenohumeral joint: Code(s): M19.011 - Primary osteoarthritis, right shoulder Category: Medical Plan: We discussed options today, which include steroid injection. The patient did consent to move forward with the right shoulder injection, which was tolerated well.? I recommended rest, ice and elevation and OTC antiinflammatories prn for discomfort. If symptoms persist over the next 6-8 weeks, they will contact our office, otherwise, prn Coding Level of Care Code Est Pt Level 3 (81997) Complex EM visit Add On G2211 Diagnoses Arthritis of right glenohumeral joint M19.011 CPT Codes Coding - Joint 7: 49138 - Glenohumeral/Tronchanteric Bursa/Intraarticular ([id number])
[2024-08-18 14:29] VITALS: BMI 25.0
--- OUTSIDE RECORDS SUMMARY | 2024-08-18 16:19 | XMS_ITS | Data Portability ---
Author Organization [facility] [facility], [place] [facility] [facility] Address [address] [place] [address] Care Team Providers Care Grapple Operator Name Role Phone [facility] Referring Provider [phone] Assessment Encounter Date Assessment Date Assessment LastModified by Organization Details LastModified Time 03/23/2023 03/23/2023 I provided real -time medical direction via phone for this encounter, and was available for additional phone based assistance as needed. I have reviewed and agree with the Assessment and Plan as documented by the Accreditation Coordinator. We discussed the diagnostic uncertainty of home [...] to call 911- verbalized understanding of instructions [email or web address] Not available 03/24/2023 17:39:31 Plan of Treatment Reminders Order Date Submit Date Provider Last Modified By Organization Details Last Modified Time Details Appointments None recorded. Lab None recorded. Referral None recorded. Procedures None recorded. Surgeries None recorded. Imaging None recorded. Medication Orders valacyclovi r 1 gram tablet 2023 [facility]/Pharmacy #2079, [address] [place], [address], 4 11:17:51 Zovirax 5 % topical cream 2023 024 [facility]/Pharmacy #2074, [address] [place], [address], 4 11:17:52 naproxen 500 mg tablet 2023 024 [facility]/Pharmacy #2071, [address] [place], [address], 4 11:17:51 ketorolac 30 mg/mL injection solution 2023 024 [email or web address] 0 [facility]/Pharmacy #2071, [address] [place], [address], 4 11:17:42 mupirocin 2 % topical ointment 2022 023 [facility]/Pharmacy #2071, [address] [place], [address], 3 12:06:17 Patient TargetsNo targets recorded. Patient InstructionsNo instructions recorded. Reason for Referral None Reported. Medical Equipment None Reported. Allergies Allergen ID Allergen Name Allergen Category Reaction Reaction Severity Criticality Documentation Date Start Date Code Code System Note Provider Name and Address Organization Details Recorded Time 4348 Iodinated contrast media (substanc e) medicatio n Not available Not available Not available 03/23/2023 91320 2003 SNOMED Selina Danielle MD [address] [place] [address],[address], [place], [address] [facility] [place] [employer] 4 11:08:47 Medications Name Sig Start Date [...] Address Organization Details Last Updated DateTime 03/23/2023 30538.56 g 26.6 kg/m2 152.4 cm Selina Danielle MD [address] [facility],[address], [place], [address], [facility] 03/24/2023 17:38:26 Date Recorded Oxygen saturation Oxygen saturation in Arterial blood by Pulse oximetry Body temperature Respiratory rate Heart rate Systolic blood pressure Diastolic blood pressure Provider Name and Address Organization Details Last Updated DateTime 4 99 % 99 % 98.4 [degF] 18 /min 94 /min 165 mm[Hg] 88 mm[Hg] Not Available [employer] 4 11:07:52 Date Recorded Heart rate Body height Oxygen saturation Oxygen saturation in Arterial blood by Pulse oximetry Body weight Respiratory rate Systolic blood pressure Diastolic blood pressure Provider Name and Address Organization Details Last Updated DateTime 3 90 /min 152.4 cm 96 % 96 % 65914.1 44 g 16 /min 167 mm[Hg] 95 mm[Hg] Not Available [employer] 3 11:30:48 Social History None recorded. Functional Status None recorded. Mental Status None recorded. Family History Nothing Reported. Medical History No medical history recorded. Gynecological HistoryNo gynecological history recorded. Obstetrics History GPAL:G 0 P 0 0 0 0 Past Encounters Encounter ID Performer Location Encounter Start Date Encounter Closed Date Diagnosis/Indication Diagnosis SNOMED-CT Code Diagnosis ICD10 Code Diagnosis Note [id number] Rudy Washington MD [address] [address] 03/11/2023 11:30:42 03/13/2023 12:40:38 Herpes zoster [id number] B02.9 Shingles; currently on antiviral treatment as well as Prednisone burst. For itching, advised to take OTC Calamine lotion and if continues to worsen, to apply Mupirocin ointment TID PRN to prevent bacterial superinfec tion. Discussed red flag signs for which to seek higher level of care. [id number] Selina Danielle MD [address] [address] 03/23/2023 11:07:44 03/26/2023 17:27:24 Herpes zoster [id number] B02.9 Need to follow-up with her PCP [...] Shea Member ID Guarantor Name 06/28/2024 1 [facility] - DOS ON OR AFTER 2022 - DUAL ELIGIBLE - JAIL OPTIONS AND ONE CARE (MEDICARE REPLACEMENT/ADV ANTAGE - HMO) Xiomara Gaffney [id number] Xiomara Gaffney Notes Date Note Type Note [...] .................... .................... .................... .................... .................... .................... . Accreditation Coordinator Note From Drake Dickinson: Pt reports shingles dx in the ED 4 days ago. Pt sent home with valtrex, prednisone and naproxen. Pt feels that the rash is worsening and is requesting something topical. Pt is alert, NAD. VSS. Afebrile. Non focal neuro exam. Classic shingles rash on left side of mid back around the left side. No open blisters. [facility] [place] and will send rx for bactroban bid. Pt also advised to use calamine lotion in between the bactroban. Pt instructed to seek emergent medical care for new or worsening sx, which are reviewed with her. .................... .................... .................... .................... .................... .................... .................... . Disposition: Fulfilled Rudy Washington MD [address] [place] [address],[address], [place], [address], [employer] 03/11/2023 13:22:18 03/23/2023 text/html CRC Nurse Triage [...] with shingles 2.5 weeks in ED at [facility]. Finished course of medication prescribed. Shingles to left side of back. Exacerbation of pain and drainage to areas. .................... .................... .................... .................... .................... .................... .................... . Accreditation Coordinator Note From Bennie Regalado: Or diagnosed with [...] nausea vomiting diarrhea. Selina Danielle MD [address] [facility],[address], [place], [address], [place] [employer] 03/24/2023 17:41:57 OBGyn Episode No OBEpisode recorded.
== END 2024-08-18 15:48 | disposition home or self-care (01) ==
LOC: HO.HOS 14:23
PROVIDERS: PCP Internal Medicine; Visit Provider Physician Assistant
DX: M19.011 Primary osteoarthritis, right shoulder (principal)
CPT/HCPCS: 20610; 99213

== ENCOUNTER → 2024-08-18 14:23 | Outpatient (BNVA) | payer OTHER, SELFPAY | PROVIDERS: PCP Internal Medicine; Visit Provider Physician Assistant | DX: M19.011 Primary osteoarthritis, right shoulder (principal) | CPT/HCPCS: 20610; 99212; J1010; J2003 ==

== ENCOUNTER 2024-09-25 06:07 | Outpatient (REF) | payer OTHER, SELFPAY ==
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
--- OUTSIDE RECORDS SUMMARY | 2024-09-25 06:11 | XMS_ITS | Data Portability ---
Author Organization [employer] [facility] Address [address] [place] [address] Care Team Providers Care Operations Vice President Name Role Phone [facility] Referring Provider Assessment Encounter Date Assessment Date Assessment LastModified by Organization Details LastModified Time 03/23/2023 03/23/2023 I provided real -time medical direction via phone for this encounter, and was available for additional phone based assistance as needed. I have reviewed and agree with the Assessment and Plan as documented by the Charcoal Unloader. We discussed the diagnostic uncertainty of home [...] to call 911- verbalized understanding of instructions [email or web address] Not available 03/24/2023 17:39:31 Plan of Treatment Reminders Order Date Submit Date Provider Last Modified By Organization Details Last Modified Time Details Appointments None recorded. Lab None recorded. Referral None recorded. Procedures None recorded. Surgeries None recorded. Imaging None recorded. Medication Orders valacyclovi r 1 gram tablet 2023 024 [facility]acy #[id number], [address] [place], [address], 4 11:17:51 Zovirax 5 % topical cream 2023 024 [facility]/Pharmacy #[id number], [address] [place], [address], 4 11:17:52 naproxen 500 mg tablet 2023 024 [facility]/Pharmacy #[id number], [address] [place], [address], 4 11:17:51 ketorolac 30 mg/mL injection solution 2023 024 [email or web address] 0 [facility]/Pharmacy #[id number], [address] [place], [address], 4 11:17:42 mupirocin 2 % topical ointment 2022 023 [facility]armacy #[id number], [address] [place], [address], 3 12:06:17 Patient TargetsNo targets recorded. Patient InstructionsNo instructions recorded. Reason for Referral None Reported. Medical Equipment None Reported. Allergies Allergen ID Allergen Name Allergen Category Reaction Reaction Severity Criticality Documentation Date Start Date Code Code System Note Provider Name and Address Organization Details Recorded Time 4348 Iodinated contrast media (substanc e) medicatio n Not available Not available Not available 03/23/2023 11374 2003 SNOMED Selina Danielle MD [address] [facility],[address], [place], [address] [facility] [employer], [employer] 4 11:08:47 Medications Name Sig Start Date [...] Address Organization Details Last Updated DateTime 03/23/2023 81728.56 g 26.6 kg/m2 152.4 cm Selina Danielle MD [address] [place] [address], [place], [address], [employer] [facility] [employer] 03/24/2023 17:38:26 Date Recorded Oxygen saturation Oxygen saturation in Arterial blood by Pulse oximetry Body temperature Respiratory rate Heart rate Systolic And Diastolic Provider Name and Address Organization Details Last Updated DateTime 4 99 % 99 % 98.4 [degF] 18 /min 94 /min 165/88 mm[Hg] Not Available [employer] 4 11:07:52 Date Recorded Heart rate Body height Oxygen saturation Oxygen saturation in Arterial blood by Pulse oximetry Body weight Respiratory rate Systolic And Diastolic Provider Name and Address Organization Details Last Updated DateTime 3 90 /min 152.4 cm 96 % 96 % 99153.1 44 g 16 /min 167/95 mm[Hg] Not Available [employer] 3 11:30:48 Social History None recorded. Functional Status None recorded. Mental Status None recorded. Family History Nothing Reported. Medical History No medical history recorded. Gynecological HistoryNo gynecological history recorded. Obstetrics History GPAL:G 0 P 0 0 0 0 Past Encounters Encounter ID Performer Location Encounter Start Date Encounter Closed Date Diagnosis/Indication Diagnosis SNOMED-CT Code Diagnosis ICD10 Code Diagnosis Note [id number] Rudy Washington MD [address] [phone] 03/11/2023 11:30:42 03/13/2023 12:40:38 Herpes zoster 0101156 B02.9 Shingles; currently on antiviral treatment as well as Prednisone burst. For itching, advised to take OTC Calamine lotion and if continues to worsen, to apply Mupirocin ointment TID PRN to prevent bacterial superinfec tion. Discussed red flag signs for which to seek higher level of care. [id number] Selina Danielle MD [address] [phone] 03/23/2023 11:07:44 03/26/2023 17:27:24 Herpes zoster 0569883 B02.9 Need to follow-up with her PCP [...] Shea Member ID Guarantor Name 06/28/2024 1 [facility] - DOS ON OR AFTER 2022 - DUAL ELIGIBLE - CARE HOME OPTIONS AND ONE CARE (MEDICARE REPLACEMENT/ADV ANTAGE - HMO) Xiomara Gaffney [id number] Xiomara Gaffney Notes Date Note Type Note [...] .................... .................... .................... .................... .................... .................... . Charcoal Unloader Note From Drake Dickinson: Pt reports shingles dx in the ED 4 days ago. Pt sent home with valtrex, prednisone and naproxen. Pt feels that the rash is worsening and is requesting something topical. Pt is alert, NAD. VSS. Afebrile. Non focal neuro exam. Classic shingles rash on left side of mid back around the left side. No open blisters. [facility] contacted and will send rx for bactroban bid. Pt also advised to use calamine lotion in between the bactroban. Pt instructed to seek emergent medical care for new or worsening sx, which are reviewed with her. .................... .................... .................... .................... .................... .................... .................... . Disposition: Fulfilled Rudy Washington MD [address] [place] [address],[address], [place], [address], [facility] 03/11/2023 13:22:18 03/23/2023 text/html CRC Nurse Triage [...] with shingles 2.5 weeks in ED at [facility]. Finished course of medication prescribed. Shingles to left side of back. Exacerbation of pain and drainage to areas. .................... .................... .................... .................... .................... .................... .................... . Charcoal Unloader Note From Bennie Regalado: Or diagnosed with [...] nausea vomiting diarrhea. Selina Danielle MD [address] [facility],[address], [place], [address], [facility] 03/24/2023 17:41:57 OBGyn Episode No OBEpisode recorded.
== END 2024-09-25 06:08 | disposition home or self-care (01) ==
LOC: CF 06:07
PROVIDERS: Visit Provider Internal Medicine
DX: Z13.89 Encounter for screening for other disorder (principal)

== ENCOUNTER 2024-10-01 14:37 | Outpatient (AMB) | payer OTHER, SELFPAY ==
[2024-10-01 14:44] VITALS: BP 124/72; BMI 24.2
--- NOTE | 2024-10-01 14:44 | A.OFFPC_ITS ---
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 Accompanied by: Self / Same As Patient Allergies barium sulfate (CONTRAST,ORAL) Allergy (Intermediate, Verified 10/01/24 15:12) HIVES Iodinated Contrast Media (IV CONTRAST) Allergy (Intermediate, Verified 10/01/24 15:12) HIVES ondansetron (From Zofran) Allergy (Intermediate, Verified 10/01/24 15:12) Stomach Upset doxycycline Adverse Reaction (Severe, Verified 10/01/24 15:12) Vomiting amoxicillin Adverse Reaction (Intermediate, Verified 10/01/24 15:12) Rash celecoxib Adverse Reaction (Mild, Verified 10/01/24 15:12) chills cyclobenzaprine Adverse Reaction (Mild, Verified 10/01/24 15:12) anxiety nabumetone Adverse Reaction (Mild, Verified 10/01/24 15:12) dry mouth, upset stomach Medication List - Last Reconciled 10/01/24 by Homa Cronin MD acetaminophen ER (Pain Relief (acetaminophen)) 1,300 mg (2 x 650 mg) PO Q12H PRN 30 days [adult diapers disposable briefs As directed] albuterol sulfate 1.25 mg (3 mL) PO QID PRN albuterol sulfate 90 mcg/actuation 2 puffs inhalation Q4-6H PRN atorvastatin 20 mg PO BEDTIME 90 days [body contour pillow As directed] calcium carbonate-vitamin D3 500 mg-10 mcg (400 unit) (Oyster Shell Calcium- Vitamin D3) 2 tabs PO DAILY 90 days cholecalciferol (vitamin D3) 25 mcg PO DAILY 90 days escitalopram oxalate 20 mg PO DAILY [flip pillow As directed] fluticasone propionate 110 mcg/actuation 1 puff inhalation BID gabapentin 800 mg PO TID 30 days [gloves powder free synthetic As directed] Grab bar As directed ipratropium-albuterol 0.5 mg-3 mg(2.5 mg base)/3 mL 3 mL inhalation Q6H PRN 90 days [leg pillow As directed] levothyroxine 50 mcg PO DAILY 90 days lidocaine 5% 1 appl topical BEDTIME 30 days lidocaine 5% 1 patch topical DAILY PRN 30 days linaclotide (Linzess) 145 mcg PO QAM 30 days lorazepam 1 mg PO BID losartan 25 mg PO DAILY 90 days meloxicam 15 mg PO DAILY mupirocin 2% 1 appl topical BID 2 weeks nebulizers Nebulizer with tubing and accessories nystatin 1 appl topical BID 30 days omeprazole 20 mg PO DAILY 14 days ondansetron HCl 4 mg PO Q8H PRN 30 days [personal cleansing wipes As directed] [raised toilet seat As directed] [recliner As directed] [reclining chair As directed] sennosides (Senokot) 8.6 mg PO DAILY PRN Shower Chair As directed [shower head As directed] silver sulfadiazine 1% (Silvadene) 1 appl topical DAILY 7 days valacyclovir (Valtrex) 1,000 mg PO TID 7 days vaporizers As directed Tobacco use date assessed: 05/26/24 Dental Screening Dental Screen Date: 05/26/24 HPI HPI Comments History of Present Illness Details The patient is a 69-year-old female presenting with anxiety, depression, cervicalgia, and headache. She also has osteoarthritis of multiple joints. She would like an x-ray of the neck. She has hypertension, dyslipidemia and hypothyroidism. Blood pressure well controlled. Cholesterol stable with statins. TSH will be order to check her thyroid. She reports persistent anxiety and depression, with frequent headaches and neck pain. She follows with psychiatry for her depression with anxiety. The neck pain sometimes results in a cracking sound upon movement, causing concern. Cervical spine imaging has been advised for further evaluation. The patient also reports recent skin lesions on her scalp, described as blisters, and a dermatology referral has been suggested. She has a history of asthma, receiving injections and mentions a previous hospital visit due to exacerbation. The patient has a history of postherpetic neuralgia, causing persistent pain despite treatment with gabapentin and pregabalin. [facility] Medical History (Updated 10/01/24 @ 15:25 by Homa Cronin MD) Lumbar pain Urinary incontinence History of COVID-19 Candidal intertrigo Sinusitis PONV (postoperative nausea and vomiting) Shoulder pain GERD (gastroesophageal reflux disease) Coccyalgia Mild recurrent major depression Rectal bleeding History of asthma Rash Dyslipidemia Impaired glucose tolerance Fibromyalgia Arthritis Anxiety Surgical History H/O exploratory laparotomy History of eye surgery History of abdominal surgery Previous section History of carpal tunnel surgery of left wrist History of carpal tunnel surgery Family History Mother Colon cancer Hypertension Glaucoma Arthritis Father Bone cancer Social History Household Members: Children Housing: Apartment Do you presently have visiting nurse or other home services: Yes Unable to assess alcohol history related to: Unknown Alcohol intake: never Patient Tobacco Use Status: Never used Tobacco e-Cigarette/Vaping Use: Never Used Second Hand Smoke Exposure: No service: No Current occupational status: disabled Current occupation: Right Handed Cognitive needs: No Hearing needs: No Vision needs: Yes (glasses) Questionnaire PHQ-9 Over the last 2 weeks, how often have you been bothered by any of the following problems? 1. Little interest or pleasure in doing things: several days 2. Feeling down, depressed, or hopeless: several days 3. Trouble falling or staying asleep, or sleeping too much: nearly every day 4. Feeling tired or having little energy: more than half the days 5. Poor appetite or overeating: more than half the days 6. Feeling bad about yourself - or that you are a failure or have let yourself or your family down: not at all 7. Trouble concentrating on things, such as reading the newspaper or watching television: several days 8. Moving or speaking so slowly that other people could have noticed. Or the opposite - being so fidgety or restless that you have been moving around a lot more than usual: several days 9. Thoughts that you would be better off or of hurting yourself in some way: not at all Total score: 11 Depression Screening Interpretation: Positive Depression Screening Follow-up: Existing condition and Follow-up Visit Requested Depression Screening Done: Yes 91111 - PHQ-9 Billing: Yes Source: Developed by Drs. Damián Mcgrath, Cee Butler, Wing Mattson and colleagues, with an educational vanessa from [employer] Thrive Questionnaire Date Thrive assessed: 04/09/24 I am a: Patient What is your living situation today?: I choose not to answer this question Within the past 12 months, did the food you bought not last and you didn't have the money to get more?: I choose not to answer this question Within the past 12 months, did you worry whether your food would run out before you got money to buy more?: I choose not to answer this question Do you have trouble paying for medicines?: I choose not to answer this question Do you have trouble getting transportation to medical appointments?: I choose not to answer this question Do you have trouble paying your heating and electricity bill?: I choose not to answer this question Do you have trouble taking care of your child, family member or friend?: I choose not to answer this question Do you have trouble with day-to-day activities such as bathing, preparing meals, shopping, managing finances, etc.?: I choose not to answer this question Are you currently unemployed and looking for a job?: I choose not to answer this question Are you interested in more education?: I choose not to answer this question Please select the resources that you would like help with: None Currently or been in a relationship where the following occur: I choose not to answer THRIVE Score: 0 YENNIFER-7 AMB Questionnaire YENNIFER-7 Date YENNIFER - 7 assessed: 05/26/24 Feeling afraid as if something awful might happen: 1 = Several days Source: Developed by Drs. Damián Mcgrath, Cee Butler, Wing Mattson and colleagues, with an educational vanessa from [employer]. Review of Systems Const All systems reviewed & are unremarkable except as noted in HPI and below ENT Reports neck pain Card Denies chest pain at rest, Denies chest pain with activity, Denies edema, Denies irregular heart rhythm, Denies claudication, Denies dyspnea, Denies dyspnea on exertion, Denies orthopnea, Denies paroxysmal nocturnal dyspnea and Denies slow heart rate Resp Denies cough, Denies dyspnea and Denies dyspnea on exertion Musc Denies atrophy, Denies deformity, Reports arthralgias, Denies limited range of motion and Reports neck pain Skin/Breast Denies bleeding lesions, Denies changing lesions and Denies rash Physical exam (Primary Care) Vital Signs: Last Vital Signs BP 124/72 10/01/24 14:44 BMI result Body Mass Index 24.2 Tobacco/Smoking Status: Tobacco use Status Tobacco use date assessed 05/26/24 10/01/24 14:48 Patient Tobacco Use Status Never used Tobacco 10/01/24 14:48 e-Cigarette/Vaping Use Never Used 10/01/24 14:48 PHQ-9: PHQ-9 Score PHQ-9: Total score 11 10/01/24 15:17 Depression Screening Interpretation: Positive Depression Screening Follow-up: Existing condition and Follow-up Visit Requested Thrive Assessment: Date of Thrive Assessment Date Thrive assessed 04/09/24 10/01/24 14:48 Currently or been in a relationship where the following occur: I choose not to answer Resp Effort & Inspection: normal respiratory effort Auscultation: clear to auscultation bilaterally Cardio Jugular venous distension: no JVD Rate: regular rate Rhythm: regular rhythm Heart sounds: S1 normal heart sound present and S2 normal heart sound present Extrem General: Yes full ROM Coding Level of Care Code Est Pt Level 4 (39062) Complex EM visit Add On G2211 Diagnoses Mild recurrent major depression F33.0 Anxiety F41.9 Essential hypertension I10 Acquired hypothyroidism E03.9 Hypothyroidism type: acquired Osteoarthritis involving multiple joints on both sides of body M15.9 Post herpetic neuralgia B02.29 Dyslipidemia E78.5 Scalp lesion L98.9 Additional Codes PHQ-9 - 14337 - PHQ-9 Billing: Yes ([id number]) Time Spent (min) 24 Assessment & Plan Assessment & Plan (1) Mild recurrent major depression: Code(s): F33.0 - Major depressive disorder, recurrent, mild Category: Medical (2) Anxiety: Code(s): F41.9 - Anxiety disorder, unspecified Category: Medical (3) Essential hypertension: Code(s): I10 - Essential (primary) hypertension Category: Medical (4) Hypothyroidism: Code(s): E03.9 - Hypothyroidism, unspecified Category: Medical Qualifiers: Hypothyroidism type: acquired Qualified Code(s): E03.9 - Hypothyroidis m, unspecified (5) Osteoarthritis involving multiple joints on both sides of body: Code(s): M15.9 - Polyosteoarthritis, unspecified Category: Medical (6) Post herpetic neuralgia: Code(s): B02.29 - Other postherpetic nervous system involvement Category: Medical (7) Dyslipidemia: Code(s): E78.5 - Hyperlipidemia, unspecified Category: Medical (8) Scalp lesion: Code(s): L98.9 - Disorder of the skin and subcutaneous tissue, unspecified Category: Medical Plan The patient will undergo cervical spine imaging to evaluate neck pain and associated symptoms. A dermatology referral is planned for the evaluation of scalp lesions. The patient will continue receiving asthma management, including injections, and follow-up for any exacerbations. For peptic ulcer disease, the patient will continue with current medications, and further evaluation will be considered if symptoms persist. The patient is advised to monitor symptoms and report any significant changes. Patient was informed and verbally consented to the use of an ambient scribe for clinic note documentation during this visit. Orders: Orders Thyroid Stimulating Hormone 10/01/24 E03.9 - Hypothyroidism, unspecified XR cervical spine 2V 10/01/24 M54.12 - Radiculopathy, cervical region Referrals Dermatology Referral L98.9 - Disorder of the skin and subcutaneous tissue, unspecified Medications: New 2 capsaicin 0.035% do not wash area for at least 30 min after application 1 appl topical BID 100 grams 1RF 4 weeks Changed From omeprazole 20 mg PO DAILY 14 days 14 caps 0RF To omeprazole 20 mg PO DAILY 90 caps 1RF 90 days Refilled 2 linaclotide (Linzess) 145 mcg PO QAM 30 caps 1RF 30 days K59.00 - Constipation, unspecified sennosides (Senokot) 8.6 mg PO DAILY PRN 20 tabs 0RF constipation K59.00 - Constipation, unspecified
--- OUTSIDE RECORDS SUMMARY | 2024-10-01 15:09 | XMS_ITS | Data Portability ---
Author Organization [employer] 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 I have reviewed and agree with the Assessment and Plan as documented by the Tube Filler. We discussed the diagnostic uncertainty of home [...] to call 911- verbalized understanding of instructions [email or web address] Not available 03/24/2023 17:39:31 Plan of Treatment Reminders Order Date Submit Date Provider Last Modified By Organization Details Last Modified Time Details Appointments None recorded. Lab None recorded. Referral None recorded. Procedures None recorded. Surgeries None recorded. Imaging None recorded. Medication Orders valacyclovi r 1 gram tablet 2023 024 [facility]armacy #[id number], [address] [place], [address], 4 11:17:51 Zovirax 5 % topical cream 2023 024 [facility] #[id number], [address] [place], [address], 4 11:17:52 naproxen 500 mg tablet 2023 024 [facility]/Pharmacy #[id number], [address] [place], [address], 4 11:17:51 ketorolac 30 mg/mL injection solution 2023 024 [email or web address] [facility]armacy #[id number], [address] [place], [address], 4 11:17:42 mupirocin 2 % topical ointment 2022 023 [facility]/Pharmacy #[id number], [address] [place], [address], 3 12:06:17 Patient TargetsNo targets recorded. Patient InstructionsNo instructions recorded. Reason for Referral None Reported. Medical Equipment None Reported. Allergies Allergen ID Allergen Name Allergen Category Reaction Reaction Severity Criticality Documentation Date Start Date Code Code System Note Provider Name and Address Organization Details Recorded Time 4348 Iodinated contrast media (substanc e) medicatio n Not available Not available Not available 03/23/2023 43422 2003 SNOMED Selina Danielle MD [address] [facility],[address], [place], [address] [facility] [employer] 4 11:08:47 Medications Name Sig Start Date [...] Address Organization Details Last Updated DateTime 03/23/2023 34921.56 g 26.6 kg/m2 152.4 cm Selina Danielle MD [address] [place] [address],[address], [place], [address], [facility] 03/24/2023 17:38:26 Date Recorded Oxygen saturation Oxygen saturation in Arterial blood by Pulse oximetry Body temperature Respiratory rate Heart rate Systolic And Diastolic Provider Name and Address Organization Details Last Updated DateTime 4 99 % 99 % 98.4 [degF] 18 /min 94 /min 165/88 mm[Hg] Not Available [employer] 4 11:07:52 Date Recorded Heart rate Body height Oxygen saturation Oxygen saturation in Arterial blood by Pulse oximetry Body weight Respiratory rate Systolic And Diastolic Provider Name and Address Organization Details Last Updated DateTime 3 90 /min 152.4 cm 96 % 96 % 77441.1 44 g 16 /min 167/95 mm[Hg] Not Available [facility] 3 11:30:48 Social History None recorded. Functional Status None recorded. Mental Status None recorded. Family History Nothing Reported. Medical History No medical history recorded. Gynecological HistoryNo gynecological history recorded. Obstetrics History GPAL:G 0 P 0 0 0 0 Past Encounters Encounter ID Performer Location Encounter Start Date Encounter Closed Date Diagnosis/Indication Diagnosis SNOMED-CT Code Diagnosis ICD10 Code Diagnosis Note [id number] Rudy Washington MD [address] [address] 03/11/2023 11:30:42 03/13/2023 12:40:38 Herpes zoster [id number] B02.9 Shingles; currently on antiviral treatment as well as Prednisone burst. For itching, advised to take OTC Calamine lotion and if continues to worsen, to apply Mupirocin ointment TID PRN to prevent bacterial superinfec tion. Discussed red flag signs for which to seek higher level of care. [id number] Selina Danielle MD [address] [address] 03/23/2023 11:07:44 03/26/2023 17:27:24 Herpes zoster [id number] B02.9 Need to follow-up with her PCP [...] Shea Member ID Guarantor Name 06/28/2024 1 [facility] - DOS ON OR AFTER 2022 - DUAL ELIGIBLE - SENIOR LIVING OPTIONS AND ONE CARE (MEDICARE REPLACEMENT/ADV ANTAGE - HMO) Xiomara Gaffney [id number] Xiomara Gaffney Notes Date Note Type Note Provider Name and Address Organization Details Recorded Time 03/11/2023 text/html ROS as noted in the [facility] Nurse Triage Notes (Sarah Terry): Reason [...] .................... .................... .................... .................... .................... .................... . Tube Filler Note From Drake Dickinson: Pt reports shingles dx in the ED 4 days ago. Pt sent home with valtrex, prednisone and naproxen. Pt feels that the rash is worsening and is requesting something topical. Pt is alert, NAD. VSS. Afebrile. Non focal neuro exam. Classic shingles rash on left side of mid back around the left side. No open blisters. [facility] contacted and will send rx for bactroban bid. Pt also advised to use calamine lotion in between the bactroban. Pt instructed to seek emergent medical care for new or worsening sx, which are reviewed with her. .................... .................... .................... .................... .................... .................... .................... . Disposition: Fulfilled Rudy Washington MD [address] [place] [address],[address], [place], [address], [employer] 03/11/2023 13:22:18 03/23/2023 text/html ROS as noted in the [facility] Nurse Triage Notes (Yael Hurt): Reason For Request: PT's son reporting diagnosis of shingles>pain in her back left side>states shingles has been spreading>has followed up with PCP, was gabapentin for the pain in which the son says it has not been working at all for her. Chief Complaints: Pain PMH: COPD/Asthma Comments: Diagnosed with shingles 2.5 weeks in ED at [facility]. Finished course of medication prescribed. Shingles to left side of back. Exacerbation of pain and drainage to areas. .................... .................... .................... .................... .................... .................... .................... . Tube Filler Note From Bennie Regalado: Or diagnosed with [...] nausea vomiting diarrhea. Selina Danielle MD [address] [facility],[address], [place], [address], [place] [facility] 03/24/2023 17:41:57 OBGyn Episode No OBEpisode recorded.
--- OUTSIDE RECORDS SUMMARY | 2024-10-01 15:09 | XMS_ITS ---
Author Name MS. Jason Renner APRN Address [address] [place] [address] Phone [phone] [facility] Care Team Providers Care Newspaper Copy Editor Name Role Phone Keyla Renner Unavailable [phone] Unavailable Unavailable [phone] Reason for Referral Not Available Allergies, adverse [...] TWICE A DAY 2021-08-31 No Data Available Qemxumdh-Amixoicye-Xjxbbefv 3.5-57023-4.1 Oint APPLY 1/4 INCH ON EYELID 3 TIMES A DAY 2021-10-05 No Data Available traMADol 50 mg Tab TAKE 1 TABLET BY HONEY TH TWICE A DAY NEEDED FOR PAIN 2021-10-19 No Data Available Nystatin 499926 UNIT/GM Powder USE 1 NICOLE LICATION TOPICALLY [...] withdrawal anxiety stable on medications and with islam beliefs and yarsani BMI 24.0-24.9, adult Active 2022-03-21 N/A BMI [...] (do not use for phone, instead use 75338-66) [facility], [place] 02/[place]/2022 Depression, unspecifiedHyperlipidemia, unspecifiedUnspecified asthma, uncomplicatedGastro-esophageal reflux disease without esophagitisNausea with vomiting, unspecifiedVitamin D deficiency, unspecifiedUnspecified osteoarthritis, unspecified site New patient,40-59min; chronic exacerbation, 2 stable chronic or 1 acute illness add add modifier 95 for video (do not use for phone, instead use 44583-47) [facility] 02/24/2022 New patient,40-59min; chronic exacerbation, 2 stable chronic or 1 acute illness add add modifier 95 for video (do not use for phone, instead use 80064-83) [facility] 02/24/2022 New patient,40-59min; chronic exacerbation, 2 stable chronic or 1 acute illness add add modifier 95 for video (do not use for phone, instead use 24614-69) [facility] 02/24/2022 New patient,40-59min; chronic exacerbation, 2 stable chronic or 1 acute illness add add modifier 95 for video (do not use for phone, instead use 65419-59) [facility] 02/24/2022 New patient,40-59min; chronic exacerbation, 2 stable chronic or 1 acute illness add add modifier 95 for video (do not use for phone, instead use 59760-51) [facility] 02/24/2022 New patient,40-59min; chronic exacerbation, 2 stable chronic or 1 acute illness add add modifier 95 for video (do not use for phone, instead use 92803-21) [facility] 02/24/2022 New patient,40-59min; chronic exacerbation, 2 stable chronic or 1 acute illness add add modifier 95 for video (do not use for phone, instead use 05477-34) [facility] 02/24/2022 New patient,40-59min; chronic exacerbation, 2 stable chronic or 1 acute illness add add modifier 95 for video (do not use for phone, instead use 12105-94) [facility] 02/24/2022 Estab. patient 30-39min; chronic exacerbation, 2 stable chronic or 1 acute illness add add modifier 95 for video, (do not use for phone, instead use 48358-22) [facility] 03/21/2022 Major depressive disorder, single episode, in [...] (do not use for phone, instead use 93509-86) [facility] 03/21/20[place] Estab. patient 30-39min; chronic exacerbation, 2 stable chronic or 1 acute illness add add modifier 95 for video, (do not use for phone, instead use 27322-92) [facility] 03/21/2022 Estab. patient 30-39min; chronic exacerbation, 2 stable chronic or 1 acute illness add add modifier 95 for video, (do not use for phone, instead use 00091-65) [facility] [place] 03/21/2022 Estab. patient 30-39min; chronic exacerbation, 2 stable chronic or 1 acute illness add add modifier 95 for video, (do not use for phone, instead use 77945-07) [facility] [place] 03/21/2022 Estab. patient 30-39min; chronic exacerbation, 2 stable chronic or 1 acute illness add add modifier 95 for video, (do not use for phone, instead use 52664-29) [facility] [place] 03/21/2022 Estab. patient 30-39min; chronic exacerbation, 2 stable chronic or 1 acute illness add add modifier 95 for video, (do not use for phone, instead use 24261-65) [facility] [place] 03/21/2022 Estab. patient 30-39min; chronic exacerbation, 2 stable chronic or 1 acute illness add add modifier 95 for video, (do not use for phone, instead use 84550-19) [facility] ([place]) 03/21/2022 Vital Signs Date of Collection Vitals [...] tive Time Current Smoking Status Never smoker 2024-09-10 3 Sex Female History of Procedures Procedures Service Procedure code Service date Servicing provider Phone# New patient,40-59min; chronic exacerbation, 2 stable chronic or 1 acute illness add add modifier 95 for video (do not use for phone, instead use 34176-04) [id number] 2022-02-24 No Data Available No Data Availa [...] (do not use for phone, instead use 38948-53) [id number] 2022-03-21 No Data Available No Data Availa [...] withdrawal anxiety stable on medications and with islam beliefs and churchBMI 24.51exercise as toleratedat times [...] YesDo you have a Durable Power of Medical Insurance Coder for Healthcare, or Healthcare Proxy? YesIf so, [...]
== END 2024-10-01 15:25 | disposition home or self-care (01) ==
LOC: HO.HMCH 14:38
PROVIDERS: PCP Internal Medicine; Visit Provider Internal Medicine
DX: F33.0 Major depressive disorder, recurrent, mild (principal); F41.9 Anxiety disorder, unspecified; I10 Essential (primary) hypertension; E03.9 Hypothyroidism, unspecified; M15.9 Polyosteoarthritis, unspecified; B02.29 Other postherpetic nervous system involvement; E78.5 Hyperlipidemia, unspecified; L98.9 Disorder of the skin and subcutaneous tissue, unspecified

== ENCOUNTER → 2024-10-01 14:37 | Outpatient (BNVA) | payer OTHER, SELFPAY | PROVIDERS: PCP Internal Medicine; Visit Provider Internal Medicine | DX: M54.12 Radiculopathy, cervical region (principal); I10 Essential (primary) hypertension; F41.9 Anxiety disorder, unspecified; M15.9 Polyosteoarthritis, unspecified; F33.0 Major depressive disorder, recurrent, mild; E03.9 Hypothyroidism, unspecified; B02.29 Other postherpetic nervous system involvement; E78.5 Hyperlipidemia, unspecified; L98.9 Disorder of the skin and subcutaneous tissue, unspecified | CPT/HCPCS: 96127; 99212 ==

== ENCOUNTER 2024-10-27 10:22 | Outpatient (REF) | payer OTHER, SELFPAY ==
--- NOTE | ~2024-10-27 | XR_ITS ---
EXAMINATION: XR CERVICAL SPINE CLINICAL INFORMATION: M54.12 - Radiculopathy, cervical region COMPARISON: Correlated to CT dated March 20, 2022. TECHNIQUE: AP lateral and atlantoodontoid views. FINDINGS: Craniocervical junction is intact. Marginal osteophyte formation and endplate sclerosis decreased intervertebral disc height at C6-7 and to a lesser extent C5-6. Reverse curvature apex at C6. No acute cortical disruption. Grade 1 anterolisthesis C5-6 and likely C4-5 on a degenerative basis. Bilateral facet joint hypertrophy C3-4, C4-5 and C6-7. Upper airway is patent. No lytic or blastic lesions. XR/XR cervical spine 4V IMPRESSION: Multilevel cervical spondylosis pronounced at C6-7 and to a lesser extent C5-6. Electronically signed by: Javier White MD 10/27/2024 11:00 AM EDT
--- OUTSIDE RECORDS SUMMARY | 2024-10-27 11:24 | XMS_ITS ---
Author Name MS. Jason Renner APRN Address [address] [place] [address] Phone [phone] [facility] Care Team Providers Care Toddler Lead Teacher Name Role Phone Keyla Renner Unavailable [phone] Unavailable Unavailable [phone] Reason for Referral Not Available Allergies, adverse [...] TWICE A DAY 2021-08-31 No Data Available Sppwfwgr-Depjjlmtq-Usxntpah 3.5-45498-3.1 Oint APPLY 1/4 INCH ON EYELID 3 TIMES A DAY 2021-10-05 No Data Available traMADol 50 mg Tab TAKE 1 TABLET BY HONEY TH TWICE A DAY NEEDED FOR PAIN 2021-10-19 No Data Available Nystatin 025526 UNIT/GM Powder USE 1 NICOLE LICATION TOPICALLY [...] withdrawal anxiety stable on medications and with faith beliefs and uatsdin BMI 24.0-24.9, adult Active 2022-03-21 N/A BMI [...] (do not use for phone, instead use 86155-04) [facility], ([place] 02/24/2022 Depression, unspecifiedHyperlipidemia, unspecifiedUnspecified asthma, uncomplicatedGastro-esophageal reflux disease without esophagitisNausea with vomiting, unspecifiedVitamin D deficiency, unspecifiedUnspecified osteoarthritis, unspecified site New patient,40-59min; chronic exacerbation, 2 stable chronic or 1 acute illness add add modifier 95 for video (do not use for phone, instead use 86618-76) [facility] [place]20[place] New patient,40-59min; chronic exacerbation, 2 stable chronic or 1 acute illness add add modifier 95 for video (do not use for phone, instead use 54899-04) [facility] [place] 02[place]24/20[place] New patient,40-59min; chronic exacerbation, 2 stable chronic or 1 acute illness add add modifier 95 for video (do not use for phone, instead use 17991-15) [facility] [place] 02/24/20[place] New patient,40-59min; chronic exacerbation, 2 stable chronic or 1 acute illness add add modifier 95 for video (do not use for phone, instead use 53247-20) [facility] [place] 02/24/2022 New patient,40-59min; chronic exacerbation, 2 stable chronic or 1 acute illness add add modifier 95 for video (do not use for phone, instead use 08844-73) [facility] [place] 02/24/20[place] New patient,40-59min; chronic exacerbation, 2 stable chronic or 1 acute illness add add modifier 95 for video (do not use for phone, instead use 34416-21) [facility] [place] 02/24/2022 New patient,40-59min; chronic exacerbation, 2 stable chronic or 1 acute illness add add modifier 95 for video (do not use for phone, instead use 63433-41) [facility] [place] 02/24/2022 New patient,40-59min; chronic exacerbation, 2 stable chronic or 1 acute illness add add modifier 95 for video (do not use for phone, instead use 87224-20) [facility] [place] 02/24/2022 Estab. patient 30-39min; chronic exacerbation, 2 stable chronic or 1 acute illness add add modifier 95 for video, (do not use for phone, instead use 22686-27) [facility] [place] 03/21/2022 Major depressive disorder, single episode, in [...] (do not use for phone, instead use 20742-21) [facility] [place] 03/21/20[place] Estab. patient 30-39min; chronic exacerbation, 2 stable chronic or 1 acute illness add add modifier 95 for video, (do not use for phone, instead use 25044-38) [facility] [place] 03/21/2022 Estab. patient 30-39min; chronic exacerbation, 2 stable chronic or 1 acute illness add add modifier 95 for video, (do not use for phone, instead use 12192-59) [facility] [place] 03/21/20[place] Estab. patient 30-39min; chronic exacerbation, 2 stable chronic or 1 acute illness add add modifier 95 for video, (do not use for phone, instead use 52658-81) [facility] [place] 03/21/2022 Estab. patient 30-39min; chronic exacerbation, 2 stable chronic or 1 acute illness add add modifier 95 for video, (do not use for phone, instead use 73262-92) [facility] [place] 03/21/20[place] Estab. patient 30-39min; chronic exacerbation, 2 stable chronic or 1 acute illness add add modifier 95 for video, (do not use for phone, instead use 39378-29) [facility] [place] 03/21/2022 Estab. patient 30-39min; chronic exacerbation, 2 stable chronic or 1 acute illness add add modifier 95 for video, (do not use for phone, instead use 63078-97) [facility] ([place]) 03/21/2022 Vital Signs Date of Collection Vitals [...] tive Time Current Smoking Status Never smoker 2024-10-10 9 Sex Female History of Procedures Procedures Service Procedure code Service date Servicing provider Phone# New patient,40-59min; chronic exacerbation, 2 stable chronic or 1 acute illness add add modifier 95 for video (do not use for phone, instead use 99631-46) [id number] 2022-02-24 No Data Available No Data Availa [...] (do not use for phone, instead use 63980-11) [id number] 2022-03-21 No Data Available No Data Availa [...] withdrawal anxiety stable on medications and with faith beliefs and churchBMI 24.51exercise as toleratedat times [...] YesDo you have a Durable Power of Returns Processor for Healthcare, or Healthcare Proxy? YesIf so, [...]
== END 2024-10-27 10:23 | disposition home or self-care (01) ==
LOC: HO.XRAY 10:22
PROVIDERS: PCP Internal Medicine; Visit Provider Internal Medicine
DX: M54.12 Radiculopathy, cervical region (principal)
CPT/HCPCS: 72050

== ENCOUNTER → 2024-10-27 10:35 | Outpatient (BNV) | payer OTHER, SELFPAY | PROVIDERS: PCP Internal Medicine; Visit Provider Radiology Diagnostic Radiology | DX: M50.123 Cervical disc disorder at C6-C7 level with radiculopathy (principal) | CPT/HCPCS: 72050 ==

== ENCOUNTER 2024-11-05 09:17 | Outpatient (AMB) | payer OTHER, SELFPAY ==
--- NOTE | 2024-11-05 09:18 | MHC.PC.OV ---
Vital Signs 11/05/24 09:19 Height 5 ft Weight 126 lb 8 oz BMI 24.7 BP 130/82 Blood Pressure Location Lt brachial Position Sitting Pulse 84 Pulse Source Pulse Oximeter Pulse Oximetry (%) 98 Oxygen Delivery Method Room Air Intake Visit Reasons: [facility] 10/20 It Generalist Required: No Accompanied by: Son Allergies barium sulfate (CONTRAST,ORAL) Allergy (Intermediate, Verified 11/05/24 09:28) HIVES Iodinated Contrast Media (IV CONTRAST) Allergy (Intermediate, Verified 11/05/24 09:28) HIVES ondansetron (From Zofran) Allergy (Intermediate, Verified 11/05/24 09:28) Stomach Upset doxycycline Adverse Reaction (Severe, Verified 11/05/24 09:28) Vomiting amoxicillin Adverse Reaction (Intermediate, Verified 11/05/24 09:28) Rash celecoxib Adverse Reaction (Mild, Verified 11/05/24 09:28) chills cyclobenzaprine Adverse Reaction (Mild, Verified 11/05/24 09:28) anxiety nabumetone Adverse Reaction (Mild, Verified 11/05/24 09:28) dry mouth, upset stomach Medication List - Last Reconciled 11/05/24 by Homa Cronin MD acetaminophen ER (Pain Relief (acetaminophen)) 1,300 mg (2 x 650 mg) PO Q12H PRN 30 days [adult diapers disposable briefs As directed] albuterol sulfate 1.25 mg (3 mL) PO QID PRN albuterol sulfate 90 mcg/actuation 2 puffs inhalation Q4-6H PRN atorvastatin 20 mg PO BEDTIME 90 days [body contour pillow As directed] calcium carbonate-vitamin D3 500 mg-10 mcg (400 unit) (Oyster Shell Calcium-Vitamin D3) 2 tabs PO DAILY 90 days capsaicin 0.035% 1 appl topical BID 4 weeks cholecalciferol (vitamin D3) 25 mcg PO DAILY 90 days escitalopram oxalate 20 mg PO DAILY [flip pillow As directed] fluticasone propionate 110 mcg/actuation 1 puff inhalation BID gabapentin 800 mg PO TID 30 days [gloves powder free synthetic As directed] Grab bar As directed ipratropium-albuterol 0.5 mg-3 mg(2.5 mg base)/3 mL 3 mL inhalation Q6H PRN 90 days [leg pillow As directed] levothyroxine 50 mcg PO DAILY 90 days lidocaine 5% 1 appl topical BEDTIME 30 days lidocaine 5% 1 patch topical DAILY PRN 30 days linaclotide (Linzess) 145 mcg PO QAM 30 days lorazepam 1 mg PO BID losartan 25 mg PO DAILY 90 days meloxicam 15 mg PO DAILY mupirocin 2% 1 appl topical BID 2 weeks nebulizers Nebulizer with tubing and accessories nystatin 1 appl topical BID 30 days omeprazole 20 mg PO DAILY 90 days ondansetron HCl 4 mg PO Q8H PRN 30 days [personal cleansing wipes As directed] [raised toilet seat As directed] [recliner As directed] [reclining chair As directed] sennosides (Senokot) 8.6 mg PO DAILY PRN Shower Chair As directed [shower head As directed] silver sulfadiazine 1% (Silvadene) 1 appl topical DAILY 7 days valacyclovir (Valtrex) 1,000 mg PO TID 7 days vaporizers As directed Tobacco use date assessed: 11/05/24 Fall risk assessment: 2 + Falls in past year Last assessed Fall Risk: 11/05/24 Dental Screening Dental Screen Date: 11/05/24 Did you have a dental visit in the last 12 months?: No Did you have a dental problem in the last 6 months where you did not have access to dental care?: No Was dental information given to patient?: No HPI HPI Comments History of Present Illness Details The patient is a 69-year-old female presenting for a preoperative evaluation for upper blepharoplasty. This is a low risk surgery and she is on low risk patient. She has 5-7 Mets of ADLs. Labs and EKG will be order for medical clearance. She has a history of allergic reactions to several medications, including barium sulfate, contrast, ondansetron, doxycycline, amoxicillin, Celebrex, and Flexeril, which manifest as hives, stomach pain, vomiting, rash, chills, and anxiety respectively. The patient has asthma, for which she uses an albuterol inhaler as needed and another inhaler daily. She also has depression with anxiety and insomnia, managed with escitalopram 20 mg. The patient experiences postherpetic neuralgia, a type of neuropathy following shingles, and takes gabapentin 800 mg three times a day for management. She has been diagnosed with osteopenia, for which she takes calcium with vitamin D, and her next bone density scan is scheduled for 2026. 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 [facility] Medical History (Updated 11/05/24 @ 09:43 by Homa Cronin MD) Lumbar pain Urinary incontinence History of COVID-19 Candidal intertrigo Sinusitis PONV (postoperative nausea and vomiting) Shoulder pain GERD (gastroesophageal reflux disease) Coccyalgia Mild recurrent major depression Rectal bleeding History of asthma Rash Dyslipidemia Impaired glucose tolerance Fibromyalgia Arthritis Anxiety Surgical History H/O exploratory laparotomy History of eye surgery History of abdominal surgery Previous section History of carpal tunnel surgery of left wrist History of carpal tunnel surgery Family History Mother Colon cancer Hypertension Glaucoma Arthritis Father Bone cancer Social History Household Members: Children Housing: Apartment Do you presently have visiting nurse or other home services: Yes Unable to assess alcohol history related to: Unknown Alcohol intake: never Patient Tobacco Use Status: Never used Tobacco e-Cigarette/Vaping Use: Never Used Second Hand Smoke Exposure: No service: No Current occupational status: disabled Current occupation: Right Handed Cognitive needs: No Hearing needs: No Vision needs: Yes (glasses) Questionnaire PHQ-9 Over the last 2 weeks, how often have you been bothered by any of the following problems? 1. Little interest or pleasure in doing things: several days 2. Feeling down, depressed, or hopeless: several days 3. Trouble falling or staying asleep, or sleeping too much: nearly every day 4. Feeling tired or having little energy: more than half the days 5. Poor appetite or overeating: more than half the days 6. Feeling bad about yourself - or that you are a failure or have let yourself or your family down: not at all 7. Trouble concentrating on things, such as reading the newspaper or watching television: several days 8. Moving or speaking so slowly that other people could have noticed. Or the opposite - being so fidgety or restless that you have been moving around a lot more than usual: several days 9. Thoughts that you would be better off or of hurting yourself in some way: not at all Total score: 11 Depression Screening Interpretation: Positive Depression Screening Follow-up: Existing condition, In treatment and Follow-up Visit Requested Depression Screening Done: Yes 08171 - PHQ-9 Billing: Yes Source: Developed by Drs. Damián Mcgrath, Cee Butler, Wing Mattson and colleagues, with an educational vanessa from [employer]. Thrive Questionnaire Date Thrive assessed: 11/05/24 I am a: Patient What is your living situation today?: I choose not to answer this question Within the past 12 months, did the food you bought not last and you didn't have the money to get more?: I choose not to answer this question Within the past 12 months, did you worry whether your food would run out before you got money to buy more?: I choose not to answer this question Do you have trouble paying for medicines?: I choose not to answer this question Do you have trouble getting transportation to medical appointments?: I choose not to answer this question Do you have trouble paying your heating and electricity bill?: I choose not to answer this question Do you have trouble taking care of your child, family member or friend?: I choose not to answer this question Do you have trouble with day-to-day activities such as bathing, preparing meals, shopping, managing finances, etc.?: I choose not to answer this question Are you currently unemployed and looking for a job?: I choose not to answer this question Are you interested in more education?: I choose not to answer this question Please select the resources that you would like help with: None Currently or been in a relationship where the following occur: I choose not to answer THRIVE Score: 0 AUDIT C Alcohol Use Questionnaire (AUDIT-C) 1. How often do you have a drink containing alcohol?: Never 3. How often do you have six or more drinks on one occasion?: Never Total Score: 0 Score Reviewed/Action Taken: No YENNIFER-7 AMB Questionnaire YENNIFER-7 Date YENNIFER - 7 assessed: 11/05/24 Feeling nervous, anxious, or on edge: 0 = Not at all Not being able to stop or control worryin = Not at all Worrying too much about different things: 0 = Not at all Trouble relaxin = Not at all Being so restless that it is hard to sit still: 0 = Not at all Becoming easily annoyed or irritable: 0 = Not at all Feeling afraid as if something awful might happen: 1 = Several days Total YENNIFER-7 score (0-4 normal; 5-9 mild; 10-14 moderate; 15-21 severe): 1 Source: Developed by Drs. Damián Mcgrath, Cee Butler, Wing Mattson and colleagues, with an educational vanessa from [employer]. YENNIFER-7 Assessment Billing YENNIFER-7 Assessment Tool: YENNIFER-7 Assessment 74617 Review of Systems Const All systems reviewed & are unremarkable except as noted in HPI and below Card Denies chest pain at rest, Denies chest pain with activity, Denies edema, Denies irregular heart rhythm, Denies claudication, Denies dyspnea, Denies dyspnea on exertion, Denies orthopnea, Denies paroxysmal nocturnal dyspnea and Denies slow heart rate Resp Denies cough, Denies dyspnea and Denies dyspnea on exertion Physical exam (Primary Care) Vital Signs: Last Vital Signs Pulse 84 11/05/24 09:19 BP 130/82 11/05/24 09:19 Pulse Ox 98 11/05/24 09:19 Oxygen Delivery Method Room Air 11/05/24 09:19 BMI result Body Mass Index 24.7 Tobacco/Smoking Status: Tobacco use Status Tobacco use date assessed 11/05/24 11/05/24 09:24 Patient Tobacco Use Status Never used Tobacco 11/05/24 09:24 e-Cigarette/Vaping Use Never Used 11/05/24 09:24 PHQ-9: PHQ-9 Score PHQ-9: Total score 11 11/05/24 09:24 Depression Screening Interpretation: Positive Depression Screening Follow-up: Existing condition, In treatment and Follow-up Visit Requested Thrive Assessment: Date of Thrive Assessment Date Thrive assessed 11/05/24 11/05/24 09:24 Currently or been in a relationship where the following occur: I choose not to answer Resp Effort & Inspection: normal respiratory effort Auscultation: clear to auscultation bilaterally Cardio Jugular venous distension: no JVD Rate: regular rate Rhythm: regular rhythm Heart sounds: S1 normal heart sound present and S2 normal heart sound present Extrem General: Yes full ROM Coding Level of Care Code Est Pt Level 4 (42524) Complex EM visit Add On G2211 Diagnoses Pre-op evaluation Z01.818 Postherpetic neuralgia B02.29 Cervical radiculopathy M54.12 Essential hypertension I10 Dyslipidemia E78.5 Mild recurrent major depression F33.0 Additional Codes PHQ-9 - 77034 - PHQ-9 Billing: Yes ([id number]) YENNIFER-7 Assessment Billing - YENNIFER-7 Assessment Tool: YENNIFER-7 Assessment 78715 ([id number]) Time Spent (min) 24 Assessment & Plan Assessment & Plan (1) Pre-op evaluation: Code(s): Z01.818 - Encounter for other preprocedural examination Category: Medical (2) Postherpetic neuralgia: Code(s): B02.29 - Other postherpetic nervous system involvement Category: Medical (3) Cervical radiculopathy: Code(s): M54.12 - Radiculopathy, cervical region Category: Medical (4) Essential hypertension: Code(s): I10 - Essential (primary) hypertension Category: Medical (5) Dyslipidemia: Code(s): E78.5 - Hyperlipidemia, unspecified Category: Medical (6) Mild recurrent major depression: Code(s): F33.0 - Major depressive disorder, recurrent, mild Category: Medical Plan Plan Patient was informed and verbally consented to the use of an ambient scribe for clinic note documentation during this visit. 1. Encounter for other preprocedural examination Z01.818 The patient is scheduled for an upper blepharoplasty on November 20, which is considered a low-risk procedure. Preoperative evaluations include laboratory tests and an electrocardiogram to ensure fitness for surgery. 2. Unspecified asthma, uncomplicated J45.909 The patient manages her asthma with an albuterol inhaler as needed and another inhaler daily. 3. Major depressive disorder, recurrent, mild F33.0 HCC 59 The patient's depression with anxiety and insomnia is managed with escitalopram 20 mg daily. 4. Other postherpetic nervous system involvement B02.29 The patient experiences postherpetic neuralgia and takes gabapentin 800 mg three times a day for pain management. 5. Other specified disorders of bone density and structure, unspecified site M85.80 The patient is treated with calcium and vitamin D for osteopenia, with the next bone density scan scheduled for 2026. 6. Other spondylosis with radiculopathy, cervical region M47.22 The patient has cervical arthritis in the C5-C7 vertebrae and is under pain management care. Orders: Orders ECG 12 lead EKG Today Z01.818 - Encounter for other preprocedural examination Vitamin D 25-OH Total Today E55.9 - Vitamin D deficiency, unspecified Lipid Panel Today E78.5 - Hyperlipidemia, unspecified Complete Blood Count Auto Diff Today M54.12 - Radiculopathy, cervical region Comprehensive Preemption. Panel Fast Today B02.29 - Other postherpetic nervous system involvement Vitamin B12 and Folate Today E53.8 - Deficiency of other specified B group vitamins Thyroid Stimulating Hormone Today E03.9 - Hypothyroidism, unspecified Medications: Refilled ondansetron HCl 4 mg PO Q8H PRN 90 tabs 0RF nausea and vomiting 30 days
[2024-11-05 09:19] VITALS: BP 130/82; PULSE 84; O2SAT 98; BMI 24.7
--- OUTSIDE RECORDS SUMMARY | 2024-11-05 09:48 | XMS_ITS ---
Author Name MS. Jason Renner APRN Address [address] [place] [address] Phone [phone] [facility] Care Team Providers Care Radiographer Angiogram Name Role Phone Keyla Renner Unavailable [phone] Unavailable Unavailable [phone] Reason for Referral Not Available Allergies, adverse [...] TWICE A DAY 2021-08-31 No Data Available Dhawknfg-Lonzeqsyp-Mamdvshs [id number] Oint APPLY 1/4 INCH ON EYELID 3 TIMES A DAY 2021-10-05 No Data Available traMADol 50 mg Tab TAKE 1 TABLET BY HONEY TH TWICE A DAY NEEDED FOR PAIN 2021-10-19 No Data Available Nystatin 499969 UNIT/GM Powder USE 1 NICOLE LICATION TOPICALLY [...] withdrawal anxiety stable on medications and with tenriism beliefs and spiritism BMI 24.0-24.9, adult Active 2022-03-21 N/A BMI [...] (do not use for phone, instead use 84868-21) [employer] [employer] ([place] 02/24/2022 Depression, unspecifiedHyperlipidemia, unspecifiedUnspecified asthma, uncomplicatedGastro-esophageal reflux disease without esophagitisNausea with vomiting, unspecifiedVitamin D deficiency, unspecifiedUnspecified osteoarthritis, unspecified site New patient,40-59min; chronic exacerbation, 2 stable chronic or 1 acute illness add add modifier 95 for video (do not use for phone, instead use 32887-40) [employer] [place] 02/24/2022 New patient,40-59min; chronic exacerbation, 2 stable chronic or 1 acute illness add add modifier 95 for video (do not use for phone, instead use 80369-54) [employer] [facility] [place] 02/24/2022 New patient,40-59min; chronic exacerbation, 2 stable chronic or 1 acute illness add add modifier 95 for video (do not use for phone, instead use 16589-30) [employer] [place] 02/24/2022 New patient,40-59min; chronic exacerbation, 2 stable chronic or 1 acute illness add add modifier 95 for video (do not use for phone, instead use 90521-29) [employer] [facility] [place] 02/24/2022 New patient,40-59min; chronic exacerbation, 2 stable chronic or 1 acute illness add add modifier 95 for video (do not use for phone, instead use 05523-30) [employer] [facility] [place] 02/24/2022 New patient,40-59min; chronic exacerbation, 2 stable chronic or 1 acute illness add add modifier 95 for video (do not use for phone, instead use 90866-22) [employer] [place] 02/24/2022 New patient,40-59min; chronic exacerbation, 2 stable chronic or 1 acute illness add add modifier 95 for video (do not use for phone, instead use 96783-57) [employer] [place] 02/24/2022 New patient,40-59min; chronic exacerbation, 2 stable chronic or 1 acute illness add add modifier 95 for video (do not use for phone, instead use 08740-49) [employer] [place] 02/24/2022 Estab. patient 30-39min; chronic exacerbation, 2 stable chronic or 1 acute illness add add modifier 95 for video, (do not use for phone, instead use 02458-33) [employer] [place] 03/21/2022 Major depressive disorder, single episode, in [...] (do not use for phone, instead use 96426-07) [employer] [facility] [place] 03/21/2022 Estab. patient 30-39min; chronic exacerbation, 2 stable chronic or 1 acute illness add add modifier 95 for video, (do not use for phone, instead use 90586-08) [employer] [facility] [place] 03/21/2022 Estab. patient 30-39min; chronic exacerbation, 2 stable chronic or 1 acute illness add add modifier 95 for video, (do not use for phone, instead use 52764-09) [employer] [place] 03/21/2022 Estab. patient 30-39min; chronic exacerbation, 2 stable chronic or 1 acute illness add add modifier 95 for video, (do not use for phone, instead use 89882-79) [employer] [place] 03/21/2022 Estab. patient 30-39min; chronic exacerbation, 2 stable chronic or 1 acute illness add add modifier 95 for video, (do not use for phone, instead use 52124-59) [employer] [facility] [place] 03/21/2022 Estab. patient 30-39min; chronic exacerbation, 2 stable chronic or 1 acute illness add add modifier 95 for video, (do not use for phone, instead use 54716-66) [employer] [facility] [place] 03/21/2022 Estab. patient 30-39min; chronic exacerbation, 2 stable chronic or 1 acute illness add add modifier 95 for video, (do not use for phone, instead use 57143-45) [facility] 03/21/2022 Vital Signs Date of Collection Vitals [...] tive Time Current Smoking Status Never smoker 2024-10-11 8 Sex Female History of Procedures Procedures Service Procedure code Service date Servicing provider Phone# New patient,40-59min; chronic exacerbation, 2 stable chronic or 1 acute illness add add modifier 95 for video (do not use for phone, instead use 86787-94) [id number] 2022-02-24 No Data Available No Data Availa [...] (do not use for phone, instead use 43449-37) 25934 2022-03-21 No Data Available No Data Availa [...] withdrawal anxiety stable on medications and with tenriism beliefs and churchBMI 24.51exercise as toleratedat times [...] YesDo you have a Durable Power of [employer] Supervisor for Healthcare, or Healthcare Proxy? YesIf so, [...]
== END 2024-11-05 09:42 | disposition home or self-care (01) ==
LOC: HO.HMCH 09:18
PROVIDERS: PCP Internal Medicine; Visit Provider Internal Medicine
DX: Z01.818 Encounter for other preprocedural examination (principal); B02.29 Other postherpetic nervous system involvement; M54.12 Radiculopathy, cervical region; I10 Essential (primary) hypertension; E78.5 Hyperlipidemia, unspecified; F33.0 Major depressive disorder, recurrent, mild

== ENCOUNTER → 2024-11-05 09:17 | Outpatient (BNVA) | payer OTHER, SELFPAY | PROVIDERS: PCP Internal Medicine; Visit Provider Internal Medicine | DX: Z01.818 Encounter for other preprocedural examination (principal); J45.909 Unspecified asthma, uncomplicated; M85.80 Other specified disorders of bone density and structure, unspecified site; M47.22 Other spondylosis with radiculopathy, cervical region; M54.14 Radiculopathy, thoracic region; B02.29 Other postherpetic nervous system involvement; I10 Essential (primary) hypertension; E78.5 Hyperlipidemia, unspecified; F33.0 Major depressive disorder, recurrent, mild; E55.9 Vitamin D deficiency, unspecified; E53.8 Deficiency of other specified B group vitamins; E03.9 Hypothyroidism, unspecified | CPT/HCPCS: 96127; 99212 ==

== ENCOUNTER 2025-03-11 09:33 | Outpatient (AMB) | payer OTHER, SELFPAY ==
--- NOTE | 2025-03-11 09:40 | A.OFFPC_ITS ---
Vital Signs 03/11/25 09:41 Height 5 ft Weight 132 lb BMI 25.8 BP 152/88 H Blood Pressure Location Lt brachial Position Sitting Pulse 95 Pulse Source Pulse Oximeter Pulse Oximetry (%) 98 Oxygen Delivery Method Room Air Intake Visit Reasons: Chest pain/asma Jd Edwards Developer Required: No Accompanied by: Self / Same As Patient Allergies barium sulfate (CONTRAST,ORAL) Allergy (Intermediate, Verified 03/11/25 09:49) HIVES Iodinated Contrast Media (IV CONTRAST) Allergy (Intermediate, Verified 03/11/25 09:49) HIVES ondansetron (From Zofran) Allergy (Intermediate, Verified 03/11/25 09:49) Stomach Upset doxycycline Adverse Reaction (Severe, Verified 03/11/25 09:49) Vomiting amoxicillin Adverse Reaction (Intermediate, Verified 03/11/25 09:49) Rash celecoxib Adverse Reaction (Mild, Verified 03/11/25 09:49) chills cyclobenzaprine Adverse Reaction (Mild, Verified 03/11/25 09:49) anxiety nabumetone Adverse Reaction (Mild, Verified 03/11/25 09:49) dry mouth, upset stomach Medication List - Last Reconciled 03/11/25 by Homa Cronin MD acetaminophen ER (Pain Relief (acetaminophen)) 1,300 mg (2 x 650 mg) PO Q12H PRN 30 days [adult diapers disposable briefs As directed] albuterol sulfate 90 mcg/actuation 2 puffs inhalation Q4-6H PRN albuterol sulfate 1.25 mg (3 mL) PO QID PRN atorvastatin 20 mg PO BEDTIME 90 days [body contour pillow As directed] calcium carbonate-vitamin D3 500 mg-10 mcg (400 unit) (Oyster Shell Calcium- Vitamin D3) 2 tabs PO DAILY 90 days capsaicin 0.035% 1 appl topical BID 4 weeks cholecalciferol (vitamin D3) 25 mcg PO DAILY 90 days escitalopram oxalate 20 mg PO DAILY [flip pillow As directed] fluticasone propionate 110 mcg/actuation 1 puff inhalation BID gabapentin 800 mg PO TID 30 days [gloves powder free synthetic As directed] Grab bar As directed guaifenesin ER (Mucinex) 600 mg PO BID 5 days ipratropium-albuterol 0.5 mg-3 mg(2.5 mg base)/3 mL 3 mL inhalation Q6H PRN 90 days [leg pillow As directed] levothyroxine 50 mcg PO DAILY 90 days lidocaine 5% 1 appl topical BEDTIME 30 days lidocaine 5% 1 patch topical DAILY PRN 30 days linaclotide (Linzess) 145 mcg PO QAM 30 days lorazepam 1 mg PO BID losartan 25 mg PO DAILY 90 days meloxicam 15 mg PO DAILY mupirocin 2% 1 appl topical BID 2 weeks nebulizers Nebulizer with tubing and accessories nystatin 1 appl topical BID 30 days omeprazole 20 mg PO DAILY 90 days ondansetron HCl 4 mg PO Q8H PRN 30 days [personal cleansing wipes As directed] [raised toilet seat As directed] [recliner As directed] [reclining chair As directed] sennosides (Senokot) 8.6 mg PO DAILY PRN Shower Chair As directed [shower head As directed] silver sulfadiazine 1% (Silvadene) 1 appl topical DAILY 7 days valacyclovir (Valtrex) 1,000 mg PO TID 7 days vaporizers As directed Tobacco use date assessed: 11/05/24 Fall risk assessment: No Falls in past year Last assessed Fall Risk: 03/11/25 Dental Screening Dental Screen Date: 11/05/24 HPI HPI Comments History of Present Illness Details The patient is a 70 year old female presenting for a preoperative evaluation for a scheduled upper eyelid blepharoplasty on day 5 of the upcoming month. EKG and labs pending for medical clearance. Denies any chest pain or shortness on breath. This is also low risk surgery with local anesthesia in a low risk patient. A review of her medications indicates a history of hypertension, for which she is prescribed losartan 25 mg; however, she did not take her dose today, which may account for her elevated blood pressure reading during the visit. Her other chronic conditions and medications include atorvastatin 20 mg for hyperlipidemia, escitalopram for depression with anxiety, gabapentin for pain, levothyroxine 50 mcg for hypothyroidism, omeprazole for acidity, senna for constipation, and an unspecified medication for nausea. She also takes lorazepam as prescribed by psychiatry and has valacyclovir for as-needed use. [facility] Medical History (Updated 03/11/25 @ 10:01 by Homa Cronin MD) Lumbar pain Urinary incontinence History of COVID-19 Candidal intertrigo Sinusitis PONV (postoperative nausea and vomiting) Shoulder pain GERD (gastroesophageal reflux disease) Coccyalgia Mild recurrent major depression Rectal bleeding History of asthma Rash Dyslipidemia Impaired glucose tolerance Fibromyalgia Arthritis Anxiety Surgical History H/O exploratory laparotomy History of eye surgery History of abdominal surgery Previous section History of carpal tunnel surgery of left wrist History of carpal tunnel surgery Family History Mother Colon cancer Hypertension Glaucoma Arthritis Father Bone cancer Social History Household Members: Children Housing: Apartment Do you presently have visiting nurse or other home services: Yes Alcohol intake: never Patient Tobacco Use Status: Never used Tobacco e-Cigarette/Vaping Use: Never Used Second Hand Smoke Exposure: No service: No Current occupational status: disabled Current occupation: Right Handed Cognitive needs: No Hearing needs: No Vision needs: Yes (glasses) Questionnaire Thrive Questionnaire Date Thrive assessed: 04/09/24 I am a: Patient What is your living situation today?: I choose not to answer this question Within the past 12 months, did the food you bought not last and you didn't have the money to get more?: I choose not to answer this question Within the past 12 months, did you worry whether your food would run out before you got money to buy more?: I choose not to answer this question Do you have trouble paying for medicines?: I choose not to answer this question Do you have trouble getting transportation to medical appointments?: I choose not to answer this question Do you have trouble paying your heating and electricity bill?: I choose not to answer this question Do you have trouble taking care of your child, family member or friend?: I choose not to answer this question Do you have trouble with day-to-day activities such as bathing, preparing meals, shopping, managing finances, etc.?: I choose not to answer this question Are you currently unemployed and looking for a job?: I choose not to answer this question Are you interested in more education?: I choose not to answer this question Currently or been in a relationship where the following occur: I choose not to answer THRIVE Score: 0 YENNIFER-7 AMB Questionnaire YENNIFER-7 Date YENNIFER - 7 assessed: 11/05/24 Source: Developed by Drs. Damián Mcgrath, Cee Butler, Wing Mattson and colleagues, with an educational vanessa from [employer]. Review of Systems Const All systems reviewed & are unremarkable except as noted in HPI and below Card Denies chest pain at rest, Denies chest pain with activity, Denies edema, Denies irregular heart rhythm, Denies claudication, Denies dyspnea, Denies dyspnea on exertion, Denies orthopnea, Denies paroxysmal nocturnal dyspnea and Denies slow heart rate Resp Denies cough, Denies dyspnea and Denies dyspnea on exertion Physical exam (Primary Care) Vital Signs: Last Vital Signs Pulse 95 03/11/25 09:41 BP 152/88 H 03/11/25 09:41 Pulse Ox 98 03/11/25 09:41 Oxygen Delivery Method Room Air 03/11/25 09:41 BMI result Body Mass Index 25.8 Tobacco/Smoking Status: Tobacco use Status Tobacco use date assessed 11/05/24 03/11/25 09:42 Patient Tobacco Use Status Never used Tobacco 03/11/25 09:42 e-Cigarette/Vaping Use Never Used 03/11/25 09:42 Thrive Assessment: Date of Thrive Assessment Date Thrive assessed 04/09/24 03/11/25 09:42 Currently or been in a relationship where the following occur: I choose not to answer Resp Effort & Inspection: normal respiratory effort Auscultation: clear to auscultation bilaterally Cardio Jugular venous distension: no JVD Rate: regular rate Rhythm: regular rhythm Heart sounds: S1 normal heart sound present and S2 normal heart sound present Extrem General: Yes full ROM Office Procedures Flu Questionnaire Does the patient have a severe egg allergy?: No Immunizations Fluarix 3870-0220 (PF) 45 mcg (15 mcg x 3)/0.5 mL IM syringe Performing Provider: Homa Cronin MD [place] [facility] [place] [facility] Documented (not given) by: SENIA Soria on 03/11/25 09:43 Reason Not Given: Patient Refused Coding Level of Care Code Est Pt Level 4 (68993) Diagnoses Pre-op evaluation Z01.818 Mild recurrent major depression F33.0 Anxiety F41.9 Essential hypertension I10 Acquired hypothyroidism E03.9 Hypothyroidism type: acquired Time Spent (min) 22 Assessment & Plan Assessment & Plan (1) Pre-op evaluation: Code(s): Z01.818 - Encounter for other preprocedural examination Category: Medical (2) Mild recurrent major depression: Code(s): F33.0 - Major depressive disorder, recurrent, mild Category: Medical (3) Anxiety: Code(s): F41.9 - Anxiety disorder, unspecified Category: Medical (4) Essential hypertension: Code(s): I10 - Essential (primary) hypertension Category: Medical (5) Hypothyroidism: Code(s): E03.9 - Hypothyroidism, unspecified Category: Medical Qualifiers: Hypothyroidism type: acquired Qualified Code(s): E03.9 - Hypothyroidism, unspecified Plan Plan 1. Preoperative Examination The patient is scheduled for an upper eyelid blepharoplasty on day 5 of the upcoming month. She will undergo preoperative workup including fasting labs and an electrocardiogram. The surgery is not expected to require general anesthesia. 2. Hypertension The patient's blood pressure was elevated, which is attributed to non-adherence with her losartan medication. A new prescription for losartan will be sent to the pharmacy for her to resume treatment. She will follow up in a few weeks for a blood pressure check. 3. Depression Continue same medications. Follow-up with psychiatry. 4. Anxiety Continue same medications and follow-up with psychiatry. 5. Hypothyroidism Will order TSH but for now continue same levothyroxine dose. Orders: Orders Vitamin B12 and Folate Today E53.8 - Deficiency of other specified B group vitamins IRON PROFILE Today D64.9 - Anemia, unspecified Comprehensive [place]. Panel Fast Today I10 - Essential (primary) hypertension Thyroid Stimulating Hormone Today E03.9 - Hypothyroidism, unspecified ECG 12 lead EKG Today Z01.818 - Encounter for other preprocedural examination Vitamin D 25-OH Total Today E55.9 - Vitamin D deficiency, unspecified Lipid Panel Today E78.5 - Hyperlipidemia, unspecified Complete Blood Count Auto Diff Today D64.9 - Anemia, unspecified Influenza 7628-1175 Immunization Today Z23 - Encounter for immunization Medications: Changed From escitalopram oxalate 20 mg PO DAILY To escitalopram oxalate 20 mg PO DAILY 90 tabs 1RF 90 days Refilled gabapentin 800 mg PO TID 90 tabs 0RF 30 days cholecalciferol (vitamin D3) 25 mcg PO DAILY 90 caps 1RF 90 days guaifenesin ER (Mucinex) 600 mg PO BID 10 tabs 0RF 5 days losartan 25 mg PO DAILY 90 tabs 0RF 90 days I10 - Essential (primary) hypertension
[2025-03-11 09:41] VITALS: BP 152/88; PULSE 95; O2SAT 98; BMI 25.8
--- OUTSIDE RECORDS SUMMARY | 2025-03-11 09:59 | XMS_ITS ---
Author Name MS. Franklyn Donahue Address [address] [place] [address] Phone [phone] [facility] Care Team Providers Care Job Placement Officer Name Role Phone Keyla Renner Unavailable [phone] Unavailable Unavailable [phone] Reason for Referral Not Available Allergies, adverse [...] TWICE A DAY 2021-08-31 No Data Available Lvgztzmy-Bfvgkulpa-Wvkwvcwj 3.5-71741-7.1 Oint APPLY 1/4 INCH ON EYELID 3 TIMES A DAY 2021-10-05 No Data Available traMADol 50 mg Tab TAKE 1 TABLET BY HONEY TH TWICE A DAY NEEDED FOR PAIN 2021-10-19 No Data Available Nystatin 098456 UNIT/GM Powder USE 1 NICOLE LICATION TOPICALLY [...] pain Hyperlipidemia Active 2022-02-21 N/A managed wi th atorvastatinrecommend low fat diet and weight loss [...] withdrawal anxiety stable on medications and with hoahaoism beliefs and amish BMI 24.0-24.9, adult Active 2022-03-21 N/A BMI [...] (do not use for phone, instead use 62793-35) [facility] [place]/20[place] Depression, unspecifiedHyperlipidemia, unspecifiedUnspecified asthma, uncomplicatedGastro-esophageal reflux disease without esophagitisNausea with vomiting, unspecifiedVitamin D deficiency, unspecifiedUnspecified osteoarthritis, unspecified site New patient,40-59min; chronic exacerbation, 2 stable chronic or 1 acute illness add add modifier 95 for video (do not use for phone, instead use 95724-14) [facility]/20[place] New patient,40-59min; chronic exacerbation, 2 stable chronic or 1 acute illness add add modifier 95 for video (do not use for phone, instead use 25343-55) [facility] [place] 02/[place]/20[place] New patient,40-59min; chronic exacerbation, 2 stable chronic or 1 acute illness add add modifier 95 for video (do not use for phone, instead use 28222-41) [facility] 02/[place]/20[place] New patient,40-59min; chronic exacerbation, 2 stable chronic or 1 acute illness add add modifier 95 for video (do not use for phone, instead use 82929-27) [facility] 02/[place]/20[place] New patient,40-59min; chronic exacerbation, 2 stable chronic or 1 acute illness add add modifier 95 for video (do not use for phone, instead use 76321-29) [facility] [place] 02/[place]/20[place] New patient,40-59min; chronic exacerbation, 2 stable chronic or 1 acute illness add add modifier 95 for video (do not use for phone, instead use 77749-01) [facility] [place] 02/[place]/20[place] New patient,40-59min; chronic exacerbation, 2 stable chronic or 1 acute illness add add modifier 95 for video (do not use for phone, instead use 18950-91) [facility] ([place]) 02/24/2022 New patient,40-59min; chronic exacerbation, 2 stable chronic or 1 acute illness add add modifier 95 for video (do not use for phone, instead use 76476-61) [facility] [place] 02/24/2022 Estab. patient 30-39min; chronic exacerbation, 2 stable chronic or 1 acute illness add add modifier 95 for video, (do not use for phone, instead use 34870-95) [facility] [place] 03[place]21/2022 Major depressive disorder, single episode, [...] (do not use for phone, instead use 53484-88) [facility] 03[place]/20[place] Estab. patient 30-39min; chronic exacerbation, 2 stable chronic or 1 acute illness add add modifier 95 for video, (do not use for phone, instead use 01837-48) [facility] [place] 03[place]21/20[place] Estab. patient 30-39min; chronic exacerbation, 2 stable chronic or 1 acute illness add add modifier 95 for video, (do not use for phone, instead use 38993-71) [facility] [place] 03[place]21/20[place] Estab. patient 30-39min; chronic exacerbation, 2 stable chronic or 1 acute illness add add modifier 95 for video, (do not use for phone, instead use 08294-85) [facility] [place] 03/21/20[place] Estab. patient 30-39min; chronic exacerbation, 2 stable chronic or 1 acute illness add add modifier 95 for video, (do not use for phone, instead use 69262-88) [facility] [place] 03/21/20[place] Estab. patient 30-39min; chronic exacerbation, 2 stable chronic or 1 acute illness add add modifier 95 for video, (do not use for phone, instead use 11599-98) [facility] [place] 03/21/2022 Estab. patient 30-39min; chronic exacerbation, 2 stable chronic or 1 acute illness add add modifier 95 for video, (do not use for phone, instead use 88659-99) [facility] ([place]) 03/21/2022 Vital Signs Date [...] tive Time Current Smoking Status Never smoker 2025-02-11 1 Sex Female History of Procedures Procedures Service Procedure code Service date Servicing provider Phone# New patient,40-59min; chronic exacerbation, 2 stable chronic or 1 acute illness add add modifier 95 for video (do not use for phone, instead use 74000-05) [id number] 2022-02-24 No Data Available No Data Availa [...] (do not use for phone, instead use 75409-04) 39005 2022-03-21 No Data Available No Data Availa [...] withdrawal anxiety stable on medications and with hoahaoism beliefs and churchBMI 24.51exercise as toleratedat times [...] Health Concerns Date Concern 2022-03-21 Visit completed brett aguilera audio/video. Today, patient has chief complaint of: follow up care and comprehensive review.Reviewed Allergies, Medications, Active Medical conditions, past medical/surgical history, Social history. 2022-03-21 ACP Conversation tod ay with: Do you have an Advance Care Plan? YesDo you have a Durable Power of [place] for Healthcare, or Healthcare Proxy? YesIf so, [...]
== END 2025-03-11 10:02 | disposition home or self-care (01) ==
LOC: HO.HMCH 09:34
PROVIDERS: PCP Internal Medicine; Visit Provider Internal Medicine
DX: Z01.818 Encounter for other preprocedural examination (principal); F33.0 Major depressive disorder, recurrent, mild; F41.9 Anxiety disorder, unspecified; I10 Essential (primary) hypertension; E03.9 Hypothyroidism, unspecified; Z23 Encounter for immunization

== ENCOUNTER → 2025-03-11 09:33 | Outpatient (BNVA) | payer OTHER, SELFPAY | PROVIDERS: PCP Internal Medicine; Visit Provider Internal Medicine | DX: Z01.818 Encounter for other preprocedural examination (principal); H02.9 Unspecified disorder of eyelid; F33.0 Major depressive disorder, recurrent, mild; F41.9 Anxiety disorder, unspecified; I10 Essential (primary) hypertension; E03.9 Hypothyroidism, unspecified; E53.8 Deficiency of other specified B group vitamins; E78.5 Hyperlipidemia, unspecified; D64.9 Anemia, unspecified; Z28.21 Immunization not carried out because of patient refusal | CPT/HCPCS: 90471; 99212 ==